=== PATIENT | female | born 2000 | race Caucasian/White ===

== ENCOUNTER → 2019-03-29 18:44 | Outpatient (BNVA) | payer SELFPAY | PROVIDERS: Visit Provider Family Medicine | DX: J10.1 Influenza due to other identified influenza virus with other respiratory manifestations (principal); R50.9 Fever, unspecified | CPT/HCPCS: 87804 ==

== ENCOUNTER 2019-04-15 09:20 | Outpatient (CLI) | payer OTHER, SELFPAY ==
--- NOTE | 2019-04-15 | XR_ITS ---
WS: [id number] LUMBAR SPINE: 3 VIEWS TECHNIQUE: AP, lateral and L5-S1 spot. HISTORY: LOW BACK PAIN COMPARISON: None available. Lumbar vertebra are normally aligned. No loss of disc space or vertebral body height. SI joints are symmetric bilaterally. No soft tissue abnormalities. XR/XR lumbar spine 2-3V* [id number] IMPRESSION: Normal lumbar spine.
== END 2019-04-15 09:21 | disposition home or self-care (01) ==
LOC: RADOUTREAD 11:30
PROVIDERS: Visit Provider Nurse Practitioner
DX: Z76.89 Persons encountering health services in other specified circumstances (principal)

== ENCOUNTER → 2019-08-20 11:29 | Outpatient (BNVA) | payer SELFPAY | PROVIDERS: Visit Provider Nurse Practitioner | DX: S96.911A Strain of unspecified muscle and tendon at ankle and foot level, right foot, initial encounter (principal); X58.XXXA Exposure to other specified factors, initial encounter | CPT/HCPCS: 73630 ==

== ENCOUNTER 2019-09-10 14:10 | Emergency (ER) | payer SELFPAY ==
[2019-09-10 14:17] VITALS: BP 137/81; PULSE 84; RESP 16; TEMP 36.7; O2SAT 97; BMI 38.2
--- NOTE | 2019-09-10 15:46 | ED_ITS ---
HPI - Abdominal Pain General: Chief Complaint: Abdominal Pain Stated Complaint: abd pain Time Seen by Provider: 09/10/19 15:40 Source: patient History of Present Illness: HPI narrative: 19-year-old female complains of lower abdominal pain slightly to the right of midline that started a couple of hours ago. She states that sharp 6 out of 10 and she thinks is related to not having a bowel movement for a week. She states she has been constipated in the past and taken MiraLAX and that has solved the issue she has been taking MiraLAX daily for the last week with no improvement of the constipation. Denies any dysuria. Only abdominal surgery is history of gallbladder approximately a year and a half ago. She denies any changes in her diet or being on any pain medications or new meds that would cause her constipation. Nothing makes the pain better or worse Associated Symptoms: Reports change in bowel habits; Denies chills, fever(s), nausea and vomiting Review of Systems General: Reports: 10 or more systems reviewed and unremarkable except in HPI and below Const: Denies: fever(s) or chills Eyes: Denies: change in vision ENMT: Denies: throat pain Card: Denies: chest pain Resp: Denies: dyspnea GI: Reports: abdominal pain and change in bowel habits; Denies: nausea or vomiting : Denies: difficulty voiding Musc: Denies: muscle weakness Skin/Breast: Denies: rash Neuro: Denies: headache(s) Psych: Denies: hopelessness or suicidal ideation Endo: Denies: polyuria Jamal/Lymph: Denies: easy bruising or easy bleeding All/Imm: Denies: urticaria PFS ED PFSH: Social History Smoking and tobacco status: never smoked Alcohol intake: never Physical Exam Const: COMMON NORMALS: no acute distress, patient oriented x3, alert and well nourished HENMT: COMMON NORMALS: normocephalic and Normal external nose present HEAD & SCALP: normocephalic NOSE: Normal external nose present MOUTH: no trismus Eye: COMMON NORMALS: EOMs intact bilaterally and conjunctivae normal CONJUNCTIVA: Yes conjunctivae normal Neck/C-Spine: COMMON NORMALS: full ROM, no lymphadenopathy and supple CERVICAL SPINE: Yes cervical ROM normal Lymph: LYMPHATIC: no lymphadenopathy noted Resp: COMMON NORMALS: normal respiratory effort, No retractions, No use of accessory muscles and clear to auscultation bilaterally EFFORT & INSPECTION: Yes able to speak in complete sentences AUSCULTATION: clear to auscultation bilaterally Cardio: COMMON NORMALS: regular rate and regular rhythm RATE: regular rate RHYTHM: regular rhythm GI: COMMON NORMALS: Normal to inspection, nondistended, normoactive bowel sounds present, Soft to palpation, non-tender and no masses INSPECTION: Yes normal to inspection AUSCULTATION: Yes normoactive bowel sounds PALPATION: Yes Soft to palpation, No Guarding due to palpation present (GI) and No Rigid due to palpation Back/Pelvis: OTHER: Normal range of motion Extremity: GENERAL: Yes normal exam except as noted Neuro: COMMON NORMALS: patient oriented x3 and CN's II-XII intact bilaterally SENSORIUM/ORIENTATION: Yes alert SPEECH: speech normal Psych: COMMON NORMALS: mental status grossly normal Skin: COMMON NORMALS: no rashes or lesions noted GENERAL SKIN EXAM: no rashes or lesions noted Course Vital Signs: Vital signs: Vital Signs Temperature 98.0 F 09/10/19 14:17 Pulse Rate 89 09/10/19 17:30 Respiratory Rate 16 09/10/19 16:27 Blood Pressure 137/93 09/10/19 17:30 Pulse Oximetry 99 09/10/19 17:30 MDM - Abdominal Pain MDM Narrative: Medical decision making narrative: Labs within normal limits. Normal bowel sounds soft does not have a surgical abdomen. Chief complaint was no bowel movement for a week despite using MiraLAX. Will send home with mag citrate has been is here now explained this to both of them and then after this resolves she needs to increase her water intake as well. I also explained that giving her pain medicine will not help it will actually prolong her course since her pain is coming from retained stool and trapped gas in her bowel. Lab Data: Attestation: I reviewed the patient's lab results. Labs: Lab Results 09/10/19 09/10/19 09/10/19 Range/Units 15:55 15:55 15:55 WBC 10.6 (4.5-13.0) 10^3/ uL RBC 4.92 (4.1-5.3) 10^6/u L Hgb 13.2 (11.5-15.3) g/dL Hct 42.8 (37.0-47.0) % MCV 87.0 (81-99) fL MCH 26.8 L (28.0-34.0) pg MCHC 30.8 (30.0-36.0) g/dL RDW 13.7 (12.1-15.1) % Plt Count 399 (130-400) 10^3/c mm MPV 10.2 (7.4-10.4) fL Neut % (Auto) 67.8 % Lymph % (Auto) 21.9 % [place] % (Auto) 7.0 % Eos % (Auto) 2.3 % Baso % (Auto) 0.8 % Neut # (Auto) 7.22 (1.8-8.0) 10^3/u L Lymph # (Auto) 2.3 (1.5-6.5) 10^3/u L [place] # (Auto) 0.8 (0.2-0.9) 10^3/u L Eos # (Auto) 0.2 (0.0-0.8) 10^3/u L Baso # (Auto) 0.1 (0.0-0.1) 10^3/u L Nucleated RBC % (a uto) 0 % Nucleated RBCs # 0.0 /100WBC Sodium 142 (136-145) mmol/L Potassium 5.2 H (3.5-5.1) mmol/L Chloride 105 (98-107) mmol/L Carbon Dioxide 24 (22-29) mmol/L Anion Gap 18.2 (5-19) BUN 15 (6-20) mg/dL Creatinine 0.7 (0.5-0.9) mg/dL GFR Calculation 106.7 (90-130) mL/min Glucose 99 (65-115) mg/dL Calculated Osmolal ity 290 (285-295) mOsm/k g Calcium 9.8 (8.5-10.5) mg/dL Total Bilirubin 0.2 (0.15-1.2) mg/dL AST 13 (0-32) U/L ALT 11 (0-33) U/L Alkaline Phosphata se 105 (35-105) IU/L Total Protein 8.2 (6.6-8.7) g/dL Albumin 4.7 (3.5-5.2) g/dL Globulin 3.5 (1.3-4.6) g/dL HCG, Qual Negative (Negative) Urine Color (Yellow) Urine Appearance (CLEAR) Urine pH (5-7) Ur Specific Gravit y (1.005-1.030) Urine Protein (Negative) Urine Glucose (UA) (Normal) Urine Ketones (Negative) Urine Blood (Negative) Urine Nitrate (Negative) Urine Bilirubin (NEGATIVE) Urine Urobilinogen (Negative) mg/dL Ur Leukocyte [place] (Negative) 09/10/19 Range/Units 16:09 WBC (4.5-13.0) 10^3/ uL RBC (4.1-5.3) 10^6/u L Hgb (11.5-15.3) g/dL Hct (37.0-47.0) % MCV (81-99) fL MCH (28.0-34.0) pg MCHC (30.0-36.0) g/dL RDW (12.1-15.1) % Plt Count (130-400) 10^3/c mm MPV (7.4-10.4) fL Neut % (Auto) % Lymph % (Auto) % [place] % (Auto) % Eos % (Auto) % Baso % (Auto) % Neut # (Auto) (1.8-8.0) 10^3/u L Lymph # (Auto) (1.5-6.5) 10^3/u L [place] # (Auto) (0.2-0.9) 10^3/u L Eos # (Auto) (0.0-0.8) 10^3/u L Baso # (Auto) (0.0-0.1) 10^3/u L Nucleated RBC % (a uto) % Nucleated RBCs # /100WBC Sodium (136-145) mmol/L Potassium (3.5-5.1) mmol/L Chloride (98-107) mmol/L Carbon Dioxide (22-29) mmol/L Anion Gap (5-19) BUN (6-20) mg/dL Creatinine (0.5-0.9) mg/dL GFR Calculation (90-130) mL/min Glucose (65-115) mg/dL Calculated Osmolal ity (285-295) mOsm/k g Calcium (8.5-10.5) mg/dL Total Bilirubin (0.15-1.2) mg/dL AST (0-32) U/L ALT (0-33) U/L Alkaline Phosphata se (35-105) IU/L Total Protein (6.6-8.7) g/dL Albumin (3.5-5.2) g/dL Globulin (1.3-4.6) g/dL HCG, Qual (Negative) Urine Color Yellow (Yellow) Urine Appearance Clear (CLEAR) Urine pH 6.5 (5-7) Ur Specific Gravit y 1.020 (1.005-1.030) Urine Protein Neg (Negative) Urine Glucose (UA) Norm (Normal) Urine Ketones Negative (Negative) Urine Blood Neg (Negative) Urine Nitrate Negative (Negative) Urine Bilirubin Neg (NEGATIVE) Urine Urobilinogen Neg (Negative) mg/dL Ur Leukocyte [place] Negative (Negative) Imaging Data ^: KUB: My impression: moderate retained stool Radiologist's impression: [address] [place] [address] XRay Report Signed Patient: Lolly Fallon #: [id number] : 2000Acct#:[id number] Age/Sex: M Date: 09/10/19 Loc: ERRoom/Bed: Attending Dr: Ordering Provider/Ordering MD: Bebe Hollingsworth MD Date of Service: 09/10/19 Procedure(s): XR KUB portable [id number] Accession Number(s): [id number] Report Number: [id number] PROCEDURE INFORMATION: Exam: XR Abdomen, 1 View Exam date and time: 09/10/2019 4:00 PM Age: 19 years old Clinical indication: Constipation; Abdominal pain; Generalized; Additional info: Abd pain, constipation TECHNIQUE: Imaging protocol: XR of the abdomen. Views: Frontal supine view of the abdomen. 1 View. COMPARISON: CT abdomen pelvis w con* [id number] 11/24/2018 1:11 PM FINDINGS: Gastrointestinal tract: Normal. No bowel dilation. Bones/joints: Unremarkable. XR/XR KUB portable [id number] IMPRESSION: No acute findings. Dictated By:Devonte Louis Signed By:Louis,NormanSigned Date/Time:09/10/191627 DD/ 26 Discharge Plan Discharge Patient Disposition: Home, Self-Care Clinical Impression: Abdominal pain Qualifiers: Abdominal location: lower abdomen, unspecified Qualified Code(s): R10.30 - Lower abdominal pain, unspecified Constipation Qualifiers: Constipation type: unspecified constipation type Qualified Code(s): K59.00 - Constipation, unspecified Condition: Stable Prescriptions: No Action No Known Home Medications RF: 0 Patient Instructions: Constipation (ED), Abdominal Pain (ED) Activity Restrictions/Additional Instructions: Drink entire bottle of magnesium citrate when you get home. After this episode resolves be sure to increase your water intake as well as your fiber intake and no you are using the MiraLAX but it will be important to eat fiber which you can get from vegetables and or an [id number] powdered product but you must increase the water intake with fiber products as well. Discharge Date/Time: 09/10/19 18:08 Coding Level of Care Code ED Customer Service Coordinator for Zuleyma Fwd Exam Comprehensive
--- NOTE | 2019-09-10 15:59 | XRR_ITS ---
PROCEDURE INFORMATION: Exam: XR Abdomen, 1 View Exam date and time: 09/10/2019 4:00 PM Age: 19 years old Clinical indication: Constipation; Abdominal pain; Generalized; Additional info: Abd pain, constipation TECHNIQUE: Imaging protocol: XR of the abdomen. Views: Frontal supine view of the abdomen. 1 View. COMPARISON: CT abdomen pelvis w con* [id number] 11/24/2018 1:11 PM FINDINGS: Gastrointestinal tract: Normal. No bowel dilation. Bones/joints: Unremarkable. XR/XR KUB portable [id number] IMPRESSION: No acute findings.
[2019-09-10 16:01] LABS: Basophils # 0.1 10^3/uL (0.0-0.1); Basophils % 0.8 %; Eosinophils # 0.2 10^3/uL (0.0-0.8); Eosinophils % 2.3 %; Hematocrit 42.8 % (37.0-47.0); Hemoglobin 13.2 g/dL (11.5-15.3); Lymphocytes # 2.3 10^3/uL (1.5-6.5); Lymphocytes % 21.9 %; Mean Corpuscular HGB Conc 30.8 g/dL (30.0-36.0); Mean Corpuscular Hemoglobin 26.8 pg (28.0-34.0); Mean Platelet Volume 10.2 fL (7.4-10.4); Monocytes # 0.8 10^3/uL (0.2-0.9); Neutrophils # 7.22 10^3/uL (1.8-8.0); Neutrophils % 67.8 %; Nucleated Red Blood Cells % 0 %; Platelet Count 399 10^3/cmm (130-400); Red Blood Count 4.92 10^6/uL (4.1-5.3); Red Cell Distribution Width 13.7 % (12.1-15.1); White Blood Count 10.6 10^3/uL (4.5-13.0)
[2019-09-10 16:16] LABS: Add Urine Microscopic? NO
[2019-09-10 16:18] LABS: Alanine Aminotransferase 11 U/L (0-33); Albumin Level 4.7 g/dL (3.5-5.2); Alkaline Phosphatase 105 IU/L (35-105); Anion Gap 18.2 (5-19); Aspartate Amino Transferase 13 U/L (0-32); Blood Urea Nitrogen 15 mg/dL (6-20); Calcium 9.8 mg/dL (8.5-10.5); Carbon Dioxide 24 mmol/L (22-29); Chloride 105 mmol/L (98-107); Globulin 3.5 g/dL (1.3-4.6); Glomerular Filtration Rate 106.7 mL/min (90-130); Glucose 99 mg/dL (65-115); Osmolality Calculated 290 mOsm/kg (285-295); Potassium 5.2 mmol/L (3.5-5.1); Sodium 142 mmol/L (136-145); Total Bilirubin 0.2 mg/dL (0.15-1.2); Total Protein 8.2 g/dL (6.6-8.7)
[2019-09-10 16:27] VITALS: BP 127/56; PULSE 66; RESP 16; O2SAT 99
[2019-09-10 16:37] LABS: Bilirubin Urine Neg (NEGATIVE); Blood Urine Neg (Negative); Glucose Urine UA Norm (Normal); Ketones Urine Negative (Negative); Leukocyte Esterase Urine Negative (Negative); Nitrate Urine Negative (Negative); Protein Urine Neg (Negative); Urine Appearance Clear (CLEAR); Urine Color Yellow (Yellow); Urobilinogen Urine Neg (Negative); pH Urine 6.5 (5-7)
[2019-09-10 16:42] LABS: HCG, Serum Qual Negative (Negative)
[2019-09-10 16:46] VITALS: BP 144/68; PULSE 81; O2SAT 99
[2019-09-10 17:30] VITALS: BP 137/93; PULSE 89; O2SAT 99
[2019-09-10] MEDS: magnesium citrate Btl 296 mL PO (18:05)
== END 2019-09-10 18:08 | disposition home or self-care (01) ==
PROVIDERS: Physician Assistant; Emergency Provider Emergency Medicine
DX: K59.00 Constipation, unspecified (principal)
CPT/HCPCS: 12345; 36415; 74018; 80053; 81003; 84703; 85025; 99282; 99283

== ENCOUNTER → 2019-09-21 18:28 | Outpatient (BNVA) | payer SELFPAY | PROVIDERS: Visit Provider Nurse Practitioner Family | DX: N39.0 Urinary tract infection, site not specified (principal); R10.31 Right lower quadrant pain; Z71.89 Other specified counseling | CPT/HCPCS: 81000; 81025 ==

== ENCOUNTER 2020-02-19 18:51 | Emergency (ER) | payer MEDICAID, SELFPAY ==
[2020-02-19 19:11] VITALS: BP 127/82; PULSE 88; RESP 18; TEMP 36.5; O2SAT 97; BMI 38.7
--- NOTE | 2020-02-19 20:59 | ED_ITS ---
HPI - Back Pain/Injury General: Chief Complaint: Back Pain/Injury Stated Complaint: 16wks preg. cramping Time Seen by Provider: 02/19/20 19:06 History of Present Illness: HPI Narrative: Patient complains about pain right side back rating down the right hip with movement sitting up. Denies any known injury but has had problems with her back through other pregnancies does have chronic back pain at times. MD elicited complaint: back pain Pertinent past history: prior back pain Onset (ago): hour(s) Timing: constant Severity: mild Similar Symptoms Previously: Yes Quality: aching Location: lumbar spine and right flank Radiation: buttocks and right upper leg Exacerbating factors: movement, sitting upright and walking Relieving factors: supine Associated symptoms: Reports no associated symptoms; Deny abdominal pain, chills, fever(s), nausea or vomiting Review of Systems Narrative: Denies any vaginal discharge cramping bleeding or difficulty with urination. Const: Denies: fever(s), chills or body aches Eyes: Denies: change in vision or blurry vision ENMT: Denies: throat pain or nasal congestion Card: Denies: chest pain or dyspnea on exertion Resp: Denies: dyspnea, productive cough or non-productive cough GI: Denies: abdominal pain, nausea or vomiting Musc: Reports: back pain; Denies: extremity pain Skin/Breast: Denies: rash Neuro: Denies: headache(s) Psych: Denies: anxiety or depression Jamal/Lymph: Denies: easy bruising PFS ED PFSH: Medical History (Updated 09/21/19 @ 18:30 by NESTOR Mueller) Right lower quadrant pain Urinary tract infection Social History Smoking and tobacco status: never smoked Alcohol intake: never Female Reproductive History: Date of last menstrual period: 11/03/19 Physical Exam Const: COMMON NORMALS: no acute distress, average body habitus and patient oriented x3 HENMT: COMMON NORMALS: normocephalic HEAD & SCALP: normal to inspection and normocephalic FACE & SINUS: normal facial exam Eye: COMMON NORMALS: conjunctivae normal GENERAL EYE: appearance normal, both eyes and all related structures CONJUNCTIVA: Yes conjunctivae normal Neck/C-Spine: COMMON NORMALS: no JVD Chest: COMMONS NORMALS: normal inspection of the chest Resp: COMMON NORMALS: normal respiratory effort and clear to auscultation bilaterally AUSCULTATION: clear to auscultation bilaterally Cardio: COMMON NORMALS: no JVD, regular rate and regular rhythm RATE: regular rate RHYTHM: regular rhythm GI: COMMON NORMALS: Normal to inspection, nondistended, normoactive bowel sounds present Back/Pelvis: LUMBAR SPINE/LOWER BACK: Yes straight leg raise positive right and Yes straight leg raise positive left Extremity: COMMON NORMALS: normal to inspection and full ROM Neuro: COMMON NORMALS: patient oriented x3 Course Vital Signs: Vital signs: Vital Signs Temperature 97.7 F 02/19/20 19:11 Pulse Rate 88 02/19/20 19:11 Respiratory Rate 18 02/19/20 19:11 Blood Pressure 127/82 02/19/20 19:11 Pulse Oximetry 97 02/19/20 19:11 MDM - Back Pain/Injury Lab Data: Labs: Lab Results 02/19/20 Range/Units 19:15 Amorphous Sediment Not Reportable Discharge Plan Discharge Prescriptions: No Action sulfamethoxazole-trimethoprim [Bactrim DS] 800-160 mg tablet 1 tab PO BID 5 Days Qty: 10 RF: 0 Coding Level of Care Code ED Tactical [employer] Control Party Manager for 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
[2020-02-19 21:22] LABS: Blood Urine Neg (Negative); Glucose Urine UA Norm (Normal); Ketones Urine 2+ (Negative); Protein Urine Neg (Negative); Specific Gravity, Urine 1.025 (1.005-1.030); Urine Appearance Hazy (CLEAR); Urine Color Yellow (Yellow); pH Urine 5 (5-7)
[2020-02-19 21:23] LABS: Bilirubin Urine Neg (Negative); Leukocyte Esterase Urine 1+ (Negative); Nitrate Urine Positive (Negative); Urobilinogen Urine 1 mg/dL (Negative)
[2020-02-19 21:25] LABS: Add Urine Culture? No; Bacteria Urine 4+ /hpf; RBC Urine 0-4 /hpf (0-2); Squamous Epithelial Cell Urine 40-55 /hpf (0-5); WBC Urine 15-25 /hpf (0-5)
[2020-02-19] MEDS: predniSONE 10 mg Tablet PO (21:37)
[2020-02-19] MEDS: nitrofurantoin SR (BID) 100 mg Capsule PO (21:37)
[2020-02-19 21:43] VITALS: BP 122/77; PULSE 80; RESP 18; O2SAT 100
== END 2020-02-19 21:44 | disposition home or self-care (01) ==
PROVIDERS: Emergency Medicine; Emergency Provider Nurse Practitioner Family
DX: O26.892 Other specified pregnancy related conditions, second trimester (principal); M54.9 Dorsalgia, unspecified; Z3A.16 16 weeks gestation of pregnancy
CPT/HCPCS: 12345; 81001; 99281; 99283; J7512

== ENCOUNTER 2020-03-09 10:55 | Emergency (ER) | payer MEDICAID, SELFPAY ==
[2020-03-09 11:02] VITALS: BP 145/68; PULSE 98; RESP 16; TEMP 36.6; O2SAT 99; BMI 37.2
[2020-03-09 11:06] VITALS: BP 145/68; PULSE 89; RESP 18; O2SAT 95
--- NOTE | 2020-03-09 11:06 | XRR_ITS ---
PROCEDURE INFORMATION: Exam: XR Chest, 1 View Exam date and time: 03/09/2020 11:12 AM Age: 19 years old Clinical indication: Dyspnea and shortness of breath; Patient HX: PT unable to take jewelry out of chest TECHNIQUE: Imaging protocol: XR of the chest Views: 1 view. COMPARISON: CR Chest 1 [place] [id number] 07/16/2018 4:56 AM FINDINGS: Lungs: Unremarkable. No consolidation. Pleural space: Unremarkable. No pleural effusion. No pneumothorax. Heart/Mediastinum: Unremarkable. No cardiomegaly. Bones/joints: Unremarkable. XR/XR chest 1V portable [id number] IMPRESSION: No acute findings.
--- NOTE | 2020-03-09 11:11 | ECG_ITS ---
[facility] Test Date: 2020-03-09 Pat Name: Lolly Fallon Department: Room: Gender: Female Escapement Maker: : 2000 Requested By: Gregor Salomon Order Number: [id number] Garth MD: Iman English M.D. Measurements Intervals [place] Rate: 88 P: 41 IN: 151 QRS: 58 QRSD: 86 T: 20 QT: 346 QTc: 420 Interpretive Statements SINUS RHYTHM WITH SINUS ARRHYTHMIA Compared to ECG 10/03/2017 18:02:36 Sinus tachycardia no longer present T-wave abnormality no longer present Electronically Signed On 03-09-2020 20:05:57 FOREST TECHNICIAN by Iman English M.D. [email or web address]
--- NOTE | 2020-03-09 11:12 | ED_ITS ---
HPI - SOB/Dyspnea General: Chief Complaint: Shortness of Breath/Dyspnea Stated Complaint: , DIZZINESS, SOB Time Seen by Provider: 03/09/20 10:59 History of Present Illness: HPI Narrative: The patient is a 21-year-old G3, P2 at 18 weeks and 2 days who comes to the ER complaining of dizziness and shortness of breath. She says the shortness of breath started this morning but she has been dizzy since the day she found out she was and had a sim ilar dizziness symptoms during her last 2 pregnancies. She says she has not been eating and drinking well during this and has to force herself to eat like she did this morning. She was worried about the shortness of breath so she came to the ER. Her blood pressure is elevated at 145/68 in the ER on arrival and she says she has had elevated pressures with all pregnancies. She has not taken blood pressure medicine in the past and she says her initial OB appointment somewhere in [place] told her to take a baby aspirin daily for her blood pressure. She says that OBs here in [place] will not see her until she is 20 weeks. Denies abdominal pain cramping or vaginal discharge MD elicited complaint: shortness of breath Severity: mild Relieving factors: nothing Associated symptoms: Deny abdominal pain, chest pain, cough, dizziness, ext remity pain, myalgias, nausea, polyuria or vomiting Treatment prior to arrival: none Review of Systems General: Reports: 10 or more systems reviewed and unremarkable except in HPI and below Const: Denies: fatigue Eyes: Denies: change in vision, blurry vision or eye redness ENMT: Denies: throat pain, swelling of lips/tongue, ear or mastoid pain or nasal congestion Card: Denies: chest pain Resp: Reports: dyspnea; Denies: productive cough or non-productive cough GI: Denies: abdominal pain, nausea or vomiting : Denies: flank pain, difficulty voiding, urinary frequency or urinary urgency Musc: Denies: neck pain, back pain, extremity pain, joint pain, joint redness, limited range of motion or muscle weakness Skin/Breast: Denies: rash, pruritus, erythema, skin pain or skin tenderness Neuro: Denies: headache(s), numbness in extremities, weakness in extremities, sensory changes, difficulty walking, dizziness, confusion or Slurred speech present Psych: Denies: anxiety or depression Endo: Denies: polyuria All/Imm: Denies: urticaria, throat swelling or tongue swelling PFSH ED PFSH: Medical History (Updated 03/09/20 @ 13:27 by Gregor Salomon MD) Right lower quadrant pain Urinary tract infection Social History Smoking and tobacco status: never smoked Alcohol intake: never Female Reproductive History: Date of last menstrual period: 11/03/19 Physical Exam 2 Const: COMMON NORMALS: no acute distress, average body habitus, patient oriented x3, no limitations, healthy appearing, alert and well nourished GENERAL APPEARANCE: cooperative, comfortable, well kempt and well developed ORIENTATION/CONSCIOUSNESS: Yes awake, Yes oriented to person, Yes oriented to place and Yes oriented to time HENMT: COMMON NORMALS: normocephalic, external ears normal and Normal external nose present HEAD & SCALP: normal to inspection and normocephalic NOSE: Normal external nose present EXTERNAL EAR: Yes external ears normal MOUTH: Normal oral and palatal mucosa present THROAT: posterior oropharynx normal Eye: COMMON NORMALS: Equal, round and reactive pupils present and EOMs intact bilaterally GENERAL EYE: appearance normal, both eyes and all related structures PUPIL: Yes Equal, round and reactive pupils present Neck/C-Spine: COMMON NORMALS: full ROM, no lymphadenopathy, no meningeal signs and no JVD GENERAL: Yes normal visual inspection Lymph: LYMPHATIC: no lymphadenopathy noted Chest: COMMONS NORMALS: normal inspection of the chest and normal palpation of entire chest wall Resp: COMMON NORMALS: normal respiratory effort, No retractions, No use of accessory muscles, clear to auscultation bilaterally and percussion normal EFFORT & INSPECTION: Yes able to speak in complete sentences AUSCULTATION: clear to auscultation bilaterally PERCUSSION: percussion normal Cardio: COMMON NORMALS: no JVD, regular rate, regular rhythm, S1 normal heart sound present, S2 normal heart sound present and Peripheral pulses 2+ throughout RATE: regular rate RHYTHM: regular rhythm HEART SOUNDS: S1 normal heart sound present and S2 normal heart sound present PERIPHERAL PULSES: Peripheral pulses 2+ throughout GI: COMMON NORMALS: Normal to inspection, nondistended, normoactive bowel sounds present, Soft to palpation, non-tender and no masses INSPECTION: Yes normal to inspection PALPATION: Yes Soft to palpation OTHER: Fundal height is 2 cm below the umbilicus consistent with her gestational age of 18 weeks : COMMON NORMALS: Yes no CVA tenderness BLADDER/KIDNEY EXAM: Yes no CVA tenderness Back/Pelvis: COMMON NORMALS: no CVA tenderness, thoracic and lumbar spine normal to inspection, no thoracic nor lumbar tenderness and thoraco-lumbar ROM normal Extremity: COMMON NORMALS: normal to inspection, full ROM, capillary refill normal, no joint enlargement and no pedal edema GENERAL: Yes normal exam e xcept as noted Neuro: COMMON NORMALS: patient oriented x3, CN's II-XII intact bilaterally, moves all extremities, no focal motor deficits, no sensory deficits noted and gait normal SENSORIUM/ORIENTATION: Yes alert, Yes oriented to person, Yes oriented to place and Yes oriented to time MENINGEAL SIGNS: Yes no meningeal signs Psych: COMMON NORMALS: mental status grossly normal, Normal thought process present, cooperative, normal affect and speech normal APPEARANCE: Yes well kempt ATTITUDE: Yes calm SPEECH: Yes normal speech THOUGHT PROCESS: Normal thought process present Skin: COMMON NORMALS: no rashes or lesions noted GENERAL SKIN EXAM: no rashes or lesions noted Course Vital Signs: Vital signs: Vital Signs Temperature 97.8 F 03/09/20 11:02 Pulse Rate 84 03/09/20 13:00 Respiratory Rate 18 03/09/20 13:00 Blood Pressure 119/80 03/09/20 13:00 Pulse Oximetry 100 03/09/20 13:00 MDM - SOB/Dyspnea MDM Narrative: Medical decision making narrative: The patient came in with dyspnea and dizziness likely related to . I discussed with Dr. Ruelas who will see her tomorrow at 2:30 [address] at [address] The patient is aware and knows to check in at that time. Return to the ER with worsening symptoms otherwise follow-up with OB tomorrow. Lab Data: Labs: Lab Results 03/09/20 03/09/20 03/09/20 Range/Units 11:26 11:26 11:37 WBC 9.2 (4.5-13.0) 10^3/ uL RBC 4.15 (4.1-5.3) 10^6/u L Hgb 11.8 (11.5-15.3) g/dL Hct 35.3 L (37.0-47.0) % MCV 85.1 (81-99) fL MCH 28.4 (28.0-34.0) pg MCHC 33.4 (30.0-36.0) g/dL RDW 14.8 (12.1-15.1) % Plt Count 316 (130-400) 10^3/c mm MPV 10.2 (7.4-10.4) fL Neut % (Auto) 78.3 % Lymph % (Auto) 13.6 % Stearns % (Auto) 5.8 % Eos % (Auto) 1.7 % Baso % (Auto) 0.3 % Neut # (Auto) 7.21 (1.8-8.0) 10^3/u L Lymph # (Auto) 1.3 L (1.5-6.5) 10^3/u L Stearns # (Auto) 0.5 (0.2-0.9) 10^3/u L Eos # (Auto) 0.2 (0.0-0.8) 10^3/u L Baso # (Auto) 0.0 (0.0-0.1) 10^3/u L Nucleated RBC % (a uto) 0 % Nucleated RBCs # 0.0 /100WBC Sodium 135 L (136-145) mmol/L Potassium 3.8 (3.5-5.1) mmol/L Chloride 101 (98-107) mmol/L Carbon Dioxide 23 (22-29) mmol/L Anion Gap 14.8 (5-19) BUN 6 (6-20) mg/dL Creatinine 0.4 L (0.5-0.9) mg/dL GFR Calculation 203.5 H (90-130) mL/min Glucose 92 (65-115) mg/dL Calculated Osmolal ity 277 L (285-295) mOsm/k g Calcium 9.4 (8.5-10.5) mg/dL Total Bilirubin 0.3 (0.15-1.2) mg/dL AST 12 (0-32) U/L ALT 10 (0-33) U/L Alkaline Phosphata se 108 H (35-105) IU/L Total Protein 7.1 (6.6-8.7) g/dL Albumin 3.7 (3.5-5.2) g/dL Globulin 3.4 (1.3-4.6) g/dL Urine Color Yellow (Yellow) Urine Appearance Sl hazy (CLEAR) Urine pH 5 (5-7) Ur Specific Gravit y 1.030 (1.005-1.030) Urine Protein Neg (Negative) Urine Glucose (UA) Norm (Normal) Urine Ketones 1+ H (Negative) Urine Blood Neg (Negative) Urine Nitrate Positive H (Negative) Urine Bilirubin 1+ H (Negative) Urine Urobilinogen 4 H (Negative) mg/dL Ur Leukocyte [place] Trace H (Negative) Urine RBC 0-4 H (0-2) /hpf Urine WBC 10-15 H (0-5) /hpf Ur Squamous Epith Cells 10-15 H (0-5) /hpf Amorphous Sediment Not Reportable Urine Bacteria 4+ H (NONE) /hpf Discharge Plan Discharge Patient Disposition: Home Clinical Impression: Dyspnea, , Urinary tract infection, Elevated blood pressure affecting in first trimester, antepartum Condition: Stable Prescriptions: New Macrobid 100 mg capsule 100 mg PO BID 5 Days Qty: 10 RF: 0 No Action Aspir-81 81 mg Tablet,Delayed Release (Dr/Ec) 81 mg PO DAILY@08 RF: 0 Gummies 400 mcg-35 mg- 25 mg-5 mg Tablet,Chewable 1 tab PO BID RF: 0 Discharge Orders: Discharge ED (Routine); Ordered 03/09/20 Ordered By: Grgeor Salomon Discharge Diet: Advance as tolerated Discharge Activity: Resume usual activity Patient Instructions: Pre-eclampsia and Eclampsia (ED) Activity Restrictions/Additional Instructions: You came in with shortness of breath and dizziness because of which is unclear however likely related to your . The testing we have ran is normal except you do have a urinary tract infection and will be discharged with an antibiotic named Macrobid. I discussed you with Dr. Ruelas and she is available to see you tomorrow at 2:30 PM. [facility]. Address is [address] [place] [address]. she recommend you show up and check in at 2:30 PM tomorrow. You may return to the ER with worsening symptoms if needed at any time otherwise follow-up tomorrow with the OB. Coding Level of Care Code ED Molding Engineer for Chg Fwd Exam Comprehensive
[2020-03-09] MEDS: ondansetron 2 mg/ML SDV 2 mL 4 MG IVP (11:34)
[2020-03-09] MEDS: sodium chloride 0.9% 1,000 ML 999 ML IV (11:34)
[2020-03-09 11:36] VITALS: BP 145/68; PULSE 86; RESP 18; O2SAT 98
[2020-03-09 11:36] LABS: Basophils % 0.3 %; Eosinophils # 0.2 10^3/uL (0.0-0.8); Eosinophils % 1.7 %; Hematocrit 35.3 % (37.0-47.0); Hemoglobin 11.8 g/dL (11.5-15.3); Lymphocytes # 1.3 10^3/uL (1.5-6.5); Lymphocytes % 13.6 %; Mean Corpuscular HGB Conc 33.4 g/dL (30.0-36.0); Mean Corpuscular Hemoglobin 28.4 pg (28.0-34.0); Mean Corpuscular Volume 85.1 fL (81-99); Mean Platelet Volume 10.2 fL (7.4-10.4); Monocytes # 0.5 10^3/uL (0.2-0.9); Monocytes % 5.8 %; Neutrophils # 7.21 10^3/uL (1.8-8.0); Neutrophils % 78.3 %; Nucleated Red Blood Cells % 0 %; Platelet Count 316 10^3/cmm (130-400); Red Blood Count 4.15 10^6/uL (4.1-5.3); Red Cell Distribution Width 14.8 % (12.1-15.1); White Blood Count 9.2 10^3/uL (4.5-13.0)
[2020-03-09 11:52] LABS: Glucose Urine UA Norm (Normal); Protein Urine Neg (Negative); Urine Appearance SL Hazy (CLEAR); Urine Color Yellow (Yellow); pH Urine 5 (5-7)
[2020-03-09 11:53] LABS: Add Urine Culture? No; Add Urine Microscopic? YES; Bacteria Urine 4+ /hpf; Bilirubin Urine 1+ (Negative); Blood Urine Neg (Negative); Ketones Urine 1+ (Negative); Leukocyte Esterase Urine Trace (Negative); Nitrate Urine Positive (Negative); RBC Urine 0-4 /hpf (0-2); Urobilinogen Urine 4 mg/dL (Negative)
[2020-03-09 12:11] LABS: Alanine Aminotransferase 10 U/L (0-33); Albumin Level 3.7 g/dL (3.5-5.2); Alkaline Phosphatase 108 IU/L (35-105); Anion Gap 14.8 (5-19); Aspartate Amino Transferase 12 U/L (0-32); Blood Urea Nitrogen 6 mg/dL (6-20); Calcium 9.4 mg/dL (8.5-10.5); Carbon Dioxide 23 mmol/L (22-29); Chloride 101 mmol/L (98-107); Globulin 3.4 g/dL (1.3-4.6); Glomerular Filtration Rate 203.5 mL/min (90-130); Glucose 92 mg/dL (65-115); Osmolality Calculated 277 mOsm/kg (285-295); Potassium 3.8 mmol/L (3.5-5.1); Sodium 135 mmol/L (136-145); Total Bilirubin 0.3 mg/dL (0.15-1.2); Total Protein 7.1 g/dL (6.6-8.7)
[2020-03-09 12:15] VITALS: BP 128/88; PULSE 87; RESP 18; O2SAT 98
[2020-03-09 13:00] VITALS: BP 119/80; PULSE 84; RESP 18; O2SAT 100
[2020-03-09 14:10] VITALS: BP 129/75; PULSE 84; RESP 18; TEMP 37.1; O2SAT 100
== END 2020-03-09 14:11 | disposition home or self-care (01) ==
PROVIDERS: Emergency Provider Family Medicine
DX: O16.2 Unspecified maternal hypertension, second trimester (principal); O23.42 Unspecified infection of urinary tract in pregnancy, second trimester; O26.892 Other specified pregnancy related conditions, second trimester; R06.00 Dyspnea, unspecified; Z3A.18 18 weeks gestation of pregnancy; Z79.82 Long term (current) use of aspirin
CPT/HCPCS: 12345; 71045; 80053; 81001; 85025; 93005; 96361; 96374; 99283; J2405; J7030

== ENCOUNTER → 2020-03-11 15:29 | Outpatient (BNVA) | payer MEDICAID, SELFPAY | PROVIDERS: Visit Provider Obstetrics & Gynecology | DX: Z34.80 Encounter for supervision of other normal pregnancy, unspecified trimester (principal) | CPT/HCPCS: 80307; 84315; 87077; 87086; 87184 ==

== ENCOUNTER → 2020-03-26 08:45 | Outpatient (BNVA) | payer MEDICAID, SELFPAY | PROVIDERS: Visit Provider Obstetrics & Gynecology | DX: O26.892 Other specified pregnancy related conditions, second trimester (principal); R10.30 Lower abdominal pain, unspecified; Z3A.20 20 weeks gestation of pregnancy; O09.92 Supervision of high risk pregnancy, unspecified, second trimester | CPT/HCPCS: 86592; 86762; 86803; 86850; 86900; 87340; 87806 ==

== ENCOUNTER 2020-04-11 12:30 | Outpatient (CLI) | payer MEDICAID, SELFPAY ==
[2020-04-11] VITALS (9 sets, daily range): BP systolic 106–127; BP diastolic 57–66; PULSE 81–111; BMI 38.2
[2020-04-11] MEDS: ondansetron 2 mg/ML SDV 2 mL 4 MG IVP (13:12)
[2020-04-11] MEDS: dextrose 5%-sod chloride 0.9% 1,000 ML 999 ML IV (13:12)
== END 2020-04-11 14:30 | disposition home or self-care (01) ==
LOC: OPOB 12:32 → OBGYN 14:23
PROVIDERS: Visit Provider Obstetrics & Gynecology
DX: O26.899 Other specified pregnancy related conditions, unspecified trimester (principal); Z3A.00 Weeks of gestation of pregnancy not specified; R42 Dizziness and giddiness; R21 Rash and other nonspecific skin eruption
CPT/HCPCS: 96360; 96361; 96374; 99211; J2405

== ENCOUNTER → 2020-04-21 12:49 | Outpatient (BNVA) | payer MEDICAID, SELFPAY | PROVIDERS: Visit Provider Obstetrics & Gynecology | DX: Z34.90 Encounter for supervision of normal pregnancy, unspecified, unspecified trimester (principal) | CPT/HCPCS: 81000 ==

== ENCOUNTER 2020-04-30 09:33 | Outpatient (CLI) | payer MEDICAID, SELFPAY ==
[2020-04-30 09:44] VITALS: BP 127/67; PULSE 93; TEMP 36.6
[2020-04-30 10:42] VITALS: BMI 39.3
[2020-04-30 10:48] LABS: Bilirubin Urine Neg (Negative); Blood Urine Neg (Negative); Glucose Urine UA Norm (Normal); Ketones Urine Negative (Negative); Nitrate Urine Positive (Negative); Protein Urine Neg (Negative); Urine Appearance Cloudy (CLEAR); Urine Color Yellow (Yellow); Urobilinogen Urine 1 mg/dL (Negative); pH Urine 6.5 (5-7)
[2020-04-30 10:49] LABS: Leukocyte Esterase Urine Trace (Negative)
[2020-04-30 10:54] LABS: Add Urine Culture? No; Bacteria Urine 4+ /hpf; RBC Urine 0-4 /hpf (0-2); Squamous Epithelial Cell Urine 25-40 /hpf (0-5); WBC Urine 25-40 /hpf (0-5)
[2020-04-30] MEDS: cefTRIAXone 2,000 MG in sodium chloride 0.9% (plus) 50 ML 100 MG IV (11:55)
[2020-04-30] MEDS: sodium chloride 0.9% 1,000 ML 999 ML IV (11:55)
--- NOTE | 2020-04-30 13:15 | PC.NURSE ---
Discharge Instructions Unable to print discharge instructions at this time, verbal ones given pt verbalized understanding back.
== END 2020-04-30 13:17 | disposition home or self-care (01) ==
LOC: OPOB 09:35 → OBGYN 09:37
PROVIDERS: Visit Provider Obstetrics & Gynecology
DX: O36.8190 Decreased fetal movements, unspecified trimester, not applicable or unspecified (principal); Z3A.00 Weeks of gestation of pregnancy not specified
CPT/HCPCS: 51702; 81001; 87077; 87086; 87186; 96360; 99211; J0696; J7030

== ENCOUNTER → 2020-05-18 13:50 | Outpatient (BNVA) | payer MEDICAID, SELFPAY | PROVIDERS: Visit Provider Obstetrics & Gynecology | DX: O26.899 Other specified pregnancy related conditions, unspecified trimester (principal); Z67.91 Unspecified blood type, Rh negative; O09.92 Supervision of high risk pregnancy, unspecified, second trimester | CPT/HCPCS: 82950; 84315; 85027; 86850 ==

== ENCOUNTER → 2020-05-21 12:44 | Outpatient (BNVA) | payer MEDICAID, SELFPAY | PROVIDERS: Visit Provider Obstetrics & Gynecology | DX: O09.92 Supervision of high risk pregnancy, unspecified, second trimester (principal) | CPT/HCPCS: 82570; 84156; 87077; 87086; 87184 ==

== ENCOUNTER 2020-06-03 10:15 | Outpatient (CLI) | payer MEDICAID, SELFPAY ==
[2020-06-03 10:15] VITALS: TEMP 36.4
[2020-06-03 10:28] VITALS: BP 138/81; PULSE 113
[2020-06-03 10:58] VITALS: BP 127/76; PULSE 90
[2020-06-03 11:18] VITALS: BMI 39.6
[2020-06-03 11:35] VITALS: BP 127/76; PULSE 90; RESP 18; TEMP 36.2
== END 2020-06-03 11:30 | disposition home or self-care (01) ==
LOC: OPOB 10:17 → OBGYN 10:18
PROVIDERS: Visit Provider Obstetrics & Gynecology
DX: O26.899 Other specified pregnancy related conditions, unspecified trimester (principal); Z3A.00 Weeks of gestation of pregnancy not specified; R10.9 Unspecified abdominal pain; M54.9 Dorsalgia, unspecified
CPT/HCPCS: 99211

== ENCOUNTER 2020-06-17 17:41 | Emergency (ER) | payer MEDICAID, SELFPAY ==
[2020-06-17 18:36] VITALS: BP 125/83; PULSE 103; RESP 18; TEMP 36.8; O2SAT 98; BMI 42.5
--- NOTE | 2020-06-17 21:28 | XRR_ITS ---
PROCEDURE INFORMATION: Exam: XR Right Shoulder Exam date and time: 06/17/2020 9:33 PM Age: 20 years old Clinical indication: Pain; Shoulder; Right; Additional info: RT shoulder pain TECHNIQUE: Imaging protocol: XR Right shoulder. Views: 2 or more views. COMPARISON: No relevant prior studies available. FINDINGS: Bones/joints: Normal. Soft tissues: Normal. XR/XR shoulder RT min 2V* 71598 IMPRESSION: Negative for fracture or dislocation
[2020-06-17] MEDS: HYDROcodone-acetaminophen 5-325 mg Tablet 1 TAB PO (21:39)
--- NOTE | 2020-06-17 22:05 | ED_ITS ---
HPI - Extremity Problem General: Chief complaint: Extremity Problem,Nontraumatic Stated complaint: R SHOULDER PAIN Time Seen by Provider: 06/17/20 21:15 Source: patient Mode of arrival: ambulatory Limitations: no limitations History of Present Illness: HPI Narrative: 20-year-old female patient presents to the emergency department with 3 to 4-day onset of right shoulder/upper back pain. She denies trauma or injury. She reports pain is worse with movement. She reports right arm numbness and tingling that occurs with pain. She states the pain is described as feeling tight. She has tried Tylenol and heating pads without improvement. She is 32 weeks , denies abdominal pain or vaginal bleeding or contraction type discomfort. She reports saw Dr. Ahmadi yesterday but failed to mention right shoulder issue. She denies fever or chills. She reports good movement. She denies nausea vomiting or diarrhea. MD Complaint: extremity pain and joint pain Onset (ago): day(s) (3-4) Pain Consistency: intermittent Location: right and upper extremity Quality: aching and dull Radiation: distal Relieving factors: immobilization and rest Exacerbating factors: range of motion Associated symptoms: Reports no associated symptoms; Deny chest pain, fever(s) or rash Review of Systems General: Reports: 10 or more systems reviewed and unremarkable except in HPI and below Const: Denies: fever(s), chills or diaphoresis Eyes: Denies: blurry vision or eye redness ENMT: Denies: throat pain, dental pain or disequilibrium Card: Denies: chest pain, palpitations or irregular heart rhythm Resp: Denies: dyspnea, productive cough, non-productive cough or wheezing GI: Denies: abdominal pain, nausea or vomiting : Denies: difficulty voiding or dysuria Musc: Denies: back pain Skin/Breast: Denies: rash or pruritus Neuro: Denies: headache(s), weakness in extremities or behavioral changes Psych: Denies: anxiety, depression, sleeping more or change in appetite Jamal/Lymph: Denies: easy bruising PFSH ED PFSH: Medical History No pertinent past medical history Denies diabetes, asthma, hypertension, seizures, DVT/PE PMD: none Surgical History Status post cholecystectomy June 2018--laparoscopic procedure performed at [facility] Family History Sister Diabetes Father Hypertension Mother Hypertension Denies family history of Colon cancer Ovarian cancer Heart disease Hyperlipidemia Breast cancer Uterine cancer Thyroid condition Stroke Social History Smoking and tobacco status: never smoked Alcohol intake: never Female Reproductive History: Date of last menstrual period: 11/03/19 Physical Exam Const: COMMON NORMALS: no acute distress, patient oriented x3, healthy appearing, alert and well nourished GENERAL APPEARANCE: cooperative, comfortable and well hydrated; not anxious, not ill appearing and not frail appearing ORIENTA TION/CONSCIOUSNESS: Yes awake, Yes oriented to person, Yes oriented to place and Yes oriented to time HENMT: COMMON NORMALS: normocephalic, atraumatic, Normal external nose present and moist oral mucous membranes HEAD & SCALP: normal to inspection, normocephalic and atraumatic FACE & SINUS: normal facial exam and face symmetric NOSE: Normal external nose present MOUTH: Normal oral and palatal mucosa present and tongue normal Eye: COMMON NORMALS: Equal, round and reactive pupils present and EOMs intact bilaterally GENERAL EYE: appearance normal, both eyes and all related structures PUPIL: Yes Equal, round and reactive pupils present Neck/C-Spine: COMMON NORMALS: full ROM and no lymphadenopathy GENERAL: Yes normal visual inspection and Yes trachea midline CERVICAL SPINE: Yes cervical ROM normal, No pain with cervical ROM, No Cervical spine tenderness, No Paracervical muscle tenderness, No Paracervical spasm and No Trapezius muscle tenderness Lymph: LYMPHATIC: no lymphadenopathy noted Chest: COMMONS NORMALS: normal inspection of the chest and normal palpation of entire chest wall Resp: COMMON NORMALS: normal respiratory effort, No retractions, No use of accessory muscles and clear to auscultation bilaterally EFFORT & INSPECTION: Yes able to speak in complete sentences AUSCULTATION: clear to auscultation bilaterally Cardio: COMMON NORMALS: regular rate, regular rhythm, S1 normal heart sound present, S2 normal heart sound present and Peripheral pulses 2+ throughout RATE: regular rate RHYTHM: regular rhythm HEART SOUNDS: S1 normal heart sound present and S2 normal heart sound present PERIPHERAL PULSES: Peripheral pulses 2+ throughout GI: COMMON NORMALS: Normal to inspection, nondistended, normoactive bowel sounds present, Soft to palpation and non-tender INSPECTION: Yes normal to inspection, No abdominal wall ecchymosis, No Abdominal wall edema, No abdominal distension and Yes gravid abdomen (FHT 145-151 strong movement present) PALPATION: Yes Soft to palpation : COMMON NORMALS: Yes no CVA tenderness BLADDER/KIDNEY EXAM: Yes no CVA tenderness Back/Pelvis: COMMON NORMALS: no CVA tenderness and thoracic and lumbar spine normal to inspection THORACIC SPINE/UPPER BACK: Yes normal to inspection, No pain with ROM, Yes thoracic spinal tenderness T-spine tenderness location: T2, T3, T4 and T5, Yes paraspinal muscle tenderness Thoracic paraspinal muscle tenderness: right and Yes paraspinal muscle spasm Thoracic paraspinal muscle spasm: right LUMBAR SPINE/LOWER BACK: Yes normal to inspection and No pain with ROM Extremity: COMMON NORMALS: normal to inspection, full ROM, capillary refill normal, no clubbing, cyanosis or edema and no pedal edema GENERAL: Yes normal exam except as noted RIGHT UPPER EXTREMITY: Yes shoulder joint Right shoulder: Yes Right shoulder joint inspection exam (normal) and Yes Right shoulder joint ROM exam (full but with pain REPRODUCED to the rt deltoid/post scapula) OTHER: Negative anterior A/C tenderness. Patient is tender across the superior posterior and lateral deltoid/scapula -able to reproduce tenderness medially to the thoracic spine - point tenderness present Neuro: COMMON NORMALS: patient oriented x3 and no focal motor deficits SENSORIUM/ORIENTATION: Yes alert, Yes oriented to person, Yes oriented to place and Yes oriented to time SPEECH: speech normal and Other neuro speech findings (Strength 5/5 BUE and BLE) GAIT: Yes Normal gait present MOTOR EXAM: 5/5 motor strength present throughout and Other motor observations present (Patient able to differentiate sharp and soft to all 4 extremities) Psych: COMMON NORMALS: mental status grossly normal, Normal thought process present and cooperative ACTIVITY/MOTOR BEHAVIOR: Yes appropriate eye contact THOUGHT PROCESS: Normal thought process present Skin: COMMON NORMALS: no rashes or lesions noted and turgor normal GENERAL SKIN EXAM: no rashes or lesions noted and turgor normal Course Vital Signs: Vital signs: Vital Signs Temperature 98.2 F 06/17/20 18:36 Pulse Rate 103 H 06/17/20 18:36 Respiratory Rate 18 06/17/20 18:36 Blood Pressure 125/83 06/17/20 18:36 Pulse Oximetry 98 06/17/20 18:36 MDM - Extremity (Nontraumatic) Imaging Data^: Xray Ortho: Radiologist's impression: [facility] [address] [place] [address] XRay Report Signed Patient: Lolly Fallon Unit #: [id number] : 2000 Age/Sex: 20 / F ADM Date: 06/17/20 Loc: ER Room/Bed: Attending Dr: Ordering Provider/Ordering MD: Henrietta Skaggs Date of Service: 06/17/20 Procedure(s): XR shoulder RT min 2V* 73510 Accession Number(s): [id number] Report Number: [id number] PROCEDURE INFORMATION: Exam: XR Right Shoulder Exam date and time: 06/17/2020 9:33 PM Age: 20 years old Clinical indication: Pain; Shoulder; Right; Additional info: RT shoulder pain TECHNIQUE: Imaging protocol: XR Right shoulder. Views: 2 or more views. COMPARISON: No relevant prior studies available. FINDINGS: Bones/joints: Normal. Soft tissues: Normal. XR/XR shoulder RT min 2V* 76340 IMPRESSION: Negative for fracture or dislocation Dictated By: Marcos Waters MD Signed By: Marcos Waters MD Signed Date/Time: 06/17/202201 DD/ 00 Discharge Plan Discharge Patient Disposition: Home Clinical Impression: Upper back pain Shoulder pain, right Qualifiers: Chronicity: acute Qualified Code(s): M25.511 - Pain in right shoulder Condition: Stable Prescriptions: New cyclobenzaprine 5 mg tablet 5 mg PO TID PRN (Reason: muscle spasm) Qty: 10 RF: 0 No Action ferrous sulfate 325 mg (65 mg iron) tablet,delayed release (DR/EC) 325 mg PO BID Qty: 60 RF: 0 Prozac 20 mg capsule 20 mg PO QAM RF: 0 aspirin [Aspir-81] 81 mg Tablet,Delayed Release (Dr/Ec) 81 mg PO DAILY@08 RF: 0 Gummies 400 mcg-35 mg- 25 mg-5 mg Tablet,Chewable 2 tab PO QAM RF: 0 Discharge Orders: Discharge ED (Routine); Ordered 06/17/20 Ordered By: Henrietta Skaggs Discharge Diet: Usual diet Discharge Activity: Limit activity as instructed Patient Instructions: Shoulder Sprain (ED), Muscle Spasm (ED), Opioid Safety Activity Restrictions/Additional Instructions: Alternate warm moist heat with cold compresses to help with pain May apply Salonpas roll-on lidocaine gel to the back and shoulder to help with pain Apply a tennis ball to help with pain, massage gently between the wall and your back/shoulder with tennis ball to help with muscle spasm Drink plenty of fluids to remain hydrated Continue Tylenol as needed for pain Follow-up with Dr. Garcia next week if pain is not improved, return the emergency department for for worsening symptoms Coding Level of Care Code ED Honing Machine Operator Semiautomatic for 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 Exam Comprehensive
== END 2020-06-17 22:38 | disposition home or self-care (01) ==
PROVIDERS: Emergency Provider Nurse Practitioner Family
DX: M25.511 Pain in right shoulder (principal); M54.6 Pain in thoracic spine; Z79.82 Long term (current) use of aspirin
CPT/HCPCS: 73030; 99283

== ENCOUNTER 2020-06-24 14:58 | Outpatient (CLI) | payer MEDICAID, SELFPAY ==
[2020-06-24] VITALS (11 sets, daily range): BP systolic 104–168; BP diastolic 56–99; PULSE 75–136; RESP 16; TEMP 36.8; BMI 40.4
[2020-06-24 16:02] LABS: Glucose Urine UA Norm (Normal); Protein Urine 1+ (Negative); Urine Appearance Hazy (CLEAR); Urine Color Yellow (Yellow); pH Urine 5 (5-7)
[2020-06-24 16:03] LABS: Bilirubin Urine Neg (Negative); Blood Urine Neg (Negative); Ketones Urine Negative (Negative); Leukocyte Esterase Urine 2+ (Negative); Nitrate Urine Positive (Negative); Urobilinogen Urine 1 mg/dL (Negative)
[2020-06-24 16:04] LABS: Add Urine Culture? No; Bacteria Urine 4+ /hpf; Squamous Epithelial Cell Urine 40-55 /hpf (0-5); WBC Urine >100 /hpf (0-5)
--- NOTE | 2020-06-24 17:39 | PC.NURSE ---
Keflex 500mg q6h x 7day prescription called in to [facility] per patient's request at this time. Left message.
== END 2020-06-24 17:41 | disposition home or self-care (01) ==
LOC: OPOB 14:58 → OBGYN 15:00
PROVIDERS: Visit Provider Obstetrics & Gynecology
DX: O26.899 Other specified pregnancy related conditions, unspecified trimester (principal); Z3A.00 Weeks of gestation of pregnancy not specified; M54.9 Dorsalgia, unspecified; R10.9 Unspecified abdominal pain
CPT/HCPCS: 59025; 81001; 87077; 87086; 87186; 99211

== ENCOUNTER → 2020-06-29 16:02 | Outpatient (BNVA) | payer MEDICAID, SELFPAY | PROVIDERS: Visit Provider Nurse Practitioner Women's Health | DX: O09.92 Supervision of high risk pregnancy, unspecified, second trimester (principal); Z3A.00 Weeks of gestation of pregnancy not specified | CPT/HCPCS: 81000 ==

== ENCOUNTER 2020-07-02 18:22 | Outpatient (CLI) | payer MEDICAID, SELFPAY ==
[2020-07-02] VITALS (29 sets, daily range): BP systolic 126–141; BP diastolic 60–79; PULSE 88–120; RESP 18; TEMP 36.1–36.5; O2SAT 100; BMI 42.1
[2020-07-02 19:46] LABS: Basophils % 0.4 %; Eosinophils # 0.1 10^3/uL (0.0-0.8); Eosinophils % 1.3 %; Hematocrit 28.5 % (37.0-47.0); Lymphocytes # 1.8 10^3/uL (0.8-4.8); Lymphocytes % 16.6 %; Mean Corpuscular HGB Conc 31.6 g/dL (30.0-36.0); Mean Corpuscular Hemoglobin 25.2 pg (28.0-34.0); Mean Corpuscular Volume 79.8 fL (81-99); Mean Platelet Volume 10.9 fL (7.4-10.4); Monocytes # 0.8 10^3/uL (0.2-0.9); Monocytes % 7.5 %; Neutrophils # 7.94 10^3/uL (1.8-7.7); Neutrophils % 73.8 %; Nucleated Red Blood Cells % 0 %; Platelet Count 279 10^3/cmm (130-400); Red Blood Count 3.57 10^6/uL (4.1-5.3); Red Cell Distribution Width 14.6 % (12.1-15.1); White Blood Count 10.8 10^3/uL (4.0-10.0)
[2020-07-02 19:52] LABS: Add Urine Microscopic? YES; Bilirubin Urine 1+ (Negative); Blood Urine Neg (Negative); Glucose Urine UA Norm (Normal); Ketones Urine 1+ (Negative); Leukocyte Esterase Urine Negative (Negative); Nitrate Urine Positive (Negative); Protein Urine Neg (Negative); Urine Color Yellow (Yellow); Urobilinogen Urine 1 mg/dL (Negative); pH Urine 5 (5-7)
[2020-07-02] MEDS: lactated ringers 1,000 ML 999 ML IV (19:54)
[2020-07-02 20:00] LABS: Add Urine Culture? No; Bacteria Urine 4+ /hpf; RBC Urine 0-4 /hpf (0-2); Squamous Epithelial Cell Urine 15-25 /hpf (0-5)
[2020-07-02 20:09] LABS: Alanine Aminotransferase < 5 U/L (0-33); Albumin Level 3.1 g/dL (3.5-5.2); Alkaline Phosphatase 153 IU/L (35-105); Aspartate Amino Transferase 10 U/L (0-32); Blood Urea Nitrogen 5 mg/dL (6-20); Calcium 8.8 mg/dL (8.5-10.5); Carbon Dioxide 21 mmol/L (22-29); Chloride 101 mmol/L (98-107); Globulin 3.5 g/dL (1.3-4.6); Glomerular Filtration Rate 201.5 mL/min (90-130); Glucose 82 mg/dL (65-115); Osmolality Calculated 272 mOsm/kg (285-295); Sodium 133 mmol/L (136-145); Total Bilirubin 0.3 mg/dL (0.15-1.2); Total Protein 6.6 g/dL (6.6-8.7); Uric Acid 5.3 mg/dL (2.4-5.7)
[2020-07-02 20:10] LABS: UPRO/UCREAT Ratio 0.16 mg/mg CR; Urine Creatinine 200 mg/dL (28-217); Urine Protein Random 31 mg/dL
[2020-07-02] MEDS: terbutaline 1 mg/mL INJ 0.25 MG SUBCUT (20:42)
--- NOTE | 2020-07-02 21:00 | PM.ACPR ---
Procedure/Consent Procedure Narrative: NONSTRESS TEST: Place of test: [facility]L&D Indication: 20-year-old 3 para 0-2-0-2 at 34 weeks and 4 days Date and time of test: 07/02/2020-9 PM Baseline: 135 Variability: Moderate variability Accelerations: Accelerations present Decelerations: [default value] no decelerations Tocometry: Contractions every 4 to 6 minutes contractions INTERPRETATION: NST reactive-given contractions continue monitoring at this time continue kick counts
[2020-07-02] MEDS: lactated ringers 1,000 ML 125 ML IV (21:05)
[2020-07-02] MEDS: NIFEdipine 10 mg Capsule 30 MG PO (21:54)
== END 2020-07-02 22:06 | disposition home or self-care (01) ==
LOC: OPOB 18:28 → OBGYN 18:30
PROVIDERS: Obstetrics & Gynecology; Visit Provider Obstetrics & Gynecology
DX: O16.9 Unspecified maternal hypertension, unspecified trimester (principal); Z3A.00 Weeks of gestation of pregnancy not specified
CPT/HCPCS: 36415; 59025; 80053; 81001; 82570; 84156; 84550; 85025; 96360; 96361; 96372; 99211; J3105

== ENCOUNTER 2020-07-12 11:34 | Outpatient (CLI) | payer MEDICAID, SELFPAY ==
[2020-07-12] VITALS (7 sets, daily range): BP systolic 124–138; BP diastolic 65–74; PULSE 85–96; TEMP 36.6; BMI 42.8
== END 2020-07-12 13:50 | disposition home or self-care (01) ==
LOC: OPOB 11:37 → OBGYN 11:39
PROVIDERS: Visit Provider Obstetrics & Gynecology
DX: O26.899 Other specified pregnancy related conditions, unspecified trimester (principal); Z3A.00 Weeks of gestation of pregnancy not specified
CPT/HCPCS: 59025; 99211

== ENCOUNTER → 2020-07-13 11:38 | Outpatient (BNVA) | payer MEDICAID, SELFPAY | PROVIDERS: Visit Provider Obstetrics & Gynecology | DX: O09.92 Supervision of high risk pregnancy, unspecified, second trimester (principal); Z30.2 Encounter for sterilization; O99.013 Anemia complicating pregnancy, third trimester; O99.340 Other mental disorders complicating pregnancy, unspecified trimester; F32.9 Major depressive disorder, single episode, unspecified; Z28.3 Underimmunization status; Z87.59 Personal history of other complications of pregnancy, childbirth and the puerperium; O23.40 Unspecified infection of urinary tract in pregnancy, unspecified trimester; O99.210 Obesity complicating pregnancy, unspecified trimester; O99.891 Other specified diseases and conditions complicating pregnancy; Z67.91 Unspecified blood type, Rh negative; O26.899 Other specified pregnancy related conditions, unspecified trimester | CPT/HCPCS: 84315; 87081 ==

== ENCOUNTER 2020-07-15 18:05 | Outpatient (CLI) | payer MEDICAID, SELFPAY ==
[2020-07-15] VITALS (8 sets, daily range): BP systolic 113–155; BP diastolic 58–82; PULSE 74–92; RESP 17; TEMP 36.3–36.5; BMI 42.7
== END 2020-07-15 20:01 | disposition home or self-care (01) ==
LOC: OPOB 18:11 → OBGYN 18:12
PROVIDERS: Visit Provider Obstetrics & Gynecology
DX: O26.899 Other specified pregnancy related conditions, unspecified trimester (principal); Z3A.00 Weeks of gestation of pregnancy not specified; R10.9 Unspecified abdominal pain
CPT/HCPCS: 59025; 99211

== ENCOUNTER → 2020-07-16 12:42 | Day surgery (SDC) | payer MEDICAID, SELFPAY ==
[2020-07-16 12:58] VITALS: BP 135/88; PULSE 105; RESP 18; O2SAT 98
[2020-07-16 13:20] VITALS: BMI 231.4
[2020-07-16] MEDS: ferric carboxy (IVPB) 750 MG in sodium chloride 0.9% (100 ml) 100 ML 345 MG IV (13:20)
== END ==
PROVIDERS: Visit Provider Internal Medicine
DX: D50.9 Iron deficiency anemia, unspecified (principal)
CPT/HCPCS: 96365; J1439

== ENCOUNTER 2020-07-20 13:05 | Outpatient (CLI) | payer MEDICAID, SELFPAY ==
--- NOTE | 2020-07-20 13:12 | US_ITS ---
WS: [id number] ULTRASOUND OB LIMITED TECHNIQUE: Limited ultrasound examination of the fetus. CLINICAL INFORMATION: history labor, NST in office COMPARISON: June 16, 2020 FINDINGS: Cervix is closed measuring 5.2 cm Single interuterine gestation. Placental location is anterior. Placenta grade: 2 heart rate 136 BPM. LISBETH 10.2 cm, greater than 5th percentile and less then the median Biophysical profile 8 out of 8. breathin movement: 2 tone: 2 Amniotic fluid: 2 IMPRESSION Normal biophysical profile 8 out of 8
[2020-07-20 13:13] VITALS: RESP 16
[2020-07-20 13:18] VITALS: BP 138/77; PULSE 95; TEMP 36.2
== END 2020-07-20 14:00 | disposition home or self-care (01) ==
LOC: OPOB 13:11 → OBGYN 13:12
PROVIDERS: Visit Provider Obstetrics & Gynecology
DX: O26.899 Other specified pregnancy related conditions, unspecified trimester (principal); Z3A.00 Weeks of gestation of pregnancy not specified; Z87.51 Personal history of pre-term labor
CPT/HCPCS: 76819; 99211

== ENCOUNTER 2020-07-22 10:26 | Outpatient (CLI) | payer MEDICAID, SELFPAY ==
[2020-07-22] VITALS (8 sets, daily range): BP systolic 129–148; BP diastolic 60–86; PULSE 75–84; RESP 17; TEMP 36.6; BMI 43.9
--- NOTE | 2020-07-22 11:23 | US_ITS ---
WS: [id number] ULTRASOUND OB LIMITED TECHNIQUE: Limited ultrasound examination of the fetus. CLINICAL INFORMATION: decreased movement COMPARISON: July 20, 2020 FINDINGS: Single interuterine gestation. presentation is vertex Placental location is anterior. Placenta grade: 2 heart rate 141 BPM. Largest amniotic fluid pocket measures 7.1 x 3.8 cm Amniotic fluid appears low normal. Biophysical profile 8 out of 8. breathin movement: 2 tone: 2 Amniotic fluid: 2 IMPRESSION Normal biophysical profile 8 out of 8
== END 2020-07-22 12:19 | disposition home or self-care (01) ==
LOC: OPOB 10:29 → OBGYN 10:30
PROVIDERS: Visit Provider Obstetrics & Gynecology
DX: O36.8190 Decreased fetal movements, unspecified trimester, not applicable or unspecified (principal); Z3A.00 Weeks of gestation of pregnancy not specified
CPT/HCPCS: 59025; 76819; 99211

== ENCOUNTER 2020-07-27 11:40 | Inpatient (IN) | payer OTHER, SELFPAY ==
[2020-07-27] VITALS (148 sets, daily range): BP systolic 124–179; BP diastolic 56–110; PULSE 70–132; RESP 18; TEMP 36.5–36.6; O2SAT 94–100; BMI 44.9
[2020-07-27 10:38] LABS: Basophils % 0.3 %; Eosinophils # 0.1 10^3/uL (0.0-0.8); Eosinophils % 1.3 %; Hematocrit 31.7 % (37.0-47.0); Hemoglobin 9.6 g/dL (11.5-15.3); Lymphocytes # 1.5 10^3/uL (0.8-4.8); Lymphocytes % 14.6 %; Mean Corpuscular HGB Conc 30.3 g/dL (30.0-36.0); Mean Corpuscular Volume 82.6 fL (81-99); Mean Platelet Volume 11.7 fL (7.4-10.4); Monocytes # 0.5 10^3/uL (0.2-0.9); Monocytes % 5.1 %; Neutrophils # 8.11 10^3/uL (1.8-7.7); Neutrophils % 78.1 %; Nucleated Red Blood Cells % 0.2 %; Platelet Count 178 10^3/cmm (130-400); Red Blood Count 3.84 10^6/uL (4.1-5.3); Red Cell Distribution Width 21.2 % (12.1-15.1); White Blood Count 10.4 10^3/uL (4.0-10.0)
[2020-07-27 11:01] LABS: Alanine Aminotransferase < 5 U/L (0-33); Albumin Level 3.1 g/dL (3.5-5.2); Alkaline Phosphatase 163 IU/L (35-105); Anion Gap 17.2 (5-19); Aspartate Amino Transferase 17 U/L (0-32); Blood Urea Nitrogen 8 mg/dL (6-20); Carbon Dioxide 20 mmol/L (22-29); Chloride 104 mmol/L (98-107); Globulin 2.8 g/dL (1.3-4.6); Glomerular Filtration Rate 201.5 mL/min (90-130); Glucose 76 mg/dL (65-115); Osmolality Calculated 281 mOsm/kg (285-295); Potassium 4.2 mmol/L (3.5-5.1); Sodium 137 mmol/L (136-145); Total Bilirubin 0.3 mg/dL (0.15-1.2); Total Protein 5.9 g/dL (6.6-8.7); Uric Acid 7.3 mg/dL (2.4-5.7)
[2020-07-27 11:14] LABS: Urine Appearance Cloudy (CLEAR); Urine Color Yellow (Yellow); pH Urine 6 (5-7)
[2020-07-27 11:15] LABS: Add Urine Microscopic? YES; Bilirubin Urine 1+ (Negative); Blood Urine 3+ (Negative); Glucose Urine UA Norm (Normal); Ketones Urine Negative (Negative); Leukocyte Esterase Urine 2+ (Negative); Nitrate Urine Negative (Negative); Protein Urine 1+ (Negative); Urobilinogen Urine 1 mg/dL (Negative)
[2020-07-27 11:25] LABS: Urine Creatinine 160 mg/dL (28-217)
[2020-07-27 11:26] LABS: UPRO/UCREAT Ratio 1.03 mg/mg CR; Urine Protein Random 164 mg/dL
[2020-07-27 11:29] LABS: Add Urine Culture? No; Bacteria Urine 3+ /hpf; Squamous Epithelial Cell Urine 15-25 /hpf (0-5); WBC Urine 25-40 /hpf (0-5)
[2020-07-27] MEDS: magnesium sulfate premix 4 GM/100 ML PREMIX IV (12:33)
[2020-07-27] MEDS: dextrose 5%-lactated ringers 1,000 ML 125 ML IV (12:33)
[2020-07-27] MEDS: magnesium sulfate premix 20 GM/500 ML BAG IV ×2 (13:00→22:25)
[2020-07-27] MEDS: miSOPROStol 100 mcg tablet 25 MCG VAGINAL (13:02)
[2020-07-27] MEDS: ondansetron 2 mg/ML SDV 2 mL 4 MG IVP ×2 (15:47→22:44)
[2020-07-27] MEDS: lactated ringers 1,000 ML 999 ML IV (17:12)
[2020-07-27] MEDS: acetaminophen 500 mg Tablet 1000 MG PO (17:13)
--- NOTE | 2020-07-27 17:49 | ANES.PREANE2 ---
Pre-Anesthetic Assessment Pre-Anesthetic Assessment: Height/Weight: Height 1.6 m Weight 115.212 kg Temp Pulse Resp BP Pulse Ox 97.7 F 108 H 18 152/75 99 07/27/20 17:24 07/27/20 17:46 07/27/20 13:51 07/27/20 17:46 07/27/20 17:43 Preop Diagnosis: labor pain Proposed Procedure: labor epidural Was Beta Blu taken within 24 hours: N/A Was Clonidine taken within 24 hours: N/A Social: Social History: No alcohol and No tobacco Exam: Pre-Anes Outpt Exam: alert and oriented x 3 Airway: Submandibular: WNL Cervical ROM: WNL History/ROS: No significant history except as noted Pulmonary: Pulmonary: Asthma CV/HEM: CV/HEM: Anemia and HTN Comments: preeclampsia Anesthetic Plan: ASA status: 2 Anesthesia: Anesthesia Evaluation and Regional (specify below) Risk of > 500 ml blood loss (7ml/kg in children): No Meds/Allergies Current Medications: Current Medications Generic Name Dose Route Start Last Admin Trade Name Freq PRN Reason Stop Dose Admin Dextrose/Lactated Ringer's 1,000 mls @ 125 m ls/hr 07/27/20 12:00 07/27/20 12:33 Dextrose 5%-Lact ated Ringers IV 125 mls/hr .Q8H IZZY Administration Magnesium Sulfate 20 gm in 500 mls @ 50 mls/hr 07/27/20 12:00 07/27/20 13:00 Magnesium Sulfat e Premix IV 50 mls/hr .Q10H IZZY Administration Lactated Ringer's 1,000 mls @ 999 m ls/hr 07/27/20 16:58 07/27/20 17:12 Lactated Ringers IV 999 mls/hr .Q1H1M PRN Administration See label comment s Ondansetron HCl 4 mg 07/27/20 11:46 07/27/20 15:47 Ondansetron 2 Mg /Ml Sdv 2 Ml IVP 4 mg Q4H PRN Administration NAUSEA AND VOMITI NG PFSH Anesthesia PFSH: Medical History No pertinent past medical history Denies diabetes, asthma, hypertension, seizures, DVT/PE PMD: none Surgical History Status post cholecystectomy June 2018--laparoscopic procedure performed at [facility] Family History Sister Diabetes Father Hypertension Mother Hypertension Denies family history of Colon cancer Ovarian cancer Heart disease Hyperlipidemia Breast cancer Uterine cancer Thyroid condition Stroke Social History Smoking and tobacco status: never smoked Alcohol intake: never Female Reproductive History: Date of last menstrual period: 11/03/19 : 3 Data Anesthesia CBC & Chem 7: 07/27/20 10:21 07/27/20 10:21 Other Labs: Laboratory Results - last 48 hr 07/27/20 07/27/20 07/27/20 10:21 10:21 11:00 WBC 10.4 H RBC 3.84 L Hgb 9.6 L Hct 31.7 L MCV 82.6 MCH 25.0 L MCHC 30.3 RDW 21.2 H Plt Count 178 MPV 11.7 H Neut % (Auto) 78.1 Lymph % (Auto) 14.6 [place] % (Auto) 5.1 Eos % (Auto) 1.3 Baso % (Auto) 0.3 Neut # (Auto) 8.11 H Lymph # (Auto) 1.5 [place] # (Auto) 0.5 Eos # (Auto) 0.1 Baso # (Auto) 0.0 Nucleated RBC % (auto) 0.2 Nucleated RBCs # 0.0 Sodium 137 Potassium 4.2 Chloride 104 Carbon Dioxide 20 L Anion Gap 17.2 BUN 8 Creatinine 0.4 L GFR Calculation 201.5 H Glucose 76 Calculated Osmolality 281 L Uric Acid 7.3 H Calcium 8.0 L Total Bilirubin 0.3 AST 17 ALT < 5 Alkaline Phosphatase 163 H Total Protein 5.9 L Albumin 3.1 L Globulin 2.8 Urine Color Urine Appearance Urine pH Ur Specific [place] Urine Protein Urine Glucose (UA) Urine Ketones Urine Blood Urine Nitrate Urine Bilirubin Urine Urobilinogen Ur Leukocyte Esterase Urine RBC Urine WBC Ur Squamous Epith Cells Amorphous Sediment Urine Bacteria U Random Total Protein 164 Urine Creatinine 160 Protein/Creatinin Ratio 1.03 07/27/20 11:00 WBC RBC Hgb Hct MCV MCH MCHC RDW Plt Count MPV Neut % (Auto) Lymph % (Auto) [place] % (Auto) Eos % (Auto) Baso % (Auto) Neut # (Auto) Lymph # (Auto) [place] # (Auto) Eos # (Auto) Baso # (Auto) Nucleated RBC % (auto) Nucleated RBCs # Sodium Potassium Chloride Carbon Dioxide Anion Gap BUN Creatinine GFR Calculation Glucose Calculated Osmolality Uric Acid Calcium Total Bilirubin AST ALT Alkaline Phosphatase Total Protein Albumin Globulin Urine Color Yellow Urine Appearance Cloudy Urine pH 6 Ur Specific [place] 1.020 Urine Protein 1+ H Urine Glucose (UA) Norm Urine Ketones Negative Urine Blood 3+ H Urine Nitrate Negative Urine Bilirubin 1+ H Urine Urobilinogen 1 H Ur Leukocyte Esterase 2+ H Urine RBC 5-10 H Urine WBC 25-40 H Ur Squamous Epith Cells 15-25 H Amorphous Sediment Not Reportable Urine Bacteria 3+ H U Random Total Protein Urine Creatinine Protein/Creatinin Ratio Cardiac Studies: No Data to Display Anesthesia Procedures Date of Procedure: 07/27/20 Procedure Narrative: labor epidural Epidural: Time Out Performed: Yes Consents Signed: Procedure Consent Consent: from patient Lumbar Level: L3-L4 Epidural position: sitting Epidural procedure: sterile prep of area, 1% lidocaine to numb the area, 18 g needle, neg for paresthesia, test dose given (3 ml), 1.5% xylocaine 1:200k epi, 0.2% Ropivacaine bolus ml (5 ml), placed PCEA, no systemic response, sterile dressing applied, L.U.D. no apparent complications and 0.2% Ropiavacaine @ mls/hr (13) Additional Comments: R/B DISCUSSED. PATIENT WISHES TO PROCEED. STERILE PREP AND DRAPE. + ESTEFANIA, CATH PLACED EASILY. SECURED @16. TOLERATED WELL. LOT [id number] EXP 2020-11-18
[2020-07-27] MEDS: oxytocin 30 UNIT/500 ML BAG IV (18:07)
[2020-07-27 19:03] LABS: Magnesium Level (OB Only) 4.6 mg/dL (5.0-7.5)
[2020-07-27] MEDS: acetaminophen 325 mg Tablet 650 MG PO (21:58)
[2020-07-28] VITALS (162 sets, daily range): BP systolic 122–189; BP diastolic 62–100; PULSE 74–137; RESP 16–18; TEMP 36.2–38.4; O2SAT 92–100
--- NOTE | 2020-07-28 01:09 | P.PCNOB_ITS ---
Delivery Note: Date of delivery: July 28, 2020 Pre-delivery diagnoses: iup at 38 2/7 weeks, new onset preeclampsia with history of gestational hypertension in previous pregnancies, anemia, depression (on prozac), history of recurrent uti, rh negative, rubella non-immune, obesity and requests sterilization Post-delivery diagnoses: same-delivered Procedure: Op report anesthesia: Epidural Delivering Physician: farida Estimated blood loss (mL): 150 Findings: term female in cephalic presentation Pre-Delivery Course: The patient was admitted with sustained increased blood pressure and new onset proteinuria with a protein urine/creatinine ratio of 1.03. She was started on Magnesium sulfate. She received cytotec to ripen the cervix and then pitocin was started. She received an epidural for pain management. Delivery: The patient had complete cervical dilation and began to push. The head delivered in the JOYCELYN position over an intact perineum under epidural anesthesia. The nose and mouth were bulb suctioned. The shoulders and body delivered atraumatically. The baby was placed onto the mother's abdomen. The cord was clamped and cut. Cord blood was obtained. The placenta delivered spontaneously. It was inspected and found to be intact. Inspection of the perineum revealed a small second-degree perineal laceration. The patient had uterine atony and with high blood pressure any history of asthma I was limited to 800 of Cytotec orally and transemetic acid. She had several bimanual exams performed to remove the clots and the uterus finally clamped down and the bleeding was scant. Estimated blood loss 150 mL. Apgars on baby were 9 at 1 minute and 9 at 5 minutes. Weight of baby is 7 pounds 10 ounces. Mother and baby were stable post delivery. Coding Level of Care Code Acute Financial Operations Analyst for 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
[2020-07-28] MEDS: hyDROXYzine 25 mg Capsule 50 MG PO (01:36)
[2020-07-28] MEDS: LORazepam 2 mg/mL INJ 1 mL 0.5 MG IVP (02:21)
[2020-07-28] MEDS: labetalol 5 mg/mL SDV 20mL 20 MG IVP ×2 (03:05→21:30)
[2020-07-28] MEDS: dextrose 5%-lactated ringers 1,000 ML 75 ML IV ×2 (04:23→18:00)
[2020-07-28] MEDS: acetaminophen 325 mg Tablet 650 MG PO (04:24)
[2020-07-28 06:41] LABS: Magnesium Level (OB Only) 6.2 mg/dL (5.0-7.5)
[2020-07-28] MEDS: ondansetron 2 mg/ML SDV 2 mL 4 MG IVP (07:19)
[2020-07-28] MEDS: miSOPROStol 200 mcg Tablet 800 MCG PR (07:37)
[2020-07-28] MEDS: magnesium sulfate premix 20 GM/500 ML BAG IV ×2 (08:41→18:01)
[2020-07-28] MEDS: ibuprofen 800 mg tablet PO ×3 (09:51→21:29)
[2020-07-28] MEDS: HYDROcodone-acetaminophen 5-325 mg Tablet PO ×2 (09:51→21:30)
[2020-07-28] MEDS: docusate sodium 100 mg Capsule PO (09:51)
[2020-07-28] MEDS: prenatal vitamin Capsule 1 CAP PO (09:51)
[2020-07-28 10:40] LABS: Basophils # 0.1 10^3/uL (0.0-0.1); Basophils % 0.3 %; Eosinophils % 0.1 %; Hematocrit 31.9 % (37.0-47.0); Hemoglobin 10.2 g/dL (11.5-15.3); Lymphocytes # 1.5 10^3/uL (0.8-4.8); Lymphocytes % 8.4 %; Mean Corpuscular Hemoglobin 25.6 pg (28.0-34.0); Mean Corpuscular Volume 79.9 fL (81-99); Monocytes # 0.9 10^3/uL (0.2-0.9); Monocytes % 5.3 %; Neutrophils # 14.91 10^3/uL (1.8-7.7); Neutrophils % 85.3 %; Nucleated Red Blood Cells % 0.1 %; Platelet Count 212 10^3/cmm (130-400); Red Blood Count 3.99 10^6/uL (4.1-5.3); Red Cell Distribution Width 22.6 % (12.1-15.1); White Blood Count 17.5 10^3/uL (4.0-10.0)
[2020-07-28] MEDS: NIFEdipine ER (24 hr) 30 mg Tablet PO (12:00)
[2020-07-28 13:44] LABS: Magnesium Level (OB Only) 6.4 mg/dL (5.0-7.5)
[2020-07-28 15:16] LABS: Coronavirus Test Green County Not Detected
[2020-07-28 20:19] LABS: Magnesium Level (OB Only) 5.6 mg/dL (5.0-7.5)
[2020-07-29] VITALS (55 sets, daily range): BP systolic 117–168; BP diastolic 56–91; PULSE 78–123; RESP 16; TEMP 36.5–38.7; O2SAT 95–98
[2020-07-29] MEDS: acetaminophen 325 mg Tablet 650 MG PO (01:56)
[2020-07-29] MEDS: benzocaine-menthol 78 gm Canister 1 SPRAY TOPICAL (03:23)
[2020-07-29] MEDS: HYDROcodone-acetaminophen 5-325 mg Tablet PO ×3 (04:03→23:11)
[2020-07-29 08:27] LABS: Basophils # 0.1 10^3/uL (0.0-0.1); Basophils % 0.4 %; Eosinophils % 0.2 %; Hematocrit 34.9 % (37.0-47.0); Hemoglobin 10.9 g/dL (11.5-15.3); Lymphocytes # 0.7 10^3/uL (0.8-4.8); Mean Corpuscular HGB Conc 31.2 g/dL (30.0-36.0); Mean Corpuscular Volume 83.1 fL (81-99); Mean Platelet Volume 11.9 fL (7.4-10.4); Monocytes # 0.4 10^3/uL (0.2-0.9); Monocytes % 3.3 %; Neutrophils # 11.04 10^3/uL (1.8-7.7); Neutrophils % 89.5 %; Nucleated Red Blood Cells % 0 %; Platelet Count 205 10^3/cmm (130-400); Red Cell Distribution Width 23.5 % (12.1-15.1); White Blood Count 12.3 10^3/uL (4.0-10.0)
[2020-07-29 08:52] LABS: Urine Appearance Hazy (CLEAR); Urine Color Straw (Yellow)
[2020-07-29 08:54] LABS: Blood Urine 2+ (Negative); Glucose Urine UA Norm (Normal); Ketones Urine Negative (Negative); Nitrate Urine Positive (Negative); Protein Urine Trace (Negative); Specific Gravity, Urine 1.015 (1.005-1.030); pH Urine 5 (5-7)
[2020-07-29 08:55] LABS: Add Urine Microscopic? YES; Bilirubin Urine Neg (Negative); Leukocyte Esterase Urine 2+ (Negative); Urobilinogen Urine Norm (Negative)
[2020-07-29 09:02] LABS: RBC Urine 0-4 /hpf (0-2); Squamous Epithelial Cell Urine 0-4 /hpf (0-5); WBC Urine 40-55 /hpf (0-5)
[2020-07-29 09:03] LABS: Add Urine Culture? Yes; Bacteria Urine 2+ /hpf; Hyaline Casts Urine RARE /lpf; Transitional Epi Cells Urine 0-4 /hpf
[2020-07-29] MEDS: prenatal vitamin Capsule 1 CAP PO (09:23)
[2020-07-29] MEDS: ibuprofen 800 mg tablet PO ×3 (09:23→21:51)
[2020-07-29] MEDS: NIFEdipine ER (24 hr) 30 mg Tablet PO (09:23)
[2020-07-29] MEDS: docusate sodium 100 mg Capsule PO (09:23)
[2020-07-29] MEDS: cefTRIAXone 2,000 MG in sodium chloride 0.9% (plus) 50 ML 100 MG IV (11:10)
[2020-07-29] MEDS: cephALEXin 500 mg Capsule PO (16:54)
--- NOTE | 2020-07-29 17:25 | PM.PN ---
Subjective Subjective: Interval history: The patient was started on Procardia yesterday for persistent hypertension. She had the magnesium sulfate discontinued. she was diuresing well. Today, she has complaints of right sided pain. she has also been having chills. She had multiple uti during , however there is doubt that they were ever treated. Antibiotics were sent to the pharmacy, but the next appointment, the infection was still present. My concern is that her uti has evolved into a pyelonephritis. She is able to ambulate. She is tolerating a regular diet. Her pain is controlled with [place] Medications: Reviewed: Yes Vitals/I&O/Wt Last Vital Signs Temp 100.2 F H 07/29/20 16:55 Pulse 123 H 07/29/20 16:58 Resp 17 07/28/20 17:14 BP 168/91 07/29/20 16:58 Pulse Ox 98 07/29/20 03:16 07/29/20 07/29/20 07/29/20 06:59 14:59 22:59 Intake Total 1315.833 / 5282.499 Balance 1315.833 / 1782.499 Physical Exam Const: COMMON NORMALS: no acute distress, patient oriented x3, no limitations, alert and well nourished GENERAL APPEARANCE: cooperative, comfortable, well kempt and well developed ORIENTATION/CONSCIOUSNESS: Yes awake, Yes oriented to person, Yes oriented to place and Yes oriented to time GI: COMMON NORMALS: Soft to palpation and non-tender (uterine fundus is tender) PALPATION: Yes Soft to palpation Extremity: COMMON NORMALS: no calf tenderness Neuro: COMMON NORMALS: patient oriented x3 SENSORIUM/ORIENTATION: Yes alert, Yes oriented to person, Yes oriented to place and Yes oriented to time Psych: APPEARANCE: Yes well kempt Urinary Catheter Management^: Edward: Cath Placed During This Visit: yes, but has since been removed by the nurse Reason for Continuing Indwelling Catheter: Not indwelling catheter Urinary Catheter Date of Insertion: 07/28/20 Urinary Catheter Time of Insertion: 05:00 Date Urinary Catheter Removed: 07/29/20 Time Urinary Catheter Discontinued: 03:20 Data : 07/29/20 08:10 07/27/20 10:21 A&P Assessment and plan (1) Right flank pain: with the history of recurrent or persistent uti and dirty urine today, I have to assume that the right flank pain is an evolving pyelonephritis treat with rocephin 2 grams daily borderline fever today with chilling The patient has been taking norco for pain, which may be controlling fever urine has been sent for culture Status: Acute (2) Uterine tenderness: The patient had uterine atony and several bimanual exams after delivery. rocephin and flagyl for presumed endometritis Status: Acute (3) Preeclampsia: blood pressure remains elevated procardia increased to 60 mg daily magnesium sulfate has been discontinued good diuresis Status: Acute Attestations Medical Necessity Statement*: The patient has already been here two midnights Coding Level of Care Code Acute Water Resources Program Director for [facility] Diagnoses Right flank pain R10.9 Uterine tenderness N94.9 Preeclampsia O14.90
--- NOTE | 2020-07-29 17:29 | PC.NURSE ---
THIS PATIENT SAFETY COORDINATOR WAS UNABLE TO GET THE THERMOSTAT TO STOP BLOWING COLD AIR AND PATIENT IS RUNNING A FEVER AND CHILLING SO WE MOVED HER TO OB 7. ROOM MUCH WARMER.
[2020-07-29] MEDS: metroNIDAZOLE IV 500 MG/100 ML PREMIX 100 MG IV (19:22)
[2020-07-30] MEDS: metroNIDAZOLE IV 500 MG/100 ML PREMIX 100 MG IV ×4 (00:54→18:22)
[2020-07-30 02:10] VITALS: TEMP 37.3
[2020-07-30 03:13] VITALS: TEMP 36.9
[2020-07-30 04:04] VITALS: BP 115/77; PULSE 97; TEMP 36.8; O2SAT 95
[2020-07-30] MEDS: HYDROcodone-acetaminophen 5-325 mg Tablet PO ×2 (04:53→21:40)
[2020-07-30] MEDS: fluoxetine 20 mg Capsule PO (05:55)
[2020-07-30] MEDS: prenatal vitamin Capsule 1 CAP PO (10:07)
[2020-07-30] MEDS: ferrous sulfate EC 325 mg Tablet PO ×2 (10:07→18:21)
[2020-07-30] MEDS: ibuprofen 800 mg tablet PO ×3 (10:08→20:47)
[2020-07-30] MEDS: NIFEdipine ER (24 hr) 30 mg Tablet 60 MG PO (10:08)
[2020-07-30] MEDS: docusate sodium 100 mg Capsule PO ×2 (10:08→18:21)
[2020-07-30 10:19] VITALS: BP 147/100; PULSE 105; RESP 16; TEMP 36.7
[2020-07-30] MEDS: cefTRIAXone 2,000 MG in sodium chloride 0.9% (plus) 50 ML 100 MG IV (11:28)
[2020-07-30] MEDS: dextrose 5%-lactated ringers 1,000 ML 125 ML IV (13:36)
[2020-07-30 15:56] VITALS: BP 142/89; PULSE 116; RESP 14; TEMP 37
--- NOTE | 2020-07-30 16:08 | PM.PN ---
Subjective Subjective: Interval history: The patient has been receiving antibiotics for about 24 hours. She reports that her side is hurting a little less. She is able to ambulate with a little pain. Otherwise, she is doing well. Her blood pressure has mostly been 115-120's/70-80 on 60 mg of procardia. She has been afebrile Medications: Reviewed: Yes Vitals/I&O/Wt Last Vital Signs Temp 98.6 F 07/30/20 15:56 Pulse 116 H 07/30/20 15:56 Resp 14 07/30/20 15:56 BP 142/89 07/30/20 15:56 Pulse Ox 95 07/30/20 04:04 07/30/20 07/30/20 07/30/20 06:59 14:59 22:59 Intake Total 100 / 200 100 / 100 1364.583 / 1464.583 Balance 100 / 200 100 / 100 1364.583 / 1464.583 Physical Exam Const: COMMON NORMALS: no acute distress, patient oriented x3, alert and well nourished GENERAL APPEARANCE: cooperative, comfortable, well kempt and well developed ORIENTATION/CONSCIOUSNESS: Yes awake, Yes oriented to person, Yes oriented to place and Yes oriented to time Resp: COMMON NORMALS: normal respiratory effort EFFORT & INSPECTION: Yes able to speak in complete sentences GI: INSPECTION: Yes central obesity PALPATION: Yes Other GI palpation findings present (fundus has mild tenderness) : COMMON NORMALS: No no CVA tenderness (moderate CVA tenderness on the right) BLADDER/KIDNEY EXAM: No no CVA tenderness (moderate CVA tenderness on the right) Back/Pelvis: COMMON NORMALS: negative for no CVA tenderness (moderate CVA tenderness on the right) Extremity: COMMON NORMALS: negative for no pedal edema Neuro: COMMON NORMALS: patient oriented x3 SENSORIUM/ORIENTATION: Yes alert, Yes oriented to person, Yes oriented to place and Yes oriented to time Psych: COMMON NORMALS: mental status grossly normal, Normal thought process present, cooperative, normal affect, speech normal and activity/motor behavior normal APPEARANCE: Yes grossly normal and Yes well kempt ATTITUDE: Yes calm and Yes engaged ACTIVITY/MOTOR BEHAVIOR: Yes appropriate eye contact SPEECH: Yes normal speech THOUGHT PROCESS: Normal thought process present Urinary Catheter Management^: Edward: Cath Placed During This Visit: yes, but has since been removed by the nurse Reason for Continuing Indwelling Catheter: Not indwelling catheter Urinary Catheter Date of Insertion: 07/28/20 Urinary Catheter Time of Insertion: 05:00 Date Urinary Catheter Removed: 07/29/20 Time Urinary Catheter Discontinued: 03:20 Data : 07/29/20 08:10 07/27/20 10:21 Micro: Microbiology 07/29/20 08:05 Urine Culture - Preliminary Urine,Clean Catch Gram Negative Rods A&P Assessment and plan (1) Preeclampsia: blood pressures continue to improve Status: Acute (2) Uterine tenderness: improved on antibiotics Status: Acute (3) Right flank pain: improving on antibiotics Status: Acute Attestations Medical Necessity Statement*: the patient has been here for 3 nights Coding Level of Care Code Acute Sales Program Manager for 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 Diagnoses Preeclampsia O14.90 Uterine tenderness N94.9 Right flank pain R10.9
[2020-07-30] MEDS: ondansetron 2 mg/ML SDV 2 mL 4 MG IVP (21:33)
[2020-07-30 21:51] VITALS: BP 150/89; PULSE 103; RESP 16; TEMP 36.9; O2SAT 97
[2020-07-31] MEDS: metroNIDAZOLE IV 500 MG/100 ML PREMIX 100 MG IV ×3 (00:36→13:32)
[2020-07-31 04:05] VITALS: BP 126/75; PULSE 85; RESP 16; TEMP 36.4; O2SAT 96
[2020-07-31] MEDS: fluoxetine 20 mg Capsule PO (05:37)
[2020-07-31 07:51] VITALS: BP 149/87; PULSE 84; RESP 16; TEMP 36.8
--- NOTE | 2020-07-31 10:07 | CTR_ITS ---
PROCEDURE INFORMATION: Exam: CT Abdomen And Pelvis With Contrast Exam date and time: 07/31/2020 10:07 AM Age: 20 years old Clinical indication: Abdominal pain; Localized; Right lower quadrant (rlq); Patient HX: Had baby on the 9th; Additional info: Right sided pain TECHNIQUE: Imaging protocol: Computed tomography of the abdomen and pelvis with contrast. Radiation optimization: All CT scans at this facility use at least one of these dose optimization techniques: automated exposure control; mA and/or kV adjustment per patient size (includes targeted exams where dose is matched to clinical indication); or iterative reconstruction. Contrast material: OMNI 300; Contrast volume: 95 ml; Contrast route: INTRAVENOUS (IV); COMPARISON: CT abdomen pelvis w con* [id number] 11/24/2018 1:11 PM RADIATION DOSE METRICS: Total DLP (mGy-cm): 1892.9 FINDINGS: Liver: The liver is not enlarged. There is periportal edema. Gallbladder and bile ducts: Prior cholecystectomy. No biliary ductal dilatation allowing for that. Pancreas: No pancreatic mass. No peripancreatic inflammation. No pancreatic ductal dilation. Spleen: The spleen is enlarged but homogeneous. Adrenal glands: No adrenal mass. Kidneys and ureters: There is ill-defined low-attenuation change involving the lateral right kidney with perinephric/paranephric fluid. These findings could be due to pyelonephritis in the appropriate clinical setting. The differential diagnosis would include renal contusion/hematoma if there was trauma. No hydronephrosis. No renal or ureteral calculus. Stomach and bowel: No bowel obstruction, colitis or diverticulitis. Appendix: The visualized portion of the appendix appears normal. Intraperitoneal space: No ascites or pneumoperitoneum. Vasculature: No abdominal aortic aneurysm. The mesenteric arteries are patent. The mesenteric, portal, and hepatic veins are patent. Lymph nodes: No enlarged lymph nodes. Urinary bladder: There is gas in the urinary bladder lumen which could be due to recent catheterization. No bladder wall thickening that might suggest cystitis. Reproductive: The uterus is enlarged compatible with the state. Bones/joints: No acute osseous abnormality. Soft tissues: No acute soft tissue abnormality. CT/CT abdomen pelvis w con* [id number] IMPRESSION: Changes in the right kidney and soraida/pararenal space which could be due to pyelonephritis in the correct clinical setting. If the patient had trauma consider renal contusion/hematoma. Radiation Dose CTDIVOL = (mGy): DLP = 1892.9 (mGy-cm)
[2020-07-31 10:34] LABS: Basophils # 0.1 10^3/uL (0.0-0.1); Basophils % 0.4 %; Eosinophils # 0.2 10^3/uL (0.0-0.8); Eosinophils % 1.6 %; Hematocrit 31.1 % (37.0-47.0); Hemoglobin 9.6 g/dL (11.5-15.3); Lymphocytes # 1.1 10^3/uL (0.8-4.8); Lymphocytes % 8.8 %; Mean Corpuscular HGB Conc 30.9 g/dL (30.0-36.0); Mean Corpuscular Hemoglobin 25.5 pg (28.0-34.0); Mean Corpuscular Volume 82.5 fL (81-99); Monocytes % 7.8 %; Neutrophils % 80.9 %; Nucleated Red Blood Cells % 0 %; Platelet Count 224 10^3/cmm (130-400); Red Blood Count 3.77 10^6/uL (4.1-5.3); Red Cell Distribution Width 22.6 % (12.1-15.1); White Blood Count 12.1 10^3/uL (4.0-10.0)
[2020-07-31] MEDS: cefTRIAXone 2,000 MG in sodium chloride 0.9% (plus) 50 ML 100 MG IV (10:57)
[2020-07-31 10:59] LABS: Alanine Aminotransferase 7 U/L (0-33); Albumin Level 2.6 g/dL (3.5-5.2); Alkaline Phosphatase 248 IU/L (35-105); Anion Gap 17.2 (5-19); Aspartate Amino Transferase 16 U/L (0-32); Blood Urea Nitrogen 8 mg/dL (6-20); Carbon Dioxide 21 mmol/L (22-29); Chloride 100 mmol/L (98-107); Globulin 3.8 g/dL (1.3-4.6); Glomerular Filtration Rate 155.7 mL/min (90-130); Glucose 103 mg/dL (65-115); Osmolality Calculated 277 mOsm/kg (285-295); Potassium 4.2 mmol/L (3.5-5.1); Sodium 134 mmol/L (136-145); Total Bilirubin 0.2 mg/dL (0.15-1.2); Total Protein 6.4 g/dL (6.6-8.7)
[2020-07-31] MEDS: docusate sodium 100 mg Capsule PO (10:59)
[2020-07-31] MEDS: ferrous sulfate EC 325 mg Tablet PO (10:59)
[2020-07-31] MEDS: NIFEdipine ER (24 hr) 30 mg Tablet 60 MG PO (10:59)
[2020-07-31] MEDS: prenatal vitamin Capsule 1 CAP PO (10:59)
[2020-07-31] MEDS: ibuprofen 800 mg tablet PO ×2 (10:59→16:11)
--- NOTE | 2020-07-31 11:18 | PM.PN ---
Vitals/I&O/Wt Last Vital Signs Temp 98.2 F 07/31/20 07:51 Pulse 84 07/31/20 07:51 Resp 16 07/31/20 07:51 BP 149/87 07/31/20 07:51 Pulse Ox 96 07/31/20 04:05 07/30/20 07/31/20 07/31/20 22:59 06:59 14:59 Intake Total 1514.583 / 1614.583 100 / 1714.583 Balance 1514.583 / 1614.583 100 / 1714.583 Physical Exam Urinary Catheter Management^: Edward: Cath Placed During This Visit: yes, but has since been removed by the nurse Reason for Continuing Indwelling Catheter: Not indwelling catheter Urinary Catheter Date of Insertion: 07/28/20 Urinary Catheter Time of Insertion: 05:00 Date Urinary Catheter Removed: 07/29/20 Time Urinary Catheter Discontinued: 03:20 Data : 07/31/20 10:24 07/31/20 10:24 Micro: Microbiology 07/29/20 08:05 Urine Culture - Final Urine,Clean Catch Escherichia coli Coding Level of Care Code Acute Gear Machine Operator General for 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
[2020-07-31 11:21] LABS: Calcium 8.4 mg/dL (8.5-10.5)
[2020-07-31] MEDS: iohexol 300 mg/mL 100 mL Btl IV (12:07)
[2020-07-31] MEDS: iohexol 300 mg/mL 50 mL Btl PO (12:07)
--- NOTE | 2020-07-31 12:12 | PC.NURSE ---
Pt taken to CT via wheelchair
[2020-07-31 14:00] VITALS: BP 148/89; PULSE 102; RESP 18; TEMP 36.9
[2020-07-31 16:19] VITALS: BP 120/74; PULSE 102; RESP 18; TEMP 36.9
[2020-07-31 18:30] VITALS: BP 127/87; PULSE 111; RESP 18; TEMP 36.9
[2020-07-31 19:01] VITALS: BP 127/87; PULSE 111; RESP 18; TEMP 36.9
--- NOTE | 2020-08-01 15:07 | PM.OBGYDC ---
Discharge Providers CONTRACT ADMINISTRATION SPECIALIST Date of Admission: 07/27/20 11:40 Date of Discharge: 08/16/20 Attending Provider at Admission: Jessica Lagunas MD Attending Provider at Discharge: Mayra Amin MD Diagnosis at time of admission: 20-year-old 4 para 1203 at 38 weeks and 1 day Elevated blood pressure-gestational hypertension versus preeclampsia Chronic asymptomatic bacteriuria/UTI Rubella nonimmune Rh- Depression on medication Multiparity desiring sterilization History of gestational hypertension Diagnosis at time of discharge: 20-year-old 4 para 2-2-0-4 status post vaginal delivery on 07/28/2020 Preeclampsia on magnesium sulfate Pyelonephritis on antibiotics Morbid obesity Multiparity with plan for interval sterilization Rubella nonimmune Rh- Depression on medication Predelivery course and delivery notes The patient was admitted with sustained increased blood pressure and new onset proteinuria with a protein urine/creatinine ratio of 1.03. She was started on Magnesium sulfate. She received cytotec to ripen the cervix and then pitocin was started. She received an epidural for pain management. Delivery: The patient had complete cervical dilation and began to push. The head delivered in the JOYCELYN position over an intact perineum under epidural anesthesia. The nose and mouth were bulb suctioned. The shoulders and body delivered atraumatically. The baby was placed onto the mother's abdomen. The cord was clamped and cut. Cord blood was obtained. The placenta delivered spontaneously. It was inspected and found to be intact. Inspection of the perineum revealed a small second-degree perineal laceration. The patient had uterine atony and with high blood pressure any history of asthma I was limited to 800 of Cytotec orally and transemetic acid. She had several bimanual exams performed to remove the clots and the uterus finally clamped down and the bleeding was scant. Estimated blood loss 150 mL. Apgars on baby were 9 at 1 minute and 9 at 5 minutes. Weight of baby is 7 pounds 10 ounces. Mother and baby were stable post delivery. HOSPITAL COURSE: She underwent an uncomplicated vaginal delivery on 07/28/[address] Cid. She was under Dr. Cid's care on day 0,1,2---please see her delivery note and progress note for details. During this time she received magnesium sulfate for seizure prophylaxis. She was noted to have right-sided flank and lower abdominal pain and this was thought to be secondary to endometritis/pyelonephritis given her chronic UTI. She was placed on antibiotics and then remained afebrile. She continued to have back pain especially worse on movement. CT scan of abdomen was performed on 07/31/2020 which was normal except for signs of pyelonephritis.. She did well on day 0 and was ambulating well, tolerating regular diet, voiding freely, passing flatus. She was bottlefeeding without difficulty and bonding well with her daughter. Pain was well-controlled with by mouth pain medication. She denied nausea, vomiting, fever, chills, shortness of breath, leg pain. She had moderate vaginal bleeding. Hemoglobin throughout her stay was stable at 9.6 and white count was minimally elevated at 12 not unusual with state. She was discharged home on day 3 in a stable condition as she was overall doing well other than the pain which was controlled with pills. She was discharged home on antibiotics to be taken for 14 days for pyelonephritis. Warning signs for endometritis, mastitis, DVT/PE were reviewed with her. Post delivery activity restrictions were also reviewed with her at all her questions were answered to her satisfaction. Plans on interval sterilization and will follow up for this procedure between 5 to 6 weeks . She will follow-up for a 1 week blood pressure check. EXAM AT DISCHARGE: Gen.: No acute distress Heart: S1-S2 heard, regular rate and rhythm Lungs: Clear to auscultation bilaterally Abdomen: Soft, fundus firm below umbilicus, Legs: No calf tenderness, +1 bilateral pitting pedal edema. CONDITION AT DISCHARGE: Stable This documentation was created by [employer] cylinder press feeder software (known for inherent cylinder press feeder error). Every effort was made to assure accuracy of cylinder press feeder. Any obvious errors or omissions should be clarified with the author of the document. Diagnoses at Discharge Discharge Diagnosis (1) Preeclampsia: Status: Acute (2) Uterine tenderness: Status: Acute (3) Right flank pain: Status: Acute Reason for Visit Reason for Visit: increased blood pressure Information Peripartum Data: Delivery Method: Vaginal Physical Exam Urinary Catheter Management^: Edward: Cath Placed During This Visit: yes, but has since been removed by the nurse Reason for Continuing Indwelling Catheter: Not indwelling catheter Urinary Catheter Date of Insertion: 06/09/21 Urinary Catheter Time of Insertion: 05:00 Date Urinary Catheter Removed: 07/29/20 Time Urinary Catheter Discontinued: 03:20 Discharge Data Data Completed and Pending: Completed Studies During Hospitalization Category Date Time Status CT abdomen pelvis w con* [id number] Rout ine Cat Scan 07/31/20 10:07 Completed Vitals: Last Vital Signs Temp 98.4 F 07/31/20 19:01 Pulse 111 H 07/31/20 19:01 Resp 18 07/31/20 19:01 BP 127/87 07/31/20 19:01 Pulse Ox 96 07/31/20 04:05 Discharge Plan Discharge Patient Disposition: Home Condition: Stable Prescriptions: Continued Prozac 20 mg capsule 20 mg PO QAM Qty: 30 RF: 3 Discontinued nitrofurantoin monohyd/m-cryst [Macrobid] 100 mg capsule 100 mg PO BID RF: 0 ferrous sulfate 325 mg (65 mg iron) tablet,delayed release (DR/EC) 325 mg PO BID Qty: 60 RF: 0 aspirin [Aspir-81] 81 mg Tablet,Delayed Release (Dr/Ec) 81 mg PO DAILY@08 RF: 0 No Action ibuprofen 800 mg tablet 800 mg PO Q8H PRN (Reason: Pain) RF: 0 Zofran 4 mg tablet 4 mg PO Q6H PRN (Reason: nausea and vomiting) Qty: 14 RF: 0 Cipro 500 mg tablet 500 mg PO Q12H Qty: 14 RF: 0 Discharge Orders: Discharge Order (Routine); Ordered 07/31/20 Ordered By: Mayra Amin Referrals: Mayra Amin MD [Physician] - (CALLED SUNDAY MORNING AND MAKE APPOINTMENT FOR ONE WEEK AND [address] UP WITH DR. CID.) Discharge Diet: Usual diet Patient Instructions: Depression (GEN), Pre-eclampsia and Eclampsia (DC), Bleeding (DC), OB Discharge Report, OB Anesthesia Instructions, OB Food/Drug Interaction Guide, Opioid Safety, OB Home Care, OB Proud Parent Packet, OB Vaginal Deliveries - [facility] Activity Restrictions/Additional Instructions: pelvic rest for 6 weeks and no heavy lifting for 6 weeks Discharge Attestations CONTRACT ADMINISTRATION SPECIALIST Time Spent in Discharge Care*: greater than 30 min Coding Level of Care Code Acute Clinical Research Management Associate for [facility] Diagnoses Preeclampsia O14.90 Uterine tenderness N94.9 Right flank pain R10.9
== END 2020-07-31 18:45 | disposition home or self-care (01) | DRG 806 ==
PROVIDERS: Obstetrics & Gynecology; Admitting Provider Obstetrics & Gynecology; Visit Provider Obstetrics & Gynecology
DX: O14.94 Unspecified pre-eclampsia, complicating childbirth (principal); O36.0930 Maternal care for other rhesus isoimmunization, third trimester, not applicable or unspecified; Z37.0 Single live birth; N39.0 Urinary tract infection, site not specified; N12 Tubulo-interstitial nephritis, not specified as acute or chronic; Z3A.38 38 weeks gestation of pregnancy; O75.3 Other infection during labor; O99.02 Anemia complicating childbirth; D64.9 Anemia, unspecified; O99.344 Other mental disorders complicating childbirth; F32.9 Major depressive disorder, single episode, unspecified; O99.214 Obesity complicating childbirth; E66.01 Morbid (severe) obesity due to excess calories; O70.1 Second degree perineal laceration during delivery
CPT/HCPCS: 36415; 51702; 59025; 59409; 74177; 80053; 81001; 82570; 83735; 84156; 84315; 84550; 85025; 85460; 86850; 86900; 87077; 87086; 87186; 87635; 90384; 99211; J0696; J2060; J2405; J2795; J3475; J3490; Q9967; S0030

== ENCOUNTER 2020-08-04 18:07 | Emergency (ER) | payer OTHER, MEDICAID, SELFPAY ==
[2020-08-04 18:24] VITALS: BP 151/92; PULSE 70; RESP 16; TEMP 36.4; O2SAT 98; BMI 38.2
[2020-08-04 20:30] VITALS: BP 151/97; PULSE 100; RESP 18; TEMP 36.4; O2SAT 98
--- NOTE | 2020-08-04 20:30 | PC.NURSE ---
Pt moved to room 9 from ER waiting room by staff. Ambulated.
--- NOTE | 2020-08-04 20:54 | ED_ITS ---
HPI - Abdominal Pain General: Chief Complaint: Abdominal Pain Stated Complaint: Lower ABD & Back Pain/ Related Time Seen by Provider: 08/04/20 20:39 Source: patient Mode of arrival: ambulatory Limitations: no limitations History of Present Illness: HPI narrative: Patient is a nice 20-year-old female at one week via vaginal delivery here for complaints of right- sided abdominal pain. Patient tells me while she was in the hospital following delivery she began complaining of some right flank and abdominal pain. UA showed infection and her CT scan showing possible pyelonephritis on the right. She was treated with IV antibiotics and discharged home on Keflex. She states prescription was somehow delayed and states she was only able to fill it yesterday so has only had a few doses. Patient tells me today she began having worsening right lower abdominal pains. She is not complaining of urinary symptoms. She is reporting normal bleeding that she states is minimal. No fevers. She does not complain of pelvic pain. No nausea or vomiting. She did have a few episodes of diarrhea yesterday. MD elicited complaint: abdominal pain Pertinent past history: other (recent diagnosis of pyelo; one week post-) Onset (ago): hour(s) Pain Consistency: constant Location: RLQ Severity: moderate Radiation: none Migration to: no migration Exacerbating factors: nothing Relieving factors: nothing Associated Symptoms: Reports diarrhea; Denies chills, GI cramping, dysuria, fever(s), heartburn, hematochezia, hematuria, melena, nausea and vomiting Related Data: Date of Last Menstrual Period: 07/28/20 Patient : No Review of Systems Const: Denies: fever(s), chills, body aches, fatigue or malaise Card: Denies: chest pain Resp: Denies: dyspnea GI: Reports: abdominal pain and diarrhea; Denies: nausea, vomiting, heartburn, GI cramping, hematochezia or melena : Reports: flank pain and vaginal bleeding (normal post- bleeding); Denies: difficulty voiding, dysuria, urinary frequency, urinary urgency, urinary hesitancy, hematuria, genital lesions, genital pruritis, vaginal odor, vaginal discharge or pelvic pain Musc: Denies: neck pain, extremity pain, extremity swelling, joint pain or joint swelling Skin/Breast: Denies: rash Neuro: Denies: headache(s), numbness in extremities, weakness in extremities or sensory changes PFSH ED PFSH: Medical History No pertinent past medical history Denies diabetes, asthma, hypertension, seizures, DVT/PE PMD: none Surgical History Status post cholecystectomy June 2018--laparoscopic procedure performed at [facility] [place] Family History Sister Diabetes Father Hypertension Mother Hypertension Denies family history of Colon cancer Ovarian cancer Heart disease Hyperlipidemia Breast cancer Uterine cancer Thyroid condition Stroke Social History Smoking and tobacco status: never smoked Alcohol intake: never Female Reproductive History: Date of last menstrual period: 07/28/20 : 3 Physical Exam Const: COMMON NORMALS: no acute distress, patient oriented x3, no limitations and alert GENERAL APPEARANCE: cooperative NUTRITIONAL APPEARANCE: overweight ORIENTATION/CONSCIOUSNESS: Yes awake, Yes oriented to person, Yes oriented to place and Yes oriented to time Resp: COMMON NORMALS: normal respiratory effort and clear to auscultation bilaterally AUSCULTATION: clear to auscultation bilaterally Cardio: COMMON NORMALS: regular rate and regular rhythm RATE: regular rate RHYTHM: regular rhythm GI: COMMON NORMALS: Normal to inspection, nondistended, normoactive bowel sounds present, Soft to palpation, No hepatosplenomegaly present and no masses PALPATION: Yes Soft to palpation, Yes Tenderness to palpation present (GI) (R lower), No Guarding due to palpation present (GI), No Rigid due to palpation and Yes No hepatosplenomegaly present : COMMON NORMALS: Yes no CVA tenderness BLADDER/KIDNEY EXAM: Yes no CVA tenderness Back/Pelvis: COMMON NORMALS: no CVA tenderness Extremity: COMMON NORMALS: normal to inspection Neuro: COMMON NORMALS: patient oriented x3 SENSORIUM/ORIENTATION: Yes alert, Yes oriented to person, Yes oriented to place and Yes oriented to time Skin: COMMON NORMALS: no rashes or lesions noted GENERAL SKIN EXAM: no rashes or lesions noted Course Vital Signs: Vital signs: Vital Signs Temperature 97.6 F 08/04/20 20:30 Pulse Rate 100 08/04/20 20:30 Respiratory Rate 18 08/04/20 20:30 Blood Pressure 151/97 08/04/20 20:30 Pulse Oximetry 98 08/04/20 20:30 MDM - Abdominal Pain MDM Narrative: Medical decision making narrative: Patient clinically appears well. Her vital signs are stable. White count is 11.3 which is improved from her hospital stay. UA looks better than it did in the hospital but still has hematuria and 15-25 WBCs (this was cath specimen). CT scan still showing right- sided pyelo. Spoke to Dr. Verduzco who recommends switching her to Cipro and feels she is stable for DC. Patient is not . She has pain meds at home. Will give meds for nausea. Was given 1g Rocephin prior to DC . Will have her follow up with PCP in 3-5 days for re-evaluation. She does have appointment with Dr. Ruelas on Sunday. Lab Data: Labs: Lab Results 08/04/20 08/04/20 08/04/20 Range/Units 21:10 21:10 21:25 WBC 11.3 H (4.0-10.0) 10^3/ uL RBC 4.07 L (4.1-5.3) 10^6/u L Hgb 10.2 L (11.5-15.3) g/dL Hct 33.9 L (37.0-47.0) % MCV 83.3 (81-99) fL MCH 25.1 L (28.0-34.0) pg MCHC 30.1 (30.0-36.0) g/dL RDW 21.9 H (12.1-15.1) % Plt Count 503 H (130-400) 10^3/c mm MPV 9.3 (7.4-10.4) fL Neut % (Auto) 72.7 % Lymph % (Auto) 19.3 % [place] % (Auto) 4.9 % Eos % (Auto) 2.0 % Baso % (Auto) 0.6 % Neut # (Auto) 8.22 H (1.8-7.7) 10^3/u L Lymph # (Auto) 2.2 (0.8-4.8) 10^3/u L [place] # (Auto) 0.6 (0.2-0.9) 10^3/u L Eos # (Auto) 0.2 (0.0-0.8) 10^3/u L Baso # (Auto) 0.1 (0.0-0.1) 10^3/u L Nucleated RBC % (a uto) 0 % Nucleated RBCs # 0.0 /100WBC Sodium 135 L (136-145) mmol/L Potassium 4.1 (3.5-5.1) mmol/L Chloride 102 (98-107) mmol/L Carbon Dioxide 21 L (22-29) mmol/L Anion Gap 16.1 (5-19) BUN 9 (6-20) mg/dL Creatinine 0.5 (0.5-0.9) mg/dL GFR Calculation 155.7 H (90-130) mL/min Glucose 88 (65-115) mg/dL Calculated Osmolal ity 278 L (285-295) mOsm/k g Calcium 8.9 (8.5-10.5) mg/dL Total Bilirubin 0.2 (0.15-1.2) mg/dL AST 13 (0-32) U/L ALT 10 (0-33) U/L Alkaline Phosphata se 206 H (35-105) IU/L Total Protein 7.0 (6.6-8.7) g/dL Albumin 3.5 (3.5-5.2) g/dL Globulin 3.5 (1.3-4.6) g/dL Urine Color Yellow (Yellow) Urine Appearance Clear (CLEAR) Urine pH 5 (5-7) Ur Specific Gravit y 1.020 (1.005-1.030) Urine Protein 3+ H (Negative) Urine Glucose (UA) Norm (Normal) Urine Ketones Negative (Negative) Urine Blood 3+ H (Negative) Urine Nitrate Negative (Negative) Urine Bilirubin Neg (Negative) Urine Urobilinogen Norm (Negative) mg/dL Ur Leukocyte [place] Negative (Negative) Urine RBC 5-10 H (0-2) /hpf Urine WBC 15-25 H (0-5) /hpf Ur Squamous Epith Cells 0-4 H (0-5) /hpf Amorphous Sediment Not Reportable Urine Bacteria Trace (NONE) /hpf Urine Mucus 2+ /hpf Discharge Plan Discharge Patient Disposition: Home Clinical Impression: Pyelonephritis of right kidney Condition: Stable Prescriptions: New Zofran 4 mg tablet 4 mg PO Q6H PRN (Reason: nausea and vomiting) Qty: 14 RF: 0 Cipro 500 mg tablet 500 mg PO Q12H Qty: 14 RF: 0 No Action Prozac 20 mg capsule 20 mg PO QAM Qty: 30 RF: 3 hydrocodone-acetaminophen 5-325 mg tablet 1 tab PO Q6H Qty: 11 RF: 0 docusate sodium 100 mg Capsule 100 mg PO BID PRN (Reason: constipation) Qty: 30 RF: 0 ibuprofen 800 mg tablet 800 mg PO Q8H PRN (Reason: Pain) RF: 0 Discharge Orders: Discharge ED (Routine); Ordered 08/04/20 Ordered By: Tracie Woods Patient Instructions: Urinary Tract Infection in Women (ED), Acute Pyelonephritis (ED) Activity Restrictions/Additional Instructions: You need to fill antibiotics tomorrow and start them immediately. You need to return to the emergency department for worsening flank pain or abdominal pain, repetitive episodes of vomiting, inability to hold down your antibiotics, fevers greater than 100.4, or any other concerns you may have. Please follow up with primary care in 3-5 days for re-evaluation. Coding Level of Care Code ED Systems Test Technician for Zuleyma Fwd Exam Detailed
[2020-08-04 21:00] VITALS: BP 150/94; PULSE 96; RESP 20; O2SAT 98
[2020-08-04 21:16] LABS: Basophils # 0.1 10^3/uL (0.0-0.1); Basophils % 0.6 %; Eosinophils # 0.2 10^3/uL (0.0-0.8); Hematocrit 33.9 % (37.0-47.0); Hemoglobin 10.2 g/dL (11.5-15.3); Lymphocytes # 2.2 10^3/uL (0.8-4.8); Lymphocytes % 19.3 %; Mean Corpuscular HGB Conc 30.1 g/dL (30.0-36.0); Mean Corpuscular Hemoglobin 25.1 pg (28.0-34.0); Mean Corpuscular Volume 83.3 fL (81-99); Mean Platelet Volume 9.3 fL (7.4-10.4); Monocytes # 0.6 10^3/uL (0.2-0.9); Monocytes % 4.9 %; Neutrophils # 8.22 10^3/uL (1.8-7.7); Neutrophils % 72.7 %; Nucleated Red Blood Cells % 0 %; Platelet Count 503 10^3/cmm (130-400); Red Blood Count 4.07 10^6/uL (4.1-5.3); Red Cell Distribution Width 21.9 % (12.1-15.1); White Blood Count 11.3 10^3/uL (4.0-10.0)
[2020-08-04 21:36] LABS: Add Urine Culture? Yes; Add Urine Microscopic? YES; Bacteria Urine TRACE /hpf; Bilirubin Urine Neg (Negative); Blood Urine 3+ (Negative); Glucose Urine UA Norm (Normal); Ketones Urine Negative (Negative); Leukocyte Esterase Urine Negative (Negative); Mucus Urine 2+ /hpf; Nitrate Urine Negative (Negative); Protein Urine 3+ (Negative); Squamous Epithelial Cell Urine 0-4 /hpf (0-5); Urine Appearance Clear (CLEAR); Urine Color Yellow (Yellow); Urobilinogen Urine Norm (Negative); WBC Urine 15-25 /hpf (0-5); pH Urine 5 (5-7)
[2020-08-04 21:37] LABS: Alanine Aminotransferase 10 U/L (0-33); Albumin Level 3.5 g/dL (3.5-5.2); Alkaline Phosphatase 206 IU/L (35-105); Anion Gap 16.1 (5-19); Aspartate Amino Transferase 13 U/L (0-32); Blood Urea Nitrogen 9 mg/dL (6-20); Calcium 8.9 mg/dL (8.5-10.5); Carbon Dioxide 21 mmol/L (22-29); Chloride 102 mmol/L (98-107); Globulin 3.5 g/dL (1.3-4.6); Glomerular Filtration Rate 155.7 mL/min (90-130); Glucose 88 mg/dL (65-115); Osmolality Calculated 278 mOsm/kg (285-295); Potassium 4.1 mmol/L (3.5-5.1); Sodium 135 mmol/L (136-145); Total Bilirubin 0.2 mg/dL (0.15-1.2)
--- NOTE | 2020-08-04 21:50 | CTR_ITS ---
PROCEDURE INFORMATION: Exam: CT Abdomen And Pelvis With Contrast Exam date and time: 08/04/2020 9:50 PM Age: 20 years old Clinical indication: Abdominal pain; Localized; Right lower quadrant (rlq); Prior surgery; Surgery type: Gb; Patient HX: Rlq pain. One week post . ; Additional info: R sided abdominal pain TECHNIQUE: Imaging protocol: Computed tomography of the abdomen and pelvis with contrast. Radiation optimization: All CT scans at this facility use at least one of these dose optimization techniques: automated exposure control; mA and/or kV adjustment per patient size (includes targeted exams where dose is matched to clinical indication); or iterative reconstruction. Contrast material: OMNI 300; Contrast volume: 95 ml; Contrast route: INTRAVENOUS (IV); COMPARISON: CT abdomen pelvis w con* [id number] 07/31/2020 12:04 PM RADIATION DOSE METRICS: Total DLP (mGy-cm): 1787.46 FINDINGS: Liver: Normal. No mass. Gallbladder and bile ducts: Cholecystectomy. Nondilated biliary system. Pancreas: Normal. No ductal dilation. Spleen: Normal. No splenomegaly. Adrenal glands: Normal. No mass. Kidneys and ureters: Partially resolved inflammatory changes of the right kidney. There is still some decreased attenuation noted laterally in the parenchyma. There is less perirenal fat stranding than prior. There is still mildly increased enhancement the right-sided urothelium. No renal stones. Small volume fluid and fat stranding around the right ureter. Stomach and bowel: Unremarkable. No obstruction. No mucosal thickening. Appendix: No evidence of appendicitis. Intraperitoneal space: No free air. Vasculature: Unremarkable. No abdominal aortic aneurysm. Lymph nodes: Unremarkable. No enlarged lymph nodes. Urinary bladder: No bladder wall thickening. Reproductive: Decreased volume of uterus. Bones/joints: Unremarkable. No acute fracture. Soft tissues: Unremarkable. Other findings: No abdominal fluid collection. CT/CT abdomen pelvis w con* [id number] IMPRESSION: Residual right kidney and collecting system inflammatory changes suspicious for pyelonephritis. Mild improvement from comparison. Radiation Dose CTDIVOL = (mGy): DLP = 1787.46 (mGy-cm)
[2020-08-04] MEDS: iohexol 300 mg/mL 100 mL Btl IV (22:07)
[2020-08-05] MEDS: cefTRIAXone 1,000 MG in lidocaine 1% 2.1 ML 2.1 MG IM (00:05)
[2020-08-05 00:41] VITALS: BP 142/90; PULSE 92; RESP 18; O2SAT 98
== END 2020-08-05 00:15 | disposition home or self-care (01) ==
PROVIDERS: Emergency Provider Physician Assistant
DX: N12 Tubulo-interstitial nephritis, not specified as acute or chronic (principal)
CPT/HCPCS: 74177; 80053; 81001; 85025; 87086; 96372; 99283; J0696; Q9967

== ENCOUNTER → 2020-08-30 00:01 | Outpatient (BNVA) | payer MEDICAID, SELFPAY | PROVIDERS: Visit Provider Obstetrics & Gynecology | DX: N76.0 Acute vaginitis (principal); B96.89 Other specified bacterial agents as the cause of diseases classified elsewhere; F32.9 Major depressive disorder, single episode, unspecified | CPT/HCPCS: 87491; 87591; 87661 ==

== ENCOUNTER → 2020-08-31 08:33 | Outpatient (BNVA) | payer MEDICAID, SELFPAY | PROVIDERS: Visit Provider Obstetrics & Gynecology | DX: N85.4 Malposition of uterus (principal); N85.2 Hypertrophy of uterus | CPT/HCPCS: 76830 ==

== ENCOUNTER → 2020-09-03 13:19 | Outpatient (BNVA) | payer MEDICAID, SELFPAY | PROVIDERS: Visit Provider Obstetrics & Gynecology | DX: N89.8 Other specified noninflammatory disorders of vagina (principal); Z11.52 Encounter for screening for COVID-19 | CPT/HCPCS: 85025; 87635 ==

== ENCOUNTER 2020-09-09 08:01 | Day surgery (SDC) | payer OTHER, MEDICAID, SELFPAY ==
[2020-08-31 09:40] VITALS: BMI 36.3
--- NOTE | 2020-08-31 10:08 | ANES.PREANE2 ---
Pre-Anesthetic Assessment Pre-Anesthetic Assessment: Height/Weight: Height 1.6 m Weight 92.986 kg Preop Diagnosis: labor pain Proposed Procedure: Operation Date: 09/09/20 07:00 Proposed Procedures p Laparoscopic Salpingectomy 16217 Z30.2(Not Applicable) - Mayra Amin MD Was Beta Blu taken within 24 hours: N/A Was Clonidine taken within 24 hours: N/A Social: Social History: Tobacco and No alcohol Exam: Pre-Anes Outpt Exam: alert, oriented x 3, clear to auscultation bilaterally and regular rate & rhythm Airway: Submandibular: WNL Cervical ROM: WNL MP: 2 Dentition: Full CV/HEM: CV/HEM: Anemia Metabolic: Metabolic: Morbid obesity Neuropsych: Neuropsych: Depression Anesthetic Plan: ASA status: 2 Anesthesia: General Risk of > 500 ml blood loss (7ml/kg in children): No PFSH Anesthesia PFSH: Medical History No pertinent past medical history Denies diabetes, asthma, hypertension, seizures, DVT/PE PMD: none Surgical History Status post cholecystectomy June 2018--laparoscopic procedure performed at [facility] [place] Family History Sister Diabetes Father Hypertension Mother Hypertension Denies family history of Colon cancer Ovarian cancer Heart disease Hyperlipidemia Breast cancer Uterine cancer Thyroid condition Stroke Social History Smoking and tobacco status: never smoked Alcohol intake: never Female Reproductive History: Date of last menstrual period: 07/28/20 Data Anesthesia Cardiac Studies: No Data to Display
[2020-09-09] VITALS (11 sets, daily range): BP systolic 124–141; BP diastolic 70–84; PULSE 72–120; RESP 15–24; TEMP 36.1–36.9; O2SAT 94–99
--- NOTE | 2020-09-09 08:21 | P.ANESUD_ITS ---
Pre-Anesthetic Update Pre-Anesthetic Assessment: Date of Surgery/Procedure: 09/09/20 Preop Sharri gnosis: Desires sterilization Proposed Procedure: Operation Date: 09/09/20 09:25 Proposed Procedures p Laparoscopic Salpingectomy 30312 Z30.2(Bilateral) - Mayra Amin MD Any changes to Pre-Anesthetic Assessment?: No Vitals: Temperature 98.2 F 09/09/20 08:18 Temperature Source Temporal Artery S can 09/09/20 08:18 Pulse Rate 72 09/09/20 08:18 Respiratory Rate 18 09/09/20 08:18 Blood Pressure 140/84 09/09/20 08:18 Blood Pressure Natalee n 102 09/09/20 08:18 Pulse Oximetry 98 09/09/20 08:18 Oxygen Delivery Me thod 09/09/20 08:18 Exam: Pre-Anes Outpt Exam: alert, oriented x 3, clear to auscultation bilaterally and regular rate & rhythm Cardiac Studies: No Data to Display
[2020-09-09] MEDS: sodium chloride 0.9% 1,000 ML 30 ML IV (08:27)
[2020-09-09 08:40] LABS: OR HCG Qualitative Urine Negative (Negative)
[2020-09-09 08:53] LABS: Basophils # 0.1 10^3/uL (0.0-0.1); Basophils % 0.8 %; Eosinophils # 0.8 10^3/uL (0.0-0.8); Eosinophils % 9.1 %; Hematocrit 38.8 % (37.0-47.0); Hemoglobin 12.2 g/dL (11.5-15.3); Lymphocytes # 1.8 10^3/uL (0.8-4.8); Lymphocytes % 19.3 %; Mean Corpuscular HGB Conc 31.4 g/dL (30.0-36.0); Mean Corpuscular Hemoglobin 26.2 pg (28.0-34.0); Mean Corpuscular Volume 83.3 fL (81-99); Monocytes # 0.6 10^3/uL (0.2-0.9); Monocytes % 6.6 %; Neutrophils # 5.86 10^3/uL (1.8-7.7); Neutrophils % 64.1 %; Nucleated Red Blood Cells % 0 %; Platelet Count 345 10^3/cmm (130-400); Red Blood Count 4.66 10^6/uL (4.1-5.3); Red Cell Distribution Width 20.3 % (12.1-15.1); White Blood Count 9.1 10^3/uL (4.0-10.0)
[2020-09-09 09:17] LABS: Alanine Aminotransferase 18 U/L (0-33); Albumin Level 4.3 g/dL (3.5-5.2); Alkaline Phosphatase 115 IU/L (35-105); Aspartate Amino Transferase 22 U/L (0-32); Chloride 100 mmol/L (98-107); Glucose 93 mg/dL (65-115); Potassium 4.1 mmol/L (3.5-5.1); Sodium 138 mmol/L (136-145)
[2020-09-09 09:40] LABS: Anion Gap 17.1 (5-19); Blood Urea Nitrogen 9 mg/dL (6-20); Calcium 9.5 mg/dL (8.5-10.5); Carbon Dioxide 25 mmol/L (22-29); Globulin 3.3 g/dL (1.3-4.6); Glomerular Filtration Rate 126.2 mL/min (90-130); Osmolality Calculated 284 mOsm/kg (285-295); Total Bilirubin 0.3 mg/dL (0.15-1.2); Total Protein 7.6 g/dL (6.6-8.7)
--- NOTE | 2020-09-09 10:06 | W.PM.OPSUD ---
Surgery/Procedure H&P Update DATE OF PROCEDURE: September 09, 2020 DATE H&P PERFORMED: 08/30/20 H&P UPDATE INFORMATION: I have reviewed H&P completed within last 30 days, I have examined patient prior to procedure, No changes to prior documentation and H&P is in [facility] EMR on date indicated PREOP DIAGNOSIS: Desires sterilization PLANNED PROCEDURE: Operation Date: 09/09/20 09:25 Proposed Procedures p Laparoscopic Salpingectomy 03525 Z30.2(Bilateral) - Mayra Amin MD
[2020-09-09] MEDS: silver nitrate applicator 3 EACH TOPICAL (11:43)
--- NOTE | 2020-09-09 11:47 | P.OP_ITS ---
Operative Report Date of procedure: September 09, 2020 OPERATIVE REPORT Date of surgery: 09/09/2020 Date of dictation: 09/09/2020 Preoperative diagnosis: Multiparity desiring permanent sterilization, obesity with a BMI of 36 Postoperative diagnosis/findings: Same, 8 weeks size anteverted uterus, no adnexal masses, normal tubes bilaterally, no intra-abdominal adhesions, grade 1 uterine prolapse, grade 1 cystocele, grade 1 rectocele Procedure done: Laparoscopic bilateral total salpingectomy for sterilization Specimens removed/disposition of specimens: Right and left fallopian tubes entirely sent to pathology Surgeon: Dr. Mayra Ruelas obstetric assistant: Ezequiel Dee Anesthesia: General endotracheal tube anesthesia Estimated blood loss: 25 ml Intravenous fluids: 600 mL of LR Urine output: 400 mL Medications: As per anesthesia records Complications: None, patient was extubated and taken to the recovery room in a stable condition. PROCEDURE: After consents were signed patient was taken to the operating room where she was placed under general anesthesia without any difficulty. She was placed supine on the table in the lithotomy position. Exam under anesthesia revealed findings noted above. She was then prepped and draped in usual sterile fashion. Weighted speculum and anterior wall retractors were placed in the vagina, cervix visualized and grasped with a tenaculum. ZUMI uterine manipulator was placed into the uterus without any difficulty. Catheter was placed, instruments were removed from the vagina and the legs were lowered. Attention was turned towards the abdomen where local anesthetic was injected in to her umbilicus. A 10 mm skin incision was made and a 10 mm port was placed through the umbilicus using an open technique--- fascia was identified and tented up with Augustine clamps and directly incised using curved Mayos. Peritoneum was then bluntly entered digitally and palpation revealed no adhesions around site of entry. Reyes trocar was then attached to the fascia and inflated. Once intra-abdominal entry was confirmed gas was turned on and intra-abdominal opening pressure was 2. The abdomen is insufflated to the pressure was 14. Survey of the abdomen revealed findings noted above. Two 5 mm trocar was placed into the left and right lower quadrant under direct visualization after injecting local anesthetic. The Voyant device was used to clamp, cauterize and then cut the mesosalpinx under the fallopian tube starting at the fimbriated end and moving towards the uterus. This was done in a sequential fashion in such a way that the entire fallopian tube was from the sidewall and the uterus. The small cornual stump was cauterized as well. This was done first on the right side and then the left side without any difficulty. The right and left fallopian tubes were taken out of the umbilical port without any difficulty. No bleeding was noted at sites of surgery. Trochars were removed under direct visualization. All instruments removed from the abdomen and the abdomen was desufflated. The fascia on the umbilical port was closed with 0 Vicryl in a continuous fashion and good reapproximation was obtained-care was taken to tent up the fascia throughout the closure. The skin incisions was closed with 4-0 Monocryl in a subcuticular fashion good reapproximation and hemostasis was noted. The incisions were dressed with Steri- Strips Telfa and Tegaderm. The ZUMI and Edward catheter were removed and good hemostasis was achieved with silver nitrate . The patient was extubated without any difficulty and taken to the recovery room in a stable condition. FOLLOW UP: Follow-up in 2 weeks and 6 weeks with surgeon MEDICATION ON DISCHARGE: Colace 100 mg by mouth every 12 hours when necessary constipation, 30 tablets, no refills Ibuprofen 800 mg by mouth every 8 hours when necessary pain, 60 tablets, no refills. Aurora 5/325 mg 1 tablet by mouth every 6 hours when necessary pain,25 tablets, no refills Continue other home medication DISPOSITION: Home in a stable condition This documentation was created by [employer] environment friendly landscape designer software (known for inherent environment friendly landscape designer error). Every effort was made to assure accuracy of environment friendly landscape designer. Any obvious errors or omissions should be clarified with the author of the document. Pre-op Diagnosis: Desires sterilization [facility] Medical History (Updated 09/03/20 @ 12:41 by Mayra Amin MD) No pertinent past medical history Denies diabetes, asthma, hypertension, seizures, DVT/PE PMD: none Surgical History (Updated 09/10/20 @ 07:36 by Mayra Amin MD) Status post cholecystectomy June 2018--laparoscopic procedure performed at [facility] [place] Status post tubal ligation 09/09/2020---laparoscopic bilateral total salpingectomy for sterilization by Dr. Ruelas at [facility] [place]. 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 [employer] Appointment: 08/30/20(pp) Other Female Reproductive History Menstrual History Comment: Menarche at age 12 with regular 30-day cycles lasting for 5 days with moderate flow Sexual History Sexual History Comment: [place] at age 13 with less than 5 lifetime partners, does not have a current partner and is no longer with the father of the baby STD History Comment: Denies history of sexually transmitted diseases in the past Contraception Contraception History Comment: Has used Depo-Provera in the past for contraception but did not like it secondary to weight gain. -----> underwent laparoscopic total salpingectomy for sterilization on 09/09/2020.
[2020-09-09] MEDS: ondansetron 2 mg/ML SDV 2 mL 4 MG IVP (11:58)
[2020-09-09] MEDS: fentaNYL 50 mcg/mL INJ 2mL IVP ×2 (12:05→12:10)
[2020-09-09] MEDS: metoclopramide 5 mg/mL SDV 2 mL 10 MG IVP (12:05)
[2020-09-09] MEDS: HYDROcodone-acetaminophen 5-325 mg Tablet 1 TAB PO (12:48)
--- NOTE | 2020-09-09 16:52 | ANE.PACU2 ---
Inpatient post-anesthesia follow up: Airway intact: Yes Vital signs: Temperature 98.4 F Pulse Rate 87 Respiratory Rate 18 Blood Pressure 130/82 Pulse Oximetry 96 Oxygen Delivery Me thod Room Air Oxygen Flow Rate Fraction of Inspir ed Oxygen Hydration adequate: Yes Nausea and vomiting: No Pain level: 2 Mental status: Baseline
== END 2020-09-09 13:51 | disposition home or self-care (01) ==
PROVIDERS: PCP Physician Assistant; Visit Provider Obstetrics & Gynecology
PROC: (CPT 58661; principal; 2020-09-09 09:25)
DX: Z30.2 Encounter for sterilization (principal); E66.01 Morbid (severe) obesity due to excess calories; Z68.36 Body mass index [BMI] 36.0-36.9, adult; Z82.49 Family history of ischemic heart disease and other diseases of the circulatory system; Z83.3 Family history of diabetes mellitus
CPT/HCPCS: 58661; 36415; 80053; 80500; 81025; 84703; 85025; 86850; 86870; 86900; 88302; J1100; J2405; J2704; J2765; J3010; J3490; J7030

== ENCOUNTER 2020-09-11 08:38 | Emergency (ER) | payer MEDICAID, SELFPAY ==
[2020-09-11 08:50] VITALS: BP 130/78; PULSE 75; RESP 18; TEMP 36.4; O2SAT 100; BMI 30.9
--- NOTE | 2020-09-11 09:00 | ECG_ITS ---
[facility] Test Date: 2020-09-11 Pat Name: Lolly Fallon Department: Room: Gender: Female Bacteriologist Pharmaceutical: : 2000 Requested By: Dwayne Rico Order Number: [id number] Garth MD: Iman English M.D. Measurements Intervals [place] Rate: 67 P: 38 NV: 162 QRS: 63 QRSD: 95 T: 37 QT: 400 QTc: 423 Interpretive Statements SINUS RHYTHM WITH SINUS ARRHYTHMIA WARNING: DATA QUALITY MAY AFFECT INTERPRETATION Compared to ECG 03/09/2020 11:25:43 No significant changes Electronically Signed On 09-12-2020 18:25:54 CDT by Iman English M.D. [id number] f
--- NOTE | 2020-09-11 09:01 | XRR_ITS ---
PROCEDURE INFORMATION: Exam: XR Chest Exam date and time: 09/11/2020 9:01 AM Age: 20 years old Clinical indication: Pain; Chest pressure TECHNIQUE: Imaging protocol: XR of the chest. Views: 1 view. COMPARISON: CR XR chest 1V portable [id number] 03/09/2020 11:09 AM FINDINGS: Lungs: Unremarkable. No consolidation. Pleural spaces: Unremarkable. No pleural effusion. No pneumothorax. Heart/Mediastinum: Unremarkable. No cardiomegaly. Bones/joints: No acute abnormality. XR/XR chest 1V portable [id number] IMPRESSION: No acute findings.
--- NOTE | 2020-09-11 09:02 | ED_ITS ---
HPI - Chest Pain General: Chief Complaint: Chest Pain Stated Complaint: CP Time Seen by Provider: 09/11/20 08:50 History of Present Illness: HPI narrative: Patient presents with chest heaviness and have a hard time getting her breath. Patient had tubes tied on September 09. Had a baby a month and half ago. Patient also under a lot stress and anxiety. Patient denies chest pain. Does have some tingling going down both arms. Says it is hard to get her breath. Patient states she has no one at home to help her take care of her baby. And she would need to come in last night due to that but did find some me this morning to watch her . complaint: chest heaviness Onset (ago): hour(s) Timing of current episode: constant Prior episodes: No Onset: during rest Severity: mild Quality: heaviness Relieving factors: nothing Exacerbating factors: stress Context: recent surgery Associated symptoms: Reports no associated symptoms and dyspnea; Deny abdominal pain, fever(s), nausea or vomiting Treatment prior to arrival: none Review of Systems Const: Denies: fever(s), chills or body aches Eyes: Denies: change in vision or blurry vision ENMT: Denies: throat pain or nasal congestion Card: Reports: other (Chest pressure and tingling in her arms); Denies: chest pain or dyspnea on exertion Resp: Reports: dyspnea; Denies: productive cough or non-productive cough GI: Denies: abdominal pain, nausea or vomiting Musc: Denies: extremity pain Skin/Breast: Denies: rash Neuro: Denies: headache(s) Psych: Reports: anxiety, panic attacks and sleeping less; Denies: depression Jamal/Lymph: Denies: easy bruising PFSH ED PFSH: Medical History (Updated 09/11/20 @ 10:48 by NESTOR Adam) No pertinent past medical history Denies diabetes, asthma, hypertension, seizures, DVT/PE PMD: none Surgical History (Updated 09/10/20 @ 07:36 by Mayra Amin MD) Status post cholecystectomy June 2018--laparoscopic procedure performed at [facility] [place] Status post tubal ligation 09/09/2020---laparoscopic bilateral total salpingectomy for sterilization by Dr. Ruelas at [facility] [place]. ----> Pathology pending Family History Sister Diabetes Father Hypertension Mother Hypertension Denies family history of Colon cancer Ovarian cancer Heart disease Hyperlipidemia Breast cancer Uterine cancer Thyroid condition Stroke Social History Smoking and tobacco status: never smoked Alcohol intake: never Female Reproductive History: Date of last menstrual period: 07/28/20 Physical Exam Const: COMMON NORMALS: no acute distress, average body habitus and patient oriented x3 HENMT: COMMON NORMALS: normocephalic HEAD & SCALP: normal to inspection and normocephalic FACE & SINUS: normal facial exam Eye: COMMON NORMALS: conjunctivae normal GENERAL EYE: appearance normal, both eyes and all related structures CONJUNCTIVA: Yes conjunctivae normal Neck/C-Spine: COMMON NORMALS: no JVD Chest: COMMONS NORMALS: normal inspection of the chest Resp: COMMON NORMALS: normal respiratory effort and clear to auscultation bilaterally AUSCULTATION: clear to auscultation bilaterally Cardio: COMMON NORMALS: no JVD, regular rate and regular rhythm RATE: regular rate RHYTHM: regular rhythm GI: COMMON NORMALS: Normal to inspection, nondistended, normoactive bowel sounds present Extremity: COMMON NORMALS: normal to inspection and full ROM Neuro: COMMON NORMALS: patient oriented x3 Course Vital Signs: Vital signs: Vital Signs Temperature 97.6 F 09/11/20 08:50 Pulse Rate 68 09/11/20 10:59 Respiratory Rate 18 09/11/20 10:59 Blood Pressure 129/73 09/11/20 10:59 Pulse Oximetry 99 09/11/20 10:59 MDM - Chest Pain MDM Narrative: Medical decision making narrative: Patient presented with atypical chest heaviness. Patient has history of anxiety. Work-up cardiac and routine was negative for any concerning problems. Patient diagnosed atypical chest pain related to anxiety. Patient is followed primary care provider discuss symptoms with them. Lab Data: Labs: Lab Results 09/11/20 09/11/20 09/11/20 Range/Units 09:19 09:19 09:19 WBC 9.1 (4.0-10.0) 10^3/ uL RBC 4.29 (4.1-5.3) 10^6/u L Hgb 11.6 (11.5-15.3) g/dL Hct 35.3 L (37.0-47.0) % MCV 82.3 (81-99) fL MCH 27.0 L (28.0-34.0) pg MCHC 32.9 (30.0-36.0) g/dL RDW 20.4 H (12.1-15.1) % Plt Count 366 (130-400) 10^3/c mm MPV 10.1 (7.4-10.4) fL Neut % (Auto) 61.4 % Lymph % (Auto) 23.1 % [place] % (Auto) 6.1 % Eos % (Auto) 8.3 % Baso % (Auto) 0.8 % Neut # (Auto) 5.59 (1.8-7.7) 10^3/u L Lymph # (Auto) 2.1 (0.8-4.8) 10^3/u L [place] # (Auto) 0.6 (0.2-0.9) 10^3/u L Eos # (Auto) 0.8 (0.0-0.8) 10^3/u L Baso # (Auto) 0.1 (0.0-0.1) 10^3/u L Nucleated RBC % (a uto) 0 % Nucleated RBCs # 0.0 /100WBC D-Dimer 1.27 H (0-0.59) ug/mIFE U Sodium 139 (136-145) mmol/L Potassium 3.9 (3.5-5.1) mmol/L Chloride 103 (98-107) mmol/L Carbon Dioxide 25 (22-29) mmol/L Anion Gap 14.9 (5-19) BUN 10 (6-20) mg/dL Creatinine 0.6 (0.5-0.9) mg/dL GFR Calculation 126.2 (90-130) mL/min Glucose 84 (65-115) mg/dL Calculated Osmolal ity 286 (285-295) mOsm/k g Calcium 8.9 (8.5-10.5) mg/dL Total Bilirubin 0.2 (0.15-1.2) mg/dL AST 15 (0-32) U/L ALT 18 (0-33) U/L Alkaline Phosphata se 97 (35-105) IU/L Troponin T Gen 5 n g/L (0-10) ng/L Total Protein 6.5 L (6.6-8.7) g/dL Albumin 4.0 (3.5-5.2) g/dL Globulin 2.5 (1.3-4.6) g/dL Lipase 22 (13-60) U/L // Range/Units 09:19 WBC (4.0-10.0) 10^3/ uL RBC (4.1-5.3) 10^6/u L Hgb (11.5-15.3) g/dL Hct (37.0-47.0) % MCV (81-99) fL MCH (28.0-34.0) pg MCHC (30.0-36.0) g/dL RDW (12.1-15.1) % Plt Count (130-400) 10^3/c mm MPV (7.4-10.4) fL Neut % (Auto) % Lymph % (Auto) % [place] % (Auto) % Eos % (Auto) % Baso % (Auto) % Neut # (Auto) (1.8-7.7) 10^3/u L Lymph # (Auto) (0.8-4.8) 10^3/u L [place] # (Auto) (0.2-0.9) 10^3/u L Eos # (Auto) (0.0-0.8) 10^3/u L Baso # (Auto) (0.0-0.1) 10^3/u L Nucleated RBC % (a uto) % Nucleated RBCs # /100WBC D-Dimer (0-0.59) ug/mIFE U Sodium (136-145) mmol/L Potassium (3.5-5.1) mmol/L Chloride (98-107) mmol/L Carbon Dioxide (22-29) mmol/L Anion Gap (5-19) BUN (6-20) mg/dL Creatinine (0.5-0.9) mg/dL GFR Calculation (90-130) mL/min Glucose (65-115) mg/dL Calculated Osmolal ity (285-295) mOsm/k g Calcium (8.5-10.5) mg/dL Total Bilirubin (0.15-1.2) mg/dL AST (0-32) U/L ALT (0-33) U/L Alkaline Phosphata se (35-105) IU/L Troponin T Gen 5 n g/L 6 (0-10) ng/L Total Protein (6.6-8.7) g/dL Albumin (3.5-5.2) g/dL Globulin (1.3-4.6) g/dL Lipase (13-60) U/L EKG Data^: EKG 1: EKG interpretation date: 09/11/20 EKG interpretation time: 09:12 Computer generated interpretation: Sinus rhythm with sinus arrhythmia, ventricular rate 67 bpm [place] interval 162 ms QRS duration 95 ms QT is 400 ms Discharge Plan Discharge Patient Disposition: Home Clinical Impression: Anxiety attack Condition: Stable Prescriptions: No Action metronidazole [Flagyl] 500 mg tablet 500 mg PO BID 14 Days Qty: 28 RF: 0 sertraline [Zoloft] 50 mg tablet 50 mg PO DAILY Qty: 30 RF: 0 celecoxib 200 mg capsule 200 mg PO DAILY RF: 0 Prozac 20 mg capsule 20 mg PO DAILY RF: 0 docusate sodium 100 mg Capsule 100 mg PO BID PRN (Reason: constipation) Qty: 30 RF: 0 ibuprofen 800 mg tablet 800 mg PO Q8H Qty: 30 RF: 0 hydrocodone-acetaminophen 5-325 mg tablet 1 tab PO Q6H Qty: 25 RF: 0 Discharge Orders: Discharge ED (Routine); Ordered 09/11/20 Ordered By: Dwayne Rico Referrals: Shilpa Ballesteros PA [Primary Care Provider] - Discharge Diet: Usual diet Discharge Activity: Resume usual activity Patient Instructions: Anxiety (ED) Activity Restrictions/Additional Instructions: Follow-up your primary care provider Sunday or Sunday and go over your signs and symptoms that she had this weekend. Go over medications and discussed with him. Can return here if worsening symptoms. Coding Level of Care Code ED Sport Shoe Spike Assembler for Zuleyma Fwd Exam Comprehensive
[2020-09-11 09:12] VITALS: BP 133/65; PULSE 83; RESP 18; O2SAT 100
--- NOTE | 2020-09-11 09:16 | PC.NURSE ---
Patient reports central chest pain starting last night. Reports SOB is present. Recent surgery on . Reports pain as a 7 and describes as aching.
[2020-09-11 09:37] LABS: Basophils # 0.1 10^3/uL (0.0-0.1); Basophils % 0.8 %; Eosinophils # 0.8 10^3/uL (0.0-0.8); Eosinophils % 8.3 %; Hematocrit 35.3 % (37.0-47.0); Hemoglobin 11.6 g/dL (11.5-15.3); Lymphocytes # 2.1 10^3/uL (0.8-4.8); Lymphocytes % 23.1 %; Mean Corpuscular HGB Conc 32.9 g/dL (30.0-36.0); Mean Corpuscular Volume 82.3 fL (81-99); Mean Platelet Volume 10.1 fL (7.4-10.4); Monocytes # 0.6 10^3/uL (0.2-0.9); Monocytes % 6.1 %; Neutrophils # 5.59 10^3/uL (1.8-7.7); Neutrophils % 61.4 %; Nucleated Red Blood Cells % 0 %; Platelet Count 366 10^3/cmm (130-400); Red Blood Count 4.29 10^6/uL (4.1-5.3); Red Cell Distribution Width 20.4 % (12.1-15.1); White Blood Count 9.1 10^3/uL (4.0-10.0)
[2020-09-11 09:44] VITALS: BP 124/67; PULSE 74; RESP 18; O2SAT 98
[2020-09-11 09:49] LABS: D Dimer 1.27 ug/mIFEU (0-0.59)
--- NOTE | 2020-09-11 09:53 | CTR_ITS ---
PROCEDURE INFORMATION: Exam: CTA Chest With Contrast Exam date and time: 09/11/2020 9:53 AM Age: 20 years old Clinical indication: Pain; On breathing; Additional info: Dyspnea, high d-dimer, recent surgery TECHNIQUE: Imaging protocol: Computed tomographic angiography of the chest with contrast. 3D rendering (Not supervised by radiologist): MIP and/or 3D reconstructed images were created by the technologist. Radiation optimization: All CT scans at this facility use at least one of these dose optimization techniques: automated exposure control; mA and/or kV adjustment per patient size (includes targeted exams where dose is matched to clinical indication); or iterative reconstruction. Contrast material: OMNIPAQUE 350; Contrast volume: 78 ml; Contrast route: INTRAVENOUS (IV); COMPARISON: CR (CHEST, ) 09/11/2020 9:03 AM RADIATION DOSE METRICS: Total DLP (mGy-cm): 547.99 FINDINGS: Pulmonary arteries: There is no pulmonary embolus. Aorta: Unremarkable. No aortic aneurysm. No aortic dissection. Lungs: There is a 5 mm subpleural ground-glass nodule left lung base. There is a cluster of calcified granulomas in the right middle lobe and apical segment of the right lower lobe compatible with old granulomatous disease. No airspace consolidation. Pleural spaces: Unremarkable. No pneumothorax. No pleural effusion. Heart: Unremarkable. No cardiomegaly. No pericardial effusion. Mediastinal space: A small hiatal hernia is present. Lymph nodes: Unremarkable. No enlarged lymph nodes. Gallbladder and bile ducts: There has been a cholecystectomy. Intraperitoneal space: There is free intraperitoneal air compatible with the history of recent surgery. Bones/joints: Unremarkable. No acute fracture. Soft tissues: Unremarkable. CT/CT angio chest PE protcl [id number] IMPRESSION: 1. There is no pulmonary embolus. 2. There is a 5 mm subpleural ground-glass nodule left lung base. No routine follow-up is indicated. (Reference: Mynor) 3. No active pulmonary disease. 4. There is free intraperitoneal air compatible with the history of recent surgery. REFERENCES: Mynor Wolf et al. Guidelines for Management of Incidental Pulmonary Nodules Detected on CT Images: From the Fleischner Society 2017. Radiology. 2017;284(1):228-243. Radiation Dose CTDIVOL = (mGy): DLP = 547.99 (mGy-cm)
[2020-09-11 10:00] VITALS: BP 136/81; PULSE 71; RESP 18; O2SAT 99
[2020-09-11 10:01] LABS: Alanine Aminotransferase 18 U/L (0-33); Alkaline Phosphatase 97 IU/L (35-105); Anion Gap 14.9 (5-19); Aspartate Amino Transferase 15 U/L (0-32); Blood Urea Nitrogen 10 mg/dL (6-20); Calcium 8.9 mg/dL (8.5-10.5); Carbon Dioxide 25 mmol/L (22-29); Chloride 103 mmol/L (98-107); Globulin 2.5 g/dL (1.3-4.6); Glomerular Filtration Rate 126.2 mL/min (90-130); Glucose 84 mg/dL (65-115); Lipase 22 U/L (13-60); Osmolality Calculated 286 mOsm/kg (285-295); Potassium 3.9 mmol/L (3.5-5.1); Sodium 139 mmol/L (136-145); Total Bilirubin 0.2 mg/dL (0.15-1.2); Total Protein 6.5 g/dL (6.6-8.7)
[2020-09-11 10:02] LABS: Troponin T (5th) Once 6 ng/L (0-10)
[2020-09-11] MEDS: iohexol 350 mg/mL 100 mL Btl IV (10:23)
[2020-09-11 10:59] VITALS: BP 129/73; PULSE 68; RESP 18; O2SAT 99
== END 2020-09-11 10:59 | disposition home or self-care (01) ==
PROVIDERS: Emergency Provider Nurse Practitioner Family; PCP Physician Assistant
DX: F41.9 Anxiety disorder, unspecified (principal)
CPT/HCPCS: 71045; 71275; 80053; 83690; 84484; 85025; 85378; 93005; 99283; Q9967

== ENCOUNTER → 2020-12-05 16:06 | Outpatient (BNVA) | payer MEDICAID, SELFPAY | PROVIDERS: PCP Physician Assistant; Visit Provider Registered Nurse Neonatal Intensive Care | DX: M79.641 Pain in right hand (principal) | CPT/HCPCS: 73130 ==

== ENCOUNTER 2021-02-22 21:05 | Emergency (ER) | payer MEDICAID, SELFPAY ==
[2021-02-22 21:15] VITALS: BP 149/85; PULSE 88; RESP 16; TEMP 36.7; O2SAT 99
== END 2021-02-22 23:19 | disposition left against medical advice (07) ==
LOC: ER 21:16
PROVIDERS: Emergency Provider Family Medicine; PCP Physician Assistant
DX: Z53.21 Procedure and treatment not carried out due to patient leaving prior to being seen by health care provider (principal)
CPT/HCPCS: 99281

== ENCOUNTER 2021-05-13 08:46 | Emergency (ER) | payer MEDICAID, SELFPAY ==
[2021-05-13 09:08] VITALS: BP 140/85; PULSE 75; RESP 18; TEMP 36.7; O2SAT 96; BMI 34.2
--- NOTE | 2021-05-13 09:16 | XR_ITS ---
WS: [id number] Chest with right rib detail, 3 views, 05/13/2021 Clinical Data: fall, injury Comparison: Portable chest, 09/11/2020. Findings: The lungs show no nodules, masses, or effusions. The heart is normal. No pneumonia or pneumothorax is seen. Decorative items are overlying the patient's breasts. The ribs are intact. No rib fractures seen. No subcutaneous emphysema is present. XR/XR ribs RT mn 3V w CXR1V [id number] Impression: Negative chest with right rib detail.
--- NOTE | 2021-05-13 09:21 | ED_ITS ---
HPI - General Adult General: Chief complaint: General Medical Stated complaint: RT side pain Time Seen by Provider: 05/13/21 08:53 History of Present Illness: Patient complains about right-sided rib pain after slip on the stairs last night. Patient said she did not strike the stairs but just kind of slid down them couple hours later started hurting on her right side is not improved. Denies any other injury. Denies any shortness of breath. Associated symptoms: Deny chest pain, dyspnea, headache(s), nausea, rash or vomiting Review of Systems Const: Denies: fever(s), chills or body aches Eyes: Denies: eye discomfort ENMT: Denies: throat pain Card: Denies: chest pain Resp: Denies: dyspnea GI: Denies: abdominal pain, nausea or vomiting Musc: Reports: other (Rib pain right side) Skin/Breast: Denies: rash Neuro: Denies: headache(s) Psych: Denies: depression or suicidal ideation PFS ED PFSH: Medical History No pertinent past medical history Denies diabetes, asthma, hypertension, seizures, DVT/PE PMD: none Surgical History Status post cholecystectomy June 2018--laparoscopic procedure performed at [facility] [place] Status post tubal ligation 09/09/2020---laparoscopic bilateral total salpingectomy for sterilization by Dr. Ruelas at [facility] [place]. --Normal intra-abdominal pathology-no endometriosis ----> Pathology showed benign tubes. Family History Sister Diabetes Father Hypertension Mother Hypertension Denies family history of Colon cancer Ovarian cancer Heart disease Hyperlipidemia Breast cancer Uterine cancer Thyroid condition Stroke Social History Smoking and tobacco status: never smoked Alcohol intake: never Female Reproductive History: Date of last menstrual period: 07/28/20 Physical Exam Const: COMMON NORMALS: no acute distress, patient oriented x3 and alert HENMT: COMMON NORMALS: normocephalic and external ears normal HEAD & SCALP: normocephalic EXTERNAL EAR: Yes external ears normal Eye: COMMON NORMALS: EOMs intact bilaterally Neck/C-Spine: COMMON NORMALS: no JVD Chest: OTHER: Tenderness right posterior ribs near 4 inches below the axilla. No swelling or bruising noted. Respirations are normal. Denies any back pain with palpation. Resp: COMMON NORMALS: normal respiratory effort and No use of accessory muscles Cardio: COMMON NORMALS: no JVD GI: INSPECTION: Yes normal to inspection Extremity: COMMON NORMALS: normal to inspection and full ROM Neuro: COMMON NORMALS: patient oriented x3 SENSORIUM/ORIENTATION: Yes alert Psych: COMMON NORMALS: mental status grossly normal Skin: COMMON NORMALS: no rashes or lesions noted GENERAL SKIN EXAM: no rashes or lesions noted Course Vital Signs: Vital signs: Vital Signs Temperature 98.1 F 05/13/21 09:08 Pulse Rate 75 05/13/21 09:08 Respiratory Rate 18 05/13/21 09:08 Blood Pressure 140/85 05/13/21 09:08 Pulse Oximetry 96 05/13/21 09:08 [facility] - General Adult Medical Decision Making Patient presents with rib tenderness after a fall yesterday. At radiology studies were negative. Most likely rib sprain. Lab Data Radiology Impressions Ribs X-Ray 05/13/21 09:16 Impression: Negative chest with right rib detail. Discharge Plan Discharge Patient Disposition: Home Clinical Impression: Sprain of ribs Condition: Stable Prescriptions: New Celebrex 100 mg capsule 100 mg PO BID Qty: 20 0RF No Action venlafaxine 75 mg capsule,extended release 24hr 150 mg PO DAILY 0RF sumatriptan succinate 25 mg tablet See Rx Instructions PO .COMPLEX 0RF Rx Instructions: take 1 tab at onset of headache; if no relief may repeat 1 tab after at least 2 hrs; max = 4 tabs/24 hr PO Discharge Orders: Discharge ED (Routine); Ordered 05/13/21 Ordered By: Dwayne Rico Referrals: Shilpa Ballesteros PA [Primary Care Provider] - Discharge Diet: Usual diet Discharge Activity: Increase activity as tolerated Patient Instructions: Sprain (ED) Activity Restrictions/Additional Instructions: Follow-up with medical provider as directed. Take medications as prescribed. Return to the ER or your medical provider if condition worsens. Please read and understand discharge instructions. If any questions ask please. Coding Level of Care Code ED Veterinary Attendant for Chg Fwd Exam Comprehensive
[2021-05-13] MEDS: ketorolac 60 mg/2 mL INJ IM (09:37)
[2021-05-13 09:43] VITALS: BP 133/62; PULSE 74; RESP 15; O2SAT 96
== END 2021-05-13 09:44 | disposition home or self-care (01) ==
PROVIDERS: Emergency Provider Nurse Practitioner Family; PCP Physician Assistant
DX: S23.41XA Sprain of ribs, initial encounter (principal); W10.8XXA Fall (on) (from) other stairs and steps, initial encounter
CPT/HCPCS: 71101; 96372; 99283; J1885

== ENCOUNTER 2021-05-27 15:35 | Emergency (ER) | payer MEDICAID, SELFPAY ==
[2021-05-27 15:41] VITALS: BP 133/82; PULSE 81; RESP 16; TEMP 36.6; O2SAT 98; BMI 35.4
--- NOTE | 2021-05-27 16:11 | CTR_ITS ---
PROCEDURE INFORMATION: Exam: CT Abdomen And Pelvis With Contrast Exam date and time: 05/27/2021 5:03 PM Age: 20 years old Clinical indication: Abdominal pain; Localized; Prior surgery; Surgery date: 6+ months; Surgery type: Gb, tubal; Patient HX: C/O lower abd pain / cramping w nausea; Additional info: Rlq pain TECHNIQUE: Imaging protocol: Computed tomography of the abdomen and pelvis with contrast. Radiation optimization: All CT scans at this facility use at least one of these dose optimization techniques: automated exposure control; mA and/or kV adjustment per patient size (includes targeted exams where dose is matched to clinical indication); or iterative reconstruction. Contrast material: OMNI 300; Contrast volume: 95 ml; Contrast route: INTRAVENOUS (IV); COMPARISON: CT abdomen pelvis w con* [id number] 08/04/2020 10:04 PM RADIATION DOSE METRICS: Total DLP (mGy-cm): 1785.65 FINDINGS: Liver: Normal. No mass. Gallbladder and bile ducts: Cholecystectomy. No ductal dilation. Pancreas: Normal. No ductal dilation. Spleen: Normal. No splenomegaly. Adrenal glands: Normal. No mass. Kidneys and ureters: Normal. No hydronephrosis. Stomach and bowel: Unremarkable. No obstruction. No mucosal thickening. Appendix: No evidence of appendicitis. Intraperitoneal space: Unremarkable. No free air. No significant fluid collection. Vasculature: Unremarkable. No abdominal aortic aneurysm. Lymph nodes: Unremarkable. No enlarged lymph nodes. Urinary bladder: Unremarkable as visualized. Reproductive: Unremarkable as visualized. Bones/joints: No acute fracture. Soft tissues: Unremarkable. CT/CT abdomen pelvis w con* [id number] IMPRESSION: No acute findings.
--- NOTE | 2021-05-27 16:12 | ED_ITS ---
Documented by User: Radha Velez PA-C 05/27/21 16:43 HPI - Abdominal Pain General: Chief Complaint: Abdominal Pain Stated Complaint: abd pain Time Seen by Provider: 05/27/21 16:07 Source: patient Mode of arrival: ambulatory Limitations: no limitations History of Present Illness: 20-year-old female presents to the ER today for right lower quadrant pain x12 hours. Patient reports this morning she noticed some cramping around her umbilicus. Patient reports she laid down for nap and when she woke up the pain had moved from the umbilicus to the right lower quadrant. Patient reports this pain is a stabbing pain that goes from the right lower quadrant into her back. Patient reports she has nausea associated. She has not vomited at this time. Denies any fever or chills. Patient reports history of kidney stones however it has been a long time and she does not giovana mber what they were like. She denies any pain with urination or blood in her urine. Patient reports her last menstrual cycle was about 19 days ago. She has a history of a tubal. Patient denies any recent illnesses. Patient reports she does not have regular bowel movements. She reports sometimes she goes once a week other times she will go more than a week without a bowel movement. Patient reports she thinks it has been more than a week since her last bowel movement. However she does report again this is regular for her. Associated Symptoms: Reports constipation, GI cramping and nausea; Denies vomiting Related Data: Date of Last Menstrual Period: 07/28/20 Review of Systems General: Reports: 10 or more systems reviewed and unremarkable except in HPI and below GI: Reports: abdominal pain, nausea, constipation and GI cramping; Denies: vomiting PFSH ED PFSH: Medical History No pertinent past medical history Denies diabetes, asthma, hypertension, seizures, DVT/PE PMD: none Surgical History Status post cholecystectomy June 2018--laparoscopic procedure performed at [facility] [place] Status post tubal ligation 09/09/2020---laparoscopic bilateral total salpingectomy for sterilization by Dr. Ruelas at [facility] [place]. --Normal intra-abdominal pathology-no endometriosis ----> Pathology showed benign tubes. Family History Sister Diabetes Father Hypertension Mother Hypertension Denies family history of Colon cancer Ovarian cancer Heart disease Hyperlipidemia Breast cancer Uterine cancer Thyroid condition Stroke Social History Smoking and tobacco status: never smoked Alcohol intake: never Female Reproductive History: Date of last menstrual period: 07/28/20 Physical Exam Const: COMMON NORMALS: average body habitus, patient oriented x3, no limit ations, healthy appearing, alert and well nourished Eye: COMMON NORMALS: conjunctivae normal CONJUNCTIVA: Yes conjunctivae normal Neck/C-Spine: COMMON NORMALS: full ROM Resp: COMMON NORMALS: normal respiratory effort and clear to auscultation bilaterally AUSCULTATION: clear to auscultation bilaterally Cardio: COMMON NORMALS: regular rate and regular rhythm RATE: regular rate RHYTHM: regular rhythm GI: COMMON NORMALS: Soft to palpation and No hepatosplenomegaly present PALPATION: Yes Soft to palpation, Yes Tenderness to palpation present (GI) (RLQ), No Guarding due to palpation present (GI), Yes No hepatosplenomegaly present and Yes Other GI palpation findings present (+ psoas sign, neg obturator and rebound tenderness) : COMMON NORMALS: Yes no CVA tenderness BLADDER/KIDNEY EXAM: Yes no CVA tenderness Back/Pelvis: COMMON NORMALS: no CVA tenderness and no thoracic nor lumbar tenderness Extremity: COMMON NORMALS: normal to inspection and full ROM Neuro: COMMON NORMALS: patient oriented x3 SENSORIUM/ORIENTATION: Yes alert Psych: COMMON NORMALS: mental status grossly normal, Normal thought process present, cooperative and normal affect THOUGHT PROCESS: Normal thought process present Skin: COMMON NORMALS: no rashes or lesions noted GENERAL SKIN EXAM: no rashes or lesions noted Course ED course: 28-year-old female presents to the ER today for right lower quadra nt pain that began this morning. She reports nausea associated. Pain began around the umbilicus and has moved to the right lower quadrant. Pain is a sharp stabbing pain that radiates into her right flank. Patient denies urinary symptoms at this time. She does admit to history of constipation. We will get a CT to rule out appendicitis. Other differentials to include ovarian cyst versus constipation. We will also get lab work at this time. Reevaluation(s): Reevaluation #1: Waiting on labs and CT results. Pt handed over to NESTOR Calderon at shift change. Time: 16:43 Vital Signs: Vital signs: Vital Signs Temperature 97.8 F 05/27/21 15:41 Pulse Rate 81 05/27/21 15:41 Respiratory Rate 16 05/27/21 15:41 Blood Pressure 133/82 05/27/21 15:41 Pulse Oximetry 98 05/27/21 15:41 MDM - Abdominal Pain Lab Data : 05/27/21 16:25 05/27/21 16:25 Labs/Radiology: Radiology Impressions Abdomen/Pelvis CT 05/27/21 16:11 IMPRESSION: No acute findings. Laboratory Results WBC 9.0 10^3/uL (4.0-10.0) 05/27/21 16:25 RBC 4.68 10^6/uL (4.1-5.3) 05/27/21 16:25 Hgb 13.1 g/dL (11.5-15.3) 05/27/21 16:25 Hct 39.9 % (37.0-47.0) 05/27/21 16:25 MCV 85.3 fl (81-99) 05/27/21 16:25 MCH 28.0 pg (28.0-34.0) 05/27/21 16:25 MCHC 32.8 g/dL (30.0-36.0) 05/27/21 16:25 RDW 14.3 % (12.1-15.1) 05/27/21 16:25 Plt Count 361 10^3/cmm (130-400) 05/27/21 16:25 MPV 10.2 fL (7.4-10.4) 05/27/21 16:25 Neut % (Auto) 57.3 % 05/27/21 16:25 Lymph % (Auto) 29.3 % 05/27/21 16:25 [place] % (Auto) 8.1 % 05/27/21 16:25 Eos % (Auto) 4.8 % 05/27/21 16:25 Baso % (Auto) 0.4 % 05/27/21 16:25 Neut # (Auto) 5.13 10^3/uL (1.8-7.7) 05/27/21 16:25 Lymph # (Auto) 2.6 10^3/uL (0.8-4.8) 05/27/21 16:25 [place] # (Auto) 0.7 10^3/uL (0.2-0.9) 05/27/21 16:25 Eos # (Auto) 0.4 10^3/uL (0.0-0.8) 05/27/21 16:25 Baso # (Auto) 0.0 10^3/uL (0.0-0.1) 05/27/21 16:25 Nucleated RBC % (auto) 0 % 05/27/21 16: Nucleated RBCs # 0.0 /100WBC 05/27/21 16:25 Sodium 137 mmol/L (136-145) 05/27/21 16:25 Potassium 4.0 mmol/L (3.5-5.1) 05/27/21 16:25 Chloride 105 mmol/L (98-107) 05/27/21 16:25 Glucose 93 mg/dL (65-115) 05/27/21 16:25 AST 22 U/L (0-32) 05/27/21 16:25 ALT 17 U/L (0-33) 05/27/21 16:25 Alkaline Phosphatase 96 IU/L (35-105) 05/27/21 16:25 Total Protein 7.8 g/dL (6.6-8.7) 05/27/21 16:25 Albumin 4.2 g/dL (3.5-5.2) 05/27/21 16:25 Globulin 3.6 g/dL (1.3-4.6) 05/27/21 16:25 Urine Color Yellow (Yellow) 05/27/21 16:55 Urine Appearance Cloudy (CLEAR) 05/27/21 16:55 Urine pH 6 (5-7) 05/27/21 16:55 Ur Specific [place] 1.020 (1.005-1.030) 05/27/21 16:55 Urine Protein Neg (Negative) 05/27/21 16:55 Urine Glucose (UA) Norm (Normal) 05/27/21 16:55 Urine Ketones 1+ (Negative) H 05/27/21 16:55 Urine Blood Neg (Negative) 05/27/21 16:55 Urine Nitrate Negative (Negative) 05/27/21 16:55 Urine Bilirubin Neg (Negative) 05/27/21 16:55 Urine Urobilinogen Norm mg/dL (Negative) 05/27/21 16:55 Ur Leukocyte Esterase 2+ (Negative) H 05/27/21 16:55 Urine RBC 0-4 /hpf (0-2) H 05/27/21 16:55 Urine WBC 0-4 /hpf (0-5) H 05/27/21 16:55 Ur Squamous Epith Cells 25-40 /hpf (0-5) H 05/27/21 16:55 Amorphous Sediment Not Reportable 05/27/21 16:55 Urine Bacteria 1+ /hpf (NONE) H 05/27/21 16:55 Discharge Plan Discharge Patient Disposition: Home Clinical Impression: Nausea Abdominal pain Qualifiers: Abdominal location: right lower quadrant Qualified Code(s): R10.31 - Right lower quadrant pain Condition: Stable Prescriptions: New ondansetron 4 mg tablet,disintegrating 4 mg PO Q8H PRN (Reason: nausea and vomiting) Qty: 7 0RF No Action venlafaxine 75 mg capsule,extended release 24hr 150 mg PO DAILY 0RF sumatriptan succinate 25 mg tablet See Rx Instructions PO .COMPLEX 0RF Rx Instructions: take 1 tab at onset of headache; if no relief may repeat 1 tab after at least 2 hrs; max = 4 tabs/24 hr PO Celebrex 100 mg capsule 100 mg PO BID Qty: 20 0RF Discharge Orders: Discharge ED (Routine); Ordered 05/27/21 Ordered By: Vasyl Gregg Referrals: Shilpa Ballesteros PA [Primary Care Provider] - Discharge Diet: Advance as tolerated Discharge Activity: Increase activity as tolerated Patient Instructions: Abdominal Pain (ED) Activity Restrictions/Additional Instructions: Home and rest. Drink plenty of fluids. Activity as tolerated. Healthy diet. Follow-up with primary care as needed. Return to the ER for high fever greater than 100.4, blood in vomit or stool, or inability to hold fluids down. Sign Out Sign Out Data: Patient Sign Out occurred on 05/27/21 at 17:02. Patient's care was discussed, and care was transferred from to Vasyl Gregg. Coding Level of Care Code ED Stewardess Supervisor for Chg Fwd Exam Comprehensive Documented by User: NESTOR Winkler 05/27/21 17:29 HPI - Abdominal Pain General: Chief Complaint: Abdominal Pain Stated Complaint: abd pain Time Seen by Provider: 05/27/21 16:07 PFSH ED PFSH: Medical History No pertinent past medical history Denies diabetes, asthma, hypertension, seizures, DVT/PE PMD: none Surgical History Status post cholecystectomy June 2018--laparoscopic procedure performed at [facility] [place] Status post tubal ligation 09/09/2020---laparoscopic bilateral total salpingectomy for sterilization by Dr. Ruelas at [facility] [place]. --Normal intra-abdominal pathology-no endometriosis ----> Pathology showed benign tubes. Family History Sister Diabetes Father Hypertension Mother Hypertension Denies family history of Colon cancer Ovarian cancer Heart disease Hyperlipidemia Breast cancer Uterine cancer Thyroid condition Stroke Social History Smoking and tobacco status: never smoked Alcohol intake: never Course Vital Signs: Vital signs: Vital Signs Temperature 97.8 F 05/27/21 15:41 Pulse Rate 81 05/27/21 15:41 Respiratory Rate 16 05/27/21 15:41 Blood Pressure 133/82 05/27/21 15:41 Pulse Oximetry 98 05/27/21 15:41 MDM - Abdominal Pain Medical Decision Making 20-year-old female comes in today with complaints of periumbilical pain radiating to the right lower quadrant. Patient reports some nausea but no vomiting. Patient reports no fever. On exam patient has abdominal tenderness in right lower quadrant. Vital signs are normal. Patient does have a history of cholecystectomy. Differential diagnosis includes not limited to appendicitis, ovarian cyst, constipation. CBC was unremarkable. CMP showed normal liver enzymes and normal sodium potassium. Urinalysis was contaminated with large amount of skin cells and was otherwise unremarkable. CT of the abdomen and pelvis was nonacute. No signs of surgical abdomen was noted. Reviewed recommendations for treatment and follow-up. Patient reported understanding agreed to plan. Lab Data : 05/27/21 16:25 05/27/21 16:25 Labs/Radiology: Radiology Impressions Abdomen/Pelvis CT 05/27/21 16:11 IMPRESSION: No acute findings. Laboratory Results WBC 9.0 10^3/uL (4.0-10.0) 05/27/21 16:25 RBC 4.68 10^6/uL (4.1-5.3) 05/27/21 16:25 Hgb 13.1 g/dL (11.5-15.3) 05/27/21 16:25 Hct 39.9 % (37.0-47.0) 05/27/21 16:25 MCV 85.3 fl (81-99) 05/27/21 16:25 MCH 28.0 pg (28.0-34.0) 05/27/21 16:25 MCHC 32.8 g/dL (30.0-36.0) 05/27/21 16:25 RDW 14.3 % (12.1-15.1) 05/27/21 16:25 Plt Count 361 10^3/cmm (130-400) 05/27/21 16:25 MPV 10.2 fL (7.4-10.4) 05/27/21 16:25 Neut % (Auto) 57.3 % 05/27/21 16:25 Lymph % (Auto) 29.3 % 05/27/21 16:25 [place] % (Auto) 8.1 % 05/27/21 16:25 Eos % (Auto) 4.8 % 05/27/21 16:25 Baso % (Auto) 0.4 % 05/27/21 16:25 Neut # (Auto) 5.13 10^3/uL (1.8-7.7) 05/27/21 16:25 Lymph # (Auto) 2.6 10^3/uL (0.8-4.8) 05/27/21 16:25 [place] # (Auto) 0.7 10^3/uL (0.2-0.9) 05/27/21 16:25 Eos # (Auto) 0.4 10^3/uL (0.0-0.8) 05/27/21 16:25 Baso # (Auto) 0.0 10^3/uL (0.0-0.1) 05/27/21 16:25 Nucleated RBC % (auto) 0 % 05/27/21 16:25 Nucleated RBCs # 0.0 /100WBC 05/27/21 16:25 Sodium 137 mmol/L (136-145) 05/27/21 16:25 Potassium 4.0 mmol/L (3.5-5.1) 05/27/21 16:25 Chloride 105 mmol/L (98-107) 05/27/21 16:25 Glucose 93 mg/dL (65-115) 05/27/21 16:25 AST 22 U/L (0-32) 05/27/21 16:25 ALT 17 U/L (0-33) 05/27/21 16:25 Alkaline Phosphatase 96 IU/L (35-105) 05/27/21 16:25 Total Protein 7.8 g/dL (6.6-8.7) 05/27/21 16:25 Albumin 4.2 g/dL (3.5-5.2) 05/27/21 16:25 Globulin 3.6 g/dL (1.3-4.6) 05/27/21 16:25 Urine Color Yellow (Yellow) 05/27/21 16:55 Urine Appearance Cloudy (CLEAR) 05/27/21 16:55 Urine pH 6 (5-7) 05/27/21 16:55 Ur Specific [place] 1.020 (1.005-1.030) 05/27/21 16:55 Urine Protein Neg (Negative) 05/27/21 16:55 Urine Glucose (UA) Norm (Normal) 05/27/21 16:55 Urine Ketones 1+ (Negative) H 05/27/21 16:55 Urine Blood Neg (Negative) 05/27/21 16:55 Urine Nitrate Negative (Negative) 05/27/21 16:55 Urine Bilirubin Neg (Negative) 05/27/21 16:55 Urine Urobilinogen Norm mg/dL (Negative) 05/27/21 16:55 Ur Leukocyte Esterase 2+ (Negative) H 05/27/21 16:55 Urine RBC 0-4 /hpf (0-2) H 05/27/21 16:55 Urine WBC 0-4 /hpf (0-5) H 05/27/21 16:55 Ur Squamous Epith Cells 25-40 /hpf (0-5) H 05/27/21 16:55 Amorphous Sediment Not Reportable 05/27/21 16:55 Urine Bacteria 1+ /hpf (NONE) H 05/27/21 16:55 Discharge Plan Discharge Patient Disposition: Home Clinical Impression: Nausea Abdominal pain Qualifiers: Abdominal location: right lower quadrant Qualified Code(s): R10.31 - Right lower quadrant pain Condition: Stable Prescriptions: New ondansetron 4 mg tablet,disintegrating 4 mg PO Q8H PRN (Reason: nausea and vomiting) Qty: 7 0RF No Action venlafaxine 75 mg capsule,extended release 24hr 150 mg PO DAILY 0RF sumatriptan succinate 25 mg tablet See Rx Instructions PO .COMPLEX 0RF Rx Instructions: take 1 tab at onset of headache; if no relief may repeat 1 tab after at least 2 hrs; max = 4 tabs/24 hr PO Celebrex 100 mg capsule 100 mg PO BID Qty: 20 0RF Discharge Orders: Discharge ED (Routine); Ordered 05/27/21 Ordered By: Vasyl Gregg Referrals: Shilpa Ballesteros PA [Primary Care Provider] - Discharge Diet: Advance as tolerated Discharge Activity: Increase activity as tolerated Patient Instructions: Abdominal Pain (ED) Activity Restrictions/Additional Instructions: Home and rest. Drink plenty of fluids. Activity as tolerated. Healthy diet. Follow-up with primary care as needed. Return to the ER for high fever greater than 100.4, blood in vomit or stool, or inability to hold fluids down. Sign Out Sign Out Data: Patient Sign Out occurred on 05/27/21 at 17:02. Patient's care was discussed, and care was transferred from to Vasyl Gregg. Coding Level of Care Code ED Stewardess Supervisor for 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 Exam Comprehensive
[2021-05-27 16:33] LABS: Basophils % 0.4 %; Eosinophils # 0.4 10^3/uL (0.0-0.8); Eosinophils % 4.8 %; Hematocrit 39.9 % (37.0-47.0); Hemoglobin 13.1 g/dL (11.5-15.3); Lymphocytes # 2.6 10^3/uL (0.8-4.8); Lymphocytes % 29.3 %; Mean Corpuscular HGB Conc 32.8 g/dL (30.0-36.0); Mean Corpuscular Volume 85.3 fl (81-99); Mean Platelet Volume 10.2 fL (7.4-10.4); Monocytes # 0.7 10^3/uL (0.2-0.9); Monocytes % 8.1 %; Neutrophils # 5.13 10^3/uL (1.8-7.7); Neutrophils % 57.3 %; Nucleated Red Blood Cells % 0 %; Platelet Count 361 10^3/cmm (130-400); Red Blood Count 4.68 10^6/uL (4.1-5.3); Red Cell Distribution Width 14.3 % (12.1-15.1)
[2021-05-27 16:58] LABS: Alanine Aminotransferase 17 U/L (0-33); Albumin Level 4.2 g/dL (3.5-5.2); Alkaline Phosphatase 96 IU/L (35-105); Aspartate Amino Transferase 22 U/L (0-32); Chloride 105 mmol/L (98-107); Globulin 3.6 g/dL (1.3-4.6); Glucose 93 mg/dL (65-115); Sodium 137 mmol/L (136-145); Total Protein 7.8 g/dL (6.6-8.7)
[2021-05-27] MEDS: iohexol 300 mg/mL 100 mL Btl IV (17:02)
[2021-05-27 17:10] LABS: Add Urine Microscopic? YES; Bacteria Urine 1+ /hpf; Bilirubin Urine Neg (Negative); Blood Urine Neg (Negative); Glucose Urine UA Norm (Normal); Ketones Urine 1+ (Negative); Leukocyte Esterase Urine 2+ (Negative); Nitrate Urine Negative (Negative); Protein Urine Neg (Negative); RBC Urine 0-4 /hpf (0-2); Squamous Epithelial Cell Urine 25-40 /hpf (0-5); Urine Appearance Cloudy (CLEAR); Urine Color Yellow (Yellow); Urobilinogen Urine Norm (Negative); WBC Urine 0-4 /hpf (0-5); pH Urine 6 (5-7)
[2021-05-27 17:36] LABS: Blood Urea Nitrogen 11 mg/dL (6-20); Calcium 9.4 mg/dL (8.5-10.5); Carbon Dioxide 23 mmol/L (22-29); Glomerular Filtration Rate 126.2 mL/min (90-130); Lipase 32 U/L (13-60); Osmolality Calculated 283 mOsm/kg (285-295); Total Bilirubin 0.2 mg/dL (0.15-1.2)
[2021-05-27 18:08] VITALS: BP 124/79; PULSE 81; RESP 13; TEMP 36.6; O2SAT 100
[2021-05-27 18:10] VITALS: BP 124/79; PULSE 81; RESP 13; TEMP 36.6; O2SAT 100
== END 2021-05-27 18:00 | disposition home or self-care (01) ==
PROVIDERS: Physician Assistant; Emergency Provider Nurse Practitioner Family; PCP Physician Assistant
DX: R10.31 Right lower quadrant pain (principal); R11.0 Nausea
CPT/HCPCS: 74177; 80053; 81001; 83690; 85025; 99283; Q9967

== ENCOUNTER 2021-06-06 09:57 | Emergency (ER) | payer MEDICAID, SELFPAY ==
[2021-06-06 10:06] VITALS: BP 141/78; PULSE 86; RESP 18; TEMP 36.1; O2SAT 98; BMI 39.6
--- NOTE | 2021-06-06 10:12 | XR_ITS ---
WS: [id number] Exam: XR lumbar spine 2-3V* [id number] Date/Time of Exam: 06/06/2021 10:13 AM Reason For Exam: fall, pain Comparison 04/15/2019. Findings: In the AP projection, the lumbar spine is straight. The sacroiliac joints are open. The facet struc tures are bilaterally symmetrical. In the lateral projection, the lumbar curve is well maintained. The intervertebral disc spaces are intact. No fractures or anomalies of the lumbar spine are noted. XR/XR lumbar spine 2-3V* [id number] IMPRESSION: Negative lumbar spine.
--- NOTE | 2021-06-06 11:15 | ED_ITS ---
HPI - Back Pain/Injury General: Chief Complaint: Back Pain/Injury Stated Complaint: Fell, low back pain Time Seen by Provider: 06/06/21 10:11 History of Present Illness: Patient states that she fell down stairs yesterday and sustained pain in her low back. Said she had difficulty sleeping last night. Says it hurts in the lower back and she not sure if she hit anything or not. Denies any other injuries. Associated symptoms: Deny abdominal pain, chills, fever(s), nausea or vomiting Review of Systems Const: Denies: fever(s), chills or body aches Eyes: Denies: eye discomfort ENMT: Denies: throat pain Card: Denies: chest pain Resp: Denies: dyspnea GI: Denies: abdominal pain, nausea or vomiting Musc: Reports: back pain (After fall yesterday.) Skin/Breast: Denies: rash Neuro: Denies: headache(s) Psych: Denies: depression or suicidal ideation PFS ED PFSH: Medical History No pertinent past medical history Denies diabetes, asthma, hypertension, seizures, DVT/PE PMD: none Surgical History Status post cholecystectomy June 2018--laparoscopic procedure performed [place] [facility] [place] Status post tubal ligation 09/09/2020---laparoscopic bilateral total salpingectomy for sterilization by Dr. Ruelas at [facility] [place]. --Normal intra-abdominal pathology-no endometriosis ----> Pathology showed benign tubes. Family History Sister Diabetes Father Hypertension Mother Hypertension Denies family history of Colon cancer Ovarian cancer Heart disease Hyperlipidemia Breast cancer Uterine cancer Thyroid condition Stroke Social History Smoking and tobacco status: never smoked Alcohol intake: never Female Reproductive History: Date of last menstrual period: 06/03/21 Physical Exam Const: COMMON NORMALS: no acute distress, patient oriented x3 and alert HENMT: COMMON NORMALS: normocephalic and external ears normal HEAD & SCALP: normocephalic EXTERNAL EAR: Yes external ears normal Eye: COMMON NORMALS: EOMs intact bilaterally Neck/C-Spine: COMMON NORMALS: no JVD Resp: COMMON NORMALS: normal respiratory effort and No use of accessory muscles Cardio: COMMON NORMALS: no JVD GI: INSPECTION: Yes normal to inspection Back/Pelvis: LUMBAR SPINE/LOWER BACK: Yes normal to inspection, No pain with ROM and Yes lumbar spinal tenderness (No bruising or swelling noted.) Extremity: COMMON NORMALS: normal to inspection and full ROM Neuro: COMMON NORMALS: patient oriented x3 SENSORIUM/ORIENTATION: Yes alert Psych: COMMON NORMALS: mental status grossly normal Skin: COMMON NORMALS: no rashes or lesions noted GENERAL SKIN EXAM: no rashes or lesions noted Course Vital Signs: Vital signs: Vital Signs Temperature 97.0 F L 06/06/21 10:06 Pulse Rate 86 06/06/21 10:06 Respiratory Rate 18 06/06/21 10:06 Blood Pressure 141/78 06/06/21 10:06 Pulse Oximetry 98 06/06/21 10:06 MDM - Back Pain/Injury Medical Decision Making Low back contusion was sustained from a fall yesterday. Theology study negative. Labs Radiology Impressions Lumbar Spine X-Ray 06/06/21 10:12 IMPRESSION: Negative lumbar spine. Discharge Plan Discharge Patient Disposition: Home Clinical Impression: Contusion Qualifiers: Encounter type: initial encounter Contusion area: lower back Qualified Code(s): S30.0XXA - Contusion of lower back and pelvis, initial encounter Condition: Stable Prescriptions: New Celebrex 100 mg capsule 100 mg PO BID Qty: 20 0RF No Action venlafaxine 75 mg capsule,extended release 24hr 150 mg PO DAILY 0RF sumatriptan succinate 25 mg tablet See Rx Instructions PO .COMPLEX 0RF Rx Instructions: take 1 tab at onset of headache; if no relief may repeat 1 tab after at least 2 hrs; max = 4 tabs/24 hr PO Celebrex 100 mg capsule 100 mg PO BID Qty: 20 0RF ondansetron 4 mg tablet,disintegrating 4 mg PO Q8H PRN (Reason: nausea and vomiting) Qty: 7 0RF Discharge Orders: Discharge ED (Routine); Ordered 06/06/21 Ordered By: Dwayne Rico Referrals: Shilpa Ballesteros PA [Primary Care Provider] - Discharge Diet: Usual diet Discharge Activity: Increase activity as tolerated Activity Restrictions/Additional Instructions: Follow-up with medical provider as directed. Take medications as prescribed. Return to the ER or your medical provider if condition worsens. Please read and understand discharge instructions. If any questions ask please. Apply ice to low back as needed. Coding Level of Care Code ED Teachers' Assistant for 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
[2021-06-06 11:29] VITALS: BP 114/71; PULSE 72; RESP 16; O2SAT 99
== END 2021-06-06 11:30 | disposition home or self-care (01) ==
PROVIDERS: Emergency Provider Nurse Practitioner Family; PCP Physician Assistant
DX: S30.0XXA Contusion of lower back and pelvis, initial encounter (principal); W10.9XXA Fall (on) (from) unspecified stairs and steps, initial encounter
CPT/HCPCS: 72100; 99282

== ENCOUNTER 2021-07-25 10:20 | Emergency (ER) | payer MEDICAID, SELFPAY ==
[2021-07-25 10:30] VITALS: BP 134/83; PULSE 88; RESP 18; TEMP 36.4; O2SAT 98; BMI 37.7
--- NOTE | 2021-07-25 12:03 | CT_ITS ---
WS: [id number] CT ABDOMEN PELVIS TECHNIQUE: Noncontrast CT of the abdomen and pelvis with coronal and sagittal reformatted images. CLINICAL INFORMATION: RLQ pain, N/V COMPARISON: CT May 27, 2021 DLP: 1769.[address] scans at [facility] use at least one of these dose optimization techniques: automated e xposure control; mA and/or kV adjustment per patient size (includes targeted exams where dose is matc hed to clinical indication); or iterative reconstruction. FINDINGS: Mild hepatomegaly. Noncontrast liver is otherwise normal. Cholecystectomy. Mild splenomegaly. Lung ba ses are well aerated. Adrenal glands are normal. Noncontrast pancreas is normal. Normal caliber abdom inal aorta. Normal sigmoid colon. Appendix is not well-visualized but no evidence of acute appendicit is. Suggestion of a tiny normal appendix at the tip of the cecum. No hydronephrosis in either kidney. No obstructing renal or ureteral calculi. A few prominent lymph nodes in the RIGHT lower quadrant ca n be seen with mesenteric adenitis. No free fluid in the pelvis. Tiny fat-containing abdominal hernia. Normal lumbar spine. No abdominal or pelvic lymphadenopathy. CT/CT abdomen pelvis wo con [id number] IMPRESSION: 1. Appendix is not well-visualized but no evidence of acute appendicitis. 2. A few prominent lymph nodes in the RIGHT lower quadrant can be seen with me senteric adenitis. 3. No obstructing renal or ureteral calculi. No hydronephrosis. 4. Mild hepatomegaly and splenomegaly. 5. Prior cholecystectomy. 6. No other acute findings. Notified VICTORIA Asif at 07/25/2021 12:49 PM.
--- NOTE | 2021-07-25 12:04 | W.ED.ABDPA2 ---
HPI - Abdominal Pain General: Chief Complaint: Abdominal Pain Stated Complaint: abd pain Time Seen by Provider: 07/25/21 11:59 History of Present Illness: Patient is a 21-year-old female comes to the ED with abdominal pain. Symptoms started earlier this morning. Patient says she started developing some nausea and had an episode of emesis. Her abdominal pain is in the right lower quadrant she rates it currently an 8 out of 10. She describes it as a cramping and aching pain. She has had a history of a cholecystectomy and tubal ligation. Endorses chills. Denies any fevers, vaginal bleeding, bladder or bowel symptoms. Associated Symptoms: Reports nausea and vomiting; Denies chills, constipation, diarrhea, dysuria, fever(s), hematochezia and hematuria Related Data: Date of Last Menstrual Period: 06/03/21 Review of Systems Const: Denies: fever(s), chills or fatigue Eyes: Denies: change in vision or eye discomfort ENMT: Denies: throat pain, odynophagia, nasal discharge or nasal congestion Card: Denies: chest pain, palpitations, edema, swelling of feet/ankles, dyspnea on exertion or orthopnea Resp: Denies: dyspnea, productive cough or non-productive cough GI: Reports: abdominal pain, nausea and vomiting; Denies: diarrhea, constipation or hematochezia : Denies: flank pain, dysuria or hematuria Musc: Denies: neck pain, back pain or extremity swelling Skin/Breast: Denies: rash or new lesions Neuro: Denies: headache(s), numbness in extremities or weakness in extremities PFSH ED PFSH: Medical History No pertinent past medical history Denies diabetes, asthma, hypertension, seizures, DVT/PE PMD: none Surgical History Status post cholecystectomy June 2018--laparoscopic procedure performed at [facility] [place] Status post tubal ligation 09/09/2020---laparoscopic bilateral total salpingectomy for sterilization by Dr. Ruelas at [facility] [place]. --Normal intra-abdominal pathology-no endometriosis ----> Pathology showed benign tubes. Family History Sister Diabetes Father Hypertension Mother Hypertension Denies family history of Colon cancer Ovarian cancer Heart disease Hyperlipidemia Breast cancer Uterine cancer Thyroid condition Stroke Social History Smoking and tobacco status: never smoked Alcohol intake: never Female Reproductive History: Date of last menstrual period: 06/03/21 Physical Exam Const: COMMON NORMALS: no acute distress, patient oriented x3 and alert GENERAL APPEARANCE: cooperative and comfortable HENMT: COMMON NORMALS: normocephalic HEAD & SCALP: normocephalic MOUTH: Normal oral and palatal mucosa present THROAT: posterior oropharynx normal and uvula midline Eye: COMMON NORMALS: Equal, round and reactive pupils present PUPIL: Yes Equal, round and reactive pupils present Neck/C-Spine: COMMON NORMALS: supple GENERAL: Yes normal visual inspection Resp: COMMON NORMALS: normal respiratory effort, No retractions, No use of accessory muscles and clear to auscultation bilaterally AUSCULTATION: clear to auscultation bilaterally Cardio: COMMON NORMALS: regular rate, regular rhythm, S1 normal heart sound present, S2 normal heart sound present, No gallops present (Cardio), No clicks present (Cardio), No murmurs present (Cardio) and Peripheral pulses 2+ throughout RATE: regular rate RHYTHM: regular rhythm HEART SOUNDS: S1 normal heart sound present and S2 normal heart sound present PERIPHERAL PULSES: Peripheral pulses 2+ throughout GI: COMMON NORMALS: Normal to inspection, nondistended, normoactive bowel sounds present, Soft to palpation and no masses PALPATION: Yes Soft to palpation and Yes Tenderness to palpation present (GI) Details: RLQ : COMMON NORMALS: Yes no CVA tenderness BLADDER/KIDNEY EXAM: Yes no CVA tenderness Back/Pelvis: COMMON NORMALS: no CVA tenderness Extremity: COMMON NORMALS: normal to inspection Neuro: COMMON NORMALS: patient oriented x3 SENSORIUM/ORIENTATION: Yes alert GAIT: Yes Normal gait present Skin: GENERAL SKIN EXAM: dry skin Course Vital Signs: Vital signs: Vital Signs Temperature 97.6 F 07/25/21 10:30 Pulse Rate 88 07/25/21 10:30 Respiratory Rate 18 07/25/21 12:30 Blood Pressure 134/83 07/25/21 10:30 Pulse Oximetry 96 07/25/21 12:30 MDM - Abdominal Pain Medical Decision Making Patient is a 21-year-old female comes to the ED with nausea vomiting and abdominal pain. Symptoms started earlier today. Vitals are stable. Patient appears nontoxic and in no acute distress. She has some mild right lower quadrant abdominal tenderness rest of exam is benign. Labs were unremarkable. CT the abdomen pelvis showed some right lower quadrant mesenteric adenitis but no signs of acute appendicitis. No other acute findings noted. Patient was given a liter of IV fluids, morphine and Zofran here in the ED and symptoms improved. Patient diagnosed with viral syndrome and mesenteric adenitis and was discharged home with a prescription for Zofran. Patient was told to follow-up with PCP in the next week for reevaluation. Return to ED precautions given. Patient understood and agreed with plan. Lab Data I reviewed the patient's lab results. : 07/25/21 12:34 07/25/21 12:34 Labs/Radiology: Radiology Impressions Abdomen/Pelvis CT 07/25/21 12:03 IMPRESSION: 1. Appendix is not well-visualized but no evidence of acute appendicitis. 2. A few prominent lymph nodes in the RIGHT lower quadrant can be seen with mesenteric adenitis. 3. No obstructing renal or ureteral calculi. No hydronephrosis. 4. Mild hepatomegaly and splenomegaly. 5. Prior cholecystectomy. 6. No other acute findings. Notified VICTORIA Asif at 07/25/2021 12:49 PM. Laboratory Results WBC 8.6 10^3/uL (4.0-10.0) 07/25/21 12:34 RBC 4.76 10^6/uL (4.1-5.3) 07/25/21 12:34 Hgb 13.1 g/dL (11.5-15.3) 07/25/21 12:34 Hct 40.0 % (37.0-47.0) 07/25/21 12:34 MCV 84.0 fl (81-99) 07/25/21 12:34 MCH 27.5 pg (28.0-34.0) L 07/25/21 12:34 MCHC 32.8 g/dL (30.0-36.0) 07/25/21 12:34 RDW 13.9 % (12.1-15.1) 07/25/21 12:34 Plt Count 336 10^3/cmm (130-400) 07/25/21 12:34 MPV 10.3 fL (7.4-10.4) 07/25/21 12:34 Neut % (Auto) 68.7 % 07/25/21 12:34 Lymph % (Auto) 20.2 % 07/25/21 12:34 [place] % (Auto) 7.4 % 07/25/21 12:34 Eos % (Auto) 3.0 % 07/25/21 12:34 Baso % (Auto) 0.5 % 07/25/21 12:34 Neut # (Auto) 5.92 10^3/uL (1.8-7.7) 07/25/21 12:34 Lymph # (Auto) 1.7 10^3/uL (0.8-4.8) 07/25/21 12:34 [place] # (Auto) 0.6 10^3/uL (0.2-0.9) 07/25/21 12:34 Eos # (Auto) 0.3 10^3/uL (0.0-0.8) 07/25/21 12:34 Baso # (Auto) 0.0 10^3/uL (0.0-0.1) 07/25/21 12:34 Nucleated RBC % (auto) 0 % 07/25/21 12:34 Nucleated RBCs # 0.0 /100WBC 07/25/21 12:34 Sodium 136 mmol/L (136-145) 07/25/21 12:34 Potassium 3.9 mmol/L (3.5-5.1) 07/25/21 12:34 Chloride 102 mmol/L (98-107) 07/25/21 12:34 Carbon Dioxide 25 mmol/L (22-29) 07/25/21 12:34 Anion Gap 12.9 (5-19) 07/25/21 12:34 BUN 12 mg/dL (6-20) 07/25/21 12:34 Creatinine 0.6 mg/dL (0.5-0.9) 07/25/21 12:34 GFR Calculation 125.0 mL/min (90-130) 07/25/21 12:34 Glucose 97 mg/dL (65-115) 07/25/21 12:34 Calculated Osmolality 282 mOsm/kg (285-295) L 07/25/21 12:34 Calcium 9.5 mg/dL (8.5-10.5) 07/25/21 12:34 Total Bilirubin 0.3 mg/dL (0.15-1.2) 07/25/21 12:34 AST 14 U/L (0-32) 07/25/21 12:34 ALT 11 U/L (0-33) 07/25/21 12:34 Alkaline Phosphatase 91 IU/L (35-105) 07/25/21 12:34 Total Protein 8.3 g/dL (6.6-8.7) 07/25/21 12:34 Albumin 4.5 g/dL (3.5-5.2) 07/25/21 12:34 Globulin 3.8 g/dL (1.3-4.6) 07/25/21 12:34 Lipase 23 U/L (13-60) 07/25/21 12:34 HCG, Qual Negative (Negative) 07/25/21 13:20 Discharge Plan Discharge Patient Disposition: Home Clinical Impression: Viral syndrome, Mesenteric adenitis Condition: Stable Prescriptions: New ondansetron 4 mg tablet,disintegrating 4 mg PO Q8H PRN (Reason: nausea and vomiting) Qty: 15 0RF No Action sumatriptan succinate 25 mg tablet See Rx Instructions PO .COMPLEX 0RF Rx Instructions: take 1 tab at onset of headache; if no relief may repeat 1 tab after at least 2 hrs; max = 4 tabs/24 hr PO divalproex 500 mg Tablet,Delayed Release (Dr/Ec) 500 mg PO BID 0RF Discharge Orders: Discharge ED (Routine); Ordered 07/25/21 Ordered By: Nilson Morocho Referrals: Shilpa Ballesteros PA [Primary Care Provider] - Discharge Diet: Regular Discharge Activity: Increase activity as tolerated Patient Instructions: Mesenteric Adenitis (ED), Viral Syndrome - Adult Activity Restrictions/Additional Instructions: Follow-up with medical provider as directed in the next 5 to 7 days for reevaluation. Take medications as prescribed. Return to the ER or your medical provider if condition worsens. Please read and understand discharge instructions. Thank you for choosing [facility] for your healthcare needs today. Please realize this is an emergency room and that we are providing you with a medical screening exam and this may not be complete and all inclusive of all the testing and or work up that you may need to determine your ailment or severity of your illness. It is very important that you follow up as instructed or that you return to the Emergency Department should you have concerns or if your condition changes or worsens in any way. Stand Alone Forms: Work/School Release Coding Level of Care Code ED Weaving Professor for Zuleyma Fwronny Exam Comprehensive
[2021-07-25 12:30] VITALS: RESP 18; O2SAT 96
[2021-07-25] MEDS: morphine 4 mg/mL SDV 1 mL IVP (12:30)
[2021-07-25] MEDS: sodium chloride 0.9% 1,000 ML 999 ML IV (12:31)
[2021-07-25] MEDS: ondansetron 2 mg/ML SDV 2 mL 4 MG IVP (12:31)
[2021-07-25 12:56] LABS: Basophils % 0.5 %; Eosinophils # 0.3 10^3/uL (0.0-0.8); Hemoglobin 13.1 g/dL (11.5-15.3); Lymphocytes # 1.7 10^3/uL (0.8-4.8); Lymphocytes % 20.2 %; Mean Corpuscular HGB Conc 32.8 g/dL (30.0-36.0); Mean Corpuscular Hemoglobin 27.5 pg (28.0-34.0); Mean Platelet Volume 10.3 fL (7.4-10.4); Monocytes # 0.6 10^3/uL (0.2-0.9); Monocytes % 7.4 %; Neutrophils # 5.92 10^3/uL (1.8-7.7); Neutrophils % 68.7 %; Nucleated Red Blood Cells % 0 %; Platelet Count 336 10^3/cmm (130-400); Red Blood Count 4.76 10^6/uL (4.1-5.3); Red Cell Distribution Width 13.9 % (12.1-15.1); White Blood Count 8.6 10^3/uL (4.0-10.0)
[2021-07-25 13:13] LABS: Alanine Aminotransferase 11 U/L (0-33); Albumin Level 4.5 g/dL (3.5-5.2); Alkaline Phosphatase 91 IU/L (35-105); Anion Gap 12.9 (5-19); Aspartate Amino Transferase 14 U/L (0-32); Blood Urea Nitrogen 12 mg/dL (6-20); Calcium 9.5 mg/dL (8.5-10.5); Carbon Dioxide 25 mmol/L (22-29); Chloride 102 mmol/L (98-107); Globulin 3.8 g/dL (1.3-4.6); Glucose 97 mg/dL (65-115); Lipase 23 U/L (13-60); Osmolality Calculated 282 mOsm/kg (285-295); Potassium 3.9 mmol/L (3.5-5.1); Sodium 136 mmol/L (136-145); Total Bilirubin 0.3 mg/dL (0.15-1.2); Total Protein 8.3 g/dL (6.6-8.7)
[2021-07-25 14:02] LABS: HCG, Serum Qual Negative (Negative)
== END 2021-07-25 13:54 | disposition home or self-care (01) ==
PROVIDERS: Emergency Provider Physician Assistant; PCP Physician Assistant
DX: B34.9 Viral infection, unspecified (principal); I88.0 Nonspecific mesenteric lymphadenitis
CPT/HCPCS: 74176; 80053; 83690; 84703; 85025; 96361; 96374; 96375; 99284; J2270; J2405; J7030

== ENCOUNTER 2021-08-04 08:02 | Emergency (ER) | payer MEDICAID, SELFPAY ==
[2021-08-04 08:12] VITALS: BP 156/85; PULSE 66; RESP 16; O2SAT 100; BMI 35.4
--- NOTE | 2021-08-04 08:37 | W.ED.EXTPRO ---
HPI - Extremity Problem General: Chief complaint: Extremity Problem,Nontraumatic Stated complaint: severe right shoulder, neck & arm pain Time Seen by Provider: 08/04/21 08:11 History of Present Illness: Patient is a 21-year-old female comes to the ED with right shoulder muscle pain. Symptoms started a week ago. She denies any injury, fall or trauma to cause symptoms. Pain is in the right shoulder and right side of neck. She rates the pain currently an 8 out of 10. Pain started during the day a week ago and has continued to progress. any movement with her head or right arm causes pain. She has been taking Tylenol and ibuprofen to help with pain. She saw urgent care 3 days ago and they diagnosed her with muscular right shoulder pain and she has been applying cold pack, heat on shoulder to help with symptoms. Associated symptoms: Deny chest pain, fever(s) or rash Review of Systems Const: Denies: fever(s), chills or fatigue Eyes: Denies: change in vision or eye discomfort ENMT: Denies: throat pain, odynophagia, nasal discharge or nasal congestion Card: Denies: chest pain, palpitations, edema, swelling of feet/ankles, dyspnea on exertion or orthopnea Resp: Denies: dyspnea, productive cough or non-productive cough GI: Denies: abdominal pain, nausea, vomiting, diarrhea, constipation or hematochezia : Denies: flank pain, dysuria or hematuria Musc: Reports: neck pain (right side of neck) and extremity pain (right shoulder); Denies: back pain or extremity swelling Skin/Breast: Denies: rash or new lesions Neuro: Denies: headache(s), numbness in extremities or weakness in extremities PFS ED PFSH: Medical History No pertinent past medical history Denies diabetes, asthma, hypertension, seizures, DVT/PE PMD: none Surgical History Status post cholecystectomy June 2018--laparoscopic procedure performed at [facility] [place] Status post tubal ligation 09/09/2020---laparoscopic bilateral total salpingectomy for sterilization by Dr. Ruelas at [facility] [place]. --Normal intra-abdominal pathology-no endometriosis ----> Pathology showed benign tubes. Family History Sister Diabetes Father Hypertension Mother Hypertension Denies family history of Colon cancer Ovarian cancer Heart disease Hyperlipidemia Breast cancer Uterine cancer Thyroid condition Stroke Social History Smoking and tobacco status: never smoked Alcohol intake: never Female Reproductive History: Date of last menstrual period: 08/04/21 Physical Exam Const: COMMON NORMALS: no acute distress, patient oriented x3 and alert GENERAL APPEARANCE: cooperative and comfortable HENMT: COMMON NORMALS: normocephalic HEAD & SCALP: normocephalic MOUTH: Normal oral and palatal mucosa present THROAT: posterior oropharynx normal and uvula midline Neck/C-Spine: COMMON NORMALS: supple GENERAL: Yes normal visual inspection CERVICAL SPINE: Yes pain with cervical ROM with lateral flexion to the left and with rotation to the left, No Cervical spine tenderness, Yes Paracervical muscle tenderness right and Yes Trapezius muscle tenderness right Resp: COMMON NORMALS: normal respiratory effort, No retractions, No use of accessory muscles and clear to auscultation bilaterally AUSCULTATION: clear to auscultation bilaterally Cardio: COMMON NORMALS: regular rate, regular rhythm, S1 normal heart sound present, S2 normal heart sound present, No gallops present (Cardio), No clicks present (Cardio), No murmurs present (Cardio) and Peripheral pulses 2+ throughout RATE: regular rate RHYTHM: regular rhythm HEART SOUNDS: S1 normal heart sound present and S2 normal heart sound present PERIPHERAL PULSES: Peripheral pulses 2+ throughout GI: COMMON NORMALS: Normal to inspection, nondistended, normoactive bowel sounds present, Soft to palpation, non-tender and no masses PALPATION: Yes Soft to palpation : COMMON NORMALS: Yes no CVA tenderness BLADDER/KIDNEY EXAM: Yes no CVA tenderness Back/Pelvis: COMMON NORMALS: no CVA tenderness Extremity: COMMON NORMALS: normal to inspection NARRATIVE EXTREMITY EXAM: Patient has soft tissue muscle tenderness over the right scapular region. Right arm neurovascular intact distally. Neuro: COMMON NORMALS: patient oriented x3 and moves all extremities SENSORIUM/ORIENTATION: Yes alert Skin: GENERAL SKIN EXAM: dry skin Course Vital Signs: Vital signs: Vital Signs Pulse Rate 66 08/04/21 08:12 Respiratory Rate 16 08/04/21 08:12 Blood Pressure 156/85 08/04/21 08:12 Pulse Oximetry 100 08/04/21 08:12 MDM - Extremity (Nontraumatic) Medical Decision Making Patient is a 21-year-old female comes to the ED with right shoulder right neck pain. Its been going on for approximately 1 week and she denies any trauma or injury to cause pain. Vitals are stable. Patient appears comfortable and in no acute distress. Exam shows soft tissue muscle tenderness over the right scapular region. She also has right trapezius muscle tenderness as well. Rest of exam is benign. Patient diagnosed with neck muscle strain and muscle strain of right shoulder region. She was given a dose of Toradol and Norflex here in the ED. She was discharged home with a prescription for Celebrex and a muscle relaxer. Follow-up with PCP in the next week for reevaluation. Return to ED precautions given. Patient understood and agreed with plan. Discharge Plan Discharge Patient Disposition: Home Clinical Impression: Muscle strain of right shoulder region Qualifiers: Encounter type: initial encounter Qualified Code(s): S46.911A - Strain of unspecified muscle, fascia and tendon at shoulder and upper arm level, right arm, initial encounter Neck muscle strain Qualifiers: Encounter type: initial encounter Qualified Code(s): S16.1XXA - Strain of muscle, fascia and tendon at neck level, initial encounter Condition: Stable Prescriptions: New Celebrex 100 mg capsule 100 mg PO BID PRN (Reason: pain) Qty: 30 0RF cyclobenzaprine 7.5 mg tablet 7.5 mg PO BID PRN (Reason: muscle spasm) Qty: 20 0RF No Action sumatriptan succinate 25 mg tablet See Rx Instructions PO .COMPLEX 0RF Rx Instructions: take 1 tab at onset of headache; if no relief may repeat 1 tab after at least 2 hrs; max = 4 tabs/24 hr PO divalproex 500 mg Tablet,Delayed Release (Dr/Ec) 500 mg PO BID 0RF ondansetron 4 mg tablet,disintegrating 4 mg PO Q8H PRN (Reason: nausea and vomiting) Qty: 15 0RF Discharge Orders: Discharge ED (Routine); Ordered 08/04/21 Ordered By: Nilson Morocho Referrals: Shilpa Ballesteros PA [Primary Care Provider] - Discharge Diet: Regular Discharge Activity: Increase activity as tolerated Patient Instructions: Muscle Strain (ED), Neck Pain (ED) Activity Restrictions/Additional Instructions: Follow-up with medical provider as directed in the next 5 to 7 days for reevaluation. Take medications as prescribed. Cyclobenzaprine is a muscle relaxer and can cause some drowsiness so take at night before going to bed or use with caution during the day. Continue doing neck and shoulder stretches daily and massage sore muscles daily as well. Apply cold pack or heat on sore muscles to help with symptoms as well. Return to the ER or your medical provider if condition worsens. Please read and understand discharge instructions. Thank you for choosing [facility] [place] for your healthcare needs today. Please realize this is an emergency room and that we are providing you with a medical screening exam and this may not be complete and all inclusive of all the testing and or work up that you may need to determine your ailment or severity of your illness. It is very important that you follow up as instructed or that you return to the Emergency Department should you have concerns or if your condition changes or worsens in any way. Coding Level of Care Code ED Ct Technician for 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 Exam Comprehensive
[2021-08-04] MEDS: ketorolac 60 mg/2 mL INJ IM (09:06)
[2021-08-04] MEDS: orphenadrine 30 mg/mL Inj 2 mL 60 MG IM (09:09)
[2021-08-04 09:15] VITALS: BP 125/76; PULSE 73; RESP 14; O2SAT 100
== END 2021-08-04 09:15 | disposition home or self-care (01) ==
PROVIDERS: Emergency Provider Physician Assistant; PCP Physician Assistant
DX: S46.911A Strain of unspecified muscle, fascia and tendon at shoulder and upper arm level, right arm, initial encounter (principal); S16.1XXA Strain of muscle, fascia and tendon at neck level, initial encounter; X58.XXXA Exposure to other specified factors, initial encounter
CPT/HCPCS: 96372; 99283; J1885; J2360

== ENCOUNTER 2021-08-22 16:34 | Emergency (ER) | payer SELFPAY ==
[2021-08-22 16:55] VITALS: BP 133/87; PULSE 85; RESP 16; TEMP 36.3; O2SAT 99; BMI 37.2
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
[2021-08-22 17:25] LABS: Basophils % 0.5 %; Eosinophils # 0.6 10^3/uL (0.0-0.8); Eosinophils % 7.4 %; Hematocrit 38.3 % (37.0-47.0); Hemoglobin 13.1 g/dL (11.5-15.3); Lymphocytes # 2.1 10^3/uL (0.8-4.8); Lymphocytes % 26.4 %; Mean Corpuscular HGB Conc 34.2 g/dL (30.0-36.0); Mean Corpuscular Hemoglobin 28.4 pg (28.0-34.0); Mean Corpuscular Volume 82.9 fl (81-99); Monocytes # 0.7 10^3/uL (0.2-0.9); Monocytes % 8.2 %; Neutrophils # 4.55 10^3/uL (1.8-7.7); Neutrophils % 57.2 %; Nucleated Red Blood Cells % 0 %; Platelet Count 299 10^3/cmm (130-400); Red Blood Count 4.62 10^6/uL (4.1-5.3); Red Cell Distribution Width 13.7 % (12.1-15.1)
[2021-08-22 17:37] LABS: Add Urine Microscopic? YES; Bilirubin Urine Neg (Negative); Blood Urine Neg (Negative); Glucose Urine UA Norm (Normal); Ketones Urine Negative (Negative); Leukocyte Esterase Urine 2+ (Negative); Nitrate Urine Negative (Negative); Protein Urine Neg (Negative); Urine Appearance Hazy (CLEAR); Urine Color Yellow (Yellow); Urobilinogen Urine Norm (Negative); pH Urine 5 (5-7)
[2021-08-22 17:40] LABS: Anion Gap 15.9 (5-19); Blood Urea Nitrogen 12 mg/dL (6-20); Calcium 9.5 mg/dL (8.5-10.5); Carbon Dioxide 24 mmol/L (22-29); Chloride 100 mmol/L (98-107); Glucose 99 mg/dL (65-115); Osmolality Calculated 282 mOsm/kg (285-295); Potassium 3.9 mmol/L (3.5-5.1); Sodium 136 mmol/L (136-145)
[2021-08-22 17:43] LABS: Add Urine Culture? No; Bacteria Urine 2+ /hpf; Squamous Epithelial Cell Urine 25-40 /hpf (0-5); WBC Urine 15-25 /hpf (0-5)
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
[2021-08-22 19:25] VITALS: BP 137/88; PULSE 79; RESP 16; TEMP 36.6; O2SAT 99
== END 2021-08-22 19:28 | disposition home or self-care (01) ==
PROVIDERS: Family Medicine; Emergency Provider Emergency Medicine; PCP Physician Assistant
DX: S13.4XXA Sprain of ligaments of cervical spine, initial encounter (principal); V89.2XXA Person injured in unspecified motor-vehicle accident, traffic, initial encounter
CPT/HCPCS: 72040; 72125; 80048; 81001; 85025; 99283

== ENCOUNTER 2021-11-19 17:13 | Emergency (ER) | payer MEDICAID, SELFPAY ==
[2021-11-19 17:24] VITALS: BMI 37.2
[2021-11-19 17:27] VITALS: BP 146/91; PULSE 97; RESP 18; TEMP 36.7; O2SAT 100
--- NOTE | 2021-11-19 17:31 | ED_ITS ---
Documented by User: Aba Zamudio DO 11/21/21 08:12 HPI - Headache General: Chief Complaint: Headache Stated Complaint: migraine and right hand is in pain Time Seen by Provider: 11/19/21 17:31 History of Present Illness: 21-year-old female presents emergency room with complaint of migraine that lasted all day. She took a sumatriptan earlier this morning but it seemed to be getting better she took 25 mg. She got sleepy and slept for an extended period of time never took a second dose. She really getting better she thought and then shortly after she woke up her headache returned. She has had photophobia and autophobia. She had previously been on dye valproic acid to help with headache prophylaxis had stopped that because of side effects.. MD elicited complaint: headache Onset (ago): hour(s) Onset description: gradually Location: frontal Severity: severe Quality & Timing: throbbing Exacerbating factors: light and noise Relieving factors: rest Associated symptoms: Reports nausea and vomiting; Deny chest pain, confusion, cough, diaphoresis, eye pain, eye redness, fever(s), lightheadedness, loss of vision, malaise, neck stiffness, numbness, paresthesias, photophobia, pre-syncope, rash, seizures, short of breath, sound sensitivity, syncope or weakness Treatments prior to arrival: prescription analgesic (Sumatriptan) Review of Systems Const: Denies: fever(s), chills, fatigue, malaise or diaphoresis ENMT: Denies: throat pain, ear or mastoid pain, nasal discharge or nasal congestion Card: Denies: chest pain, palpitations, irregular heart rhythm, lightheadedness, syncope or pre-syncope Resp: Denies: dyspnea, productive cough or non-productive cough GI: Reports: nausea and vomiting; Denies: abdominal pain : Denies: flank pain, difficulty voiding, dysuria, urinary frequency or urinary urgency Skin/Breast: Denies: rash or pruritus Neuro: Denies: confusion PFSH ED PFSH: Medical History No pertinent past medical history Denies diabetes, asthma, hypertension, seizures, DVT/PE PMD: none Sinus drainage Viral syndrome Surgical History Status post cholecystectomy June 2018--laparoscopic procedure performed at [facility] [place] Status post tubal ligation 09/09/2020---laparoscopic bilateral total salpingectomy for sterilization by Dr. Ruelas at [facility] [place]. --Normal intra-abdominal pathology-no endometriosis ----> Pathology showed benign tubes. Family History Sister Diabetes Father Hypertension Mother Hypertension Denies family history of Colon cancer Ovarian cancer Heart disease Hyperlipidemia Breast cancer Uterine cancer Thyroid condition Stroke Social History Smoking and tobacco status: never smoked Alcohol intake: never Female Reproductive History: Date of last menstrual period: 10/23/21 Physical Exam Const: COMMON NORMALS: no acute distress GENERAL APPEARANCE: cooperative and comfortable ORIENTATION/CONSCIOUSNESS: Yes awake, Yes oriented to person, Yes oriented to place and Yes oriented to time HENMT: COMMON NORMALS: normocephalic, atraumatic and hearing grossly normal bilaterally HEAD & SCALP: normocephalic and atraumatic Eye: DIRECT OPHTHALMOSCOPY: No photophobia Resp: COMMON NORMALS: normal respiratory effort, No retractions, No use of accessory muscles and clear to auscultation bilaterally AUSCULTATION: clear to auscultation bilaterally Cardio: COMMON NORMALS: regular rate, regular rhythm and No murmurs present (Cardio) RATE: regular rate RHYTHM: regular rhythm GI: COMMON NORMALS: Soft to palpation and No hepatosplenomegaly present AUSCULTATION: Yes normoactive bowel sounds PALPATION: Yes Soft to palpation, No Tenderness to palpation present (GI), No Guarding due to palpation present (GI) and Yes No hepatosplenomegaly present Extremity: COMMON NORMALS: normal to inspection, capillary refill normal, no clubbing, cyanosis or edema, no calf tenderness and no pedal edema Neuro: SENSORIUM/ORIENTATION: Yes oriented to person, Yes oriented to place and Yes oriented to time Skin: COMMON NORMALS: no rashes or lesions noted GENERAL SKIN EXAM: no rashes or lesions noted Course Vital Signs: Vital signs: Vital Signs Temperature 98.0 F 11/19/21 17:27 Pulse Rate 97 11/19/21 17:27 Respiratory Rate 18 11/19/21 17:27 Blood Pressure 146/91 11/19/21 17:27 Pulse Oximetry 100 11/19/21 17:27 Oxygen Delivery Me thod 11/19/21 17:27 MDM - Headache Medical Decision Making Care signed out to Dr. Khan at change of shift. See final notes for diagnosis and disposition. 21-year-old female checked out to me at shift change by the previous physician. She received a migraine cocktail. Her headache is much improved, essentially at 2 at this point. She feels much better. Her hand pain is significant. X-rays negative for fracture. She was counseled that crush injuries are quite tender. She will ice, take [id number] medication. Outpatient follow-up Lab Data Radiology Impressions Hand X-Ray 11/19/21 17:31 IMPRESSION: No acute findings. Discharge Plan Discharge Patient Disposition: Home Clinical Impression: Headache, Crushing injury of hand, right Condition: Stable Prescriptions: No Action sumatriptan succinate 25 mg tablet See Rx Instructions PO .COMPLEX Rx Instructions: take 1 tab at onset of headache; if no relief may repeat 1 tab after at least 2 hrs; max = 4 tabs/24 hr PO fluticasone propionate 50 mcg/actuation spray,suspension 2 spray intranasal BID Qty: 16 0RF Rx Instructions: administer into each nostril amoxicillin-pot clavulanate 875-125 mg tablet 1 tab PO BID 7 Days Qty: 14 0RF celecoxib [Celebrex] 100 mg capsule 100 mg PO BID PRN (Reason: pain) Qty: 30 0RF cyclobenzaprine 7.5 mg tablet 7.5 mg PO BID PRN (Reason: muscle spasm) Qty: 20 0RF methocarbamol 750 mg tablet 750 mg PO Q6H PRN (Reason: spasms) Qty: 20 0RF Naprosyn 500 mg tablet 500 mg PO BID PRN (Reason: pain) Qty: 20 0RF divalproex 500 mg Tablet,Delayed Release (Dr/Ec) 500 mg PO BID Discharge Orders: Discharge ED (Routine); Ordered 11/19/21 Ordered By: Porter Khan Referrals: Shilpa Ballesteros PA [Primary Care Provider] - 4-7 days Patient Instructions: General Headache (ED), Crush Injury (ED), Opioid Safety, Pain Management Activity Restrictions/Additional Instructions: Return for worsening headache, mental status changes, vomiting liquids, weakness, mental status changes, other concerning symptoms. Ice your hand frequently for the next couple of days. Take [id number] pain medication as needed. Follow-up with your doctor next week. Repeat x-rays may be needed if not improving. Coding Level of Care Code ED Associate Manager for Chg Fwd Documented by User: Porter Khan DO 11/19/21 19:39 HPI - Headache General: Chief Complaint: Headache Stated Complaint: migraine and right hand is in pain Time Seen by Provider: 11/19/21 17:31 PFSH ED PFSH: Medical History No pertinent past medical history Denies diabetes, asthma, hypertension, seizures, DVT/PE PMD: none Sinus drainage Viral syndrome Surgical History Status post cholecystectomy June 2018--laparoscopic procedure performed at [facility] [place] Status post tubal ligation 09/09/2020---laparoscopic bilateral total salpingectomy for sterilization by Dr. Ruelas at [facility] [place]. --Normal intra-abdominal pathology-no endometriosis ----> Pathology showed benign tubes. Family History Sister Diabetes Father Hypertension Mother Hypertension Denies family history of Colon cancer Ovarian cancer Heart disease Hyperlipidemia Breast cancer Uterine cancer Thyroid condition Stroke Social History Smoking and tobacco status: never smoked Alcohol intake: never Course Vital Signs: Vital signs: Vital Signs Temperature 98.0 F 11/19/21 17:27 Pulse Rate 97 11/19/21 17:27 Respiratory Rate 18 11/19/21 17:27 Blood Pressure 146/91 11/19/21 17:27 Pulse Oximetry 100 11/19/21 17:27 Oxygen Delivery Me thod 11/19/21 17:27 MDM - Headache Medical Decision Making 21-year-old female checked out to me at shift change by the previous physician. She received a migraine cocktail. Her headache is much improved, essentially at 2 at this point. She feels much better. Her hand pain is significant. X-rays negative for fracture. She was counseled that crush injuries are quite tender. She will ice, take [id number]-epaglap medication. Outpatient follow-up Lab Data Radiology Impressions Hand X-Ray 11/19/21 17:31 IMPRESSION: No acute findings. Discharge Plan Discharge Patient Disposition: Home Clinical Impression: Headache, Crushing injury of hand, right Condition: Stable Prescriptions: No Action sumatriptan succinate 25 mg tablet See Rx Instructions PO .COMPLEX Rx Instructions: take 1 tab at onset of headache; if no relief may repeat 1 tab after at least 2 hrs; max = 4 tabs/24 hr PO fluticasone propionate 50 mcg/actuation spray,suspension 2 spray intranasal BID Qty: 16 0RF Rx Instructions: administer into each nostril amoxicillin-pot clavulanate 875-125 mg tablet 1 tab PO BID 7 Days Qty: 14 0RF celecoxib [Celebrex] 100 mg capsule 100 mg PO BID PRN (Reason: pain) Qty: 30 0RF cyclobenzaprine 7.5 mg tablet 7.5 mg PO BID PRN (Reason: muscle spasm) Qty: 20 0RF methocarbamol 750 mg tablet 750 mg PO Q6H PRN (Reason: spasms) Qty: 20 0RF Naprosyn 500 mg tablet 500 mg PO BID PRN (Reason: pain) Qty: 20 0RF divalproex 500 mg Tablet,Delayed Release (Dr/Ec) 500 mg PO BID Discharge Orders: Discharge ED (Routine); Ordered 11/19/21 Ordered By: Porter Khan Referrals: Shilpa Ballesterso PA [Primary Care Provider] - 4-7 days Patient Instructions: General Headache (ED), Crush Injury (ED), Opioid Safety, Pain Management Activity Restrictions/Additional Instructions: Return for worsening headache, mental status changes, vomiting liquids, weakness, mental status changes, other concerning symptoms. Ice your hand frequently for the next couple of days. Take cppf-fwx-niyxybt pain medication as needed. Follow-up with your doctor next week. Repeat x-rays may be needed if not improving. Coding Level of Care Code ED Associate Manager for 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
--- NOTE | 2021-11-19 17:31 | XRR_ITS ---
PROCEDURE INFORMATION: Exam: XR Right Hand Exam date and time: 11/19/2021 5:42 PM Age: 21 years old Clinical indication: Injury or trauma; Other: Hit in car door; Blunt trauma (contusions or hematomas); Hand; Right; Additional info: Pain/trauma TECHNIQUE: Imaging protocol: Radiologic exam of the Right hand. Views: 3 or more views. COMPARISON: No relevant prior studies available. FINDINGS: Bones/joints: Normal. Soft tissues: Normal. XR/XR hand RT min 3V* [id number] IMPRESSION: No acute findings.
[2021-11-19] MEDS: ketorolac 30 mg/mL INJ IVP (17:52)
[2021-11-19] MEDS: diphenhydrAMINE 50 mg/mL SDV 1mL IVP (17:52)
[2021-11-19] MEDS: sodium chloride 0.9% 1,000 ML 999 ML IV (17:52)
[2021-11-19] MEDS: promethazine 25 mg/mL SDV 1 mL IM (17:52)
[2021-11-19] MEDS: oxyCODONE-APAP 5-325 mg Tablet 2 TAB PO (19:50)
== END 2021-11-19 20:05 | disposition home or self-care (01) ==
PROVIDERS: Emergency Provider Emergency Medicine; PCP Physician Assistant
DX: S67.21XA Crushing injury of right hand, initial encounter (principal); X58.XXXA Exposure to other specified factors, initial encounter
CPT/HCPCS: 73130; 96361; 96372; 96374; 96375; 99284; J1200; J1885; J2550; J7030

== ENCOUNTER 2021-12-26 16:53 | Emergency (ER) | payer MEDICAID, SELFPAY ==
[2021-12-26 17:28] VITALS: BP 143/96; PULSE 80; RESP 16; TEMP 36.6; O2SAT 100
--- NOTE | 2021-12-26 17:32 | W.ED.FALL ---
HPI - Fall General: Chief Complaint: Fall Stated Complaint: fall, shoulder and neck pain Time Seen by Provider: 12/26/21 17:31 History of Present Illness: 21-year-old female comes in today for complaints of injury sustained after stepping wrong on the stairs and falling down them. Patient reports falling down 16 steps. Patient complains of right shoulder pain, neck pain, and headache. Patient appears nontoxic. Patient appears in mild to moderate pain. No obvious deformity is noted. Patient has a history of mental health problems, and migraine headaches. Patient takes clonazepam and sumatriptan. Associated symptoms-after fall: Reports neck pain; Denies chest pain Review of Systems Const: Denies: fever(s) Card: Denies: chest pain Resp: Denies: dyspnea Musc: Reports: neck pain, joint pain (Right shoulder) and other (Right scalp) PFSH ED PFSH: Medical History No pertinent past medical history Denies diabetes, asthma, hypertension, seizures, DVT/PE PMD: none Psychiatric care Sinus drainage Viral syndrome Surgical History Status post cholecystectomy June 2018--laparoscopic procedure performed at [facility] [place] Status post tubal ligation 09/09/2020---laparoscopic bilateral total salpingectomy for sterilization by Dr. Ruelas at [facility] [place]. --Normal intra-abdominal pathology-no endometriosis ----> Pathology showed benign tubes. Family History Sister Diabetes Father Hypertension Mother Hypertension Denies family history of Colon cancer Ovarian cancer Heart disease Hyperlipidemia Breast cancer Uterine cancer Thyroid condition Stroke Social History Smoking and tobacco status: never smoked Alcohol intake: never Female Reproductive History: Date of last menstrual period: 10/23/21 Physical Exam Const: COMMON NORMALS: alert HENMT: COMMON NORMALS: normocephalic HEAD & SCALP: normocephalic Eye: GENERAL EYE: appearance normal, both eyes and all related structures Neck/C-Spine: CERVICAL SPINE: Yes cervical ROM normal, Yes Cervical spine tenderness and Yes Paracervical muscle tenderness Chest: CHEST: No tenderness Resp: COMMON NORMALS: normal respiratory effort and clear to auscultation bilaterally AUSCULTATION: clear to auscultation bilaterally Cardio: COMMON NORMALS: regular rate RATE: regular rate GI: COMMON NORMALS: non-tender Back/Pelvis: THORACIC SPINE/UPPER BACK: No thoracic spinal tenderness LUMBAR SPINE/LOWER BACK: No lumbar spinal tenderness Extremity: RIGHT UPPER EXTREMITY: Yes shoulder joint (Anterior tenderness, normal distal neurovascular) Right shoulder: Yes Right shoulder joint inspection exam, Yes palpation and Yes Right shoulder joint ROM exam Neuro: SENSORIUM/ORIENTATION: Yes alert Skin: COMMON NORMALS: no rashes or lesions noted and turgor normal GENERAL SKIN EXAM: no rashes or lesions noted and turgor normal Course Vital Signs: Vital signs: Vital Signs Temperature 97.9 F 12/26/21 17:28 Pulse Rate 80 12/26/21 17:28 Respiratory Rate 16 12/26/21 17:28 Blood Pressure 143/96 12/26/21 17:28 Pulse Oximetry 100 12/26/21 17:28 MDM - Fall Medical Decision Making Patient comes in for evaluation of injury sustained during a fall down several steps. On exam no obvious deformity is noted, patient has tenderness in the cervical spine, patient has some tenderness along the right scalp, patient has anterior shoulder tenderness without any palpable deformity. Differential diagnosis includes fracture, dislocation, intracranial bleeding, contusions. CT of the head and cervical spine noted no fractures or intracranial bleeding. X-ray of the right shoulder noted no fractures or dislocation. Reviewed exam with patient with recommendations for follow-up with primary care for further evaluation and treatment. Patient reported understanding and agreed to plan. Lab Data Radiology Impressions Cervical Spine CT 12/26/21 17:33 IMPRESSION: No acute findings. Head CT 12/26/21 17:33 IMPRESSION: No acute intracranial abnormality. Discharge Plan Discharge Patient Disposition: Home Clinical Impression: Fall down stairs Qualifiers: Encounter type: initial encounter Qualified Code(s): W10.8XXA - Fall (on) (from) other stairs and steps, initial encounter Injury of shoulder, right Qualifiers: Encounter type: initial encounter Qualified Code(s): S49.91XA - Unspecified injury of right shoulder and upper arm, initial encounter Cervical strain Qualifiers: Encounter type: initial encounter Qualified Code(s): S16.1XXA - Strain of muscle, fascia and tendon at neck level, initial encounter Contusion of head Qualifiers: Encounter type: initial encounter Contusion of head detail: scalp Qualified Code(s): S00.03XA - Contusion of scalp, initial encounter Condition: Stable Prescriptions: New ibuprofen 800 mg tablet 800 mg PO Q8H PRN (Reason: pain) Qty: 30 0RF No Action sumatriptan succinate 25 mg tablet See Rx Instructions PO .COMPLEX Rx Instructions: take 1 tab at onset of headache; if no relief may repeat 1 tab after at least 2 hrs; max = 4 tabs/24 hr PO clonazepam 1 mg tablet 1 mg PO Q8H PRN (Reason: anxiety) Qty: 60 0RF Discharge Orders: Discharge ED (Routine); Ordered 12/26/21 Ordered By: Vasyl Gregg Referrals: Shilpa Ballesteros PA [Primary Care Provider] - Discharge Diet: Usual diet Discharge Activity: Increase activity as tolerated Patient Instructions: Musculoskeletal Pain (ED) Activity Restrictions/Additional Instructions: Activity as tolerated. Gentle stretching and range of motion exercises. Drink plenty of water with medication. Use acetaminophen and ibuprofen for pain. Use ice and heat for further pain relief. Follow-up with primary care in 3 to 5 days for recheck. Return to ED for new concerns. Coding Level of Care Code ED Strip Tank Tender for [facility] Fwd Exam Comprehensive
--- NOTE | 2021-12-26 17:33 | CTR_ITS ---
PROCEDURE INFORMATION: Exam: CT Head Without Contrast Exam date and time: 12/26/2021 5:52 PM Age: 21 years old Clinical indication: Injury or trauma; Blunt trauma (contusions or hematomas); Patient HX: Fall down a flight of stairs. C/O head and neck pain. No loc. ; Additional info: Fall injury TECHNIQUE: Imaging protocol: Computed tomography of the head without contrast. Radiation optimization: All CT scans at this facility use at least one of these dose optimization techniques: automated exposure control; mA and/or kV adjustment per patient size (includes targeted exams where dose is matched to clinical indication); or iterative reconstruction. COMPARISON: CT cervical spin wo con* [id number] 08/22/2021 6:46 PM RADIATION DOSE METRICS: Total DLP (mGy-cm): 1042.01 FINDINGS: Brain: Normal. No hemorrhage. Unremarkable white matter. No mass effect. Cerebral ventricles: No ventriculomegaly. Paranasal sinuses: Visualized sinuses are unremarkable. No fluid levels. Mastoid air cells: Visualized mastoid air cells are well aerated. Bones/joints: Unremarkable. No acute fracture. Soft tissues: Unremarkable. CT/CT head wo con* [id number] IMPRESSION: No acute intracranial abnormality.
--- NOTE | 2021-12-26 17:33 | XRR_ITS ---
PROCEDURE INFORMATION: Exam: XR Right Shoulder Exam date and time: 12/26/2021 6:38 PM Age: 21 years old Clinical indication: Pain; Shoulder; Right; Additional info: Fall injury TECHNIQUE: Imaging protocol: Radiologic exam of the Right shoulder. Views: 2 or more views. COMPARISON: CR XR shoulder RT min 2V* [id number] 06/17/2020 9:30 PM FINDINGS: Bones/joints: Osseous structures are intact. Negative for fracture. Joint spaces are preserved. Soft tissues: Normal. XR/XR shoulder RT min 2V* [id number] IMPRESSION: No acute findings.
--- NOTE | 2021-12-26 17:33 | CTR_ITS ---
PROCEDURE INFORMATION: Exam: CT Cervical Spine Without Contrast Exam date and time: 12/26/2021 5:52 PM Age: 21 years old Clinical indication: Injury or trauma; Blunt trauma; Patient HX: Fall down a flight of stairs. C/O head and neck pain. No loc. ; Additional info: Fall injury TECHNIQUE: Imaging protocol: Computed tomography of the cervical spine without contrast. Radiation optimization: All CT scans at this facility use at least one of these dose optimization techniques: automated exposure control; mA and/or kV adjustment per patient size (includes targeted exams where dose is matched to clinical indication); or iterative reconstruction. COMPARISON: CT cervical spin wo con* [id number] 08/22/2021 6:46 PM RADIATION DOSE METRICS: Total DLP (mGy-cm): 253.8 FINDINGS: Bones/joints: No acute fracture. Normal alignment. No significant disc protrusion. No severe spinal canal stenosis. Lungs: Lung apices are normal. Soft tissues: Unremarkable. CT/CT cervical spin wo con* [id number] IMPRESSION: No acute findings.
== END 2021-12-26 18:37 | disposition home or self-care (01) ==
PROVIDERS: Emergency Provider Nurse Practitioner Family; PCP Physician Assistant
DX: S16.1XXA Strain of muscle, fascia and tendon at neck level, initial encounter (principal); S00.03XA Contusion of scalp, initial encounter; S49.91XA Unspecified injury of right shoulder and upper arm, initial encounter; W10.8XXA Fall (on) (from) other stairs and steps, initial encounter
CPT/HCPCS: 70450; 72125; 73030; 99284

== ENCOUNTER 2021-12-31 17:33 | Emergency (ER) | payer MEDICAID, SELFPAY ==
[2021-12-31 17:43] VITALS: BP 135/89; PULSE 99; RESP 16; TEMP 36.7; O2SAT 97; BMI 31.8
--- NOTE | 2021-12-31 17:55 | ED_ITS ---
HPI - Anxiety General: Chief Complaint: Anxiety Stated Complaint: anxiety, headache Time Seen by Provider: 12/31/21 17:37 History of Present Illness: 21-year-old female comes in today for complaints of migraine headache and anxiety. Patient reports that she has had increased stress due to her son having to go to a hospital in [place]. Today she has had increased anxiety but has been without her medication since yesterday. Review of the record noted that patient was prescribed 60 tablets of clonazepam on [address] Mccarthy. Patient is scheduled to follow-up with [facility] [place] in 2 weeks. Patient also reports migraine headache today too. Patient appears nontoxic. Patient in the past has used promethazine with dexamethasone for of the headache. Associated symptoms: Reports headache(s); Deny fever(s) Review of Systems Const: Denies: fever(s) Neuro: Reports: headache(s) Psych: Reports: anxiety (Tearful) PFSH ED PFSH: Medical History No pertinent past medical history Denies diabetes, asthma, hypertension, seizures, DVT/PE PMD: none Psychiatric care Sinus drainage Viral syndrome Surgical History Status post cholecystectomy June 2018--laparoscopic procedure performed at [facility] [place] Status post tubal ligation 09/09/2020---laparoscopic bilateral total salpingectomy for sterilization by Dr. Ruelas at [facility] [place]. --Normal intra-abdominal pathology-no endometriosis ----> Pathology showed benign tubes. Family History Sister Diabetes Father Hypertension Mother Hypertension Denies family history of Colon cancer Ovarian cancer Heart disease Hyperlipidemia Breast cancer Uterine cancer Thyroid condition Stroke Social History Smoking and tobacco status: never smoked Alcohol intake: never Female Reproductive History: Date of last menstrual period: 10/23/21 Physical Exam Const: COMMON NORMALS: alert GENERAL APPEARANCE: well kempt HENMT: COMMON NORMALS: normocephalic HEAD & SCALP: normocephalic Neck/C-Spine: COMMON NORMALS: full ROM Chest: COMMONS NORMALS: normal inspection of the chest Resp: COMMON NORMALS: normal respiratory effort Cardio: COMMON NORMALS: regular rate RATE: regular rate GI: COMMON NORMALS: non-tender Extremity: COMMON NORMALS: full ROM Neuro: SENSORIUM/ORIENTATION: Yes alert Psych: COMMON NORMALS: speech normal APPEARANCE: Yes well kempt ACTIVITY/MOTOR BEHAVIOR: Yes fidgeting SPEECH: Yes normal speech MOOD & AFFECT: Yes tearful THOUGHT PROCESS: Circumstantial thought process present THOUGHT CONTENT: No Suicidality present and No Homicidality present Course Vital Signs: Vital signs: Vital Signs Temperature 98.1 F 12/31/21 17:43 Pulse Rate 99 12/31/21 17:43 Respiratory Rate 16 12/31/21 17:43 Blood Pressure 135/89 12/31/21 17:43 Pulse Oximetry 97 12/31/21 17:43 Oxygen Delivery Me thod 12/31/21 17:43 MDM - Anxiety Medical Decision Making 22-year-old female comes in today with complaints of migraine headache and anxiety. Patient had gone to urgent care but could not get a refill for her clonazepam. Patient came to the ER for refill on her clonazepam and for migraine headache. Patient is tearful. Patient denies any homicidal suicidal thoughts. Differential diagnosis includes but not limited to anxiety, depression, adjustment disorder, migraine headache. Patient was treated for a migraine headache with promethazine and dexamethasone. Patient was written a prescription for 14 tablets of clonazepam 1 mg with instruction to follow-up with primary care for further refills. Patient reported understanding agreed to plan. Discharge Plan Discharge Patient Disposition: Home Clinical Impression: Acute anxiety Migraine Qualifiers: Migraine type: unspecified Status migrainosus presence: without status migrainosus Intractability: not intractable Qualified Code(s): G43.909 - Migraine, unspecified, not intractable, without status migrainosus Condition: Stable Prescriptions: Changed clonazepam 1 mg tablet 1 mg PO BID PRN (Reason: anxiety) Qty: 14 0RF No Action sumatriptan succinate 25 mg tablet See Rx Instructions PO .COMPLEX Rx Instructions: take 1 tab at onset of headache; if no relief may repeat 1 tab after at least 2 hrs; max = 4 tabs/24 hr PO ibuprofen 800 mg tablet 800 mg PO Q8H PRN (Reason: pain) Qty: 30 0RF Discharge Orders: Discharge ED (Routine); Ordered 12/31/21 Ordered By: Vasyl Gregg Referrals: Shilpa Ballesteros PA [Primary Care Provider] - Patient Instructions: Opioid Safety, Pain Management Activity Restrictions/Additional Instructions: Home and rest. Drink plenty of fluids. Fill prescription of clonazepam and follow-up with primary care for refills. Keep appointment with [facility] [place] as scheduled. Return to emergency room for new concerns or worsening symptoms. Coding Level of Care Code ED Tree Scout for 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
[2021-12-31] MEDS: promethazine 25 mg/mL SDV 1 mL IM (18:07)
[2021-12-31] MEDS: dexamethasone 10 mg/mL INJ IM (18:07)
== END 2021-12-31 18:32 | disposition home or self-care (01) ==
PROVIDERS: Emergency Provider Nurse Practitioner Family; PCP Physician Assistant
DX: G43.909 Migraine, unspecified, not intractable, without status migrainosus (principal)
CPT/HCPCS: 96372; 99284; J1100; J2550

== ENCOUNTER 2022-01-12 19:54 | Emergency (ER) | payer MEDICAID, SELFPAY ==
[2022-01-12 20:10] VITALS: BP 144/91; PULSE 88; RESP 16; TEMP 36.7; O2SAT 99
[2022-01-12 20:54] LABS: HCG Qualitative Urine. Negative (Negative)
--- NOTE | 2022-01-12 20:56 | XRR_ITS ---
PROCEDURE INFORMATION: Exam: XR Chest Exam date and time: 01/12/2022 10:13 PM Age: 21 years old Clinical indication: Cough and fever; Additional info: Cough fever TECHNIQUE: Imaging protocol: Radiologic exam of the chest. Views: 1 view. COMPARISON: CR XR ribs RT mn 3V w [id number] [id number] 05/13/2021 9:22 AM FINDINGS: Lungs: Calcified granuloma in the right lung. The lungs are otherwise clear. Pleural spaces: Unremarkable. No pleural effusion. No pneumothorax. Heart/Mediastinum: Unremarkable. No cardiomegaly. Bones/joints: Unremarkable. Soft tissues: Nipple piercings. XR/XR chest 1V portable [id number] IMPRESSION: No acute findings.
[2022-01-12 20:59] LABS: Bilirubin Urine Neg (Negative); Blood Urine Neg (Negative); Glucose Urine UA Norm (Normal); Ketones Urine Negative (Negative); Leukocyte Esterase Urine 2+ (Negative); Nitrate Urine Negative (Negative); Protein Urine Neg (Negative); Specific Gravity, Urine 1.015 (1.005-1.030); Urine Appearance SL Hazy (CLEAR); Urine Color Yellow (Yellow); Urobilinogen Urine Norm (Negative); pH Urine 7 (5-7)
[2022-01-12 21:00] LABS: Add Urine Culture? No; Add Urine Microscopic? YES; Bacteria Urine TRACE /hpf; RBC Urine 0-4 /hpf (0-2); WBC Urine 0-4 /hpf (0-5)
[2022-01-12 21:28] LABS: Rapid Strep A Test Negative (Negative)
[2022-01-12 21:38] LABS: Influenza A by IFA negative (Negative); Influenza B by IFA negative (Negative)
[2022-01-12 21:39] LABS: SARS Covid-2 Antigen negative (Negative)
--- NOTE | 2022-01-12 22:16 | W.ED.HA ---
HPI - Headache General: Chief Complaint: Headache Stated Complaint: Migrane\Chest Pains Time Seen by Provider: 01/12/22 20:17 History of Present Illness: 21 yo female patient presents to ER with cough and congestion and headache. Pt stats she thinks her headache is because she hasnt had her Clonazepem for 2 days. Pt states she is out and wont see her PCP until jan 19. pt vick any chest pain or SOB. Pt denies any fever. Associated symptoms: Deny chest pain, confusion, diaphoresis, fever(s), lightheadedness, malaise, nausea, pre-syncope, rash, syncope or vomiting Review of Systems Const: Denies: fever(s), chills, body aches, change in appetite, change in weight, fatigue, malaise or diaphoresis Eyes: Denies: change in vision, blurry vision, blind spots, photophobia, eye discomfort, eye discharge, eye redness, floaters or seeing flashes ENMT: Denies: throat pain, uvular edema, enlarged tonsils, odynophagia, hoarseness, mouth pain, swelling of lips/tongue, oral sores, bleeding gums, dental pain, dry mouth, ear or mastoid pain, ear discharge, change in hearing, tinnitus, disequilibrium, nasal discharge, nasal congestion, post nasal drip or sinus pain Card: Denies: chest pain, palpitations, irregular heart rhythm, edema, swelling of feet/ankles, lightheadedness, syncope, pre-syncope, dyspnea on exertion, orthopnea, leg pain with exertion or acrocyanosis Resp: Reports: non-productive cough; Denies: dyspnea, productive cough, wheezing, stridor, pain on inspiration, change in phlegm color, hemoptysis or chest congestion GI: Denies: abdominal pain, nausea, vomiting, hematemesis, dysphagia, diarrhea, constipation, GI cramping, change in bowel habits or rectal pain : Denies: flank pain, difficulty voiding, dysuria, urinary frequency, urinary urgency, urinary hesitancy or hematuria Musc: Denies: neck pain, back pain, extremity pain, extremity swelling, joint pain, joint swelling, joint redness, joint warmth or deformity Skin/Breast: Denies: rash, pruritus, erythema, sores, new lesions, changes in skin color or dry skin Neuro: Reports: headache(s); Denies: numbness in extremities, weakness in extremities, sensory changes, lack of coordination, difficulty walking, frequent falls, dizziness, vertigo, confusion, behavioral changes, Slurred speech present, difficulty communicating thoughts or seizure-like activity Psych: Denies: anxiety, depression, suicidal ideation or homicidal ideation Endo: Denies: polyuria, polydipsia, tired all the time, cold intolerance, excessive sweating, flushing, hot flashes or heat intolerance Jamal/Lymph: Denies: easy bruising, easy bleeding, petechiae, purpura, enlarged lymph nodes or tender lymph nodes All/Imm: Denies: urticaria, throat swelling, tongue swelling, facial swelling, acute wheezing or itchy eyes PFSH ED PFSH: Medical History No pertinent past medical history Denies diabetes, asthma, hypertension, seizures, DVT/PE PMD: none Psychiatric care Sinus drainage Viral syndrome Surgical History Status post cholecystectomy June 2018--laparoscopic procedure performed at [facility] [place] Status post tubal ligation 09/09/2020---laparoscopic bilateral total salpingectomy for sterilization by Dr. Ruelas at [facility] [place]. --Normal intra-abdominal pathology-no endometriosis ----> Pathology showed benign tubes. Family History Sister Diabetes Father Hypertension Mother Hypertension Denies family history of Colon cancer Ovarian cancer Heart disease Hyperlipidemia Breast cancer Uterine cancer Thyroid condition Stroke Social History Smoking and tobacco status: never smoked Alcohol intake: never Female Reproductive History: Date of last menstrual period: 10/23/21 Physical Exam Const: COMMON NORMALS: no acute distress, patient oriented x3, healthy appearing, alert and well nourished GENERAL APPEARANCE: cooperative, comfortable, well kempt and well developed; not ill appearing ORIENTATION/CONSCIOUSNESS: Yes awake, Yes oriented to person, Yes oriented to place and Yes oriented to time HENMT: COMMON NORMALS: normocephalic, atraumatic, hearing grossly normal bilaterally, external ears normal, EAC's normal, TM's normal bilaterally, Normal external nose present, Normal nasal mucous membranes and turbinates present and moist oral mucous membranes HEAD & SCALP: normal to inspection, normocephalic and atraumatic FACE & SINUS: normal facial exam, sinuses nontender and face symmetric NOSE: Normal external nose present, Normal nares present, Normal nasal mucous membranes and turbinates present, No nasal discharge present and Abnormal external nose present EXTERNAL EAR: Yes external ears normal and Yes mastoids normal EXTERNAL AUDITORY CANAL: EAC's normal TYMPANIC MEMBRANE: TM's normal bilaterally MOUTH: Normal oral and palatal mucosa present, lip normal, tongue normal and Normal salivary glands and ducts present THROAT: no uvular edema Eye: COMMON NORMALS: Equal, round and reactive pupils present, EOMs intact bilaterally, conjunctivae normal, no scleral icterus and no papilledema GENERAL EYE: appearance normal, both eyes and all related structures EYELID: eyelids normal CONJUNCTIVA: Yes conjunctivae normal SCLERA: sclerae normal CORNEA: Yes corneas normal PUPIL: Yes Equal, round and reactive pupils present DIRECT OPHTHALMOSCOPY: Yes no papilledema Neck/C-Spine: COMMON NORMALS: full ROM, no lymphadenopathy, supple, no meningeal signs, no JVD and Thyroid normal GENERAL: Yes normal visual inspection and Yes trachea midline THYROID: Thyroid normal CERVICAL SPINE: Yes cervical ROM normal Lymph: LYMPHATIC: no lymphadenopathy noted and no lymphedema noted Chest: COMMONS NORMALS: normal inspection of the chest and normal palpation of entire chest wall Resp: COMMON NORMALS: normal respiratory effort, No retractions, No use of accessory muscles and clear to auscultation bilaterally EFFORT & INSPECTION: Yes able to speak in complete sentences and Yes symmetric chest movement AUSCULTATION: clear to auscultation bilaterally Cardio: COMMON NORMALS: no JVD, regular rate and regular rhythm RATE: regular rate RHYTHM: regular rhythm GI: COMMON NORMALS: Normal to inspection, nondistended, normoactive bowel sounds present, Soft to palpation, non-tender, No hepatosplenomegaly present, no masses and no bruits INSPECTION: Yes normal to inspection AUSCULTATION: Yes normoactive bowel sounds PALPATION: Yes Soft to palpation and Yes No hepatosplenomegaly present PERCUSSION: normal to percussion RECTAL EXAM: deferred : COMMON NORMALS: Yes no CVA tenderness, Yes normal external appearance, Yes normal appearance of the vagina, Yes normal appearance of the cervix, Yes normal bimanual exam, Yes No adnexal tenderness and Yes no masses BLADDER/KIDNEY EXAM: Yes no CVA tenderness BIMANUAL EXAM - VAGINA & UTERUS: Yes normal bimanual exam Back/Pelvis: COMMON NORMALS: no CVA tenderness, thoracic and lumbar spine normal to inspection, no thoracic nor lumbar tenderness, thoraco-lumbar ROM normal and straight leg raise negative bilaterally THORACIC SPINE/UPPER BACK: Yes normal to inspection LUMBAR SPINE/LOWER BACK: Yes normal to inspection Extremity: COMMON NORMALS: normal to inspection, full ROM and capillary refill normal GENERAL: Yes normal exam except as noted Neuro: COMMON NORMALS: patient oriented x3, CN's II-XII intact bilaterally, moves all extremities, no focal motor deficits, no sensory deficits noted, deep tendon reflexes 2+ bilaterally and gait normal SENSORIUM/ORIENTATION: Yes alert, Yes oriented to person, Yes oriented to place and Yes oriented to time MENINGEAL SIGNS: Yes no meningeal signs CRANIAL NERVES: Yes CN normal except as noted SPEECH: speech normal GAIT: Yes Normal gait present SENSORY EXAM: Yes extremities MOTOR EXAM: 5/5 motor strength present throughout Psych: COMMON NORMALS: mental status grossly normal, Normal thought process present, cooperative, normal affect, speech normal, activity/motor behavior normal, denies hallucinations, denies homicidal ideation and denies suicidal ideation APPEARANCE: Yes grossly normal and Yes well kempt ATTITUDE: Yes calm ACTIVITY/MOTOR BEHAVIOR: Yes appropriate eye contact SPEECH: Yes normal speech THOUGHT PROCESS: Normal thought process present THOUGHT CONTENT: Yes Normal thought content present ATTENTION/CONCENTRATION: Yes attention grossly intact MEMORY/COGNITION: Yes memory grossly intact INSIGHT: Good insight present (Psych) JUDGEMENT: Good judgement present (Psych) Skin: COMMON NORMALS: no rashes or lesions noted, no wounds, turgor normal, no jaundice, no petechiae and no mottling GENERAL SKIN EXAM: no rashes or lesions noted and turgor normal Course Vital Signs: Vital signs: Vital Signs Temperature 98.0 F 01/12/22 20:10 Pulse Rate 88 01/12/22 20:10 Respiratory Rate 16 01/12/22 20:10 Blood Pressure 144/91 01/12/22 20:10 Pulse Oximetry 99 01/12/22 20:10 Oxygen Delivery Me thod 01/12/22 20:10 MDM - Headache Medical Decision Making Patient is well appearin non toxic and in no acute distress. Pt does have 2+ leukocytes in her urine but denies any UTI symptoms. Will send for culture. I will send patient home with enough Clonazepam until jan 19 when she can get refilled. Pt has no evidence of hypoxemia or meningeal irriration lungs are CTA and VSS Lab Data Radiology Impressions Chest X-Ray 01/12/22 20:56 IMPRESSION: No acute findings. Laboratory Results HCG, Qual Negative (Negative) 01/12/22 20:45 Urine Color Yellow (Yellow) 01/12/22 20:45 Urine Appearance Sl hazy (CLEAR) A 01/12/22 20:45 Urine pH 7 (5-7) 01/12/22 20:45 Ur Specific [place] 1.015 (1.005-1.030) 01/12/22 20:45 Urine Protein Neg (Negative) 01/12/22 20:45 Urine Glucose (UA) Norm (Normal) 01/12/22 20:45 Urine Ketones Negative (Negative) 01/12/22 20:45 Urine Blood Neg (Negative) 01/12/22 20:45 Urine Nitrate Negative (Negative) 01/12/22 20:45 Urine Bilirubin Neg (Negative) 01/12/22 20:45 Urine Urobilinogen Norm mg/dL (Negative) 01/12/22 20:45 Ur Leukocyte Esterase 2+ (Negative) H 01/12/22 20:45 Urine RBC 0-4 /hpf (0-2) H 01/12/22 20:45 Urine WBC 0-4 /hpf (0-5) H 01/12/22 20:45 Ur Squamous Epith Cells 5-10 /hpf (0-5) H 01/12/22 20:45 Amorphous Sediment Not Reportable 01/12/22 20:45 Urine Bacteria Trace /hpf (NONE) 01/12/22 20:45 Influenza Type A Ag negative (Negative) 01/12/22 21:11 Influenza Type B Ag negative (Negative) 01/12/22 21:11 SARS-CoV-2 Ag (Rapid) negative (Negative) 01/12/22 21:11 Group A Strep Rapid Negative (Negative) 01/12/22 21:11 Discharge Plan Discharge Condition: Stable Prescriptions: No Action sumatriptan succinate 25 mg tablet See Rx Instructions PO .COMPLEX Rx Instructions: take 1 tab at onset of headache; if no relief may repeat 1 tab after at least 2 hrs; max = 4 tabs/24 hr PO ibuprofen 800 mg tablet 800 mg PO Q8H PRN (Reason: pain) Qty: 30 0RF clonazepam 1 mg tablet 1 mg PO BID PRN (Reason: anxiety) Qty: 14 0RF Referrals: Shilpa Ballesteros PA [Primary Care Provider] - Coding Level of Care Code ED Concrete Pile Driver Operator for 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
[2022-01-12] MEDS: CLONazepam 1 mg Tablet PO (22:39)
[2022-01-12 22:41] VITALS: PULSE 83; RESP 18; O2SAT 99
== END 2022-01-12 22:40 | disposition home or self-care (01) ==
PROVIDERS: Emergency Provider Registered Nurse; PCP Physician Assistant
DX: R51.9 Headache, unspecified (principal); R05.9 Cough, unspecified; Z20.822 Contact with and (suspected) exposure to COVID-19
CPT/HCPCS: 71045; 81001; 81025; 87081; 87426; 87804; 87880; 99284

== ENCOUNTER → 2022-03-07 19:11 | Outpatient (BNVA) | payer MEDICAID, SELFPAY | PROVIDERS: PCP Physician Assistant; Visit Provider Nurse Practitioner Family | DX: M79.641 Pain in right hand (principal) | CPT/HCPCS: 73130 ==

== ENCOUNTER 2022-04-24 17:59 | Emergency (ER) | payer MEDICAID, SELFPAY ==
[2022-04-24 18:03] VITALS: BP 138/86; PULSE 87; RESP 15; TEMP 36.4; O2SAT 98; BMI 31.8
--- NOTE | 2022-04-24 18:33 | ED_ITS ---
HPI - Headache General: Chief Complaint: Headache Stated Complaint: migraine Time Seen by Provider: 04/24/22 18:06 History of Present Illness: Patient is a 21-year-old female comes to the ED with migraine headache. Patient has a history of migraines and says that this headache is like her past migraines. Migraine started approximately 48 hours ago. She took a dose of sumatriptan and it did not help. She rates her migraine currently an 8 out of 10. She endorses nausea and has had an episode of emesis today. She has sensitivity to lights and noises. Migraine is located in the back of her head bilaterally. Denies any other symptoms such as vision changes, numbness tingling or weakness to 1 side of her body or face. Associated symptoms: Reports nausea and vomiting; Deny chest pain, fever(s) or rash Review of Systems Const: Denies: fever(s), chills or fatigue Eyes: Reports: photophobia; Denies: change in vision or eye discomfort ENMT: Denies: throat pain, odynophagia, nasal discharge or nasal congestion Card: Denies: chest pain, palpitations, edema, swelling of feet/ankles, dyspnea on exertion or orthopnea Resp: Denies: dyspnea, productive cough or non-productive cough GI: Reports: nausea and vomiting; Denies: abdominal pain, diarrhea, constipation or hematochezia : Denies: flank pain, dysuria or hematuria Musc: Denies: neck pain, back pain or extremity swelling Skin/Breast: Denies: rash or new lesions Neuro: Reports: headache(s); Denies: numbness in extremities or weakness in extremities PFSH ED PFSH: Medical History Depression No pertinent past medical history Denies diabetes, asthma, hypertension, seizures, DVT/PE PMD: none Other reactions to severe stress Psychiatric care Sinus drainage Viral syndrome Surgical History Status post cholecystectomy June 2018--laparoscopic procedure performed at [facility] [place] Status post tubal ligation 09/09/2020---laparoscopic bilateral total salpingectomy for sterilization by Dr. Ruelas at [facility] [place]. --Normal intra-abdominal pathology-no endometriosis ----> Pathology showed benign tubes. Family History Sister Diabetes Father Hypertension Mother Hypertension Denies family history of Colon cancer Ovarian cancer Heart disease Hyperlipidemia Breast cancer Uterine cancer Thyroid condition Stroke Social History Smoking and tobacco status: never smoked Alcohol intake: never Physical Exam Const: COMMON NORMALS: patient oriented x3 HENMT: COMMON NORMALS: normocephalic HEAD & SCALP: normocephalic MOUTH: Normal oral and palatal mucosa present THROAT: posterior oropharynx normal and uvula midline Neck/C-Spine: COMMON NORMALS: supple GENERAL: Yes normal visual inspection Resp: COMMON NORMALS: normal respiratory effort, No retractions, No use of accessory muscles and clear to auscultation bilaterally AUSCULTATION: clear to auscultation bilaterally Cardio: COMMON NORMALS: regular rate, regular rhythm, S1 normal heart sound present, S2 normal heart sound present, No gallops present (Cardio), No clicks present (Cardio), No murmurs present (Cardio) and Peripheral pulses 2+ throughout RATE: regular rate RHYTHM: regular rhythm HEART SOUNDS: S1 normal heart sound present and S2 normal heart sound present PERIPHERAL PULSES: Peripheral pulses 2+ throughout GI: COMMON NORMALS: Normal to inspection, nondistended, normoactive bowel alma delia nds present, Soft to palpation, non-tender and no masses PALPATION: Yes Soft to palpation : COMMON NORMALS: Yes no CVA tenderness BLADDER/KIDNEY EXAM: Yes no CVA tenderness Back/Pelvis: COMMON NORMALS: no CVA tenderness Extremity: COMMON NORMALS: normal to inspection Neuro: COMMON NORMALS: patient oriented x3, CN's II-XII intact bilaterally, moves all extremities, no focal motor deficits and no sensory deficits noted COORDINATION/BALANCE: [id number] test normal SPEECH: speech normal GAIT: Yes Normal gait present COORDINATION: [id number] test normal Skin: GENERAL SKIN EXAM: dry skin Course Vital Signs: Vital signs: Vital Signs Temperature 97.5 F L 04/24/22 18:03 Pulse Rate 87 04/24/22 18:03 Respiratory Rate 15 04/24/22 18:03 Blood Pressure 138/86 04/24/22 18:03 Pulse Oximetry 98 04/24/22 18:03 Oxygen Delivery Me thod 04/24/22 18:03 MDM - Headache Medical Decision Making Has beenPatient is a 21-year-old female comes to the ED with migraine headache. Patient has a history of migraines and says that this headache is like her past migraines. Migraine started approximately 48 hours ago. She took a dose of sumatriptan and it did not help. She rates her migraine currently an 8 out of 10. She endorses nausea and has had an episode of emesis today. She has sensitivity to lights and noises. Migraine is located in the back of her head bilaterally. Denies any other symptoms such as vision changes, numbness tingling or weakness to 1 side of her body or face. Vitals are stable. Neuro exam shows no deficits. Rest of exam is benign. Patient was given IV fluids, Toradol, Reglan, Decadron and Benadryl. Her symptoms improved greatly. She rates her headache now a 2 out of 10. She was stable for discharge home and diagnosed with a migraine headache. Told to follow-up with her PCP in the next week for reevaluation. Return to ED precautions given. Patient understood agree with plan. Discharge Plan Discharge Patient Disposition: Home Clinical Impression: Migraine Qualifiers: Migraine type: unspecified Status migrainosus presence: without status migrainosus Intractability: not intractable Qualified Code(s): G43.909 - Migraine, unspecified, not intractable, without status migrainosus Condition: Stable Prescriptions: No Action sumatriptan succinate 25 mg tablet See Rx Instructions PO .COMPLEX Rx Instructions: take 1 tab at onset of headache; if no relief may repeat 1 tab after at least 2 hrs; max = 4 tabs/24 hr PO propranolol 20 mg tablet 10 mg PO BID ibuprofen 800 mg tablet 800 mg PO Q8H PRN (Reason: pain) Qty: 30 0RF clonazepam 1 mg tablet 1 mg PO BID PRN (Reason: anxiety) Qty: 14 0RF Wellbutrin XL 150 mg Tablet Extended Release 24 Hr 150 mg PO QAM Discharge Orders: Discharge ED (Routine); Ordered 04/24/22 Ordered By: Nilson Morocho Referrals: Shilpa Ballesteros PA [Primary Care Provider] - Discharge Diet: Regular Discharge Activity: Resume usual activity Patient Instructions: Headache - Migraine (Adult) Activity Restrictions/Additional Instructions: Follow-up with medical provider as directed in the next 5 to 7 days for reevaluation. Continue taking all home medications as previously prescribed. Return to the ER or your medical provider if condition worsens. Please read and understand discharge instructions. Thank you for choosing [facility] for your healthcare needs today. Please realize this is an emergency room and that we are providing you with a medical screening exam and this may not be complete and all inclusive of all the testing and or work up that you may need to determine your ailment or severity of your illness. It is very important that you follow up as instructed or that you return to the Emergency Department should you have concerns or if your condition changes or worsens in any way. Coding Level of Care Code ED Metal Can Inspector for 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
[2022-04-24] MEDS: sodium chloride 0.9% 500 ML 999 ML IV (18:47)
[2022-04-24] MEDS: dexamethasone 10 mg/mL INJ IVP (18:50)
[2022-04-24] MEDS: diphenhydrAMINE 50 mg/mL SDV 1mL 25 MG IVP (18:51)
[2022-04-24] MEDS: ketorolac 30 mg/mL INJ IVP (18:52)
[2022-04-24] MEDS: metoclopramide 5 mg/mL SDV 2 mL 10 MG IVP (18:53)
== END 2022-04-24 19:49 | disposition home or self-care (01) ==
PROVIDERS: Emergency Provider Physician Assistant; PCP Physician Assistant
DX: G43.909 Migraine, unspecified, not intractable, without status migrainosus (principal)
CPT/HCPCS: 96361; 96374; 96375; 99284; J1100; J1200; J1885; J2765; J7040

== ENCOUNTER 2022-06-16 18:29 | Emergency (ER) | payer MEDICAID, SELFPAY ==
[2022-06-16 18:42] VITALS: BP 133/83; PULSE 82; RESP 14; TEMP 36.8; O2SAT 100; BMI 40.4
[2022-06-16 19:30] VITALS: BP 138/73; RESP 14; O2SAT 99
--- NOTE | 2022-06-16 19:55 | W.ED.HA ---
HPI - Headache General: Chief Complaint: Headache Stated Complaint: migraine Time Seen by Provider: 06/16/22 19:06 History of Present Illness: 22-year-old female presents emergency department chief complaint of acute migraine headache patient reports she is gets a migraine every week. The patient reports that she has had some nausea vomiting and diarrhea symptoms leading up to her current headache she reports that she took her sumatriptan at 10:00 and 2:00 to no improvement she reports a frontal headache looking the right side of her head he does not recall any recent trauma or injury or prior history of any concussions. Associated symptoms: Reports nausea; Deny chest pain, fever(s), malaise or rash Review of Systems General: Reports: 10 or more systems reviewed and unremarkable except in HPI and below Const: Denies: fever(s), chills, fatigue or malaise Eyes: Denies: change in vision or blurry vision Card: Denies: chest pain or palpitations Resp: Denies: dyspnea or productive cough GI: Reports: abdominal pain, nausea and diarrhea : Denies: flank pain Musc: Denies: extremity pain or extremity swelling Skin/Breast: Denies: rash or pruritus Neuro: Reports: headache(s) Psych: Denies: anxiety or depression Jamal/Lymph: Denies: easy bleeding All/Imm: Denies: urticaria, throat swelling or facial swelling PFSH ED PFSH: Medical History Depression No pertinent past medical history Denies diabetes, asthma, hypertension, seizures, DVT/PE PMD: none Other reactions to severe stress Psychiatric care PTSD (post-traumatic stress disorder) Sinus drainage Viral syndrome Surgical History Status post cholecystectomy June 2018--laparoscopic procedure performed at [facility] [place] Status post tubal ligation 09/09/2020---laparoscopic bilateral total salpingectomy for sterilization by Dr. Ruelas at [facility] [place]. --Normal intra-abdominal pathology-no endometriosis ----> Pathology showed benign tubes. Family History Sister Diabetes Father Hypertension Mother Hypertension Denies family history of Colon cancer Ovarian cancer Heart disease Hyperlipidemia Breast cancer Uterine cancer Thyroid condition Stroke Social History Smoking and tobacco status: never smoked Alcohol intake: never Substance/Drug Use: never Physical Exam Const: COMMON NORMALS: no acute distress (Patient appears to be in mild pain does not is in a dark room or appears to), patient oriented x3 and healthy appearing HENMT: COMMON NORMALS: normocephalic and atraumatic HEAD & SCALP: normocephalic and atraumatic Eye: COMMON NORMALS: Equal, round and reactive pupils present and EOMs intact bilaterally PUPIL: Yes Equal, round and reactive pupils present Neck/C-Spine: COMMON NORMALS: full ROM, supple and no JVD Lymph: LYMPHATIC: no lymphadenopathy noted Chest: COMMONS NORMALS: normal inspection of the chest and normal palpation of entire chest wall Resp: COMMON NORMALS: normal respiratory effort, No retractions and clear to auscultation bilaterally EFFORT & INSPECTION: Yes able to speak in complete sentences and Yes symmetric chest movement AUSCULTATION: clear to auscultation bilaterally Cardio: COMMON NORMALS: no JVD, regular rate and regular rhythm RATE: regular rate RHYTHM: regular rhythm GI: COMMON NORMALS: Normal to inspection, nondistended, normoactive bowel sounds present and Soft to palpation; negative for non-tender (Generalized abdominal pain noted nonspecific in nature slightly hyperactive) INSPECTION: Yes normal to inspection PALPATION: Yes Soft to palpation : COMMON NORMALS: Yes no CVA tenderness BLADDER/KIDNEY EXAM: Yes no CVA tenderness Back/Pelvis: COMMON NORMALS: no CVA tenderness Extremity: COMMON NORMALS: normal to inspection and full ROM Neuro: COMMON NORMALS: patient oriented x3, CN's II-XII intact bilaterally, moves all extremities and no focal motor deficits Psych: COMMON NORMALS: mental status grossly normal, Normal thought process present, cooperative and normal affect THOUGHT PROCESS: Normal thought process present Skin: COMMON NORMALS: no rashes or lesions noted GENERAL SKIN EXAM: no rashes or lesions noted Course Vital Signs: Vital signs: Vital Signs Temperature 98.3 F 06/16/22 18:42 Pulse Rate 82 06/16/22 18:42 Respiratory Rate 14 06/16/22 19:30 Blood Pressure 138/73 06/16/22 19:30 Pulse Oximetry 99 06/16/22 19:30 Oxygen Delivery Me thod Room Air 06/16/22 19:30 MDM - Headache Medical Decision Making Due to the patient sitting condition I believe is to have IV fluids provided for hydration medication were provided for the patient's migraine and nausea medication provided we will continue to follow underlying concerns dehydration contribute the patient is migraine is prominent we will continue to follow Patient's lab work came back reassuring no significant lab abnormalities electrolyte problems or white count patient's migraine cocktail resolve the patient's headache patient be subcu discharged home with some medications advised further follow-up with primary care and 3 to 5 days which patient was advised return the interim if your symptoms persist or worse. Patient did have a contaminated urine specimen and is not having any obvious UTI symptoms at this time we will advised her to further follow-up with primary care for further investigation if she does develop symptoms suggestive of UTI.. Lab Data 06/16/22 20:03 06/16/22 20:03 Laboratory Results WBC 10.0 10^3/uL (4.0-10.0) 06/16/22 20:03 RBC 4.75 10^6/uL (4.1-5.3) 06/16/22 20:03 Hgb 13.3 g/dL (11.5-15.3) 06/16/22 20:03 Hct 40.9 % (37.0-47.0) 06/16/22 20: MCV 86.1 fl (81-99) 06/16/22 20:03 MCH 28.0 pg (28.0-34.0) 06/16/22 20:03 MCHC 32.5 g/dL (30.0-36.0) 06/16/22 20:03 RDW 13.8 % (12.1-15.1) 06/16/22 20:03 Plt Count 373 10^3/cmm (130-400) 06/16/22 20:03 MPV 9.6 fL (7.4-10.4) 06/16/22 20:03 Neut % (Auto) 62.0 % 06/16/22 20: Lymph % (Auto) 25.9 % 06/16/22 20:03 [place] % (Auto) 7.8 % 06/16/22 20:03 Eos % (Auto) 3.2 % 06/16/22 20:03 Baso % (Auto) 0.8 % 06/16/22 20:03 Neut # (Auto) 6.21 10^3/uL (1.8-7.7) 06/16/22 20:03 Lymph # (Auto) 2.6 10^3/uL (0.8-4.8) 06/16/22 20:03 [place] # (Auto) 0.8 10^3/uL (0.2-0.9) 06/16/22 20:03 Eos # (Auto) 0.3 10^3/uL (0.0-0.8) 06/16/22 20:03 Baso # (Auto) 0.1 10^3/uL (0.0-0.1) 06/16/22 20:03 Nucleated RBC % (auto) 0 % 06/16/22 20:03 Nucleated RBCs # 0.0 /100WBC 06/16/22 20:03 Sodium 144 mmol/L (136-145) 06/16/22 20:03 Potassium 3.8 mmol/L (3.5-5.1) 06/16/22 20:03 Chloride 106 mmol/L (98-107) 06/16/22 20:03 Carbon Dioxide 27 mmol/L (22-29) 06/16/22 20:03 Anion Gap 14.8 (5-19) 06/16/22 20:03 BUN 10 mg/dL (6-20) 06/16/22 20:03 Creatinine 0.7 mg/dL (0.5-0.9) 06/16/22 20:03 GFR Calculation 103.7 mL/min (90-130) 06/16/22 20:03 Glucose 101 mg/dL (65-115) 06/16/22 20:03 Calculated Osmolality 297 mOsm/kg (285-295) H 06/16/22 20:03 Calcium 9.1 mg/dL (8.5-10.5) 06/16/22 20:03 Total Bilirubin 0.2 mg/dL (0.15-1.2) 06/16/22 20:03 AST 16 U/L (0-32) 06/16/22 20:03 ALT 18 U/L (0-33) 06/16/22 20:03 Alkaline Phosphatase 95 U/L (35-105) 06/16/22 20:03 Total Protein 8.2 g/dL (6.6-8.7) 06/16/22 20:03 Albumin 4.4 g/dL (3.5-5.2) 06/16/22 20:03 Globulin 3.8 g/dL (1.3-4.6) 06/16/22 20:03 Lipase 26 U/L (13-60) 06/16/22 20:03 Urine Color Dark yellow (Yellow) 06/16/22 19:59 Urine Appearance Cloudy (CLEAR) A 06/16/22 19:59 Urine pH 5 (5-7) 06/16/22 19:59 Ur Specific [place] 1.025 (1.005-1.030) 06/16/22 19:59 Urine Protein Trace (Negative) 06/16/22 19:59 Urine Glucose (UA) Norm (Normal) 06/16/22 19:59 Urine Ketones 1+ (Negative) H 06/16/22 19:59 Urine Blood 3+ (Negative) H 06/16/22 19:59 Urine Nitrate Negative (Negative) 06/16/22 19:59 Urine Bilirubin Neg (Negative) 06/16/22 19:59 Urine Urobilinogen 1 mg/dL (Negative) H 06/16/22 19:59 Ur Leukocyte Esterase Trace (Negative) H 06/16/22 19:59 Urine RBC 15-25 /hpf (0-2) H 06/16/22 19:59 Urine WBC 10-15 /hpf (0-5) H 06/16/22 19:59 Ur Squamous Epith Cells 10-15 /hpf (0-5) H 06/16/22 19:59 Amorphous Sediment Not Reportable 06/16/22 19:59 Urine Bacteria Trace /hpf (NONE) 06/16/22 19:59 Urine Mucus 4+ /hpf 06/16/22 19:59 Urine Opiates Screen Negative ng/mL (Negative) 06/16/22 19:59 Ur Barbiturates Screen Negative ng/mL (Negative) 06/16/22 19:59 Ur Phencyclidine Scrn Negative ng/mL (Negative) 06/16/22 19:59 Ur Amphetamines Screen Negative ng/mL (Negative) 06/16/22 19:59 U Benzodiazepines Scrn Negative ng/mL (Negative) 06/16/22 19:59 Urine Cocaine Screen Negative ng/mL (Negative) 06/16/22 19:59 U Marijuana (THC) Screen Positive ng/mL (Negative) H 06/16/22 19:59 Discharge Plan Discharge Patient Disposition: Home Clinical Impression: Migraine, Nausea & vomiting Condition: Stable Prescriptions: New ondansetron 4 mg tablet,disintegrating 4 mg PO Q8H PRN (Reason: nausea and vomiting) Qty: 20 0RF ketorolac 10 mg tablet 10 mg PO TID PRN (Reason: pain) Qty: 14 0RF No Action sumatriptan succinate 25 mg tablet See Rx Instructions PO .COMPLEX Rx Instructions: take 1 tab at onset of headache; if no relief may repeat 1 tab after at least 2 hrs; max = 4 tabs/24 hr PO trazodone 50 mg tablet 50 mg PO .HS Qty: 30 1RF hydroxyzine HCl 25 mg tablet 25 mg PO BID PRN (Reason: anxiety) Qty: 60 1RF propranolol 20 mg tablet 10 mg PO BID duloxetine [Cymbalta] 60 mg capsule,delayed release(DR/EC) 60 mg PO DAILY Qty: 30 1RF ibuprofen 800 mg tablet 800 mg PO Q8H PRN (Reason: pain) Qty: 30 0RF Discharge Orders: Discharge ED (Routine); Ordered 06/16/22 Ordered By: Joaquin Parra Referrals: Shilpa Ballesteros PA [Primary Care Provider] - 4-7 days Discharge Diet: Advance as tolerated Discharge Activity: Increase activity as tolerated Patient Instructions: Headache - Migraine (Adult), Acute Headache (DC), Acute Nausea and Vomiting (ED) Stand Alone Forms: Work/School Release Coding Level of Care Code ED Human Resources Designate for 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
[2022-06-16] MEDS: sodium chloride 0.9% 1,000 ML 999 ML IV (20:03)
[2022-06-16] MEDS: ketorolac 30 mg/mL INJ IVP (20:05)
[2022-06-16] MEDS: diphenhydrAMINE 50 mg/mL SDV 1mL 25 MG IVP (20:05)
[2022-06-16] MEDS: dexamethasone 10 mg/mL INJ IVP (20:05)
[2022-06-16 20:09] LABS: Basophils # 0.1 10^3/uL (0.0-0.1); Basophils % 0.8 %; Eosinophils # 0.3 10^3/uL (0.0-0.8); Eosinophils % 3.2 %; Hematocrit 40.9 % (37.0-47.0); Hemoglobin 13.3 g/dL (11.5-15.3); Lymphocytes # 2.6 10^3/uL (0.8-4.8); Lymphocytes % 25.9 %; Mean Corpuscular HGB Conc 32.5 g/dL (30.0-36.0); Mean Corpuscular Volume 86.1 fl (81-99); Mean Platelet Volume 9.6 fL (7.4-10.4); Monocytes # 0.8 10^3/uL (0.2-0.9); Monocytes % 7.8 %; Neutrophils # 6.21 10^3/uL (1.8-7.7); Nucleated Red Blood Cells % 0 %; Platelet Count 373 10^3/cmm (130-400); Red Blood Count 4.75 10^6/uL (4.1-5.3); Red Cell Distribution Width 13.8 % (12.1-15.1)
[2022-06-16 20:26] LABS: Alanine Aminotransferase 18 U/L (0-33); Albumin Level 4.4 g/dL (3.5-5.2); Alkaline Phosphatase 95 U/L (35-105); Anion Gap 14.8 (5-19); Aspartate Amino Transferase 16 U/L (0-32); Blood Urea Nitrogen 10 mg/dL (6-20); Calcium 9.1 mg/dL (8.5-10.5); Carbon Dioxide 27 mmol/L (22-29); Chloride 106 mmol/L (98-107); Globulin 3.8 g/dL (1.3-4.6); Glomerular Filtration Rate 103.7 mL/min (90-130); Glucose 101 mg/dL (65-115); Lipase 26 U/L (13-60); Osmolality Calculated 297 mOsm/kg (285-295); Potassium 3.8 mmol/L (3.5-5.1); Sodium 144 mmol/L (136-145); Total Bilirubin 0.2 mg/dL (0.15-1.2); Total Protein 8.2 g/dL (6.6-8.7)
[2022-06-16 21:17] LABS: Amphetamines Screen Urine Negative (Negative); Barbiturates Screen Urine Negative (Negative); Benzodiazepines Screen Urine Negative (Negative); Cocaine Screen Urine Negative (Negative); Opiate Screen Urine Negative (Negative); PCP Screen Urine Negative (Negative); THC Screen Urine Positive (Negative)
[2022-06-16 21:46] LABS: Glucose Urine UA Norm (Normal); Protein Urine Trace (Negative); Specific Gravity, Urine 1.025 (1.005-1.030); Urine Appearance Cloudy (CLEAR); Urine Color Dark yellow (Yellow); pH Urine 5 (5-7)
[2022-06-16 21:47] LABS: Add Urine Microscopic? YES; Bilirubin Urine Neg (Negative); Blood Urine 3+ (Negative); Ketones Urine 1+ (Negative); Leukocyte Esterase Urine Trace (Negative); Nitrate Urine Negative (Negative); Urobilinogen Urine 1 mg/dL (Negative)
[2022-06-16 21:48] LABS: Add Urine Culture? No; Bacteria Urine TRACE /hpf; Mucus Urine 4+ /hpf; RBC Urine 15-25 /hpf (0-2)
[2022-06-16 23:03] VITALS: BP 149/82; PULSE 71; RESP 14; O2SAT 100
== END 2022-06-16 22:57 | disposition home or self-care (01) ==
PROVIDERS: Emergency Provider Emergency Medicine; PCP Physician Assistant
DX: G43.909 Migraine, unspecified, not intractable, without status migrainosus (principal); R11.2 Nausea with vomiting, unspecified
CPT/HCPCS: 80053; 80306; 81001; 83690; 85025; 96361; 96374; 96375; 99284; J1100; J1200; J1885; J7030

== ENCOUNTER 2022-07-21 00:05 | Emergency (ER) | payer MEDICAID, SELFPAY ==
--- NOTE | 2022-07-21 00:08 | W.ED.HA ---
HPI - Headache General: Chief Complaint: Headache Stated Complaint: Head Ache\Migrane Time Seen by Provider: 07/21/22 00:08 Source: patient Mode of arrival: ambulatory Limitations: no limitations History of Present Illness: Patient is a 22-year-old female presents to ED today for treatment of a migraine headache. Patient states headache came on earlier today. She states she was outside at a ball game when she not feeling well . She states by the time she got home she had a headache, nausea, vomiting, and some dizziness. She states nausea and vomiting is common with her migraines. She states her headache currently feels identical to previous migraines. She reports usually not having the dizziness. She is not having any neck pain or neck stiffness. No fevers. No visual changes. She has no neurologic complaints at this time. MD elicited complaint: headache and migraine Pertinent past history: migraines Onset (ago): hour(s) Onset description: gradually Severity: severe Pain scale (0-10): 8 Exacerbating factors: light Relieving factors: rest and dark room Associated symptoms: Reports nausea and vomiting; Deny chest pain, confusion, fever(s), malaise or rash Treatments prior to arrival: prescription analgesic Review of Systems Const: Denies: fever(s), chills, body aches, fatigue or malaise Eyes: Denies: change in vision, blurry vision, photophobia, floaters or seeing flashes Card: Denies: chest pain Resp: Denies: dyspnea GI: Reports: nausea and vomiting; Denies: abdominal pain, diarrhea or change in bowel habits : Denies: flank pain or dysuria Musc: Denies: neck pain, back pain, extremity pain or joint pain Skin/Breast: Denies: rash Neuro: Reports: headache(s) and dizziness (subsided now); Denies: numbness in extremities, weakness in extremities, sensory changes, lack of coordination, difficulty walking, frequent falls, vertigo, confusion, behavioral changes, Slurred speech present, difficulty communicating thoughts or seizure-like activity [facility] ED PFSH: Medical History Depression No pertinent past medical history Denies diabetes, asthma, hypertension, seizures, DVT/PE PMD: none Other reactions to severe stress Psychiatric care PTSD (post-traumatic stress disorder) Sinus drainage Viral syndrome Surgical History Status post cholecystectomy June 2018--laparoscopic procedure performed at [facility] [place] Status post tubal ligation 09/09/2020---laparoscopic bilateral total salpingectomy for sterilization by Dr. Ruelas at [facility] [place]. --Normal intra-abdominal pathology-no endometriosis ----> Pathology showed benign tubes. Family History Sister Diabetes Father Hypertension Mother Hypertension Denies family history of Colon cancer Ovarian cancer Heart disease Hyperlipidemia Breast cancer Uterine cancer Thyroid condition Stroke Social History Smoking and tobacco status: never smoked Alcohol intake: never Substance/Drug Use: never Physical Exam Const: COMMON NORMALS: no acute distress, average body habitus, patient oriented x3, no limitations, alert and well nourished GENERAL APPEARANCE: cooperative ORIENTATION/CONSCIOUSNESS: Yes awake, Yes oriented to person, Yes oriented to place and Yes oriented to time HENMT: COMMON NORMALS: normocephalic and atraumatic HEAD & SCALP: normal to inspection, normocephalic and atraumatic Neck/C-Spine: COMMON NORMALS: full ROM and no meningeal signs Resp: COMMON NORMALS: normal respiratory effort and clear to auscultation bilaterally AUSCULTATION: clear to auscultation bilaterally Cardio: COMMON NORMALS: regular rate and regular rhythm RATE: regular rate RHYTHM: regular rhythm Extremity: COMMON NORMALS: normal to inspection GENERAL: Yes normal exam except as noted Neuro: QUINN COMA SCALE: document GCS findings Quinn coma scale eye opening: Spontaneous [place] coma scale verbal response: Orientated [place] coma scale motor response: Obey commands Quinn coma scale total score: 15 COMMON NORMALS: patient oriented x3, CN's II-XII intact bilaterally, moves all extremities, no focal motor deficits, no sensory deficits noted and gait normal SENSORIUM/ORIENTATION: Yes alert, Yes oriented to person, Yes oriented to place and Yes oriented to time MENINGEAL SIGNS: Yes no meningeal signs Skin: COMMON NORMALS: no rashes or lesions noted GENERAL SKIN EXAM: no rashes or lesions noted Course Vital Signs: Vital signs: Vital Signs Temperature 97.5 F L 07/21/22 00:11 Pulse Rate 71 07/21/22 01:39 Respiratory Rate 16 07/21/22 01:39 Blood Pressure 135/91 07/21/22 01:39 Pulse Oximetry 98 07/21/22 01:39 MDM - Headache Medical Decision Making Patient's headache is much improved here. She was rating it at an 8/10 upon arrival and she is now at a 3/10 and would like to go home. Return to ED precautions given. Lab Data 07/21/22 00:34 07/21/22 00:34 Laboratory Results WBC 11.8 10^3/uL (4.0-10.0) H 07/21/22 00:34 RBC 5.02 10^6/uL (4.1-5.3) 07/21/22 00:34 Hgb 13.9 g/dL (11.5-15.3) 07/21/22 00:34 Hct 43.2 % (37.0-47.0) 07/21/22 00:34 MCV 86.1 fl (81-99) 07/21/22 00:34 MCH 27.7 pg (28.0-34.0) L 07/21/22 00:34 MCHC 32.2 g/dL (30.0-36.0) 07/21/22 00:34 RDW 13.7 % (12.1-15.1) 07/21/22 00:34 Plt Count 413 10^3/cmm (130-400) H 07/21/22 00:34 MPV 9.9 fL (7.4-10.4) 07/21/22 00:34 Neut % (Auto) 68.4 % 07/21/22 00:34 Lymph % (Auto) 23.1 % 07/21/22 00:34 [place] % (Auto) 5.4 % 07/21/22 00:34 Eos % (Auto) 2.2 % 07/21/22 00:34 Baso % (Auto) 0.6 % 07/21/22 00:34 Neut # (Auto) 8.05 10^3/uL (1.8-7.7) H 07/21/22 00:34 Lymph # (Auto) 2.7 10^3/uL (0.8-4.8) 07/21/22 00:34 [place] # (Auto) 0.6 10^3/uL (0.2-0.9) 07/21/22 00:34 Eos # (Auto) 0.3 10^3/uL (0.0-0.8) 07/21/22 00:34 Baso # (Auto) 0.1 10^3/uL (0.0-0.1) 07/21/22 00:34 Nucleated RBC % (auto) 0 % 07/21/22 00:34 Nucleated RBCs # 0.0 /100WBC 07/21/22 00:34 Sodium 139 mmol/L (136-145) 07/21/22 00:34 Potassium 4.0 mmol/L (3.5-5.1) 07/21/22 00:34 Chloride 102 mmol/L (98-107) 07/21/22 00:34 Carbon Dioxide 25 mmol/L (22-29) 07/21/22 00:34 Anion Gap 16.0 (5-19) 07/21/22 00:34 BUN 10 mg/dL (6-20) 07/21/22 00:34 Creatinine 0.6 mg/dL (0.5-0.9) 07/21/22 00:34 GFR Calculation 123.9 mL/min (90-130) 07/21/22 00:34 Glucose 109 mg/dL (65-115) 07/21/22 00:34 Calculated Osmolality 288 mOsm/kg (285-295) 07/21/22 00:34 Calcium 9.6 mg/dL (8.5-10.5) 07/21/22 00:34 Total Bilirubin 0.2 mg/dL (0.15-1.2) 07/21/22 00:34 AST 14 U/L (0-32) 07/21/22 00:34 ALT 12 U/L (0-33) 07/21/22 00:34 Alkaline Phosphatase 101 U/L (35-105) 07/21/22 00:34 Total Protein 8.1 g/dL (6.6-8.7) 07/21/22 00:34 Albumin 4.6 g/dL (3.5-5.2) 07/21/22 00:34 Globulin 3.5 g/dL (1.3-4.6) 07/21/22 00:34 HCG, Qual Negative (Negative) 07/21/22 00:34 Discharge Plan Discharge Patient Disposition: Home Clinical Impression: Migraine Qualifiers: Migraine type: without aura Status migrainosus presence: without status migrainosus Intractability: not intractable Qualified Code(s): G43.009 - Migraine without aura, not intractable, without status migrainosus Condition: Stable Prescriptions: No Action sumatriptan succinate 25 mg tablet See Rx Instructions PO .COMPLEX Rx Instructions: take 1 tab at onset of headache; if no relief may repeat 1 tab after at least 2 hrs; max = 4 tabs/24 hr PO trazodone 50 mg tablet 50 mg PO .HS Qty: 30 1RF hydroxyzine HCl 25 mg tablet 25 mg PO BID PRN (Reason: anxiety) Qty: 60 1RF propranolol 20 mg tablet 10 mg PO BID duloxetine [Cymbalta] 60 mg capsule,delayed release(DR/EC) 60 mg PO DAILY Qty: 30 1RF ondansetron 4 mg tablet,disintegrating 4 mg PO Q8H PRN (Reason: nausea and vomiting) Qty: 20 0RF ketorolac 10 mg tablet 10 mg PO TID PRN (Reason: pain) Qty: 14 0RF ibuprofen 800 mg tablet 800 mg PO Q8H PRN (Reason: pain) Qty: 30 0RF Discharge Orders: Discharge ED (Routine); Ordered 07/21/22 Ordered By: Tracei Woods Referrals: Shilpa Ballesteros PA [Primary Care Provider] - Patient Instructions: Headache - Migraine (Adult) Coding Level of Care Code ED Nursing [facility] for 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
[2022-07-21 00:11] VITALS: BP 148/85; PULSE 89; RESP 15; TEMP 36.4; O2SAT 99
[2022-07-21 00:41] LABS: Basophils # 0.1 10^3/uL (0.0-0.1); Basophils % 0.6 %; Eosinophils # 0.3 10^3/uL (0.0-0.8); Eosinophils % 2.2 %; Hematocrit 43.2 % (37.0-47.0); Hemoglobin 13.9 g/dL (11.5-15.3); Lymphocytes # 2.7 10^3/uL (0.8-4.8); Lymphocytes % 23.1 %; Mean Corpuscular HGB Conc 32.2 g/dL (30.0-36.0); Mean Corpuscular Hemoglobin 27.7 pg (28.0-34.0); Mean Corpuscular Volume 86.1 fl (81-99); Mean Platelet Volume 9.9 fL (7.4-10.4); Monocytes # 0.6 10^3/uL (0.2-0.9); Monocytes % 5.4 %; Neutrophils # 8.05 10^3/uL (1.8-7.7); Neutrophils % 68.4 %; Nucleated Red Blood Cells % 0 %; Platelet Count 413 10^3/cmm (130-400); Red Blood Count 5.02 10^6/uL (4.1-5.3); Red Cell Distribution Width 13.7 % (12.1-15.1); White Blood Count 11.8 10^3/uL (4.0-10.0)
[2022-07-21 00:50] LABS: HCG, Serum Qual Negative (Negative)
[2022-07-21 00:55] LABS: Alanine Aminotransferase 12 U/L (0-33); Albumin Level 4.6 g/dL (3.5-5.2); Alkaline Phosphatase 101 U/L (35-105); Aspartate Amino Transferase 14 U/L (0-32); Blood Urea Nitrogen 10 mg/dL (6-20); Calcium 9.6 mg/dL (8.5-10.5); Carbon Dioxide 25 mmol/L (22-29); Chloride 102 mmol/L (98-107); Globulin 3.5 g/dL (1.3-4.6); Glomerular Filtration Rate 123.9 mL/min (90-130); Glucose 109 mg/dL (65-115); Osmolality Calculated 288 mOsm/kg (285-295); Sodium 139 mmol/L (136-145); Total Bilirubin 0.2 mg/dL (0.15-1.2); Total Protein 8.1 g/dL (6.6-8.7)
[2022-07-21] MEDS: sodium chloride 0.9% 1,000 ML 999 ML IV (00:56)
[2022-07-21] MEDS: ketorolac 60 mg/2 mL INJ 30 MG IVP (00:56)
[2022-07-21] MEDS: ondansetron 2 mg/ML SDV 2 mL 4 MG IVP (00:58)
[2022-07-21] MEDS: diphenhydrAMINE 50 mg/mL SDV 1mL IVP (01:00)
[2022-07-21] MEDS: dexamethasone 10 mg/mL INJ 8 MG IV (01:02)
[2022-07-21] MEDS: propranolol 20 mg Tablet 10 MG PO (01:06)
[2022-07-21 01:08] VITALS: BP 135/91; PULSE 67; RESP 16; O2SAT 98
[2022-07-21 01:39] VITALS: BP 135/91; PULSE 71; RESP 16; O2SAT 98
[2022-07-21 01:57] VITALS: BP 135/91; PULSE 71; RESP 16; TEMP 36.4; O2SAT 98
== END 2022-07-21 01:58 | disposition home or self-care (01) ==
PROVIDERS: Emergency Provider Physician Assistant; PCP Physician Assistant
DX: G43.009 Migraine without aura, not intractable, without status migrainosus (principal)
CPT/HCPCS: 80053; 84703; 85025; 96361; 96374; 96375; 99284; J1100; J1200; J1885; J2405; J7030

== ENCOUNTER 2022-07-29 00:35 | Emergency (ER) | payer MEDICAID, SELFPAY ==
[2022-07-29 00:43] VITALS: BP 143/97; PULSE 107; RESP 18; TEMP 36.7; O2SAT 99
--- NOTE | 2022-07-29 00:49 | W.ED.ABDPA2 ---
HPI - Abdominal Pain General: Chief Complaint: Abdominal Pain Stated Complaint: nausea, lower rt side stomach pain Time Seen by Provider: 07/29/22 00:39 Source: patient Mode of arrival: ambulatory Limitations: no limitations History of Present Illness: 22-year-old female states she been having some lower abdominal pain since this morning states it is cramping at first and is gotten to be sharp this evening states pain is in her right lower quadrant rates it a 7 out of 10 she has had nausea and vomiting this evening as well denies any fever denies any dysuria denies any vaginal bleeding. Associated Symptoms: Reports nausea and vomiting; Denies chills, diarrhea, dysuria and fever(s) Review of Systems Const: Denies: fever(s), chills, body aches or change in appetite ENMT: Denies: throat pain or dental pain Card: Denies: chest pain Resp: Denies: dyspnea GI: Reports: abdominal pain, nausea and vomiting; Denies: diarrhea : Denies: dysuria Musc: Denies: neck pain or back pain Skin/Breast: Denies: rash Neuro: Denies: headache(s) PFSH ED PFSH: Medical History Depression No pertinent past medical history Denies diabetes, asthma, hypertension, seizures, DVT/PE PMD: none Other reactions to severe stress Psychiatric care PTSD (post-traumatic stress disorder) Sinus drainage Viral syndrome Surgical History Status post cholecystectomy June 2018--laparoscopic procedure performed at [facility] [place] Status post tubal ligation 09/09/2020---laparoscopic bilateral total salpingectomy for sterilization by Dr. Ruelas at [facility] [place]. --Normal intra-abdominal pathology-no endometriosis ----> Pathology showed benign tubes. Family History Sister Diabetes Father Hypertension Mother Hypertension Denies family history of Colon cancer Ovarian cancer Heart disease Hyperlipidemia Breast cancer Uterine cancer Thyroid condition Stroke Social History Smoking and tobacco status: never smoked Alcohol intake: never Substance/Drug Use: never Physical Exam Const: COMMON NORMALS: no acute distress, patient oriented x3 and healthy appearing HENMT: COMMON NORMALS: normocephalic and atraumatic HEAD & SCALP: normocephalic and atraumatic Neck/C-Spine: COMMON NORMALS: full ROM and supple Chest: COMMONS NORMALS: normal inspection of the chest and normal palpation of entire chest wall Resp: COMMON NORMALS: normal respiratory effort, No retractions, No use of accessory muscles and clear to auscultation bilaterally AUSCULTATION: clear to auscultation bilaterally Cardio: COMMON NORMALS: regular rate, regular rhythm and No murmurs present (Cardio) RATE: regular rate RHYTHM: regular rhythm GI: COMMON NORMALS: Normal to inspection, nondistended, normoactive bowel sounds present, Soft to palpation and no masses PALPATION: Yes Soft to palpation and Yes Tenderness to palpation present (GI) Details: RLQ Extremity: COMMON NORMALS: normal to inspection and full ROM Neuro: COMMON NORMALS: patient oriented x3, moves all extremities and no focal motor deficits Psych: COMMON NORMALS: mental status grossly normal, Normal thought process present and cooperative THOUGHT PROCESS: Normal thought process present Skin: COMMON NORMALS: no rashes or lesions noted and no wounds GENERAL SKIN EXAM: no rashes or lesions noted Course Vital Signs: Vital signs: Vital Signs Temperature 98.0 F 07/29/22 00:43 Pulse Rate 86 07/29/22 02:52 Respiratory Rate 16 07/29/22 02:52 Blood Pressure 128/74 07/29/22 02:52 Pulse Oximetry 100 07/29/22 02:52 Oxygen Delivery Me thod Room Air 07/29/22 00:43 MDM - Abdominal Pain Medical Decision Making Patient presents here with abdominal pain CT scan and blood work here is all normal her exam at discharge is benign no signs of acute surgical abdomen she is stable for discharge she is to follow-up with PCP and return if worsening. Lab Data 07/29/22 00:47 07/29/22 00:47 Labs/Radiology: Radiology Impressions Abdomen/Pelvis CT 07/29/22 01:15 IMPRESSION: Negative for acute abdominopelvic pathology. Laboratory Results WBC 11.3 10^3/uL (4.0-10.0) H 07/29/22 00:47 RBC 4.70 10^6/uL (4.1-5.3) 07/29/22 00:47 Hgb 13.1 g/dL (11.5-15.3) 07/29/22 00:47 Hct 40.8 % (37.0-47.0) 07/29/22 00:47 MCV 86.8 fl (81-99) 07/29/22 00:47 MCH 27.9 pg (28.0-34.0) L 07/29/22 00:47 MCHC 32.1 g/dL (30.0-36.0) 07/29/22 00:47 RDW 13.8 % (12.1-15.1) 07/29/22 00:47 Plt Count 350 10^3/cmm (130-400) 07/29/22 00:47 MPV 10.1 fL (7.4-10.4) 07/29/22 00:47 Neut % (Auto) 69.7 % 07/29/22 00:47 Lymph % (Auto) 19.1 % 07/29/22 00:47 [place] % (Auto) 6.8 % 07/29/22 00:47 Eos % (Auto) 3.6 % 07/29/22 00:47 Baso % (Auto) 0.5 % 07/29/22 00:47 Neut # (Auto) 7.89 10^3/uL (1.8-7.7) H 07/29/22 00:47 Lymph # (Auto) 2.2 10^3/uL (0.8-4.8) 07/29/22 00:47 [place] # (Auto) 0.8 10^3/uL (0.2-0.9) 07/29/22 00:47 Eos # (Auto) 0.4 10^3/uL (0.0-0.8) 07/29/22 00:47 Baso # (Auto) 0.1 10^3/uL (0.0-0.1) 07/29/22 00:47 Nucleated RBC % (auto) 0 % 07/29/22 00:47 Nucleated RBCs # 0.0 /100WBC 07/29/22 00:47 Sodium 135 mmol/L (136-145) L 07/29/22 00:47 Potassium 4.0 mmol/L (3.5-5.1) 07/29/22 00:47 Chloride 100 mmol/L (98-107) 07/29/22 00:47 Carbon Dioxide 25 mmol/L (22-29) 07/29/22 00:47 Anion Gap 14.0 (5-19) 07/29/22 00:47 BUN 13 mg/dL (6-20) 07/29/22 00:47 Creatinine 0.6 mg/dL (0.5-0.9) 07/29/22 00:47 GFR Calculation 123.9 mL/min (90-130) 07/29/22 00:47 Glucose 110 mg/dL (65-115) 07/29/22 00:47 Calculated Osmolality 281 mOsm/kg (285-295) L 07/29/22 00:47 Calcium 9.5 mg/dL (8.5-10.5) 07/29/22 00:47 Total Bilirubin 0.2 mg/dL (0.15-1.2) 07/29/22 00:47 AST 17 U/L (0-32) 07/29/22 00:47 ALT 37 U/L (0-33) H 07/29/22 00:47 Alkaline Phosphatase 93 U/L (35-105) 07/29/22 00:47 Total Protein 7.6 g/dL (6.6-8.7) 07/29/22 00:47 Albumin 4.3 g/dL (3.5-5.2) 07/29/22 00:47 Globulin 3.3 g/dL (1.3-4.6) 07/29/22 00:47 Lipase 31 U/L (13-60) 07/29/22 00:47 HCG, Qual Negative (Negative) 07/29/22 00:47 Urine Color Yellow (Yellow) 07/29/22 01:00 Urine Appearance Hazy (CLEAR) A 07/29/22 01:00 Urine pH 5 (5-7) 07/29/22 01:00 Ur Specific [place] 1.025 (1.005-1.030) 07/29/22 01:00 Urine Protein Neg (Negative) 07/29/22 01:00 Urine Glucose (UA) Norm (Normal) 07/29/22 01:00 Urine Ketones 1+ (Negative) H 07/29/22 01:00 Urine Blood Neg (Negative) 07/29/22 01:00 Urine Nitrate Negative (Negative) 07/29/22 01:00 Urine Bilirubin Neg (Negative) 07/29/22 01:00 Urine Urobilinogen Norm mg/dL (Negative) 07/29/22 01:00 Ur Leukocyte Esterase Trace (Negative) H 07/29/22 01:00 Urine RBC 0-4 /hpf (0-2) H 07/29/22 01:00 Urine WBC 5-10 /hpf (0-5) H 07/29/22 01:00 Ur Squamous Epith Cells 25-40 /hpf (0-5) H 07/29/22 01:00 Amorphous Sediment Not Reportable 07/29/22 01:00 Urine Bacteria 2+ /hpf (NONE) H 07/29/22 01:00 Discharge Plan Discharge Patient Disposition: Home Clinical Impression: Abdominal pain Condition: Stable Prescriptions: New hydrocodone-acetaminophen 5-325 mg tablet 1 tab PO Q6H PRN (Reason: pain) Qty: 14 0RF ondansetron 4 mg tablet,disintegrating 4 mg PO Q6H PRN (Reason: nausea and vomiting) Qty: 14 0RF No Action sumatriptan succinate 25 mg tablet See Rx Instructions PO .COMPLEX Rx Instructions: take 1 tab at onset of headache; if no relief may repeat 1 tab after at least 2 hrs; max = 4 tabs/24 hr PO trazodone 50 mg tablet 50 mg PO .HS Qty: 30 1RF hydroxyzine HCl 25 mg tablet 25 mg PO BID PRN (Reason: anxiety) Qty: 60 1RF propranolol 20 mg tablet 10 mg PO BID duloxetine [Cymbalta] 60 mg capsule,delayed release(DR/EC) 60 mg PO DAILY Qty: 30 1RF ondansetron 4 mg tablet,disintegrating 4 mg PO Q8H PRN (Reason: nausea and vomiting) Qty: 20 0RF ketorolac 10 mg tablet 10 mg PO TID PRN (Reason: pain) Qty: 14 0RF ibuprofen 800 mg tablet 800 mg PO Q8H PRN (Reason: pain) Qty: 30 0RF Discharge Orders: Discharge ED (Routine); Ordered 07/29/22 Ordered By: Mariya Verduzco Referrals: Shilpa Ballesteros PA [Primary Care Provider] - 1-3 days Discharge Diet: Advance as tolerated Discharge Activity: Resume usual activity Patient Instructions: Abdominal Pain (ED), Opioid Safety Coding Level of Care Code ED Wallpaper Inspector for 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
[2022-07-29 00:52] LABS: Basophils # 0.1 10^3/uL (0.0-0.1); Basophils % 0.5 %; Eosinophils # 0.4 10^3/uL (0.0-0.8); Eosinophils % 3.6 %; Hematocrit 40.8 % (37.0-47.0); Hemoglobin 13.1 g/dL (11.5-15.3); Lymphocytes # 2.2 10^3/uL (0.8-4.8); Lymphocytes % 19.1 %; Mean Corpuscular HGB Conc 32.1 g/dL (30.0-36.0); Mean Corpuscular Hemoglobin 27.9 pg (28.0-34.0); Mean Corpuscular Volume 86.8 fl (81-99); Mean Platelet Volume 10.1 fL (7.4-10.4); Monocytes # 0.8 10^3/uL (0.2-0.9); Monocytes % 6.8 %; Neutrophils # 7.89 10^3/uL (1.8-7.7); Neutrophils % 69.7 %; Nucleated Red Blood Cells % 0 %; Platelet Count 350 10^3/cmm (130-400); Red Cell Distribution Width 13.8 % (12.1-15.1); White Blood Count 11.3 10^3/uL (4.0-10.0)
[2022-07-29 01:03] LABS: Alanine Aminotransferase 37 U/L (0-33); Albumin Level 4.3 g/dL (3.5-5.2); Alkaline Phosphatase 93 U/L (35-105); Aspartate Amino Transferase 17 U/L (0-32); Blood Urea Nitrogen 13 mg/dL (6-20); Calcium 9.5 mg/dL (8.5-10.5); Carbon Dioxide 25 mmol/L (22-29); Chloride 100 mmol/L (98-107); Globulin 3.3 g/dL (1.3-4.6); Glomerular Filtration Rate 123.9 mL/min (90-130); Glucose 110 mg/dL (65-115); Lipase 31 U/L (13-60); Osmolality Calculated 281 mOsm/kg (285-295); Sodium 135 mmol/L (136-145); Total Bilirubin 0.2 mg/dL (0.15-1.2); Total Protein 7.6 g/dL (6.6-8.7)
[2022-07-29 01:04] LABS: HCG, Serum Qual Negative (Negative)
[2022-07-29 01:14] VITALS: BP 122/71; O2SAT 99
--- NOTE | 2022-07-29 01:15 | CTR_ITS ---
PROCEDURE INFORMATION: Exam: CT Abdomen And Pelvis With Contrast Exam date and time: 07/29/2022 1:24 AM Age: 22 years old Clinical indication: Nausea and vomiting and other: Diarrhea; Abdominal pain; Localized; Right lower quadrant (rlq); Prior surgery; Surgery date: 6+ months; Surgery type: Tubal, cholecystectomy; Patient HX: Rlq pain, n/v/d TECHNIQUE: Imaging protocol: Computed tomography of the abdomen and pelvis with contrast. Radiation optimization: All CT scans at this facility use at least one of these dose optimization techniques: automated exposure control; mA and/or kV adjustment per patient size (includes targeted exams where dose is matched to clinical indication); or iterative reconstruction. Contrast material: OMNI 350; Contrast volume: 100 ml; Contrast route: INTRAVENOUS (IV); REPORTING DATA: Count of CT and Cardiac NM exams in prior 12 months: This patient has received 3 known CTs and 0 known cardiac nuclear medicine studies in the 12 months prior to the current study. COMPARISON: CT abdomen pelvis wo con [id number] 07/25/2021 12:16 PM RADIATION DOSE METRICS: Total DLP (mGy-cm): 976.24 FINDINGS: Lungs: Calcified right lower lobe granuloma. Liver: Normal. No mass. Gallbladder and bile ducts: Cholecystectomy. Nondilated biliary system. Pancreas: Normal. No ductal dilation. Spleen: Normal. No splenomegaly. Adrenal glands: Normal. No mass. Kidneys and ureters: Normal. No hydronephrosis. Stomach and bowel: Unremarkable. No obstruction. No mucosal thickening. Appendix: No evidence of appendicitis. Intraperitoneal space: Trace pelvic free fluid without loculation. Negative for pneumoperitoneum. Vasculature: Unremarkable. No abdominal aortic aneurysm. Lymph nodes: Unremarkable. No enlarged lymph nodes. Urinary bladder: Unremarkable as visualized. Reproductive: Unremarkable as visualized. Bones/joints: Unremarkable. No acute fracture. Soft tissues: Unremarkable. CT/CT abdomen pelvis w con* [id number] IMPRESSION: Negative for acute abdominopelvic pathology.
[2022-07-29] MEDS: ondansetron 2 mg/ML SDV 2 mL 4 MG IVP (01:19)
[2022-07-29 01:21] VITALS: RESP 16
[2022-07-29] MEDS: morphine 4 mg/mL SDV 1 mL IVP ×2 (01:21→02:49)
[2022-07-29] MEDS: iohexol 350 mg/mL 500 mL Btl (per mL) IV (01:28)
[2022-07-29 01:31] LABS: Add Urine Microscopic? YES; Bilirubin Urine Neg (Negative); Blood Urine Neg (Negative); Glucose Urine UA Norm (Normal); Ketones Urine 1+ (Negative); Leukocyte Esterase Urine Trace (Negative); Nitrate Urine Negative (Negative); Protein Urine Neg (Negative); Specific Gravity, Urine 1.025 (1.005-1.030); Urine Appearance Hazy (CLEAR); Urine Color Yellow (Yellow); Urobilinogen Urine Norm (Negative); pH Urine 5 (5-7)
[2022-07-29 01:32] LABS: Bacteria Urine 2+ /hpf; RBC Urine 0-4 /hpf (0-2); Squamous Epithelial Cell Urine 25-40 /hpf (0-5)
[2022-07-29 02:49] VITALS: RESP 16
[2022-07-29 02:52] VITALS: BP 128/74; PULSE 86; RESP 16; O2SAT 100
[2022-07-29 03:10] VITALS: BP 118/74; PULSE 84; RESP 16; O2SAT 99
== END 2022-07-29 03:11 | disposition home or self-care (01) ==
PROVIDERS: Emergency Provider Emergency Medicine; PCP Physician Assistant
DX: R10.30 Lower abdominal pain, unspecified (principal)
CPT/HCPCS: 74177; 80053; 81001; 83690; 84703; 85025; 96374; 96375; 96376; 99285; J2270; J2405; Q9967

== ENCOUNTER 2022-08-21 13:50 | Emergency (ER) | payer MEDICAID, SELFPAY ==
[2022-08-21 14:08] VITALS: BP 146/79; PULSE 80; RESP 16; TEMP 36.7; O2SAT 96; BMI 31.8
--- NOTE | 2022-08-21 14:34 | ED_ITS ---
HPI - Anxiety General: Chief Complaint: Anxiety Stated Complaint: Panic attack, Weakness, N/V, Head pain Time Seen by Provider: 08/21/22 13:58 Source: patient Mode of arrival: ambulatory Limitations: no limitations History of Present Illness: Patient is a 22-year-old female who presents to ED today after experiencing multiple panic attacks today. She states she missed work because of these and her employer told her she needed a work note. Patient states she has a history of panic attacks and feels like her symptoms earlier today were similar. She felt anxious with chest pain and afterwards feels weak and worn down. Patient currently is also complaining of a headache. She states she has a longstanding history of migraine headaches that she normally treats with sumatriptan. She states her headache today feels identical to previous migraines. MD complaint: anxiety Onset (ago): hour(s) Symptoms: chest pain Severity: moderate Quality: improving Place: home History of similar episodes: Yes Relieving factors: nothing Exacerbating factors: nothing Associated symptoms: Reports chest pain (resolved now) and headache(s); Deny chills, confusion, fever(s), malaise, nausea, palpitations, syncope or vomiting Review of Systems Const: Reports: other (states she feels wiped out/tired); Denies: fever(s), chills, body aches, fatigue or malaise Eyes: Denies: change in vision or blurry vision Card: Reports: chest pain (resolved now); Denies: palpitations, irregular heart rhythm, edema, swelling of feet/ankles, lightheadedness, syncope, pre-syncope, dyspnea on exertion, orthopnea, leg pain with exertion or acrocyanosis Resp: Denies: dyspnea, productive cough or pain on inspiration GI: Denies: abdominal pain, nausea, vomiting, heartburn or diarrhea : Denies: dysuria Musc: Denies: neck pain, back pain, extremity pain, extremity swelling or joint pain Skin/Breast: Denies: rash Neuro: Reports: headache(s); Denies: numbness in extremities, weakness in extremities, sensory changes, difficulty walking, dizziness, confusion, Slurred speech present or seizure-like activity [facility] ED PFSH: Medical History Depression No pertinent past medical history Denies diabetes, asthma, hypertension, seizures, DVT/PE PMD: none Other reactions to severe stress Psychiatric care PTSD (post-traumatic stress disorder) Sinus drainage Viral syndrome Surgical History Status post cholecystectomy June 2018[place] [facility] [place] post tubal ligation 09/09/2020---laparoscopic bilateral total salping[place] for [place] Dr. Ruelas [place] [facility] [place] --Normal intra-abdominal pathology-no endometriosis ----> Pathology showed benign tubes. Family History Sister Diabetes Father Hypertension Mother Hypertension Denies family history of Colon cancer Ovarian cancer Heart disease Hyperlipidemia Breast cancer Uterine cancer Thyroid condition Stroke Social History Smoking and tobacco status: never smoked Alcohol intake: never Substance/Drug Use: never Physical Exam Const: COMMON NORMALS: no acute distress, patient oriented x3, no limitations, alert and well nourished GENERAL APPEARANCE: cooperative ORIENTATION /CONSCIOUSNESS: Yes awake, Yes oriented to person, Yes oriented to place and Yes oriented to time HENMT: COMMON NORMALS: normocephalic and atraumatic HEAD & SCALP: normal to inspection, normocephalic and atraumatic Eye: COMMON NORMALS: Equal, round and reactive pupils present and EOMs intact bilaterally GENERAL EYE: appearance normal, both eyes and all related structures and normal light reflex PUPIL: Yes Equal, round and reactive pupils present DIRECT OPHTHALMOSCOPY: Yes normal light reflex Neck/C-Spine: COMMON NORMALS: full ROM, no lymphadenopathy, supple and no meningeal signs Chest: COMMONS NORMALS: normal inspection of the chest and normal palpation of entire chest wall Resp: COMMON NORMALS: normal respiratory effort and clear to auscultation bilaterally AUSCULTATION: clear to auscultation bilaterally Cardio: COMMON NORMALS: regular rate and regular rhythm RATE: regular rate RHYTHM: regular rhythm GI: COMMON NORMALS: Normal to inspection, nondistended, normoactive bowel sounds present, Soft to palpation, non-tender, No hepatosplenomegaly present and no masses PALPATION: Yes Soft to palpation and Yes No hepatosplenomegaly present : COMMON NORMALS: Yes no CVA tenderness BLADDER/KIDNEY EXAM: Yes no CVA tenderness Back/Pelvis: COMMON NORMALS: no CVA tenderness and thoracic and lumbar spine normal to inspection Extremity: COMMON NORMALS: normal to inspection GENERAL: Yes normal exam except as noted Neuro: QUINN COMA SCALE: document GCS findings Quinn coma scale eye opening: Spontaneous Gustine coma scale verbal response: Orientated Quinn coma scale motor response: Obey commands Quinn coma scale total score: 15 COMMON NORMALS: patient oriented x3, CN's II-XII intact bilaterally, moves all extremities, no focal motor deficits, no sensory deficits noted and gait normal SENSORIUM/ORIENTATION: Yes alert, Yes oriented to person, Yes oriented to place and Yes oriented to time MENINGEAL SIGNS: Yes no meningeal signs Skin: COMMON NORMALS: no rashes or lesions noted GENERAL SKIN EXAM: no rashes or lesions noted Course Vital Signs: Vital signs: Vital Signs Temperature 98.0 F 08/21/22 14:08 Pulse Rate 63 08/21/22 15:22 Respiratory Rate 24 H 08/21/22 15:22 Blood Pressure 145/85 08/21/22 15:22 Pulse Oximetry 94 08/21/22 15:22 Oxygen Delivery Me thod Room Air 08/21/22 14:08 MDM - Anxiety Medical Decision Making Patient appears in no acute distress. Her vital signs are normal. Blood work is nonactionable. UA is contaminated. Patient feels better after IV medications. She will be allowed discharge. Lab Data 08/21/22 15:03 08/21/22 15:03 Laboratory Results WBC 9.5 10^3/uL (4.0-10.0) 08/21/22 15:03 RBC 4.69 10^6/uL (4.1-5.3) 08/21/22 15:03 Hgb 13.1 g/dL (11.5-15.3) 08/21/22 15:03 Hct 40.1 % (37.0-47.0) 08/21/22 15:03 MCV 85.5 fl (81-99) 08/21/22 15:03 MCH 27.9 pg (28.0-34.0) L 08/21/22 15:03 MCHC 32.7 g/dL (30.0-36.0) 08/21/22 15:03 RDW 13.9 % (12.1-15.1) 08/21/22 15:03 Plt Count 379 10^3/cmm (130-400) 08/21/22 15:03 MPV 9.7 fL (7.4-10.4) 08/21/22 15:03 Neut % (Auto) 77.0 % 08/21/22 15:03 Lymph % (Auto) 14.9 % 08/21/22 15:03 [place] % (Auto) 5.6 % 08/21/22 15:03 Eos % (Auto) 1.7 % 08/21/22 15:03 Baso % (Auto) 0.5 % 08/21/22 15:03 Neut # (Auto) 7.28 10^3/uL (1.8-7.7) 08/21/22 15:03 Lymph # (Auto) 1.4 10^3/uL (0.8-4.8) 08/21/22 15:03 [place] # (Auto) 0.5 10^3/uL (0.2-0.9) 08/21/22 15:03 Eos # (Auto) 0.2 10^3/uL (0.0-0.8) 08/21/22 15:03 Baso # (Auto) 0.1 10^3/uL (0.0-0.1) 08/21/22 15:03 Nucleated RBC % (auto) 0 % 08/21/22 15:03 Nucleated RBCs # 0.0 /100WBC 08/21/22 15:03 Sodium 138 mmol/L (136-145) 08/21/22 15:03 Potassium 4.1 mmol/L (3.5-5.1) 08/21/22 15:03 Chloride 103 mmol/L (98-107) 08/21/22 15:03 Carbon Dioxide 26 mmol/L (22-29) 08/21/22 15:03 Anion Gap 13.1 (5-19) 08/21/22 15:03 BUN 9 mg/dL (6-20) 08/21/22 15:03 Creatinine 0.7 mg/dL (0.5-0.9) 08/21/22 15:03 GFR Calculation 103.7 mL/min (90-130) 08/21/22 15:03 Glucose 100 mg/dL (65-115) 08/21/22 15:03 Calculated Osmolality 285 mOsm/kg (285-295) 08/21/22 15:03 Calcium 9.7 mg/dL (8.5-10.5) 08/21/22 15:03 Total Bilirubin 0.3 mg/dL (0.15-1.2) 08/21/22 15:03 AST 12 U/L (0-32) 08/21/22 15:03 ALT 10 U/L (0-33) 08/21/22 15:03 Alkaline Phosphatase 101 U/L (35-105) 08/21/22 15:03 Total Protein 7.9 g/dL (6.6-8.7) 08/21/22 15:03 Albumin 4.5 g/dL (3.5-5.2) 08/21/22 15:03 Globulin 3.4 g/dL (1.3-4.6) 08/21/22 15:03 Urine Color Yellow (Yellow) 08/21/22 14:39 Urine Appearance Sl cloudy (CLEAR) A 08/21/22 14:39 Urine pH 5 (5-7) 08/21/22 14:39 Ur Specific [place] 1.025 (1.005-1.030) 08/21/22 14:39 Urine Protein Trace (Negative) 08/21/22 14:39 Urine Glucose (UA) Norm (Normal) 08/21/22 14:39 Urine Ketones 1+ (Negative) H 08/21/22 14:39 Urine Blood Neg (Negative) 08/21/22 14:39 Urine Nitrate Negative (Negative) 08/21/22 14:39 Urine Bilirubin 1+ (Negative) H 08/21/22 14:39 Urine Urobilinogen Norm mg/dL (Negative) 08/21/22 14:39 Ur Leukocyte Esterase 2+ (Negative) H 08/21/22 14:39 Urine RBC None /hpf (0-2) 08/21/22 14:39 Urine WBC 10-15 /hpf (0-5) H 08/21/22 14:39 Ur Squamous Epith Cells 15-25 /hpf (0-5) H 08/21/22 14:39 Amorphous Sediment 1+ /hpf 08/21/22 14:39 Urine Bacteria Trace /hpf (NONE) 08/21/22 14:39 Discharge Plan Discharge Patient Disposition: Home Clinical Impression: Anxiety Headache Qualifiers: Headache type: unspecified Headache chronicity pattern: acute headache Intractability: not intractable Qualified Code(s): R51.9 - Headache, unspecified Condition: Stable Prescriptions: No Action sumatriptan succinate 25 mg tablet See Rx Instructions PO .COMPLEX Rx Instructions: take 1 tab at onset of headache; if no relief may repeat 1 tab after at least 2 hrs; max = 4 tabs/24 hr PO hydroxyzine HCl 25 mg tablet 25 mg PO BID PRN (Reason: anxiety) Qty: 60 1RF duloxetine [Cymbalta] 60 mg capsule,delayed release(DR/EC) 120 mg PO DAILY Qty: 60 1RF buspirone 10 mg tablet 10 mg PO DAILY PRN (Reason: anxiety) Qty: 30 0RF propranolol 20 mg tablet 10 mg PO BID ondansetron 4 mg tablet,disintegrating 4 mg PO Q8H PRN (Reason: nausea and vomiting) Qty: 20 0RF ketorolac 10 mg tablet 10 mg PO TID PRN (Reason: pain) Qty: 14 0RF ibuprofen 800 mg tablet 800 mg PO Q8H PRN (Reason: pain) Qty: 30 0RF hydrocodone-acetaminophen 5-325 mg tablet 1 tab PO Q6H PRN (Reason: pain) Qty: 14 0RF ondansetron 4 mg tablet,disintegrating 4 mg PO Q6H PRN (Reason: nausea and vomiting) Qty: 14 0RF Discharge Orders: Discharge ED (Routine); Ordered 08/21/22 Ordered By: Tracie Woods Referrals: Shilpa Ballesteros PA [Primary Care Provider] - Stand Alone Forms: Work/School Release Coding Level of Care Code ED Life Cycle Assessment Analyst for 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
[2022-08-21 14:54] VITALS: BP 137/90; PULSE 72; RESP 24; O2SAT 95
[2022-08-21 15:08] LABS: Bilirubin Urine 1+ (Negative); Blood Urine Neg (Negative); Glucose Urine UA Norm (Normal); Ketones Urine 1+ (Negative); Nitrate Urine Negative (Negative); Protein Urine Trace (Negative); Specific Gravity, Urine 1.025 (1.005-1.030); Urine Color Yellow (Yellow); pH Urine 5 (5-7)
[2022-08-21 15:09] LABS: Add Urine Microscopic? YES; Bacteria Urine TRACE /hpf; Leukocyte Esterase Urine 2+ (Negative); Urobilinogen Urine Norm (Negative)
[2022-08-21 15:09] LABS: Basophils # 0.1 10^3/uL (0.0-0.1); Basophils % 0.5 %; Eosinophils # 0.2 10^3/uL (0.0-0.8); Eosinophils % 1.7 %; Hematocrit 40.1 % (37.0-47.0); Hemoglobin 13.1 g/dL (11.5-15.3); Lymphocytes # 1.4 10^3/uL (0.8-4.8); Lymphocytes % 14.9 %; Mean Corpuscular HGB Conc 32.7 g/dL (30.0-36.0); Mean Corpuscular Hemoglobin 27.9 pg (28.0-34.0); Mean Corpuscular Volume 85.5 fl (81-99); Mean Platelet Volume 9.7 fL (7.4-10.4); Monocytes # 0.5 10^3/uL (0.2-0.9); Monocytes % 5.6 %; Neutrophils # 7.28 10^3/uL (1.8-7.7); Nucleated Red Blood Cells % 0 %; Platelet Count 379 10^3/cmm (130-400); Red Blood Count 4.69 10^6/uL (4.1-5.3); Red Cell Distribution Width 13.9 % (12.1-15.1); White Blood Count 9.5 10^3/uL (4.0-10.0)
[2022-08-21 15:12] LABS: Amorphous Sediment Urine 1+ /hpf; Squamous Epithelial Cell Urine 15-25 /hpf (0-5)
[2022-08-21 15:13] LABS: Add Urine Culture? No
[2022-08-21] MEDS: dexamethasone 10 mg/mL INJ 6 MG IM (15:15)
[2022-08-21] MEDS: sodium chloride 0.9% 1,000 ML 999 ML IV (15:16)
[2022-08-21] MEDS: ketorolac 60 mg/2 mL INJ 30 MG IVP (15:16)
[2022-08-21] MEDS: ondansetron 2 mg/ML SDV 2 mL 4 MG IVP (15:16)
[2022-08-21 15:22] VITALS: BP 145/85; PULSE 63; RESP 24; O2SAT 94
[2022-08-21 15:28] LABS: Alanine Aminotransferase 10 U/L (0-33); Albumin Level 4.5 g/dL (3.5-5.2); Alkaline Phosphatase 101 U/L (35-105); Anion Gap 13.1 (5-19); Aspartate Amino Transferase 12 U/L (0-32); Blood Urea Nitrogen 9 mg/dL (6-20); Calcium 9.7 mg/dL (8.5-10.5); Carbon Dioxide 26 mmol/L (22-29); Chloride 103 mmol/L (98-107); Globulin 3.4 g/dL (1.3-4.6); Glomerular Filtration Rate 103.7 mL/min (90-130); Glucose 100 mg/dL (65-115); Osmolality Calculated 285 mOsm/kg (285-295); Potassium 4.1 mmol/L (3.5-5.1); Sodium 138 mmol/L (136-145); Total Bilirubin 0.3 mg/dL (0.15-1.2); Total Protein 7.9 g/dL (6.6-8.7)
[2022-08-21 16:05] VITALS: BP 135/86; PULSE 72; RESP 14; O2SAT 94
== END 2022-08-21 16:06 | disposition home or self-care (01) ==
PROVIDERS: Emergency Provider Physician Assistant; PCP Physician Assistant
DX: F41.9 Anxiety disorder, unspecified (principal); R51.9 Headache, unspecified
CPT/HCPCS: 80053; 81001; 85025; 96372; 96374; 96375; 99284; J1100; J1885; J2405; J7030

== ENCOUNTER 2022-09-24 00:22 | Emergency (ER) | payer MEDICAID, SELFPAY ==
[2022-09-24 00:33] VITALS: BP 139/86; PULSE 78; RESP 18; TEMP 36.6; O2SAT 98; BMI 31.8
--- NOTE | 2022-09-24 01:06 | ED_ITS ---
HPI - Headache General: Chief Complaint: Headache Stated Complaint: headache Time Seen by Provider: 09/24/22 00:25 Source: patient Mode of arrival: ambulatory Limitations: no limitations History of Present Illness: 22-year-old female states she has a history of migraines states she had a headache it started yesterday morning and is worsened today. States this feels like her previous migraines she tried taking her sumatriptan hand but vomited it due to the migraine. States headaches currently 9 out of 10 she has photophobia phonophobia she denies any fever or neck pain. Associated symptoms: Reports nausea and vomiting; Deny chest pain or fever(s) Review of Systems Const: Denies: fever(s), chills, body aches or change in appetite Eyes: Denies: blurry vision or eye discomfort ENMT: Denies: throat pain or dental pain Card: Denies: chest pain Resp: Denies: dyspnea GI: Reports: nausea and vomiting; Denies: abdominal pain Musc: Denies: neck pain or back pain Neuro: Reports: headache(s) PFSH ED PFSH: Medical History Depression No pertinent past medical history Denies diabetes, asthma, hypertension, seizures, DVT/PE PMD: none Other reactions to severe stress Psychiatric care PTSD (post-traumatic stress disorder) Sinus drainage Viral syndrome Surgical History Status post cholecystectomy June 2018--[place] [facility] [place] post tubal ligation 09/09/2020---laparoscopic bilateral total salpingectomy for sterilization by Dr. Ruelas at [facility] [place]. --Normal intra-abdominal pathology-no endometriosis ----> Pathology showed benign tubes. Family History Sister Diabetes Father Hypertension Mother Hypertension Denies family history of Colon cancer Ovarian cancer Heart disease Hyperlipidemia Breast cancer Uterine cancer Thyroid condition Stroke Social History Smoking and tobacco status: never smoked Alcohol intake: never Substance/Drug Use: never Physical Exam Const: COMMON NORMALS: no acute distress, patient oriented x3 and healthy appearing HENMT: COMMON NORMALS: normocephalic and atraumatic HEAD & SCALP: normocephalic and atraumatic Eye: COMMON NORMALS: conjunctivae normal CONJUNCTIVA: Yes conjunctivae normal Neck/C-Spine: COMMON NORMALS: full ROM and supple Chest: COMMONS NORMALS: normal inspection of the chest Resp: COMMON NORMALS: normal respiratory effort Cardio: COMMON NORMALS: regular rate, regular rhythm and No murmurs present (Cardio) RATE: regular rate RHYTHM: regular rhythm GI: INSPECTION: Yes normal to inspection Extremity: COMMON NORMALS: normal to inspection and full ROM Neuro: COMMON NORMALS: patient oriented x3, moves all extremities and no focal motor deficits Psych: COMMON NORMALS: mental status grossly normal, Normal thought process p resent and cooperative THOUGHT PROCESS: Normal thought process present Skin: COMMON NORMALS: no rashes or lesions noted and no wounds GENERAL SKIN EXAM: no rashes or lesions noted Course Vital Signs: Vital signs: Vital Signs Temperature 97.8 F 09/24/22 00:33 Pulse Rate 78 09/24/22 00:33 Respiratory Rate 18 09/24/22 00:33 Blood Pressure 139/86 09/24/22 00:33 Pulse Oximetry 98 09/24/22 00:33 MDM - Headache Medical Decision Making Patient presents here with a headache likely migraine headache patient's headache is since resolved she is stable for discharge she is to follow-up with PCP and return if worsening she understands agrees to plan. Medical Records I reviewed the patient's medical records. Lab Data I reviewed the patient's lab results. Discharge Plan Discharge Patient Disposition: Home Clinical Impression: Headache Condition: Stable Prescriptions: No Action sumatriptan succinate 25 mg tablet See Rx Instructions PO .COMPLEX Rx Instructions: take 1 tab at onset of headache; if no relief may repeat 1 tab after at least 2 hrs; max = 4 tabs/24 hr PO hydroxyzine HCl 25 mg tablet 25 mg PO BID PRN (Reason: anxiety) Qty: 60 1RF duloxetine [Cymbalta] 60 mg capsule,delayed release(DR/EC) 120 mg PO DAILY Qty: 60 1RF buspirone 10 mg tablet 10 mg PO DAILY PRN (Reason: anxiety) Qty: 30 0RF propranolol 20 mg tablet 10 mg PO BID ondansetron 4 mg tablet,disintegrating 4 mg PO Q8H PRN (Reason: nausea and vomiting) Qty: 20 0RF ketorolac 10 mg tablet 10 mg PO TID PRN (Reason: pain) Qty: 14 0RF ibuprofen 800 mg tablet 800 mg PO Q8H PRN (Reason: pain) Qty: 30 0RF hydrocodone-acetaminophen 5-325 mg tablet 1 tab PO Q6H PRN (Reason: pain) Qty: 14 0RF ondansetron 4 mg tablet,disintegrating 4 mg PO Q6H PRN (Reason: nausea and vomiting) Qty: 14 0RF Discharge Orders: Discharge ED (Routine); Ordered 09/24/22 Ordered By: Mariya Verduzco Referrals: Shilpa Ballesteros PA [Primary Care Provider] - 1-3 days Discharge Diet: Advance as tolerated Discharge Activity: Resume usual activity Patient Instructions: General Headache (ED) Coding Level of Care Code 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
[2022-09-24] MEDS: ketorolac 30 mg/mL INJ 15 MG IVP (01:28)
[2022-09-24] MEDS: metoclopramide 5 mg/mL SDV 2 mL 10 MG IVP (01:29)
[2022-09-24] MEDS: diphenhydrAMINE 50 mg/mL SDV 1mL IVP (01:29)
[2022-09-24 02:11] VITALS: BP 109/63; PULSE 70; RESP 18; O2SAT 97
== END 2022-09-24 02:16 | disposition home or self-care (01) ==
PROVIDERS: Emergency Provider Emergency Medicine; PCP Physician Assistant
DX: R51.9 Headache, unspecified (principal)
CPT/HCPCS: 96374; 96375; 99284; J1200; J1885; J2765

== ENCOUNTER 2022-10-21 20:09 | Emergency (ER) | payer MEDICAID, SELFPAY ==
[2022-10-21 20:14] VITALS: BP 116/80; PULSE 85; RESP 16; TEMP 36.5; O2SAT 98; BMI 31.8
[2022-10-21] MEDS: ketorolac 30 mg/mL INJ IVP (21:16)
[2022-10-21] MEDS: orphenadrine 30 mg/mL Inj 2 mL 60 MG IVP (21:19)
[2022-10-21] MEDS: dexamethasone 10 mg/mL INJ IVP (21:23)
--- NOTE | 2022-10-21 21:39 | ED_ITS ---
HPI - Headache General: Chief Complaint: Headache Stated Complaint: migraine Time Seen by Provider: 10/21/22 20:44 History of Present Illness: Patient is a 22-year-old female that presents to the emergency. Patient states long history of migraines that are poorly controlled. She is currently being managed by her primary care provider with sumatriptan and patient states she has been on this since February with very poor control patient does have a number of visits here in the emergency department for uncontrolled migraine. Patient has sensitivity to light and nausea and vomiting symptoms began yesterday at 1400. Associated symptoms: Reports nausea and vomiting; Deny chest pain, confusion, fever(s), malaise or rash Review of Systems General: Reports: 10 or more systems reviewed and unremarkable except in HPI and below Const: Denies: fever(s), chills, change in appetite, change in weight, fatigue or malaise Eyes: Denies: change in vision, eye discomfort, eye discharge or eye redness ENMT: Denies: throat pain, enlarged tonsils, odynophagia, hoarseness, ear or mastoid pain, ear discharge, change in hearing, tinnitus, nasal discharge, nasal congestion, post nasal drip or sinus pain Card: Denies: chest pain, palpitations, irregular heart rhythm, edema, dyspnea on exertion, orthopnea or leg pain with exertion Resp: Denies: dyspnea, productive cough, non-productive cough, wheezing, stridor or chest congestion GI: Reports: nausea and vomiting; Denies: abdominal pain, dysphagia, diarrhea, constipation, bloating, GI cramping or hematochezia : Denies: flank pain, difficulty voiding, dysuria, urinary frequency, urinary urgency, urinary hesitancy, oliguria or hematuria Musc: Denies: neck pain, back pain, extremity pain, joint pain, joint swelling, joint redness, joint warmth or muscle weakness Skin/Breast: Denies: rash, pruritus, erythema, photosensitivity or new lesions Neuro: Reports: headache(s); Denies: numbness in extremities, weakness in extremities, sensory changes, lack of coordination, difficulty walking, frequent falls, dizziness, confusion, Slurred speech present, difficulty communicating thoughts, seizure-like activity or involuntary movements Endo: Denies: polyuria, polydipsia or tired all the time Jamal/Lymph: Denies: easy bruising or easy bleeding PFSH ED PFSH: Medical History Depression No pertinent past medical history Denies diabetes, asthma, hypertension, seizures, DVT/PE PMD: none Other reactions to severe stress Psychiatric care PTSD (post-traumatic stress disorder) Sinus drainage Viral syndrome Surgical History Status post cholecystectomy June 2018--[place] [facility] [place] Status post tubal ligation 09/09/2020---laparoscopic bilateral total salpingectomy for sterilization by Dr. Ruelas at [facility] [place]. --Normal intra-abdominal pathology-no endometriosis ----> Pathology showed benign tubes. Family History Sister Diabetes Father Hypertension Mother Hypertension Denies family history of Colon cancer Ovarian cancer Heart disease Hyperlipidemia Breast cancer Uterine cancer Thyroid condition Stroke Social History Smoking and tobacco status: never smoked Alcohol intake: never Substance/Drug Use: never Physical Exam Const: COMMON NORMALS: no acute distress, patient oriented x3 and alert GENERAL APPEARANCE: cooperative ORIENTATION/CONSCIOUSNESS: Yes awake, Yes oriented to person, Yes oriented to place and Yes oriented to time HENMT: COMMON NORMALS: normocephalic and atraumatic HEAD & SCALP: normocephalic and atraumatic FACE & SINUS: normal facial exam MOUTH: Normal oral and palatal mucosa present THROAT: posterior oropharynx normal Eye: COMMON NORMALS: Equal, round and reactive pupils present, EOMs intact bilaterally, conjunctivae normal and no scleral icterus GENERAL EYE: appearance normal, both eyes and all related structures ALIGNMENT: Yes alignment normal PERIORBITAL: periorbital findings normal CONJUNCTIVA: Yes conjunctivae normal PUPIL: Yes Equal, round and reactive pupils present Neck/C-Spine: COMMON NORMALS: full ROM GENERAL: Yes normal visual inspection Lymph: LYMPHATIC: no lymphadenopathy noted Chest: COMMONS NORMALS: normal inspection of the chest Breast/axilla inspection: Yes no chest deformity, asymmetry, normal contours, no nodules, masses, tenderness Resp: COMMON NORMALS: normal respiratory effort, No retractions, No use of accessory muscles and clear to auscultation bilaterally EFFORT & INSPECTION: Yes able to speak in complete sentences and Yes symmetric chest movement AUSCULTATION: clear to auscultation bilaterally Cardio: COMMON NORMALS: regular rate, regular rhythm and Peripheral pulses 2+ throughout RATE: regular rate RHYTHM: regular rhythm PERIPHERAL PULSES: Peripheral pulses 2+ throughout GI: COMMON NORMALS: Normal to inspection, nondistended, normoactive bowel sounds present, Soft to palpation, non-tender and No hepatosplenomegaly present INSPECTION: Yes normal to inspection AUSCULTATION: Yes normoactive bowel sounds PALPATION: Yes Soft to palpation and Yes No hepatosplenomegaly present RECTAL EXAM: deferred Extremity: COMMON NORMALS: normal to inspection GENERAL: Yes normal exam except as noted Neuro: COMMON NORMALS: patient oriented x3 SENSORIUM/ORIENTATION: Yes alert, Yes oriented to person, Yes oriented to place and Yes oriented to time CRANIAL NERVES: Yes CN normal except as noted Psych: COMMON NORMALS: mental status grossly normal, Normal thought process present, cooperative, activity/motor behavior normal, denies homicidal ideation and denies suicidal ideation THOUGHT PROCESS: Normal thought process present Skin: COMMON NORMALS: no rashes or lesions noted, no wounds and turgor normal GENERAL SKIN EXAM: no rashes or lesions noted and turgor normal Course Vital Signs: Vital signs: Vital Signs Temperature 97.7 F 10/21/22 20:14 Pulse Rate 85 10/21/22 20:14 Respiratory Rate 16 10/21/22 20:14 Blood Pressure 116/80 10/21/22 20:14 Pulse Oximetry 98 10/21/22 20:14 Oxygen Delivery Me thod Room Air 10/21/22 20:14 MDM - Headache Medical Decision Making Patient was evaluated in the emergency department today for ongoing migraine since 1399 yesterday. She is taken her sumatriptan and her epanolol without relief. Patient states she has been working with her primary care provider since February on migraine management but has had poor control. She has asked her PCP to refer her over to migraine clinic at Dr. Bonilla but this has yet to happen. Patient was treated here in the emergency department with Norflex, Toradol, Decadron and had significantly improved symptoms. I have placed a consult for migraine management through case management will be discharging her home on tizanidine and Toradol. Patient should return to the emergency department for new concerning or worsening symptoms Discharge Plan Discharge Patient Disposition: Home Clinical Impression: Migraine, Tension headache Condition: Stable Prescriptions: New ketorolac 10 mg tablet 10 mg PO Q8H PRN (Reason: pain) 5 Days Qty: 14 0RF ondansetron 4 mg tablet,disintegrating 4 mg PO Q8H 5 Days Qty: 15 0RF tizanidine 4 mg capsule 4 mg PO Q8H Qty: 20 0RF No Action sumatriptan succinate 25 mg tablet See Rx Instructions PO .COMPLEX Rx Instructions: take 1 tab at onset of headache; if no relief may repeat 1 tab after at least 2 hrs; max = 4 tabs/24 hr PO hydroxyzine HCl 25 mg tablet 25 mg PO BID PRN (Reason: anxiety) Qty: 60 1RF duloxetine [Cymbalta] 60 mg capsule,delayed release(DR/EC) 120 mg PO DAILY Qty: 60 1RF buspirone 10 mg tablet 10 mg PO DAILY PRN (Reason: anxiety) Qty: 30 0RF propranolol 20 mg tablet 10 mg PO BID ondansetron 4 mg tablet,disintegrating 4 mg PO Q8H PRN (Reason: nausea and vomiting) Qty: 20 0RF ketorolac 10 mg tablet 10 mg PO TID PRN (Reason: pain) Qty: 14 0RF ibuprofen 800 mg tablet 800 mg PO Q8H PRN (Reason: pain) Qty: 30 0RF hydrocodone-acetaminophen 5-325 mg tablet 1 tab PO Q6H PRN (Reason: pain) Qty: 14 0RF ondansetron 4 mg tablet,disintegrating 4 mg PO Q6H PRN (Reason: nausea and vomiting) Qty: 14 0RF Discharge Orders: Discharge ED (Routine); Ordered 10/21/22 Ordered By: Eliza Clemente [facility] Referrals: Shilpa Ballesteros PA [Primary Care Provider] - Discharge Diet: Advance as tolerated Discharge Activity: Resume usual activity Patient Instructions: Headache - Migraine (Adult), Pain Management Activity Restrictions/Additional Instructions: Case management will be working on a neurology/migraine clinic referral. Do not be taking additional ibuprofen naproxen Aleve while taking ketorolac. Do not take additional muscle relaxers while taking tizanidine. 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
--- NOTE | 2022-10-23 07:32 | DCPLANNER ---
Addendum entered by Zaida Clifford 11/02/22 15:07: Patient has a follow up appointment scheduled for 12.25.22 at 9:30 at neurology Original Note: assistant general manager had message to schedule a follow up appointment for patient with neurology. assistant general manager sent patients information to the front office staff at neurology. Patients information will be printed and reviewed. Clinic will call patient with appointment information.
== END 2022-10-21 22:06 | disposition home or self-care (01) ==
PROVIDERS: Emergency Provider Nurse Practitioner; PCP Physician Assistant
DX: G43.909 Migraine, unspecified, not intractable, without status migrainosus (principal); G44.209 Tension-type headache, unspecified, not intractable
CPT/HCPCS: 96374; 96375; 99284; J1100; J1885; J2360

== ENCOUNTER 2022-11-13 21:14 | Emergency (ER) | payer MEDICAID, SELFPAY ==
[2022-11-13 21:21] VITALS: BP 138/79; PULSE 73; RESP 18; TEMP 36.7; O2SAT 98; BMI 31.8
[2022-11-13] MEDS: LORazepam 2 mg Tablet PO (21:53)
[2022-11-13] MEDS: ondansetron 4 MG Tablet 8 MG PO (21:53)
--- NOTE | 2022-11-13 22:09 | ED_ITS ---
HPI - General Adult General: Chief complaint: General Medical Stated complaint: panic attack Time Seen by Provider: 11/13/22 21:22 Source: patient History of Present Illness: 22-year-old female with a history of anxiety and panic disorder. She presents with a panic attack. She notes that she got a call from an aunt, letting her know that her other aunt had . She believes this is what set off a panic attack. She took one of her BuSpar, but did not seem to help significantly. She is now calm. She is not suicidal or homicidal. No other recent illnesses. She does have a history of migraine and hypertension Associated symptoms: Reports chest pain (tightness, resolved now), headache(s) and nausea; Deny confusion, dyspnea, rash, palpitations or vomiting Review of Systems Const: Denies: fever(s), chills or body aches Eyes: Denies: change in vision Card: Reports: chest pain (tightness, resolved now); Denies: palpitations Resp: Denies: dyspnea, productive cough, non-productive cough or wheezing GI: Reports: nausea; Denies: abdominal pain, vomiting, diarrhea or hematochezia : Denies: difficulty voiding Skin/Breast: Denies: rash Neuro: Reports: headache(s); Denies: weakness in extremities, dizziness or confusion PFSH ED PFSH: Medical History Depression No pertinent past medical history Denies diabetes, asthma, hypertension, seizures, DVT/PE PMD: none Other reactions to severe stress Psychiatric care PTSD (post-traumatic stress disorder) Sinus drainage Viral syndrome Surgical History Status post cholecystectomy June 2018[place] [facility] [place] post tubal ligation 09/09/2020---[place] Dr[place] [facility] [place] --Normal intra-abdominal pathology-no endometriosis ----> Pathology showed benign tubes. Family History Sister Diabetes Father Hypertension Mother Hypertension Denies family history of Colon cancer Ovarian cancer Heart disease Hyperlipidemia Breast cancer Uterine cancer Thyroid condition Stroke Social History Smoking and tobacco status: never smoked Alcohol intake: never Substance/Drug Use: never Female Reproductive History: Date of last menstrual period: 11/13/22 Physical Exam Const: COMMON NORMALS: no acute distress GENERAL APPEARANCE: cooperative; not ill appearing and not frail appearing HENMT: COMMON NORMALS: normocephalic, atraumatic and Normal external nose present HEAD & SCALP: normocephalic and atraumatic FACE & SINUS: normal facial exam and face symmetric NOSE: Normal external nose present Eye: COMMON NORMALS: Equal, round and reactive pupils present and EOMs intact bilaterally PUPIL: Yes Equal, round and reactive pupils present Neck/C-Spine: GENERAL: Yes trachea midline Chest: CHEST: Yes Symmetrical chest wall rise Resp: COMMON NORMALS: normal respiratory effort, No retractions, No use of accessory muscles and clear to auscultation bilaterally AUSCULTATION: clear to auscultation bilaterally Cardio: COMMON NORMALS: regular rate and regular rhythm RATE: regular rate RHYTHM: regular rhythm GI: COMMON NORMALS: Normal to inspection, nondistended, normoactive bowel sounds present Extremity: COMMON NORMALS: no pedal edema Neuro: QUINN COMA SCALE: document GCS findings Quinn coma scale eye opening: Spontaneous [place] coma scale verbal response: Orientated Quinn coma scale motor response: Obey commands Quinn coma scale total score: 15 SENSORY EXAM: Yes extremities (intact) Psych: COMMON NORMALS: speech normal SPEECH: Yes normal speech Skin: COMMON NORMALS: no rashes or lesions noted GENERAL SKIN EXAM: no rashes or lesions noted Course Vital Signs: Vital signs: Vital Signs Temperature 98.0 F 11/13/22 22:32 Pulse Rate 73 11/13/22 22:32 Respiratory Rate 18 11/13/22 22:32 Blood Pressure 138/79 11/13/22 22:32 Pulse Oximetry 98 11/13/22 22:32 Oxygen Delivery Me thod Room Air 11/13/22 21:21 [facility] - General Adult Medical Decision Making Patient has improved significantly on her own. She will be treated with lorazepam, and Zofran, and allowed home to rest. She is not homicidal or suicidal. She will follow-up as an outpatient. No radiology studies performed this visit Discharge Plan Discharge Patient Disposition: Home Clinical Impression: Panic disorder Condition: Stable Prescriptions: No Action sumatriptan succinate 25 mg tablet See Rx Instructions PO .COMPLEX Rx Instructions: take 1 tab at onset of headache; if no relief may repeat 1 tab after at least 2 hrs; max = 4 tabs/24 hr PO hydroxyzine HCl 25 mg tablet 25 mg PO BID PRN (Reason: anxiety) Qty: 60 1RF duloxetine [Cymbalta] 60 mg capsule,delayed release(DR/EC) 120 mg PO DAILY Qty: 60 1RF buspirone 10 mg tablet 10 mg PO DAILY PRN (Reason: anxiety) Qty: 30 0RF propranolol 20 mg tablet 10 mg PO BID prednisone 20 mg tablet 60 mg PO DAILY 5 Days Qty: 15 0RF methocarbamol 750 mg tablet 750 mg PO Q8H Qty: 30 0RF ibuprofen 600 mg tablet 600 mg PO Q8H PRN (Reason: pain) Qty: 60 0RF ondansetron 4 mg tablet,disintegrating 4 mg PO Q8H PRN (Reason: nausea and vomiting) Qty: 20 0RF ibuprofen 800 mg tablet 800 mg PO Q8H PRN (Reason: pain) Qty: 30 0RF ondansetron 4 mg tablet,disintegrating 4 mg PO Q6H PRN (Reason: nausea and vomiting) Qty: 14 0RF Discharge Orders: Discharge ED (Routine); Ordered 11/13/22 Ordered By: Porter Khan Referrals: Shilpa Ballesteros PA [Primary Care Provider] - 1-3 days Patient Instructions: Panic Disorder (ED) Activity Restrictions/Additional Instructions: Return for any problems. See your doctor in follow-up. 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
[2022-11-13 22:32] VITALS: BP 138/79; PULSE 73; RESP 18; TEMP 36.7; O2SAT 98
== END 2022-11-13 22:35 | disposition home or self-care (01) ==
PROVIDERS: Emergency Provider Emergency Medicine; PCP Physician Assistant
DX: F41.0 Panic disorder [episodic paroxysmal anxiety] (principal)
CPT/HCPCS: 99283; Q0162

== ENCOUNTER 2022-11-30 16:02 | Emergency (ER) | payer MEDICAID, SELFPAY ==
[2022-11-30 16:18] VITALS: BP 151/86; PULSE 95; RESP 16; TEMP 36.8; O2SAT 99; BMI 31.8
[2022-11-30 17:28] LABS: Basophils # 0.1 10^3/uL (0.0-0.1); Basophils % 0.7 %; Eosinophils # 0.3 10^3/uL (0.0-0.8); Eosinophils % 2.6 %; Hematocrit 36.8 % (36-47); Lymphocytes # 2.2 10^3/uL (0.8-4.8); Lymphocytes % 20.8 %; Mean Corpuscular HGB Conc 32.3 g/dL (30-55); Mean Corpuscular Hemoglobin 28.1 pg (27-33); Mean Platelet Volume 9.7 fL (7.4-10.4); Monocytes # 0.8 10^3/uL (0.2-0.9); Monocytes % 7.5 %; Neutrophils % 68.2 %; Nucleated Red Blood Cells % 0 %; Platelet Count 375 10^3/cmm (157-399); Red Blood Count 4.23 10^6/uL (3.85-5.65); Red Cell Distribution Width 13.6 % (12.1-15.1); White Blood Count 10.69 10^3/uL (3.29-11.43)
[2022-11-30 17:49] LABS: Alanine Aminotransferase 11 U/L (0-33); Albumin Level 4.3 g/dL (3.5-5.2); Alkaline Phosphatase 79 U/L (35-105); Anion Gap 14.1 (5-19); Aspartate Amino Transferase 11 U/L (0-32); Blood Urea Nitrogen 11 mg/dL (6-20); Calcium 9.2 mg/dL (8.5-10.5); Carbon Dioxide 27 mmol/L (22-29); Chloride 104 mmol/L (98-107); Globulin 3.1 g/dL (1.3-4.6); Glomerular Filtration Rate 123.9 mL/min (90-130); Glucose 84 mg/dL (65-115); Lipase 29 U/L (13-60); Osmolality Calculated 291 mOsm/kg (285-295); Potassium 4.1 mmol/L (3.5-5.1); Sodium 141 mmol/L (136-145); Total Bilirubin 0.2 mg/dL (0.15-1.2); Total Protein 7.4 g/dL (6.6-8.7)
[2022-11-30 17:55] LABS: HCG, Serum Qual Negative (Negative)
== END 2022-11-30 19:41 | disposition left against medical advice (07) ==
LOC: ER 16:06
PROVIDERS: Nurse Practitioner Family; Emergency Provider Family Medicine; PCP Physician Assistant
DX: Z53.21 Procedure and treatment not carried out due to patient leaving prior to being seen by health care provider (principal)
CPT/HCPCS: 36415; 80053; 83690; 84703; 85025; 99283

== ENCOUNTER 2022-12-02 08:49 | Emergency (ER) | payer MEDICAID, SELFPAY ==
[2022-12-02] VITALS (7 sets, daily range): BP systolic 118–152; BP diastolic 59–106; PULSE 68–85; RESP 16–18; TEMP 36.8; O2SAT 91–99
--- NOTE | 2022-12-02 08:50 | W.ED.ABDPA2 ---
HPI - Abdominal Pain General: Chief Complaint: Abdominal Pain Stated Complaint: severe abdominal pain Time Seen by Provider: 12/02/22 08:50 Source: patient Mode of arrival: ambulatory History of Present Illness: 22-year-old female presents emerged including severe right lower quadrant abdominal pain is been going on for about 2 to 3 days. No dysuria urgency or frequency no vomiting or diarrhea has not noticed any medication on him times [place] was no hematuria. She was here in the emergency room a couple days ago but left because she did not want to wait at that time her white count was normal. She had labs drawn but was never seen. Her CMP was also normal. She has previously had a cholecystectomy and a tubal ligation. MD elicited complaint: abdominal pain Onset (ago): day(s) (3) Pain Consistency: constant Location: RLQ Severity: moderate Quality: cramping Radiation: none Exacerbating factors: nothing Associated Symptoms: Reports bloating, GI cramping and poor appetite; Denies chills, dyspepsia, dysuria, fever(s), heartburn, hematuria, hematemesis, loose stools, melena, nausea and vomiting Review of Systems Const: Denies: fever(s) or chills Card: Denies: chest pain Resp: Denies: dyspnea GI: Reports: bloating and GI cramping; Denies: abdominal pain, nausea, vomiting, hematemesis, heartburn or melena : Denies: dysuria, urinary frequency, urinary urgency or hematuria Musc: Denies: neck pain or back pain Skin/Breast: Denies: rash PFSH ED PFSH: Medical History Depression No pertinent past medical history Denies diabetes, asthma, hypertension, seizures, DVT/PE PMD: none Other reactions to severe stress Psychiatric care PTSD (post-traumatic stress disorder) Sinus drainage Viral syndrome Surgical History Status post cholecystectomy June 2018--laparoscopic procedure performed at [facility] [place] Status post tubal ligation 09/09/2020---laparoscopic bilateral total salpingectomy for sterilization by Dr. Ruelas at [facility] [place]. --Normal intra-abdominal pathology-no endometriosis ----> Pathology showed benign tubes. Family History Sister Diabetes Father Hypertension Mother Hypertension Denies family history of Colon cancer Ovarian cancer Heart disease Hyperlipidemia Breast cancer Uterine cancer Thyroid disease Stroke Social History Smoking and tobacco/nicotine status: never used tobacco/nicotine Alcohol intake: never Substance/Drug Use: never Physical Exam Const: GENERAL APPEARANCE: cooperative and comfortable ORIENTATION/CONSCIOUSNESS: Yes awake, Yes oriented to person, Yes oriented to place and Yes oriented to time HENMT: COMMON NORMALS: normocephalic, atraumatic and hearing grossly normal bilaterally HEAD & SCALP: normocephalic and atraumatic Resp: COMMON NORMALS: normal respiratory effort, No retractions, No use of accessory muscles and clear to auscultation bilaterally AUSCULTATION: clear to auscultation bilaterally Cardio: COMMON NORMALS: regular rate, regular rhythm and No murmurs present (Cardio) RATE: regular rate RHYTHM: regular rhythm GI: COMMON NORMALS: No hepatosplenomegaly present AUSCULTATION: Yes normoactive bowel sounds PALPATION: Yes Tenderness to palpation present (GI) (Mild tenderness no Signs peritonitis on exam) Details: RLQ, No Guarding due to palpation present (GI) and Yes No hepatosplenomegaly present Extremity: COMMON NORMALS: normal to inspection, capillary refill normal, no clubbing, cyanosis or edema, no calf tenderness and no pedal edema Neuro: SENSORIUM/ORIENTATION: Yes oriented to person, Yes oriented to place and Yes oriented to time Skin: COMMON NORMALS: no rashes or lesions noted GENERAL SKIN EXAM: no rashes or lesions noted Course Vital Signs: Vital signs: Vital Signs Temperature 98.3 F 12/02/22 08:58 Pulse Rate 85 12/02/22 08:58 Respiratory Rate 16 12/02/22 08:58 Blood Pressure 128/80 12/02/22 08:58 Pulse Oximetry 99 12/02/22 08:58 Oxygen Delivery Me thod Room Air 12/02/22 08:58 MDM - Abdominal Pain Medical Decision Making Mild cystitis no leukocytosis. Start oral antibiotics given a gram of Rocephin here. Discharged home she is feeling somewhat better. increase fluids Tylenol or Profen as needed. Lab Data 12/02/22 09:10 12/02/22 09:10 Labs/Radiology: Laboratory Results WBC 8.83 10^3/uL (3.29-11.43) 12/02/22 09:10 RBC 4.34 10^6/uL (3.85-5.65) 12/02/22 09:10 Hgb 12.40 g/dL (11.27-16.99) 12/02/22 09:10 Hct 37.9 % (36-47) 12/02/22 09:10 MCV 87.3 fl (85-98) 12/02/22 09:10 MCH 28.6 pg (27-33) 12/02/22 09:10 MCHC 32.7 g/dL (30-55) 12/02/22 09:10 RDW 13.5 % (12.1-15.1) 12/02/22 09:10 Plt Count 372 10^3/cmm (157-399) 12/02/22 09:10 MPV 9.9 fL (7.4-10.4) 12/02/22 09:10 Neut % (Auto) 69.3 % 12/02/22 09:10 Lymph % (Auto) 18.8 % 12/02/22 09:10 [place] % (Auto) 7.1 % 12/02/22 09:10 Eos % (Auto) 3.9 % 12/02/22 09:10 Baso % (Auto) 0.6 % 12/02/22 09:10 Neut # (Auto) 6.12 10^3/uL (1.8-7.7) 12/02/22 09:10 Lymph # (Auto) 1.7 10^3/uL (0.8-4.8) 12/02/22 09:10 [place] # (Auto) 0.6 10^3/uL (0.2-0.9) 12/02/22 09:10 Eos # (Auto) 0.3 10^3/uL (0.0-0.8) 12/02/22 09:10 Baso # (Auto) 0.1 10^3/uL (0.0-0.1) 12/02/22 09:10 Nucleated RBC % (auto) 0 % 12/02/22 09:10 Nucleated RBCs # 0.0 /100WBC 12/02/22 09:10 Sodium 136 mmol/L (136-145) 12/02/22 09:10 Potassium 4.1 mmol/L (3.5-5.1) 12/02/22 09:10 Chloride 101 mmol/L (98-107) 12/02/22 09:10 Carbon Dioxide 25 mmol/L (22-29) 12/02/22 09:10 Anion Gap 14.1 (5-19) 12/02/22 09:10 BUN 10 mg/dL (6-20) 12/02/22 09:10 Creatinine 0.6 mg/dL (0.5-0.9) 12/02/22 09:10 GFR Calculation 123.9 mL/min (90-130) 12/02/22 09:10 Glucose 100 mg/dL (65-115) 12/02/22 09:10 Calculated Osmolality 281 mOsm/kg (285-295) L 12/02/22 09:10 Calcium 9.4 mg/dL (8.5-10.5) 12/02/22 09:10 Total Bilirubin 0.3 mg/dL (0.15-1.2) 12/02/22 09:10 AST 16 U/L (0-32) 12/02/22 09:10 ALT 12 U/L (0-33) 12/02/22 09:10 Alkaline Phosphatase 83 U/L (35-105) 12/02/22 09:10 Total Protein 8.0 g/dL (6.6-8.7) 12/02/22 09:10 Albumin 4.5 g/dL (3.5-5.2) 12/02/22 09:10 Globulin 3.5 g/dL (1.3-4.6) 12/02/22 09:10 Lipase 21 U/L (13-60) 12/02/22 09:10 HCG, Qual Negative (Negative) 12/02/22 09:10 Urine Color Straw (Yellow) 12/02/22 09:00 Urine Appearance Cloudy (CLEAR) A 12/02/22 09:00 Urine pH 5 (5-7) 12/02/22 09:00 Ur Specific [place] 1.030 (1.005-1.030) 12/02/22 09:00 Urine Protein Trace (Negative) 12/02/22 09:00 Urine Glucose (UA) Norm (Normal) 12/02/22 09:00 Urine Ketones Negative (Negative) 12/02/22 09:00 Urine Blood Trace (Negative) H 12/02/22 09:00 Urine Nitrate Negative (Negative) 12/02/22 09:00 Urine Bilirubin Neg (Negative) 12/02/22 09:00 Urine Urobilinogen Norm mg/dL (Negative) 12/02/22 09:00 Ur Leukocyte Esterase 2+ (Negative) H 12/02/22 09:00 Urine RBC Rare /hpf (0-2) 12/02/22 09:00 Urine WBC >100 /hpf (0-5) H 12/02/22 09:00 Ur Squamous Epith Cells 25-40 /hpf (0-5) H 12/02/22 09:00 Amorphous Sediment Not Reportable 12/02/22 09:00 Urine Bacteria 2+ /hpf (NONE) H 12/02/22 09:00 No radiology studies performed this visit Discharge Plan Discharge Patient Disposition: Home Clinical Impression: Cystitis Condition: Stable Prescriptions: New Cipro 500 mg tablet 500 mg PO BID Qty: 14 0RF No Action sumatriptan succinate 25 mg tablet See Rx Instructions PO .COMPLEX Rx Instructions: take 1 tab at onset of headache; if no relief may repeat 1 tab after at least 2 hrs; max = 4 tabs/24 hr PO hydroxyzine HCl 25 mg tablet 25 mg PO BID PRN (Reason: anxiety) Qty: 60 1RF duloxetine [Cymbalta] 60 mg capsule,delayed release(DR/EC) 120 mg PO DAILY Qty: 60 1RF buspirone 10 mg tablet 10 mg PO DAILY PRN (Reason: anxiety) Qty: 30 0RF propranolol 20 mg tablet 10 mg PO BID prednisone 20 mg tablet 60 mg PO DAILY 5 Days Qty: 15 0RF methocarbamol 750 mg tablet 750 mg PO Q8H Qty: 30 0RF ibuprofen 600 mg tablet 600 mg PO Q8H PRN (Reason: pain) Qty: 60 0RF ondansetron 4 mg tablet,disintegrating 4 mg PO Q8H PRN (Reason: nausea and vomiting) Qty: 20 0RF ibuprofen 800 mg tablet 800 mg PO Q8H PRN (Reason: pain) Qty: 30 0RF ondansetron 4 mg tablet,disintegrating 4 mg PO Q6H PRN (Reason: nausea and vomiting) Qty: 14 0RF Discharge Orders: Discharge ED (Routine); Ordered 12/02/22 Ordered By: Aba Zamudio Referrals: Shilpa Ballesteros PA [Primary Care Provider] - Discharge Diet: Usual diet Discharge Activity: Increase activity as tolerated Patient Instructions: Urinary Tract Infection in Women (ED), Opioid Safety, Pain Management Coding Level of Care Code ED [employer] Car 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
[2022-12-02] MEDS: sodium chloride 0.9% 1,000 ML 999 ML IV (09:25)
[2022-12-02 09:29] LABS: Basophils # 0.1 10^3/uL (0.0-0.1); Basophils % 0.6 %; Eosinophils # 0.3 10^3/uL (0.0-0.8); Eosinophils % 3.9 %; Hematocrit 37.9 % (36-47); Lymphocytes # 1.7 10^3/uL (0.8-4.8); Lymphocytes % 18.8 %; Mean Corpuscular HGB Conc 32.7 g/dL (30-55); Mean Corpuscular Hemoglobin 28.6 pg (27-33); Mean Corpuscular Volume 87.3 fl (85-98); Mean Platelet Volume 9.9 fL (7.4-10.4); Monocytes # 0.6 10^3/uL (0.2-0.9); Monocytes % 7.1 %; Neutrophils # 6.12 10^3/uL (1.8-7.7); Neutrophils % 69.3 %; Nucleated Red Blood Cells % 0 %; Platelet Count 372 10^3/cmm (157-399); Red Blood Count 4.34 10^6/uL (3.85-5.65); Red Cell Distribution Width 13.5 % (12.1-15.1); White Blood Count 8.83 10^3/uL (3.29-11.43)
[2022-12-02 09:59] LABS: HCG, Serum Qual Negative (Negative)
[2022-12-02 10:07] LABS: Alanine Aminotransferase 12 U/L (0-33); Albumin Level 4.5 g/dL (3.5-5.2); Alkaline Phosphatase 83 U/L (35-105); Blood Urea Nitrogen 10 mg/dL (6-20); Calcium 9.4 mg/dL (8.5-10.5); Carbon Dioxide 25 mmol/L (22-29); Chloride 101 mmol/L (98-107); Globulin 3.5 g/dL (1.3-4.6); Glomerular Filtration Rate 123.9 mL/min (90-130); Glucose 100 mg/dL (65-115); Lipase 21 U/L (13-60); Osmolality Calculated 281 mOsm/kg (285-295); Sodium 136 mmol/L (136-145); Total Bilirubin 0.3 mg/dL (0.15-1.2)
[2022-12-02 10:10] LABS: Anion Gap 14.1 (5-19); Aspartate Amino Transferase 16 U/L (0-32); Potassium 4.1 mmol/L (3.5-5.1)
[2022-12-02 10:17] LABS: Glucose Urine UA Norm (Normal); Ketones Urine Negative (Negative); Protein Urine Trace (Negative); Urine Appearance Cloudy (CLEAR); Urine Color Straw (Yellow); pH Urine 5 (5-7)
[2022-12-02 10:18] LABS: Add Urine Culture? No; Add Urine Microscopic? YES; Bacteria Urine 2+ /hpf; Bilirubin Urine Neg (Negative); Blood Urine Trace (Negative); Leukocyte Esterase Urine 2+ (Negative); Nitrate Urine Negative (Negative); RBC Urine RARE /hpf (0-2); Squamous Epithelial Cell Urine 25-40 /hpf (0-5); Urobilinogen Urine Norm (Negative); WBC Urine >100 /hpf (0-5)
[2022-12-02] MEDS: morphine 4 mg/mL SDV 1 mL IVP (11:37)
[2022-12-02] MEDS: cefTRIAXone 1,000 MG in sodium chloride 0.9% (plus) 50 ML 100 MG IV (11:38)
== END 2022-12-02 12:34 | disposition home or self-care (01) ==
PROVIDERS: Emergency Provider Family Medicine; PCP Physician Assistant
DX: N30.90 Cystitis, unspecified without hematuria (principal)
CPT/HCPCS: 80053; 81001; 83690; 84703; 85025; 96365; 96375; 99284; J0696; J2270; J7030

== ENCOUNTER 2022-12-11 08:21 | Emergency (ER) | payer MEDICAID, SELFPAY ==
[2022-12-11 08:59] LABS: Basophils # 0.1 10^3/uL (0.0-0.1); Basophils % 0.8 %; Eosinophils # 0.3 10^3/uL (0.0-0.8); Eosinophils % 4.4 %; Hematocrit 36.5 % (36-47); Lymphocytes # 1.5 10^3/uL (0.8-4.8); Lymphocytes % 21.1 %; Mean Corpuscular HGB Conc 32.1 g/dL (30-55); Mean Corpuscular Hemoglobin 28.3 pg (27-33); Mean Corpuscular Volume 88.4 fl (85-98); Mean Platelet Volume 9.5 fL (7.4-10.4); Monocytes # 0.6 10^3/uL (0.2-0.9); Monocytes % 7.9 %; Neutrophils # 4.67 10^3/uL (1.8-7.7); Neutrophils % 65.5 %; Nucleated Red Blood Cells % 0 %; Platelet Count 334 10^3/cmm (157-399); Red Blood Count 4.13 10^6/uL (3.85-5.65); Red Cell Distribution Width 13.5 % (12.1-15.1); White Blood Count 7.12 10^3/uL (3.29-11.43)
[2022-12-11 09:01] VITALS: BMI 31.8
[2022-12-11 09:03] VITALS: BP 118/79; PULSE 73; RESP 16; TEMP 37.1; O2SAT 99
[2022-12-11 09:23] LABS: Alanine Aminotransferase 8 U/L (0-33); Albumin Level 4.3 g/dL (3.5-5.2); Alkaline Phosphatase 84 U/L (35-105); Anion Gap 13.1 (5-19); Aspartate Amino Transferase 11 U/L (0-32); Blood Urea Nitrogen 10 mg/dL (6-20); Calcium 9.2 mg/dL (8.5-10.5); Carbon Dioxide 24 mmol/L (22-29); Chloride 107 mmol/L (98-107); Globulin 2.9 g/dL (1.3-4.6); Glomerular Filtration Rate 152.9 mL/min (90-130); Glucose 96 mg/dL (65-115); Lipase 25 U/L (13-60); Osmolality Calculated 289 mOsm/kg (285-295); Potassium 4.1 mmol/L (3.5-5.1); Sodium 140 mmol/L (136-145); Total Bilirubin 0.2 mg/dL (0.15-1.2); Total Protein 7.2 g/dL (6.6-8.7)
--- NOTE | 2022-12-11 10:03 | ED_ITS ---
HPI - Abdominal Pain General: Chief Complaint: Abdominal Pain Stated Complaint: Rt side abd pain Time Seen by Provider: 12/11/22 08:59 Source: patient Mode of arrival: ambulatory History of Present Illness: 22-year-old female presents emergency room with right-sided abdominal pain. Pain woke her up from sleep this morning around 6 AM. Nausea and vomiting x2. Reports exquisite right lower quadrant abdominal pain. In the last week had a cystitis for which she was treated with antibiotics although symptoms have resolved she has not had any recurrent symptoms denies any hematochezia or hematemesis coffee-ground emesis denies any hematuria. No fever. Does have significant fever. MD elicited complaint: abdominal pain Pertinent past history: none Onset (ago): hour(s) Pain Consistency: constant Quality: sharp Radiation: RLQ Exacerbating factors: nothing Relieving factors: nothing Associated Symptoms: Reports GI cramping, nausea, poor appetite and vomiting; Denies anorexia, belching, bloating, change in bowel habits, change in stool character, chills, coffee ground emesis, constipation, diarrhea, dyspepsia, dysuria, excessive flatus, fever(s), heartburn, hematochezia, hematuria, hematemesis, fecal incontinence, loose stools, melena and syncope Related Data: Date of Last Menstrual Period: 12/08/22 Review of Systems Const: Denies: fever(s) or chills Card: Denies: syncope Resp: Denies: dyspnea GI: Reports: abdominal pain, nausea, vomiting and GI cramping; Denies: hematemesis, coffee ground emesis, heartburn, diarrhea, constipation, bloating, belching, excessive flatus, fecal incontinence, change in bowel habits, change in stool character, hematochezia or melena : Denies: dysuria, urinary frequency, urinary urgency or hematuria Musc: Denies: neck pain or back pain Skin/Breast: Denies: rash PFSH ED PFSH: Medical History Depression No pertinent past medical history Denies diabetes, asthma, hypertension, seizures, DVT/PE PMD: none Other reactions to severe stress Psychiatric care PTSD (post-traumatic stress disorder) Sinus drainage Viral syndrome Surgical History Status post cholecystectomy June 2018--laparoscopic procedure performed at [facility] [place] Status post tubal ligation 09/09/2020---laparoscopic bilateral total salpingectomy for sterilization by Dr. Ruelas at [facility] [place]. --Normal intra-abdominal pathology-no endometriosis ----> Pathology showed benign tubes. Family History Sister Diabetes Father Hypertension Mother Hypertension Denies family history of Colon cancer Ovarian cancer Heart disease Hyperlipidemia Breast cancer Uterine cancer Thyroid disease Stroke Social History Smoking and tobacco/nicotine status: never used tobacco/nicotine Alcohol intake: never Substance/Drug Use: never Female Reproductive History: Date of last menstrual period: 12/08/22 Physical Exam Const: GENERAL APPEARANCE: cooperative and comfortable ORIENTATION/CONSCIOUSNESS: Yes awake, Yes oriented to person, Yes oriented to place and Yes oriented to time HENMT: COMMON NORMALS: normocephalic, atraumatic and hearing grossly normal bilaterally HEAD & SCALP: normocephalic and atraumatic Resp: COMMON NORMALS: normal respiratory effort, No retractions, No use of accessory muscles and clear to auscultation bilaterally AUSCULTATION: clear to auscultation bilaterally Cardio: COMMON NORMALS: regular rate, regular rhythm and No murmurs present (Cardio) RATE: regular rate RHYTHM: regular rhythm GI: COMMON NORMALS: No hepatosplenomegaly present AUSCULTATION: Yes normoactive bowel sounds PALPATION: Yes Tenderness to palpation present (GI) Details: RLQ, Yes Guarding due to palpation present (GI) in the RLQ and Yes No hepatosplenomegaly present Extremity: COMMON NORMALS: normal to inspection, capillary refill normal, no clubbing, cyanosis or edema, no calf tenderness and no pedal edema Neuro: SENSORIUM/ORIENTATION: Yes oriented to person, Yes oriented to place and Yes oriented to time Skin: COMMON NORMALS: no rashes or lesions noted GENERAL SKIN EXAM: no rashes or lesions noted Course Vital Signs: Vital signs: Vital Signs Temperature 98.8 F 12/11/22 09:03 Pulse Rate 73 12/11/22 09:03 Respiratory Rate 16 12/11/22 09:03 Blood Pressure 118/79 12/11/22 09:03 Pulse Oximetry 99 12/11/22 09:03 Oxygen Delivery Me thod Room Air 12/11/22 09:03 MDM - Abdominal Pain Medical Decision Making Labs and imaging reviewed no significant finding on the CTs patient's symptoms have improved some. UA initially was done showed large amount of blood but there is a clean-catch a repeat UA by cath was negative. Suspect a lot of her symptoms are due to cramping and discomfort from her. She is given anti- inflammatories with a time lab work-up and imaging were completed she was feeling better however follow-up as needed, Return if worsens. Medical Records I reviewed the patient's medical records. Lab Data I reviewed the patient's lab results. 12/11/22 08:54 12/11/22 08:54 Labs/Radiology: Laboratory Results WBC 7.12 10^3/uL (3.29-11.43) 12/11/22 08:54 RBC 4.13 10^6/uL (3.85-5.65) 12/11/22 08:54 Hgb 11.70 g/dL (11.27-16.99) 12/11/22 08:54 Hct 36.5 % (36-47) 12/11/22 08:54 MCV 88.4 fl (85-98) 12/11/22 08:54 MCH 28.3 pg (27-33) 12/11/22 08:54 MCHC 32.1 g/dL (30-55) 12/11/22 08:54 RDW 13.5 % (12.1-15.1) 12/11/22 08:54 Plt Count 334 10^3/cmm (157-399) 12/11/22 08:54 MPV 9.5 fL (7.4-10.4) 12/11/22 08:54 Neut % (Auto) 65.5 % 12/11/22 08:54 Lymph % (Auto) 21.1 % 12/11/22 08:54 [place] % (Auto) 7.9 % 12/11/22 08:54 Eos % (Auto) 4.4 % 12/11/22 08:54 Baso % (Auto) 0.8 % 12/11/22 08:54 Neut # (Auto) 4.67 10^3/uL (1.8-7.7) 12/11/22 08:54 Lymph # (Auto) 1.5 10^3/uL (0.8-4.8) 12/11/22 08:54 [place] # (Auto) 0.6 10^3/uL (0.2-0.9) 12/11/22 08:54 Eos # (Auto) 0.3 10^3/uL (0.0-0.8) 12/11/22 08:54 Baso # (Auto) 0.1 10^3/uL (0.0-0.1) 12/11/22 08:54 Nucleated RBC % (auto) 0 % 12/11/22 08:54 Nucleated RBCs # 0.0 /100WBC 12/11/22 08:54 Sodium 140 mmol/L (136-145) 12/11/22 08:54 Potassium 4.1 mmol/L (3.5-5.1) 12/11/22 08:54 Chloride 107 mmol/L (98-107) 12/11/22 08:54 Carbon Dioxide 24 mmol/L (22-29) 12/11/22 08:54 Anion Gap 13.1 (5-19) 12/11/22 08:54 BUN 10 mg/dL (6-20) 12/11/22 08:54 Creatinine 0.5 mg/dL (0.5-0.9) 12/11/22 08:54 GFR Calculation 152.9 mL/min (90-130) H 12/11/22 08:54 Glucose 96 mg/dL (65-115) 12/11/22 08:54 Calculated Osmolality 289 mOsm/kg (285-295) 12/11/22 08:54 Calcium 9.2 mg/dL (8.5-10.5) 12/11/22 08:54 Total Bilirubin 0.2 mg/dL (0.15-1.2) 12/11/22 08:54 AST 11 U/L (0-32) 12/11/22 08:54 ALT 8 U/L (0-33) 12/11/22 08:54 Alkaline Phosphatase 84 U/L (35-105) 12/11/22 08:54 Total Protein 7.2 g/dL (6.6-8.7) 12/11/22 08:54 Albumin 4.3 g/dL (3.5-5.2) 12/11/22 08:54 Globulin 2.9 g/dL (1.3-4.6) 12/11/22 08:54 Lipase 25 U/L (13-60) 12/11/22 08:54 HCG, Qual Negative (Negative) 12/11/22 08:54 Urine Color Yellow (Yellow) 12/11/22 12:49 Urine Appearance Clear (CLEAR) 12/11/22 12:49 Urine pH 5 (5-7) 12/11/22 12:49 Ur Specific [place] 1.015 (1.005-1.030) 12/11/22 12:49 Urine Protein Neg (Negative) 12/11/22 12:49 Urine Glucose (UA) Norm (Normal) 12/11/22 12:49 Urine Ketones 1+ (Negative) H 12/11/22 12:49 Urine Blood Neg (Negative) 12/11/22 12:49 Urine Nitrate Negative (Negative) 12/11/22 12:49 Urine Bilirubin Neg (Negative) 12/11/22 12:49 Urine Urobilinogen Norm mg/dL (Negative) 12/11/22 12:49 Ur Leukocyte Esterase Negative (Negative) 12/11/22 12:49 Urine RBC Too numerous to cnt /hpf (0-2) H 12/11/22 11:48 Urine WBC 5-10 /hpf (0-5) H 12/11/22 11:48 Ur Squamous Epith Cells 5-10 /hpf (0-5) H 12/11/22 11:48 Amorphous Sediment Not Reportable 12/11/22 11:48 Urine Bacteria Trace /hpf (NONE) 12/11/22 11:48 Urine Mucus Trace /hpf 12/11/22 11:48 All radiology interpretation(s) finalized by discharge Discharge Plan Discharge Patient Disposition: Home Clinical Impression: Abdominal pain Condition: Stable Prescriptions: New ondansetron HCl 4 mg tablet 4 mg PO Q6H PRN (Reason: nausea and vomiting) Qty: 20 0RF diclofenac sodium 75 mg tablet,delayed release (DR/EC) 75 mg PO Q12H PRN (Reason: pain) Qty: 20 0RF No Action sumatriptan succinate 25 mg tablet See Rx Instructions PO .COMPLEX Rx Instructions: take 1 tab at onset of headache; if no relief may repeat 1 tab after at least 2 hrs; max = 4 tabs/24 hr PO hydroxyzine HCl 25 mg tablet 25 mg PO BID PRN (Reason: anxiety) Qty: 60 1RF duloxetine [Cymbalta] 60 mg capsule,delayed release(DR/EC) 120 mg PO DAILY Qty: 60 1RF buspirone 10 mg tablet 10 mg PO DAILY PRN (Reason: anxiety) Qty: 30 0RF propranolol 20 mg tablet 10 mg PO BID ondansetron 4 mg tablet,disintegrating 4 mg PO Q8H PRN (Reason: nausea and vomiting) Qty: 20 0RF Discharge Orders: Discharge ED (Routine); Ordered 12/11/22 Ordered By: Aba Zamudio Referrals: Shilpa Ballesteros PA [Primary Care Provider] - Discharge Diet: Usual diet Discharge Activity: Increase activity as tolerated Patient Instructions: Abdominal Pain (ED), Opioid Safety, Pain Management Activity Restrictions/Additional Instructions: You were seen today for complaints of right lower quadrant abdominal pain CT and laboratory studies were unremarkable. Suspect this may be related to your ongoing menses. Use diclofenac as needed ondansetron if your symptoms worsen or change return to the emergency room. 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
--- NOTE | 2022-12-11 10:13 | CT_ITS ---
WS: [id number] CT ABDOMEN AND PELVIS NONCONTRAST HISTORY: Abdominal pain TECHNIQUE: Imaging performed through the abdomen and pelvis. Coronal and sagittal reformats are submi tted. All CT scans at [facility] use at least one of these dose optimization techniques: auto mated exposure control; mA and/or kV adjustment per patient size (includes targeted exams where dose is matched to clinical indication); or iterative reconstruction. DLP: 1142.66 mGy.cm COMPARISON: 07/29/2022 Lower thorax: Lung bases are clear. Visualized heart is normal. No hiatal hernia. Liver: Normal size liver. No mass or bile duct dilatation. Gallbladder: Prior cholecystectomy. Pancreas: Normal size and attenuation. Normal pancreatic duct. No pancreatitis or mass. Spleen: Normal. Adrenal glands: Normal. No mass. Right kidney: Mild anterior rotation of the renal pelvis. No obstruction or calcification. Left kidney: Normal size kidney with no mass or hydronephrosis. Aorta: Normal abdominal aorta, no aneurysm or atherosclerosis. No free fluid, intraperitoneal air or significant lymphadenopathy. GI tract: No obstruction. No evidence for colitis. The appendix is only partially visualized. No evid ence for appendicitis. No diverticulitis. Abdominal wall: Small umbilical hernia contains fat only. Pelvis: No free fluid or adenopathy. Uterus is midline. No adnexal masses. Osseous structures: Unremarkable. IMPRESSION: 1. No evidence for appendicitis. 2. No free fluid or adenopathy. 3. No renal obstruction. 4. Prior cholecystectomy.
[2022-12-11] MEDS: sodium chloride 0.9% 1,000 ML 999 ML IV (10:15)
[2022-12-11] MEDS: ondansetron 2 mg/ML SDV 2 mL 4 MG IVP (10:17)
[2022-12-11 10:19] LABS: HCG, Serum Qual Negative (Negative)
[2022-12-11 12:09] LABS: Glucose Urine UA Norm (Normal); Ketones Urine 1+ (Negative); Protein Urine 2+ (Negative); Urine Appearance Cloudy (CLEAR); Urine Color Red (Yellow); pH Urine 5 (5-7)
[2022-12-11 12:10] LABS: Add Urine Microscopic? YES; Bilirubin Urine 1+ (Negative); Blood Urine 3+ (Negative); Leukocyte Esterase Urine Trace (Negative); Nitrate Urine Negative (Negative); Urobilinogen Urine 1 mg/dL (Negative)
[2022-12-11 12:14] LABS: Bacteria Urine TRACE /hpf; Mucus Urine TRACE /hpf; RBC Urine TOO NUMEROUS TO CNT /hpf (0-2)
[2022-12-11 12:15] LABS: Add Urine Culture? Yes
[2022-12-11 13:08] LABS: Add Urine Microscopic? NO; Charge for UA Resulting for Rev
[2022-12-11 13:11] LABS: Glucose Urine UA Norm (Normal); Protein Urine Neg (Negative); Specific Gravity, Urine 1.015 (1.005-1.030); Urine Appearance Clear (CLEAR); Urine Color Yellow (Yellow); pH Urine 5 (5-7)
[2022-12-11 13:12] LABS: Bilirubin Urine Neg (Negative); Blood Urine Neg (Negative); Ketones Urine 1+ (Negative); Leukocyte Esterase Urine Negative (Negative); Nitrate Urine Negative (Negative); Urobilinogen Urine Norm (Negative)
== END 2022-12-11 13:23 | disposition home or self-care (01) ==
PROVIDERS: Emergency Provider Family Medicine; PCP Physician Assistant
DX: R10.31 Right lower quadrant pain (principal)
CPT/HCPCS: 36415; 74176; 80053; 81001; 81003; 83690; 84703; 85025; 87086; 96361; 96374; 99285; J2405; J7030

== ENCOUNTER 2022-12-25 13:41 | Emergency (ER) | payer MEDICAID, SELFPAY ==
[2022-12-25 13:48] VITALS: BP 148/87; PULSE 70; RESP 18; TEMP 36.6; O2SAT 96; BMI 31.8
--- NOTE | 2022-12-25 15:24 | ED_ITS ---
HPI - Headache General: Chief Complaint: Headache Stated Complaint: headache Time Seen by Provider: 12/25/22 15:24 Source: patient Mode of arrival: ambulatory Limitations: no limitations History of Present Illness: Patient is a 22-year-old female with a longstanding history of migraine headaches here for complaints of a migraine that started this morning. Patient states she has abortive medications for her migraines but they do not seem to be working. She states she met with neurologist Dr. Moran this morning who is going to order outpatient MRI as well as some labs. They are trying to work with her insurance company to see what medications her insurance will cover. Patient tells me her headache today feels identical to previous migraines. She is currently rating it a 10/10. She states when she has had to come to the ER before for migraines-the typical migraine cocktail usually works well. MD elicited complaint: headache and migraine Pertinent past history: migraines Onset (ago): hour(s) Severity: severe Pain scale (0-10): 10 Exacerbating factors: light and noise Relieving factors: nothing Associated symptoms: Reports nausea; Deny confusion, fever(s), lightheadedness, malaise or vomiting Treatments prior to arrival: none Review of Systems Const: Denies: fever(s), chills, body aches, fatigue or malaise Eyes: Reports: photophobia; Denies: change in vision, blurry vision, eye discharge, floaters or seeing flashes Card: Denies: lightheadedness GI: Reports: nausea; Denies: vomiting Musc: Denies: neck pain Neuro: Reports: headache(s); Denies: numbness in extremities, weakness in extremities, sensory changes, lack of coordination, difficulty walking, frequent falls, dizziness, vertigo, con fusion, behavioral changes, Slurred speech present, difficulty communicating thoughts, seizure-like activity or involuntary movements PFSH ED PFSH: Medical History Depression No pertinent past medical history Denies diabetes, asthma, hypertension, seizures, DVT/PE PMD: none Other reactions to severe stress Psychiatric care PTSD (post-traumatic stress disorder) Sinus drainage Viral syndrome Surgical History Status post cholecystectomy June 2018--laparoscopic procedure performed at [facility] Status post tubal ligation 09/09/2020---laparoscopic bilateral total salpingectomy for sterilization by Dr. Ruelas at [facility]. --Normal intra-abdominal pathology-no endometriosis ----> Pathology showed benign tubes. Family History Sister Diabetes Father Hypertension Mother Hypertension Denies family history of Colon cancer Ovarian cancer Heart disease Hyperlipidemia Breast cancer Uterine cancer Thyroid disease Stroke Social History Smoking and tobacco/nicotine status: never used tobacco/nicotine Alcohol intake: never Substance/Drug Use: never Physical Exam Const: COMMON NORMALS: no acute distress, average body habitus, patient oriented x3, no limitations, healthy appearing, alert and well nourished HENMT: COMMON NORMALS: normocephalic and atraumatic HEAD & SCALP: normal to inspection, normocephalic and atraumatic FACE & SINUS: normal facial exam Eye: COMMON NORMALS: Equal, round and reactive pupils present and EOMs intact bilaterally GENERAL EYE: appearance normal, both eyes and all related structures and normal light reflex PUPIL: Yes Equal, round and reactive pupils present DIRECT OPHTHALMOSCOPY: Yes normal light reflex Neck/C-Spine: COMMON NORMALS: full ROM, no lymphadenopathy and no meningeal signs Resp: COMMON NORMALS: normal respiratory effort and clear to auscultation bilaterally AUSCULTATION: clear to auscultation bilaterally Cardio: COMMON NORMALS: regular rate and regular rhythm RATE: regular rate RHYTHM: regular rhythm Neuro: QUINN COMA SCALE: document GCS findings Quinn coma scale eye opening: Spontaneous [place] coma scale verbal response: Orientated [place] coma scale motor response: Obey commands Quinn coma scale total score: 15 COMMON NORMALS: patient oriented x3, CN's II-XII intact bilaterally, moves all extremities, no focal motor deficits, no sensory deficits noted and gait normal SENSORIUM/ORIENTATION: Yes alert MENINGEAL SIGNS: Yes no meningeal signs SPEECH: speech normal GAIT: Yes Normal gait present Skin: COMMON NORMALS: no rashes or lesions noted GENERAL SKIN EXAM: no rashes or lesions noted Course Vital Signs: Vital signs: Vital Signs Temperature 97.8 F 12/25/22 13:48 Pulse Rate 70 12/25/22 13:48 Respiratory Rate 18 12/25/22 13:48 Blood Pressure 148/87 12/25/22 13:48 Pulse Oximetry 96 12/25/22 13:48 Oxygen Delivery Me thod Room Air 12/25/22 13:48 MDM - Headache Medical Decision Making CAMARA much improved after medications given here. She feels comfortable going home at this time. Recommend continuing to follow up with neurology. No radiology studies performed this visit Discharge Plan Discharge Patient Disposition: Home Clinical Impression: Migraine Qualifiers: Migraine type: unspecified Status migrainosus presence: without status migrainosus Intractability: not intractable Qualified Code(s): G43.909 - Migraine, unspecified, not intractable, without status migrainosus Condition: Stable Prescriptions: No Action Trintellix 10 mg tablet 10 mg PO DAILY prazosin 1 mg capsule 1 mg PO BID oxcarbazepine [Trileptal] 150 mg tablet 150 mg PO BID methocarbamol 750 mg tablet 750 mg PO Q8H Emgality Pen 120 mg/mL pen injector 240 mg SUBCUT ONCE Qty: 1 0RF Emgality Pen 120 mg/mL pen injector 120 mg SUBCUT .monthly Qty: 1 3RF cholecalciferol (vitamin D3) 1,250 mcg (50,000 unit) capsule 50,000 unit PO .weekly Qty: 12 2RF ondansetron 4 mg tablet,disintegrating 4 mg PO Q8H PRN (Reason: nausea and vomiting) Qty: 20 0RF Discharge Orders: Discharge ED (Routine); Ordered 12/25/22 Ordered By: Tracie Woods Referrals: Shilpa Ballesteros PA [Primary Care Provider] - Coding Level of Care Code ED Media Consultant Outside Sales for Jennyg Shanta
[2022-12-25] MEDS: sodium chloride 0.9% 1,000 ML 999 ML IV (15:48)
[2022-12-25] MEDS: ketorolac 60 mg/2 mL INJ 30 MG IVP (15:49)
[2022-12-25] MEDS: ondansetron 2 mg/ML SDV 2 mL 4 MG IVP (15:50)
[2022-12-25] MEDS: dexamethasone 10 mg/mL INJ 8 MG IV (15:51)
[2022-12-25] MEDS: diphenhydrAMINE 50 mg/mL SDV 1mL IVP (15:53)
[2022-12-25 16:31] VITALS: BP 148/87; PULSE 70; RESP 18; TEMP 36.6; O2SAT 96
== END 2022-12-25 16:32 | disposition home or self-care (01) ==
PROVIDERS: Emergency Provider Physician Assistant; PCP Physician Assistant
DX: G43.909 Migraine, unspecified, not intractable, without status migrainosus (principal)
CPT/HCPCS: 36415; 82306; 82607; 82746; 83735; 83921; 84439; 84443; 84481; 96374; 96375; 99284; J1100; J1200; J1885; J2405; J7030

== ENCOUNTER 2022-12-29 14:59 | Outpatient (CLI) | payer MEDICAID, SELFPAY ==
--- NOTE | 2022-12-29 15:15 | MR_ITS ---
WS: [id number] MRI HEAD WITH CONTRAST TECHNIQUE: Sagittal T1, T2 axial, T2 axial FLAIR, axial susceptibility weighted imaging, axial diffus ion weighted images, and coronal T2 images were obtained. Pre and post-T1 axial and post T1 coronal i mages. ADC and FSPGR images. CLINICAL INFORMATION: R51.9 - Headache, unspecified COMPARISON: 12/26/2021 FINDINGS: No evidence of restricted diffusion to suggest acute ischemia. Ventricular system and basilar cistern s are patent. No suspicious intracranial signal normalities. Normal pena-white differentiation. Gayle l posterior fossa. Normal vascular flow voids at the skull base. No extra-axial fluid collections. No evidence of mass or mass effect. Paranasal sinuses and mastoid air cells are well aerated. Normal po sterior nasopharynx and parapharyngeal fat. No hemosiderin on susceptibility-weighted images. Normal optic chiasm and pituitary infundibulum. Tem poral lobes and hippocampal formations are normal in appearance. No abnormal gadolinium enhancement. Normal visualized dural venous sinuses. IMPRESSION: 1. No evidence of restricted diffusion to suggest acute ischemia. 2. No suspicious intracranial signal normalities. 3. No hydrocephalus. 4. No hemosiderin on susceptibly weighted images. 5. No abnormal gadolinium enhancement. 6. No other suspicious findings.
== END 2022-12-29 15:00 | disposition home or self-care (01) ==
PROVIDERS: PCP Physician Assistant; Visit Provider Psychiatry & Neurology Neurology
DX: R51.9 Headache, unspecified (principal)
CPT/HCPCS: 70553; A9577

== ENCOUNTER 2023-01-13 09:14 | Emergency (ER) | payer MEDICAID, SELFPAY ==
[2023-01-13 09:25] VITALS: BP 116/85; PULSE 94; RESP 18; TEMP 36.7; O2SAT 94
[2023-01-13 09:38] VITALS: BP 116/85; PULSE 88; RESP 16; O2SAT 99
[2023-01-13] MEDS: ketorolac 60 mg/2 mL INJ IM (09:51)
[2023-01-13] MEDS: orphenadrine 30 mg/mL Inj 2 mL 60 MG IM (09:53)
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
[2023-01-13 12:14] VITALS: BP 116/85; PULSE 88; RESP 16; O2SAT 99
== END 2023-01-13 12:19 | disposition home or self-care (01) ==
PROVIDERS: Emergency Provider Emergency Medicine; PCP Physician Assistant
DX: G89.11 Acute pain due to trauma (principal); M25.512 Pain in left shoulder
CPT/HCPCS: 73030; 96372; 99284; J1885; J2360

== ENCOUNTER 2023-01-16 17:36 | Emergency (ER) | payer MEDICAID, SELFPAY ==
[2023-01-16 17:52] VITALS: BP 125/80; PULSE 85; RESP 18; TEMP 36.8; O2SAT 99; BMI 33.6
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
--- NOTE | 2023-01-17 09:20 | DCPLANNER ---
Message sent to Ortho for follow up on post dislocation of shoulder.
== END 2023-01-16 18:44 | disposition home or self-care (01) ==
PROVIDERS: Emergency Provider Nurse Practitioner Family; PCP Physician Assistant
DX: S43.005A Unspecified dislocation of left shoulder joint, initial encounter (principal); S06.0XAA Concussion with loss of consciousness status unknown, initial encounter; V89.2XXA Person injured in unspecified motor-vehicle accident, traffic, initial encounter
CPT/HCPCS: 99281

== ENCOUNTER → 2023-01-24 10:16 | Outpatient (BNVA) | payer MEDICAID, SELFPAY | PROVIDERS: PCP Physician Assistant; Referring Provider Nurse Practitioner Family; Visit Provider Nurse Practitioner | DX: S43.015A Anterior dislocation of left humerus, initial encounter; S49.92XA Unspecified injury of left shoulder and upper arm, initial encounter; V89.2XXA Person injured in unspecified motor-vehicle accident, traffic, initial encounter | CPT/HCPCS: 73030 ==

== ENCOUNTER 2023-02-06 00:42 | Emergency (ER) | payer MEDICAID, SELFPAY ==
[2023-02-06] VITALS (20 sets, daily range): BP systolic 114–187; BP diastolic 50–130; PULSE 77–106; RESP 14–30; TEMP 36.4; O2SAT 95–99; BMI 35.4
[2023-02-06 01:17] LABS: Basophils # 0.1 10^3/uL (0.0-0.1); Basophils % 0.6 %; Eosinophils # 0.3 10^3/uL (0.0-0.8); Eosinophils % 2.8 %; Hematocrit 35.4 % (36-47); Lymphocytes # 2.6 10^3/uL (0.8-4.8); Lymphocytes % 23.4 %; Mean Corpuscular HGB Conc 31.9 g/dL (30-55); Mean Corpuscular Hemoglobin 26.8 pg (27-33); Mean Corpuscular Volume 83.9 fl (85-98); Mean Platelet Volume 9.4 fL (7.4-10.4); Monocytes # 0.7 10^3/uL (0.2-0.9); Monocytes % 5.9 %; Neutrophils # 7.44 10^3/uL (1.8-7.7); Neutrophils % 66.9 %; Nucleated Red Blood Cells % 0 %; Platelet Count 377 10^3/cmm (157-399); Red Blood Count 4.22 10^6/uL (3.85-5.65); Red Cell Distribution Width 13.4 % (12.1-15.1); White Blood Count 11.12 10^3/uL (3.29-11.43)
[2023-02-06] MEDS: hyDRALAzine 20 mg/mL INJ 1 mL IVP (01:20)
[2023-02-06 01:30] LABS: INR 0.97 (0.8-1.2); Partial Thromboplastin Time 30.6 SECONDS (23.9-36.7)
[2023-02-06 01:53] LABS: Alanine Aminotransferase 15 U/L (0-33); Albumin Level 4.2 g/dL (3.5-5.2); Alkaline Phosphatase 89 U/L (35-105); Anion Gap 15.6 (5-19); Aspartate Amino Transferase 12 U/L (0-32); Blood Urea Nitrogen 9 mg/dL (6-20); Calcium 9.6 mg/dL (8.5-10.5); Carbon Dioxide 23 mmol/L (22-29); Chloride 101 mmol/L (98-107); Creatine Phosphokinase 64 U/L (26-192); Globulin 3.5 g/dL (1.3-4.6); Glomerular Filtration Rate 103.7 mL/min (90-130); Glucose 113 mg/dL (65-115); NT Pro B Type Natriuretic Pept < 36 pg/mL (0-125); Osmolality Calculated 281 mOsm/kg (285-295); Potassium 3.6 mmol/L (3.5-5.1); Sodium 136 mmol/L (136-145); Total Bilirubin 0.2 mg/dL (0.15-1.2); Total Protein 7.7 g/dL (6.6-8.7)
[2023-02-06 01:59] LABS: Alcohol Level < 10 mg/dL (0-10)
[2023-02-06 02:16] LABS: Add Urine Microscopic? YES; Amphetamines Screen Urine Negative (Negative); Barbiturates Screen Urine Negative (Negative); Benzodiazepines Screen Urine Negative (Negative); Bilirubin Urine Neg (Negative); Blood Urine Neg (Negative); Cocaine Screen Urine Negative (Negative); Glucose Urine UA Norm (Normal); Ketones Urine Negative (Negative); Leukocyte Esterase Urine 2+ (Negative); Nitrate Urine Negative (Negative); Opiate Screen Urine Negative (Negative); PCP Screen Urine Negative (Negative); Protein Urine Trace (Negative); Specific Gravity, Urine 1.025 (1.005-1.030); THC Screen Urine Positive (Negative); Urine Appearance Cloudy (CLEAR); Urine Color Yellow (Yellow); Urobilinogen Urine Neg (Negative); pH Urine 5 (5-7)
[2023-02-06 02:17] LABS: Add Urine Culture? No; Amorphous Sediment Urine 1+ /hpf; Bacteria Urine 2+ /hpf; Mucus Urine 2+ /hpf; Squamous Epithelial Cell Urine 25-40 /hpf (0-5); WBC Urine 15-25 /hpf (0-5)
[2023-02-06 02:18] LABS: HCG Qualitative Urine. Negative (Negative)
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
== END 2023-02-06 04:41 | disposition home or self-care (01) ==
PROVIDERS: Emergency Provider Internal Medicine; PCP Physician Assistant
DX: F43.0 Acute stress reaction (principal); T50.905A Adverse effect of unspecified drugs, medicaments and biological substances, initial encounter
CPT/HCPCS: 80053; 80306; 80307; 81001; 81025; 82550; 83880; 85025; 85610; 85730; 96374; 99284; J0360

== ENCOUNTER 2023-02-15 08:30 | Outpatient (CLI) | payer MEDICAID, SELFPAY ==
[2023-02-15 09:00] LABS: Basophils # 0.1 10^3/uL (0.0-0.1); Basophils % 0.7 %; Eosinophils # 0.4 10^3/uL (0.0-0.8); Eosinophils % 5.5 %; Hematocrit 35.8 % (36-47); Lymphocytes # 1.4 10^3/uL (0.8-4.8); Lymphocytes % 19.2 %; Mean Corpuscular HGB Conc 32.1 g/dL (30-55); Mean Corpuscular Hemoglobin 26.7 pg (27-33); Mean Corpuscular Volume 83.3 fl (85-98); Mean Platelet Volume 9.7 fL (7.4-10.4); Monocytes # 0.6 10^3/uL (0.2-0.9); Monocytes % 8.3 %; Neutrophils # 4.83 10^3/uL (1.8-7.7); Nucleated Red Blood Cells % 0 %; Platelet Count 361 10^3/cmm (157-399); Red Cell Distribution Width 13.3 % (12.1-15.1); White Blood Count 7.31 10^3/uL (3.29-11.43)
[2023-02-15 09:14] LABS: Amphetamines Screen Urine Negative (Negative); Barbiturates Screen Urine Negative (Negative); Benzodiazepines Screen Urine Negative (Negative); Cocaine Screen Urine Negative (Negative); Opiate Screen Urine Negative (Negative); PCP Screen Urine Negative (Negative); THC Screen Urine Negative (Negative)
[2023-02-15 09:30] LABS: Estmated Average Glucose 97; Lithium 0.2 mmol/L (0.6-1.2)
[2023-02-15 09:46] LABS: 25 Hydroxy Vitamin D 16 ng/mL (30-100); Alanine Aminotransferase 13 U/L (0-33); Albumin Level 4.2 g/dL (3.5-5.2); Alkaline Phosphatase 90 U/L (35-105); Anion Gap 17.2 (5-19); Aspartate Amino Transferase 13 U/L (0-32); Blood Urea Nitrogen 11 mg/dL (6-20); Calcium 9.2 mg/dL (8.5-10.5); Carbon Dioxide 22 mmol/L (22-29); Chloride 102 mmol/L (98-107); Chol HDL Ratio 4.27 mg/dL (0.0-4.40); Cholesterol 158 mg/dL (0-200); Globulin 3.4 g/dL (1.3-4.6); Glomerular Filtration Rate 103.7 mL/min (90-130); Glucose 100 mg/dL (65-115); HDL Cholesterol 37 mg/dL (60-100); LDL Cholesterol Calculated 88 mg/dL (50-129); LDL HDL Ratio 2.38 RATIO (0.00-3.22); Magnesium 1.9 mg/dL (1.7-2.3); Osmolality Calculated 283 mOsm/kg (285-295); Potassium 4.2 mmol/L (3.5-5.1); Sodium 137 mmol/L (136-145); Thyroid Stimulating Hormone 1.32 uIU/mL (0.27-4.20); Total Bilirubin 0.2 mg/dL (0.15-1.2); Total Protein 7.6 g/dL (6.6-8.7); Triglycerides 166 mg/dL (0-150); Vitamin B12 523 pg/mL (232-1245)
[2023-02-15 09:47] LABS: Folate Level 10.6 ng/mL (4.8-37.3)
[2023-02-15 10:12] LABS: Free T4 Free Thyroxine 1.03 ng/dL (0.82-1.77); T3 Free 2.8 PG/ML (2.0-4.4)
== END 2023-02-15 08:31 | disposition home or self-care (01) ==
LOC: LAB 08:34
PROVIDERS: PCP Physician Assistant; Visit Provider Psychiatry & Neurology Psychiatry
DX: Z01.89 Encounter for other specified special examinations (principal)
CPT/HCPCS: 36415; 80053; 80061; 80178; 80306; 82306; 82607; 82746; 83036; 83735; 84439; 84443; 84481; 85025

== ENCOUNTER 2023-02-21 08:13 | Emergency (ER) | payer MEDICAID, SELFPAY ==
[2023-02-21 08:25] VITALS: BP 153/82; PULSE 97; RESP 18; TEMP 36.9; O2SAT 98; BMI 42.5
[2023-02-21 08:42] LABS: Basophils % 0.1 %; Hematocrit 37.5 % (36-47); Lymphocytes % 6.1 %; Mean Corpuscular HGB Conc 32.3 g/dL (30-55); Mean Corpuscular Hemoglobin 26.7 pg (27-33); Mean Corpuscular Volume 82.8 fl (85-98); Mean Platelet Volume 9.3 fL (7.4-10.4); Monocytes # 0.5 10^3/uL (0.2-0.9); Monocytes % 2.9 %; Neutrophils # 14.38 10^3/uL (1.8-7.7); Neutrophils % 90.3 %; Nucleated Red Blood Cells % 0 %; Platelet Count 425 10^3/cmm (157-399); Red Blood Count 4.53 10^6/uL (3.85-5.65); Red Cell Distribution Width 13.4 % (12.1-15.1); White Blood Count 15.92 10^3/uL (3.29-11.43)
[2023-02-21 08:52] VITALS: BP 153/82; RESP 18; O2SAT 98
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
[2023-02-21 09:00] LABS: HCG, Serum Qual Negative (Negative)
[2023-02-21 09:01] LABS: Alanine Aminotransferase 15 U/L (0-33); Albumin Level 4.2 g/dL (3.5-5.2); Alkaline Phosphatase 90 U/L (35-105); Anion Gap 15.3 (5-19); Aspartate Amino Transferase 15 U/L (0-32); Blood Urea Nitrogen 13 mg/dL (6-20); Calcium 9.7 mg/dL (8.5-10.5); Carbon Dioxide 22 mmol/L (22-29); Chloride 104 mmol/L (98-107); Globulin 3.5 g/dL (1.3-4.6); Glomerular Filtration Rate 123.9 mL/min (90-130); Glucose 124 mg/dL (65-115); Lipase 20 U/L (13-60); Osmolality Calculated 286 mOsm/kg (285-295); Potassium 4.3 mmol/L (3.5-5.1); Sodium 137 mmol/L (136-145); Total Bilirubin 0.2 mg/dL (0.15-1.2); Total Protein 7.7 g/dL (6.6-8.7)
--- NOTE | 2023-02-21 09:01 | CTR_ITS ---
PROCEDURE INFORMATION: Exam: CT Abdomen And Pelvis Without Contrast Exam date and time: 02/21/2023 9:39 AM Age: 22 years old Clinical indication: Abdominal pain; Localized; Right; Prior surgery; Surgery date: 6+ months; Surgery type: Gb. Tubal; Patient HX: RT sided abd pain TECHNIQUE: Imaging protocol: Computed tomography of the abdomen and pelvis without contrast. Radiation optimization: All CT scans at this facility use at least one of these dose optimization techniques: automated exposure control; mA and/or kV adjustment per patient size (includes targeted exams where dose is matched to clinical indication); or iterative reconstruction. COMPARISON: CT abdomen pelvis con [id number] 12/11/2022 10:46 AM RADIATION DOSE METRICS: Total DLP (mGy-cm): 1025.33 FINDINGS: Liver: Normal without focal lesions. Gallbladder and bile ducts: Prior cholecystectomy without biliary ductal dilatation. Pancreas: Normal without ductal dilatation. Spleen: Normal. No splenomegaly. Adrenal glands: Normal. No mass. Kidneys and ureters: Normal. No hydronephrosis. Stomach and bowel: No bowel dilatation to suggest obstruction. Appendix: Normal. Intraperitoneal space: No free air, free fluid, or well-organized fluid collection. Vasculature: Unremarkable. No abdominal aortic aneurysm. Lymph nodes: No enlarged lymph nodes. Urinary bladder: Urinary bladder is unremarkable. Reproductive: Unremarkable as visualized. Bones/joints: Unremarkable. No acute fracture. Soft tissues: Mild bilateral posterolateral low back subcutaneous stranding and air lucencies likely on the basis of recent injections. CT/CT abdomen pelvis con [id number] IMPRESSION: No acute findings.
[2023-02-21 09:53] LABS: Add Urine Microscopic? YES; Bilirubin Urine Neg (Negative); Blood Urine Neg (Negative); Glucose Urine UA Norm (Normal); Ketones Urine Negative (Negative); Leukocyte Esterase Urine Negative (Negative); Nitrate Urine Negative (Negative); Protein Urine Neg (Negative); Specific Gravity, Urine 1.015 (1.005-1.030); Urine Appearance Cloudy (CLEAR); Urine Color Yellow (Yellow); Urobilinogen Urine Norm (Negative); pH Urine 7 (5-7)
[2023-02-21 10:07] LABS: Add Urine Culture? No; Amorphous Sediment Urine TRACE /hpf; Bacteria Urine TRACE /hpf; Mucus Urine 3+ /hpf; Transitional Epi Cells Urine 0-4 /hpf; WBC Urine 0-4 /hpf (0-5)
[2023-02-21 11:55] VITALS: BP 131/75; PULSE 89; RESP 15; O2SAT 97
== END 2023-02-21 12:00 | disposition home or self-care (01) ==
PROVIDERS: Emergency Provider Family Medicine; PCP Physician Assistant
DX: R10.11 Right upper quadrant pain (principal); R10.31 Right lower quadrant pain
CPT/HCPCS: 73030; 74176; 80053; 81001; 83690; 84703; 85025; 99284

== ENCOUNTER 2023-03-20 13:41 | Emergency (ER) | payer MEDICAID, SELFPAY ==
[2023-03-20 13:45] VITALS: BP 126/81; PULSE 74; RESP 16; TEMP 36.7; O2SAT 98; BMI 40.7
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
[2023-03-20] MEDS: sodium chloride 0.9% 1,000 ML 999 ML IV (15:44)
[2023-03-20] MEDS: ondansetron 2 mg/ML SDV 2 mL 4 MG IVP (15:45)
[2023-03-20] MEDS: diphenhydrAMINE 50 mg/mL SDV 1mL IVP (15:47)
[2023-03-20] MEDS: ketorolac 60 mg/2 mL INJ 30 MG IVP (15:48)
[2023-03-20] MEDS: dexamethasone 10 mg/mL INJ 8 MG IV (15:50)
== END 2023-03-20 17:42 | disposition home or self-care (01) ==
PROVIDERS: Emergency Provider Physician Assistant; PCP Physician Assistant
DX: G43.909 Migraine, unspecified, not intractable, without status migrainosus (principal)
CPT/HCPCS: 96361; 96374; 96375; 99284; J1100; J1200; J1885; J2405; J7030

== ENCOUNTER 2023-05-01 09:00 | Emergency (ER) | payer MEDICAID, SELFPAY ==
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
[2023-05-01 09:09] VITALS: BP 135/82; PULSE 87; RESP 15; TEMP 36.9; O2SAT 95; BMI 29.2
[2023-05-01 09:26] VITALS: BP 135/82; PULSE 77; O2SAT 98
[2023-05-01] MEDS: diphenhydrAMINE 50 mg/mL SDV 1mL IVP (09:32)
[2023-05-01] MEDS: sodium chloride 0.9% 1,000 ML 999 ML IV (09:32)
[2023-05-01] MEDS: dexamethasone 10 mg/mL INJ 8 MG IV (09:33)
[2023-05-01] MEDS: ketorolac 60 mg/2 mL INJ 30 MG IVP (09:33)
[2023-05-01] MEDS: ondansetron 2 mg/ML SDV 2 mL 4 MG IVP (09:34)
[2023-05-01 10:10] VITALS: BP 142/83; PULSE 77; O2SAT 100
== END 2023-05-01 10:20 | disposition home or self-care (01) ==
PROVIDERS: Emergency Provider Physician Assistant; PCP Physician Assistant
DX: G43.901 Migraine, unspecified, not intractable, with status migrainosus (principal)
CPT/HCPCS: 96361; 96374; 96375; 99284; J1100; J1200; J1885; J2405; J7030

== ENCOUNTER 2023-06-05 11:29 | Emergency (ER) | payer MEDICAID, SELFPAY ==
[2023-06-05 11:34] VITALS: BP 145/79; PULSE 96; RESP 16; TEMP 36.5; O2SAT 98
--- NOTE | 2023-06-05 11:35 | XR_ITS ---
WS: [id number] Exam: XR chest 1V portable [id number] Date/Time of Exam: 06/05/2023 11:58 AM Reason For Exam: cp Comparison 01/12/2022. Findings: The lungs are clear and fully expanded. Costophrenic angles are sharp. No infiltrates. Bronchovascula r relief appears normal. Cardiac silhouette is unremarkable. Bony elements are intact. IMPRESSION: Unremarkable chest radiograph.
--- NOTE | 2023-06-05 11:53 | ECG_ITS ---
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 Measurements Intervals [place] Rate: 105 P: 44 SD: 144 QRS: 67 QRSD: 89 T: 15 QT: 353 QTc: 468 Interpretive Statements SINUS TACHYCARDIA Compared to ECG 09/11/2020 09:06:16 Sinus rhythm no longer present Sinus arrhythmia no longer present Electronically Signed On 06-05-2023 12:27:32 CDT by Tony Montoya M.D. [email or web address] ([email or web address] medical [email or web address] [email or web address].[email or web address]/store/[email or web address]/[id number] f
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
[2023-06-05 12:19] VITALS: BP 145/99; PULSE 90; RESP 16
[2023-06-05 12:22] LABS: Basophils # 0.1 10^3/uL (0.0-0.1); Basophils % 0.7 %; Eosinophils # 0.4 10^3/uL (0.0-0.8); Eosinophils % 4.2 %; Hematocrit 35.9 % (36-47); Lymphocytes # 1.5 10^3/uL (0.8-4.8); Lymphocytes % 18.2 %; Mean Corpuscular Hemoglobin 26.5 pg (27-33); Mean Corpuscular Volume 82.7 fl (85-98); Mean Platelet Volume 9.6 fL (7.4-10.4); Monocytes # 0.6 10^3/uL (0.2-0.9); Monocytes % 6.9 %; Neutrophils # 5.85 10^3/uL (1.8-7.7); Neutrophils % 69.6 %; Nucleated Red Blood Cells % 0 %; Platelet Count 342 10^3/cmm (157-399); Red Blood Count 4.34 10^6/uL (3.85-5.65); Red Cell Distribution Width 15.3 % (12.1-15.1)
[2023-06-05 12:29] LABS: D Dimer 0.54 ug/mLFEU (0-0.59)
[2023-06-05 12:33] LABS: Troponin(5th) Baseline < 6 ng/L (0-10)
[2023-06-05] MEDS: LORazepam 2 mg/mL INJ 10 mL MDV 1 MG IVP (12:33)
[2023-06-05 12:34] LABS: Alanine Aminotransferase 22 U/L (0-33); Alkaline Phosphatase 95 U/L (35-105); Anion Gap 14.8 (5-19); Aspartate Amino Transferase 18 U/L (0-32); Blood Urea Nitrogen 10 mg/dL (6-20); Calcium 9.1 mg/dL (8.5-10.5); Carbon Dioxide 24 mmol/L (22-29); Chloride 103 mmol/L (98-107); Creatinine Clr Calc Pharmacy 149.7512; Globulin 3.3 g/dL (1.3-4.6); Glomerular Filtration Rate 103.7 mL/min (90-130); Glucose 134 mg/dL (65-115); Osmolality Calculated 287 mOsm/kg (285-295); Potassium 3.8 mmol/L (3.5-5.1); Sodium 138 mmol/L (136-145); Total Bilirubin 0.2 mg/dL (0.15-1.2); Total Protein 7.3 g/dL (6.6-8.7)
[2023-06-05 12:41] LABS: HCG, Serum Qual Negative (Negative)
== END 2023-06-05 13:06 | disposition home or self-care (01) ==
PROVIDERS: Emergency Provider Emergency Medicine; PCP Physician Assistant
DX: R07.9 Chest pain, unspecified (principal)
CPT/HCPCS: 36415; 71045; 80053; 84484; 84703; 85025; 85378; 93005; 96374; 99285; J2060

== ENCOUNTER 2023-06-15 07:09 | Outpatient (CLI) | payer MEDICAID, SELFPAY ==
[2023-06-15 07:46] LABS: Basophils # 0.1 10^3/uL (0.0-0.1); Basophils % 0.8 %; Eosinophils # 0.3 10^3/uL (0.0-0.8); Eosinophils % 4.1 %; Hematocrit 36.3 % (36-47); Lymphocytes # 1.6 10^3/uL (0.8-4.8); Lymphocytes % 20.5 %; Mean Corpuscular HGB Conc 32.2 g/dL (30-55); Mean Corpuscular Hemoglobin 26.5 pg (27-33); Mean Corpuscular Volume 82.3 fl (85-98); Mean Platelet Volume 9.8 fL (7.4-10.4); Monocytes # 0.7 10^3/uL (0.2-0.9); Monocytes % 8.3 %; Neutrophils # 5.26 10^3/uL (1.8-7.7); Nucleated Red Blood Cells % 0 %; Platelet Count 345 10^3/cmm (157-399); Red Blood Count 4.41 10^6/uL (3.85-5.65); Red Cell Distribution Width 15.1 % (12.1-15.1); White Blood Count 7.96 10^3/uL (3.29-11.43)
[2023-06-15 08:20] LABS: Estmated Average Glucose 97; Lithium 0.1 mmol/L (0.6-1.2)
[2023-06-15 08:27] LABS: Folate Level 14.7 ng/mL (4.8-37.3)
[2023-06-15 08:29] LABS: Alanine Aminotransferase 23 U/L (0-33); Albumin Level 3.9 g/dL (3.5-5.2); Alkaline Phosphatase 94 U/L (35-105); Anion Gap 14.3 (5-19); Aspartate Amino Transferase 16 U/L (0-32); Blood Urea Nitrogen 10 mg/dL (6-20); Calcium 9.2 mg/dL (8.5-10.5); Carbon Dioxide 23 mmol/L (22-29); Chloride 105 mmol/L (98-107); Chol HDL Ratio 5.11 mg/dL (0.0-4.40); Cholesterol 184 mg/dL (0-200); Free T4 Free Thyroxine 0.93 ng/dL (0.82-1.77); Globulin 3.6 g/dL (1.3-4.6); Glomerular Filtration Rate 122.8 mL/min (90-130); Glucose 103 mg/dL (65-115); HDL Cholesterol 36 mg/dL (60-100); LDL Cholesterol Calculated 111 mg/dL (50-129); LDL HDL Ratio 3.08 RATIO (0.00-3.22); Magnesium 1.7 mg/dL (1.7-2.3); Osmolality Calculated 285 mOsm/kg (285-295); Potassium 4.3 mmol/L (3.5-5.1); Sodium 138 mmol/L (136-145); T3 Free 3.1 PG/ML (2.0-4.4); Total Bilirubin 0.3 mg/dL (0.15-1.2); Total Protein 7.5 g/dL (6.6-8.7); Triglycerides 184 mg/dL (0-150)
[2023-06-15 09:01] LABS: 25 Hydroxy Vitamin D 20 ng/mL (30-100); Vitamin B12 475 pg/mL (232-1245)
== END 2023-06-15 07:10 | disposition home or self-care (01) ==
PROVIDERS: PCP Physician Assistant
DX: Z13.228 Encounter for screening for other metabolic disorders (principal)
CPT/HCPCS: 36415; 80053; 80061; 80178; 82306; 82607; 82746; 83036; 83735; 84439; 84443; 84481; 85025

== ENCOUNTER 2023-07-20 12:39 | Emergency (ER) | payer MEDICAID, SELFPAY ==
[2023-07-20 12:40] VITALS: BP 130/84; PULSE 76; RESP 15; TEMP 36.6; O2SAT 99
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
--- NOTE | 2023-07-20 13:01 | CT_ITS ---
WS: [id number] CT ABDOMEN PELVIS TECHNIQUE: Contrast-enhanced CT of the abdomen and pelvis with coronal and sagittal reformatted image s. CLINICAL INFORMATION: RLQ pain COMPARISON: CT 02/21/2023 DLP: 1175.[address] scans at [facility] use at least one of these dose optimization techniques: automated e xposure control; mA and/or kV adjustment per patient size (includes targeted exams where dose is matc hed to clinical indication); or iterative reconstruction. FINDINGS: Hepatomegaly. Diffuse fatty infiltration of the liver. Splenomegaly. Cholecystectomy clips. Patchy in filtrates in the RIGHT lower lobe. Recommend correlation for pneumonia. Calcified granulomas RIGHT lo wer lobe. Normal portal vein and splenic vein. Normal pancreatic parenchymal enhancement. Normal GE junction. C eliac and SMA are patent. Adrenal glands are normal. Normal renal parenchymal enhancement. No hydrone phrosis. Congenital malrotation RIGHT kidney. Normal caliber abdominal aorta. Anteverted uterus. No f ree fluid in the abdomen or pelvis. Multi follicular ovaries similar to the prior CT. Normal appendix. No evidence of acute appendicitis. CT/CT abdomen pelvis w con* [id number] IMPRESSION: 1. Normal appendix in the RIGHT lower quadrant. No evidence of acute appendici tis. 2. Multi follicular ovaries bilaterally similar to the prior studies. 3. No free fluid in the abdomen or pelvis. 4. Hepatomegaly and splenomegaly. 5. Prior cholecystectomy. 6. Small amount of patchy hazy infiltrate in the RIGHT lower lobe suspicious f or pneumonia. No consolidation. 7. No other acute findings. Notified VICTORIA Dubois at 07/20/2023 2:20 PM.
[2023-07-20 13:29] LABS: Basophils # 0.1 10^3/uL (0.0-0.1); Basophils % 0.6 %; Eosinophils # 0.5 10^3/uL (0.0-0.8); Hematocrit 37.9 % (36-47); Lymphocytes # 1.5 10^3/uL (0.8-4.8); Lymphocytes % 19.4 %; Mean Corpuscular HGB Conc 32.7 g/dL (30-55); Mean Corpuscular Hemoglobin 26.6 pg (27-33); Mean Corpuscular Volume 81.2 fl (85-98); Mean Platelet Volume 9.8 fL (7.4-10.4); Monocytes # 0.7 10^3/uL (0.2-0.9); Monocytes % 9.1 %; Neutrophils # 5.08 10^3/uL (1.8-7.7); Neutrophils % 64.6 %; Nucleated Red Blood Cells % 0 %; Platelet Count 355 10^3/cmm (157-399); Red Blood Count 4.67 10^6/uL (3.85-5.65); Red Cell Distribution Width 14.4 % (12.1-15.1); White Blood Count 7.87 10^3/uL (3.29-11.43)
[2023-07-20] MEDS: iohexol 350 mg/mL 500 mL Btl (per mL) IV (13:35)
[2023-07-20 13:43] LABS: HCG, Serum Qual Negative (Negative)
[2023-07-20 13:49] VITALS: BP 126/75; PULSE 77; O2SAT 98
[2023-07-20 13:50] LABS: Alanine Aminotransferase 14 U/L (0-33); Albumin Level 4.1 g/dL (3.5-5.2); Alkaline Phosphatase 113 U/L (35-105); Anion Gap 13.8 (5-19); Aspartate Amino Transferase 21 U/L (0-32); Blood Urea Nitrogen 9 mg/dL (6-20); Calcium 8.9 mg/dL (8.5-10.5); Carbon Dioxide 24 mmol/L (22-29); Chloride 100 mmol/L (98-107); Creatinine Clr Calc Pharmacy 179.4283; Globulin 3.9 g/dL (1.3-4.6); Glomerular Filtration Rate 122.8 mL/min (90-130); Glucose 102 mg/dL (65-115); Osmolality Calculated 277 mOsm/kg (285-295); Potassium 3.8 mmol/L (3.5-5.1); Sodium 134 mmol/L (136-145); Total Bilirubin 0.2 mg/dL (0.15-1.2)
[2023-07-20 13:58] LABS: Add Urine Microscopic? YES; Bacteria Urine 1+ /hpf; Bilirubin Urine Neg (Negative); Blood Urine 3+ (Negative); Glucose Urine UA Norm (Normal); Ketones Urine Negative (Negative); Leukocyte Esterase Urine Negative (Negative); Mucus Urine 1+ /hpf; Nitrate Urine Negative (Negative); Protein Urine Trace (Negative); RBC Urine 0-4 /hpf (0-2); Squamous Epithelial Cell Urine 0-4 /hpf (0-5); Urine Appearance Clear (CLEAR); Urine Color Yellow (Yellow); Urobilinogen Urine Norm (Negative); WBC Urine 0-4 /hpf (0-5); pH Urine 6.5 (5-7)
--- NOTE | 2023-07-20 14:26 | PC.PHAR ---
PT STATES ONLY TAKING THE FOLLOWING MEDICATIONS CURRENTLY: EMGALITY PEN 120 MG/ML MONTHLY, LITHIUM CARBONATE 300MG AT BEDTIME, OLANZAPINE 15 MG AT BEDTIME, PRAZOSIN 5MG TWICE DAILY AND, PROPRANOLOL 10 MG TWICE DAILY.
[2023-07-20 14:30] VITALS: BP 122/61; PULSE 69; RESP 16; O2SAT 99
[2023-07-20 14:54] VITALS: BP 144/71; PULSE 76; RESP 16; O2SAT 100
== END 2023-07-20 14:55 | disposition home or self-care (01) ==
PROVIDERS: Emergency Provider Physician Assistant; PCP Physician Assistant
DX: R10.31 Right lower quadrant pain (principal); J18.9 Pneumonia, unspecified organism
CPT/HCPCS: 74177; 80053; 81001; 84703; 85025; 99285; Q9967

== ENCOUNTER 2023-08-25 11:00 | Emergency (ER) | payer MEDICAID, SELFPAY ==
[2023-08-25 11:16] LABS: Basophils # 0.1 10^3/uL (0.0-0.1); Basophils % 0.7 %; Eosinophils # 0.3 10^3/uL (0.0-0.8); Eosinophils % 3.5 %; Lymphocytes # 1.6 10^3/uL (0.8-4.8); Lymphocytes % 20.7 %; Mean Corpuscular HGB Conc 32.6 g/dL (30-55); Mean Corpuscular Hemoglobin 26.7 pg (27-33); Mean Corpuscular Volume 82.1 fl (85-98); Mean Platelet Volume 9.5 fL (7.4-10.4); Monocytes # 0.6 10^3/uL (0.2-0.9); Monocytes % 7.6 %; Neutrophils # 5.07 10^3/uL (1.8-7.7); Neutrophils % 67.2 %; Nucleated Red Blood Cells % 0 %; Platelet Count 368 10^3/cmm (157-399); Red Blood Count 4.75 10^6/uL (3.85-5.65); Red Cell Distribution Width 14.3 % (12.1-15.1); White Blood Count 7.53 10^3/uL (3.29-11.43)
[2023-08-25 11:19] VITALS: BP 146/102; PULSE 70; RESP 18; TEMP 36.4; O2SAT 95; BMI 44.9
[2023-08-25 11:32] LABS: HCG, Serum Qual Negative (Negative)
[2023-08-25 11:36] LABS: Alanine Aminotransferase 31 U/L (0-33); Albumin Level 4.4 g/dL (3.5-5.2); Alkaline Phosphatase 103 U/L (35-105); Anion Gap 15.1 (5-19); Aspartate Amino Transferase 30 U/L (0-32); Blood Urea Nitrogen 8 mg/dL (6-20); Calcium 9.5 mg/dL (8.5-10.5); Carbon Dioxide 26 mmol/L (22-29); Chloride 101 mmol/L (98-107); Creatinine Clr Calc Pharmacy 151.6656; Globulin 3.7 g/dL (1.3-4.6); Glomerular Filtration Rate 102.8 mL/min (90-130); Glucose 102 mg/dL (65-115); Lipase 17 U/L (13-60); Osmolality Calculated 285 mOsm/kg (285-295); Potassium 4.1 mmol/L (3.5-5.1); Sodium 138 mmol/L (136-145); Total Bilirubin 0.3 mg/dL (0.15-1.2); Total Protein 8.1 g/dL (6.6-8.7)
[2023-08-25 11:51] VITALS: BP 124/84; PULSE 66; RESP 16; O2SAT 96
[2023-08-25 12:07] LABS: Add Urine Culture? No; Add Urine Microscopic? YES; Bacteria Urine 1+ /hpf; Bilirubin Urine 1+ (Negative); Blood Urine Neg (Negative); Glucose Urine UA Norm (Normal); Ketones Urine Negative (Negative); Leukocyte Esterase Urine 1+ (Negative); Mucus Urine 2+ /hpf; Nitrate Urine Negative (Negative); Protein Urine Neg (Negative); Specific Gravity, Urine 1.025 (1.005-1.030); Urine Appearance Slightly Cloudy (CLEAR); Urine Color Dark Yellow (Yellow); Urobilinogen Urine Norm (Negative); pH Urine 5 (5-7)
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
[2023-08-25] MEDS: ondansetron 2 mg/ML SDV 2 mL 4 MG IVP ×2 (12:36→14:41)
[2023-08-25] MEDS: sodium chloride 0.9% 1,000 ML 999 ML IV (12:36)
[2023-08-25 12:37] VITALS: BP 113/59; PULSE 75; RESP 14; O2SAT 96
[2023-08-25 13:11] LABS: C.Diff PCR (Lab) NEGATIVE (Negative)
[2023-08-25] MEDS: dicyclomine 20 mg Tablet PO (14:13)
[2023-08-25] MEDS: ketorolac 30 mg/mL INJ 15 MG IVP (14:13)
[2023-08-25 15:20] VITALS: BP 136/98; PULSE 73; RESP 16; O2SAT 98
[2023-08-25 15:21] VITALS: BP 136/98; PULSE 73; RESP 16; TEMP 36.4; O2SAT 98
== END 2023-08-25 15:12 | disposition home or self-care (01) ==
PROVIDERS: Emergency Medicine; Emergency Provider Emergency Medicine; PCP Physician Assistant
DX: R10.84 Generalized abdominal pain (principal); Z79.899 Other long term (current) drug therapy
CPT/HCPCS: 36415; 80053; 81001; 82274; 83630; 83690; 84703; 85025; 87045; 87177; 87209; 87427; 87449; 87493; 96361; 96374; 96375; 96376; 99284; J1885; J2405; J7030

== ENCOUNTER 2023-09-04 07:03 | Outpatient (CLI) | payer MEDICAID, SELFPAY ==
--- NOTE | 2023-09-04 07:15 | MR_ITS ---
WS: [id number] MRI LEFT SHOULDER HISTORY: shoulder pain COMPARISON: Radiograph 02/21/2023 TECHNIQUE: Multiplanar sequences of the shoulder joint are submitted. There is a small amount of fluid at the AC joint indicating there may be a partial tear of the capsul e. No significant arthropathy and no fracture. Small subchondral cyst distal end of the clavicle. No subacromial-subdeltoid bursal fluid. No os acromion. Biceps tendon in normal position. Normal glenohumeral joint. No rotator cuff muscle atrophy or edema. Minimal tendinopathy in the very distal supraspinatus tendon. There is increased T2 signal within a very small section of the anterior labrum suspicious for tear. MR/MR shoulder LT wo con* [id number] IMPRESSION: 1. No fracture. 2. No rotator cuff tear. 3. Small amount of fluid in the AC joint. 4. Focal anterior labral tear.
== END 2023-09-04 07:04 | disposition home or self-care (01) ==
PROVIDERS: PCP Physician Assistant; Visit Provider Nurse Practitioner
DX: S43.432A Superior glenoid labrum lesion of left shoulder, initial encounter (principal); M25.412 Effusion, left shoulder; M25.519 Pain in unspecified shoulder
CPT/HCPCS: 73221

== ENCOUNTER 2023-12-08 08:51 | Emergency (ER) | payer MEDICAID, SELFPAY ==
[2023-12-08 09:03] VITALS: BP 138/80; PULSE 63; RESP 16; TEMP 36.4; O2SAT 98; BMI 38.4
--- NOTE | 2023-12-08 09:07 | CTR_ITS ---
PROCEDURE INFORMATION: Exam: CT Abdomen And Pelvis With Contrast Exam date and time: 12/08/2023 9:33 AM Age: 23 years old Clinical indication: Abdominal pain; Localized; Right lower quadrant (rlq); Prior surgery; Surgery date: 6+ months; Surgery type: Cholecystectomy, tubal ligation, gastric sleeve (sep 2023); Additional info: Rlq pain TECHNIQUE: Imaging protocol: Computed tomography of the abdomen and pelvis with contrast. Radiation optimization: All CT scans at this facility use at least one of these dose optimization techniques: automated exposure control; mA and/or kV adjustment per patient size (includes targeted exams where dose is matched to clinical indication); or iterative reconstruction. Contrast material: OMNIPAQUE 350; Contrast volume: 100 ml; Contrast route: INTRAVENOUS (IV); COMPARISON: CT abdomen pelvis w con* [id number] 07/20/2023 1:34 PM RADIATION DOSE METRICS: Total DLP (mGy-cm): 944.9 FINDINGS: Liver: Normal. No mass. Gallbladder and biliary ducts: There has been a cholecystectomy. Pancreas: Normal. No ductal dilation. Spleen: Normal. No splenomegaly. Adrenal glands: Normal. No mass. Kidneys and ureters: Normal. No hydronephrosis. Stomach and bowel: No obstruction. No mucosal thickening. There has been a sleeve gastrectomy Appendix: No evidence of appendicitis. Intraperitoneal space: Unremarkable. No free air. No significant fluid collection. Vasculature: Unremarkable. No abdominal aortic aneurysm. Lymph nodes: Prominent mesenteric lymph nodes which can be seen with mesenteric adenitis. Urinary bladder: Unremarkable as visualized. Reproductive: Unremarkable as visualized. Bones/joints: Unremarkable. No acute fracture. Soft tissues: Unremarkable. CT/CT abdomen pelvis w con* [id number] IMPRESSION: No evidence of appendicitis, prominent right lower quadrant and mesenteric lymph nodes which can be seen with mesenteric adenitis/enteritis
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
[2023-12-08 09:21] VITALS: RESP 18; O2SAT 98
[2023-12-08] MEDS: ondansetron 2 mg/ML SDV 2 mL 4 MG IVP (09:21)
[2023-12-08] MEDS: morphine 4 mg/mL SDV 1 mL IVP (09:21)
[2023-12-08 09:26] LABS: Basophils # 0.1 10^3/uL (0.0-0.1); Basophils % 1.1 %; Eosinophils # 0.3 10^3/uL (0.0-0.8); Eosinophils % 4.6 %; Hematocrit 40.9 % (36-47); Lymphocytes # 1.4 10^3/uL (0.8-4.8); Lymphocytes % 22.7 %; Mean Corpuscular HGB Conc 31.8 g/dL (30-55); Mean Corpuscular Hemoglobin 27.9 pg (27-33); Mean Corpuscular Volume 87.8 fl (85-98); Mean Platelet Volume 10.9 fL (7.4-10.4); Monocytes # 0.5 10^3/uL (0.2-0.9); Monocytes % 8.5 %; Neutrophils # 3.86 10^3/uL (1.8-7.7); Neutrophils % 62.9 %; Nucleated Red Blood Cells % 0 %; Platelet Count 279 10^3/cmm (157-399); Red Blood Count 4.66 10^6/uL (3.85-5.65); Red Cell Distribution Width 14.9 % (12.1-15.1); White Blood Count 6.13 10^3/uL (3.29-11.43)
[2023-12-08 09:27] VITALS: BP 138/80; PULSE 76; RESP 18; O2SAT 99
[2023-12-08 09:36] LABS: HCG, Serum Qual Negative (Negative)
[2023-12-08] MEDS: iohexol 350 mg/mL 500 mL Btl (per mL) IV (09:40)
[2023-12-08 10:01] LABS: Alanine Aminotransferase 15 U/L (0-33); Albumin Level 4.3 g/dL (3.5-5.2); Alkaline Phosphatase 104 U/L (35-105); Anion Gap 13.8 (5-19); Aspartate Amino Transferase 17 U/L (0-32); Blood Urea Nitrogen 9 mg/dL (6-20); Calcium 9.1 mg/dL (8.5-10.5); Carbon Dioxide 25 mmol/L (22-29); Chloride 101 mmol/L (98-107); Creatinine Clr Calc Pharmacy 161.6218; Globulin 3.2 g/dL (1.3-4.6); Glomerular Filtration Rate 122.8 mL/min (90-130); Glucose 101 mg/dL (65-115); Lipase 34 U/L (13-60); Osmolality Calculated 281 mOsm/kg (285-295); Potassium 3.8 mmol/L (3.5-5.1); Sodium 136 mmol/L (136-145); Total Bilirubin 0.3 mg/dL (0.15-1.2); Total Protein 7.5 g/dL (6.6-8.7)
[2023-12-08 10:34] LABS: Urine Appearance Slightly Cloudy (CLEAR); Urine Color Red (Yellow)
[2023-12-08 10:35] LABS: Add Urine Culture? Yes; Add Urine Microscopic? YES; Bacteria Urine TRACE /hpf; RBC Urine TOO NUMEROUS TO CNT /hpf (0-2); UA Slide Review UA Slide Review Perf
[2023-12-08 10:45] VITALS: RESP 18; O2SAT 100
[2023-12-08] MEDS: HYDROmorphone 1 mg/mL INJ 1 mL IVP (10:45)
[2023-12-08 11:40] VITALS: BP 139/100; PULSE 71; O2SAT 98
== END 2023-12-08 11:42 | disposition home or self-care (01) ==
PROVIDERS: Emergency Provider Emergency Medicine; PCP Physician Assistant
DX: I88.0 Nonspecific mesenteric lymphadenitis (principal)
CPT/HCPCS: 36415; 74177; 80053; 81001; 83690; 84703; 85025; 87086; 96374; 96375; 99285; J1170; J2270; J2405

== ENCOUNTER → 2023-12-12 18:46 | Outpatient (BNVA) | payer MEDICAID, SELFPAY | PROVIDERS: PCP Physician Assistant; Visit Provider Registered Nurse Neonatal Intensive Care | DX: Z87.81 Personal history of (healed) traumatic fracture (principal); S60.221A Contusion of right hand, initial encounter; W22.8XXA Striking against or struck by other objects, initial encounter | CPT/HCPCS: 73130 ==

== ENCOUNTER → 2024-01-03 09:10 | Outpatient (BNVA) | payer MEDICAID, SELFPAY | PROVIDERS: PCP Physician Assistant; Visit Provider Nurse Practitioner Psychiatric/Mental Health | DX: Z79.899 Other long term (current) drug therapy (principal) | CPT/HCPCS: 80053; 80061; 83036 ==

== ENCOUNTER 2024-01-30 09:44 | Emergency (ER) | payer MEDICAID, SELFPAY ==
[2024-01-30 10:04] VITALS: BP 129/83; PULSE 75; RESP 16; TEMP 36.8; O2SAT 100; BMI 37.2
--- NOTE | 2024-01-30 10:05 | ECG_ITS ---
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 Measurements Intervals [place] Rate: 75 P: 40 [place]: 149 QRS: 101 QRSD: 92 T: 30 QT: 387 QTc: 432 Interpretive Statements SINUS RHYTHM RIGHT AXIS DEVIATION [QRS AXIS > 100] Compared to ECG 06/05/2023 11:31:45 Right-axis deviation now present Sinus tachycardia no longer present Electronically Signed On 02-01-2024 22:19:56 LANGUAGE TEACHER by Tony Montoya M.D. [email or web address]
[2024-01-30 10:12] LABS: Glucose Point of Care 96 mg/dL (70-110)
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
[2024-01-30] MEDS: ondansetron 2 mg/ML SDV 2 mL 4 MG IVP (11:44)
[2024-01-30] MEDS: famotidine 20 mg/2 mL INJ 40 MG IVP (11:46)
[2024-01-30 11:52] VITALS: BP 131/90; PULSE 68; RESP 16; O2SAT 96
[2024-01-30 11:55] LABS: Basophils # 0.1 10^3/uL (0.0-0.1); Basophils % 0.6 %; Eosinophils # 0.1 10^3/uL (0.0-0.8); Eosinophils % 1.2 %; Hematocrit 38.9 % (36-47); Lymphocytes # 1.8 10^3/uL (0.8-4.8); Lymphocytes % 17.4 %; Mean Corpuscular HGB Conc 32.6 g/dL (30-55); Mean Corpuscular Hemoglobin 27.9 pg (27-33); Mean Corpuscular Volume 85.3 fl (85-98); Mean Platelet Volume 10.1 fL (7.4-10.4); Monocytes # 0.7 10^3/uL (0.2-0.9); Monocytes % 6.8 %; Neutrophils # 7.48 10^3/uL (1.8-7.7); Neutrophils % 73.7 %; Nucleated Red Blood Cells % 0 %; Platelet Count 363 10^3/cmm (157-399); Red Blood Count 4.56 10^6/uL (3.85-5.65); Red Cell Distribution Width 14.6 % (12.1-15.1); White Blood Count 10.14 10^3/uL (3.29-11.43)
[2024-01-30 12:05] LABS: Bilirubin Urine Negative (Negative); Blood Urine 3+ (Negative); Glucose Urine UA Negative (Normal); Ketones Urine Trace (Negative); Leukocyte Esterase Urine 1+ (Negative); Nitrate Urine Negative (Negative); Protein Urine 1+ (Negative); Urine Appearance Clear (CLEAR); Urine Color Dark Yellow (Yellow); pH Urine 6.5 (5-7)
[2024-01-30 12:09] LABS: Bacteria Urine None Seen /hpf; RBC Urine >100 /hpf (0-2)
[2024-01-30 12:11] LABS: Alanine Aminotransferase 20 U/L (0-33); Albumin Level 4.4 g/dL (3.5-5.2); Alkaline Phosphatase 110 U/L (35-105); Aspartate Amino Transferase 18 U/L (0-32); Blood Urea Nitrogen 8 mg/dL (6-20); Calcium 9.6 mg/dL (8.5-10.5); Carbon Dioxide 26 mmol/L (22-29); Chloride 102 mmol/L (98-107); Creatinine Clr Calc Pharmacy 190.4667; Globulin 3.7 g/dL (1.3-4.6); Glomerular Filtration Rate 151.6 mL/min (90-130); Glucose 95 mg/dL (65-115); Lipase 24 U/L (13-60); Osmolality Calculated 288 mOsm/kg (285-295); Sodium 140 mmol/L (136-145); Total Bilirubin 0.2 mg/dL (0.15-1.2); Total Protein 8.1 g/dL (6.6-8.7)
[2024-01-30 12:17] LABS: Specific Gravity, Urine 1.036 (1.005-1.030)
[2024-01-30 12:18] LABS: Add Urine Culture? Yes
[2024-01-30 12:48] LABS: Covid PCR NEGATIVE (Negative); Influenza A NEGATIVE (Negative); Influenza B NEGATIVE (Negative); Respiratory Syncytial Virus Ce NEGATIVE (Negative)
[2024-01-30] MEDS: cefTRIAXone 1,000 mg SDV 1000 MG IVP (12:57)
[2024-01-30 13:03] VITALS: BP 128/86; PULSE 68; O2SAT 100
== END 2024-01-30 13:05 | disposition home or self-care (01) ==
PROVIDERS: Emergency Provider Emergency Medicine; PCP Physician Assistant
DX: R11.10 Vomiting, unspecified (principal); N39.0 Urinary tract infection, site not specified
CPT/HCPCS: 0241U; 36416; 80053; 81001; 82962; 83690; 85025; 87077; 87086; 87186; 93005; 96374; 96375; 99284; J0696; J2405; J3490

== ENCOUNTER 2024-03-08 09:23 | Emergency (ER) | payer SELFPAY ==
[2024-03-08 09:49] VITALS: BP 121/76; PULSE 74; RESP 17; TEMP 36.7; O2SAT 100; BMI 36.3
[2024-03-08] MEDS: diphenhydrAMINE 50 mg/mL SDV 1mL IVP (10:41)
[2024-03-08] MEDS: ketorolac 30 mg/mL INJ IVP (10:46)
[2024-03-08] MEDS: prochlorperazine 10 mg/2 mL Inj IVP (10:46)
[2024-03-08] MEDS: dihydroergotamine 1 mg/mL Inj IVP (10:46)
[2024-03-08 10:47] VITALS: BP 136/97; PULSE 74; O2SAT 99
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
[2024-03-08 11:47] VITALS: BP 127/87; PULSE 69; O2SAT 96
== END 2024-03-08 11:48 | disposition home or self-care (01) ==
PROVIDERS: Emergency Provider Family Medicine; PCP Physician Assistant
DX: G43.909 Migraine, unspecified, not intractable, without status migrainosus (principal)
CPT/HCPCS: 96374; 96375; 99284; J0780; J1110; J1200; J1885

== ENCOUNTER 2024-05-06 09:04 | Emergency (ER) | payer SELFPAY ==
[2024-05-06 09:08] VITALS: BP 116/79; PULSE 91; RESP 18; TEMP 36.7; O2SAT 98
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
--- NOTE | 2024-05-06 09:23 | XRR_ITS ---
PROCEDURE INFORMATION: Exam: XR Left Shoulder Exam date and time: 05/06/2024 9:35 AM Age: 23 years old Clinical indication: Injury or trauma; Fall; Blunt trauma (contusions or hematomas); Shoulder; Left; Additional info: Injury/pain TECHNIQUE: Imaging protocol: Radiologic exam of the left shoulder. Views: 2 or more views. COMPARISON: MR shoulder LT wo con* [id number] 09/04/2023 7:18 AM FINDINGS: Bones/joints: Normal. Soft tissues: Normal. XR/XR shoulder LT min 2V* [id number] IMPRESSION: No acute findings.
[2024-05-06 09:56] VITALS: BP 120/82; PULSE 81; O2SAT 100
== END 2024-05-06 09:57 | disposition home or self-care (01) ==
PROVIDERS: Emergency Provider Physician Assistant; PCP Physician Assistant
DX: S49.92XA Unspecified injury of left shoulder and upper arm, initial encounter (principal); W19.XXXA Unspecified fall, initial encounter
CPT/HCPCS: 73030; 99283

== ENCOUNTER 2024-05-12 08:25 | Emergency (ER) | payer MEDICAID, SELFPAY ==
--- NOTE | 2024-05-12 08:42 | XR_ITS ---
WS: [id number] Exam: XR chest 1V portable [id number] Date/Time of Exam: 05/12/2024 9:43 AM Reason For Exam: dyspnea/cough Comparison 06/05/2023. The lungs are clear and fully inflated. Normal cardiomediastinal silhouette and regional bony elements. No pleural effusion. Circular opacity superimposes the upper C-spine and is likely an artifact in the hair or clothing. XR/XR chest 1V portable [id number] IMPRESSION: 1. Negative chest.
[2024-05-12 09:25] LABS: Basophils # 0.1 10^3/uL (0.0-0.1); Basophils % 0.6 %; Eosinophils # 0.2 10^3/uL (0.0-0.8); Eosinophils % 2.4 %; Hematocrit 39.4 % (36-47); Lymphocytes # 1.5 10^3/uL (0.8-4.8); Lymphocytes % 15.3 %; Mean Corpuscular HGB Conc 31.7 g/dL (30-55); Mean Corpuscular Hemoglobin 27.6 pg (27-33); Mean Platelet Volume 9.9 fL (7.4-10.4); Monocytes # 0.7 10^3/uL (0.2-0.9); Monocytes % 7.3 %; Neutrophils # 7.37 10^3/uL (1.8-7.7); Neutrophils % 74.2 %; Nucleated Red Blood Cells % 0 %; Platelet Count 375 10^3/cmm (157-399); Red Blood Count 4.53 10^6/uL (3.85-5.65); Red Cell Distribution Width 13.9 % (12.1-15.1); White Blood Count 9.94 10^3/uL (3.29-11.43)
[2024-05-12 09:30] VITALS: BP 115/80; PULSE 73; TEMP 36.8; O2SAT 99; BMI 36.5
--- NOTE | 2024-05-12 09:35 | ECG_ITS ---
[facility] Date: 2024-[facility]12 Pat Name: Lolly Fallon Department: Room: Gender: Female Learning Support Teacher: : 2000 Requested By: Mariya Verduzco Order Number: [id number] Garth MD: Tahir Rojo M.D. Measurements Intervals [place] Rate: 70 P: 34 SC: 146 QRS: 56 QRSD: 84 T: 39 QT: 380 QTc: 410 Interpretive Statements SINUS RHYTHM INTERPRETATION BASED ON A DEFAULT AGE OF 40 YEARS Compared to ECG 01/30/2024 10:05:25 Right-axis deviation no longer present Electronically Signed On 05-12-2024 21:01:02 CDT by Tahir Rojo M.D. [email or web address]
[2024-05-12 09:42] LABS: Alanine Aminotransferase 16 U/L (0-33); Albumin Level 4.4 g/dL (3.5-5.2); Alkaline Phosphatase 108 U/L (35-105); Anion Gap 15.2 (5-19); Aspartate Amino Transferase 13 U/L (0-32); Blood Urea Nitrogen 11 mg/dL (6-20); Calcium 9.7 mg/dL (8.5-10.5); Carbon Dioxide 28 mmol/L (22-29); Chloride 101 mmol/L (98-107); Creatinine Clr Calc Pharmacy 157.0661; Globulin 3.4 g/dL (1.3-4.6); Glomerular Filtration Rate 122.8 mL/min (90-130); Glucose 95 mg/dL (65-115); Osmolality Calculated 289 mOsm/kg (285-295); Potassium 4.2 mmol/L (3.5-5.1); Sodium 140 mmol/L (136-145); Total Bilirubin 0.5 mg/dL (0.15-1.2); Total Protein 7.8 g/dL (6.6-8.7)
[2024-05-12 10:57] VITALS: BP 145/91; PULSE 78; O2SAT 98
[2024-05-12 11:00] VITALS: BP 119/70; PULSE 75; O2SAT 98
--- NOTE | 2024-05-12 11:00 | PC.NURSE ---
Dr. Verduzco cancelled the 4 plex nasal swab.
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
[2024-05-12] MEDS: methocarbamol 750 mg Tablet 1500 MG PO (11:05)
[2024-05-12] MEDS: ketorolac 30 mg/mL INJ IM (11:05)
[2024-05-12 11:39] VITALS: BP 131/80; PULSE 74; O2SAT 97
== END 2024-05-12 11:40 | disposition home or self-care (01) ==
PROVIDERS: Family Medicine; Emergency Provider Emergency Medicine; PCP Physician Assistant
DX: M25.512 Pain in left shoulder (principal)
CPT/HCPCS: 36415; 71045; 80053; 85025; 93005; 96372; 99285; J1885; J9999

== ENCOUNTER 2024-06-17 20:00 | Outpatient (CLI) | payer MEDICAID, SELFPAY | END 2024-06-17 20:01 | disposition home or self-care (01) | LOC: SLEEP 06-18 02:11 | PROVIDERS: PCP Physician Assistant; Visit Provider Physician Assistant | DX: G47.10 Hypersomnia, unspecified (principal) | CPT/HCPCS: 95810 ==

== ENCOUNTER → 2024-07-22 13:37 | Outpatient (BNVA) | payer MEDICAID, SELFPAY | PROVIDERS: PCP Physician Assistant; Visit Provider Nurse Practitioner Women's Health | DX: N85.8 Other specified noninflammatory disorders of uterus (principal); N92.6 Irregular menstruation, unspecified; N92.0 Excessive and frequent menstruation with regular cycle | CPT/HCPCS: 76830 ==

== ENCOUNTER → 2024-09-11 14:52 | Outpatient (BNVA) | payer MEDICAID, SELFPAY | PROVIDERS: PCP Physician Assistant; Visit Provider Nurse Practitioner | DX: J02.9 Acute pharyngitis, unspecified (principal) | CPT/HCPCS: 87070; 87071; 87880 ==

== ENCOUNTER 2024-10-07 09:25 | Day surgery (SDC) | payer MEDICAID, SELFPAY ==
[2024-10-07] VITALS (9 sets, daily range): BP systolic 98–130; BP diastolic 57–78; PULSE 53–96; RESP 13–25; TEMP 36.2–36.4; O2SAT 91–100; BMI 34.7
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
[2024-10-07 10:11] LABS: OR HCG Qualitative Urine Negative (Negative)
--- NOTE | 2024-10-07 10:13 | W.PM.OPSUD ---
Surgery/Procedure H&P Update DATE OF PROCEDURE: October 07, 2024 DATE H&P PERFORMED: 10/07/24 H&P UPDATE INFORMATION: I have reviewed H&P completed within last 30 days, I have examined patient prior to procedure and No changes to prior documentation PREOP DIAGNOSIS: abnormal uterine bleeding PLANNED PROCEDURE: Operation Date: 10/07/24 10:55 Proposed Procedures p Hysteroscopy w/ Endometrial Sampling [id number], N94.6(Not Applicable) - Conor Acosta MD s POSSIBLE Endometrial Poylpectomy(Not Applicable) - Conor Acosta MD s Endometrial Ablation(Not Applicable) - Conor Acosta MD
--- NOTE | 2024-10-07 12:05 | PM.OP ---
Operative Report Date of procedure: October 07, 2024 Pre-op diagnosis: abnormal uterine bleeding Post-op diagnosis: same Post-op findings: Normal endometrial cavity No endometrial polyps or fibroids Minimal endometrial tissue Global endometrial ablation following procedure Procedure done: Hysteroscopy Curettage of uterus Endometrial ablation with Novasure device Implants: none Specimens removed/disposition: endometrial curettings Surgeon: Conor Acosta MD Anesthesia: MAC Estimated blood loss (mL): 5 Complications: none Findings: see above Condition: stable Disposition: PACU Brief History: 35 y.o. with history heavy menstrual bleeding Procedure: The patient was taken to the OR and placed on the table. General endotracheal anesthesia was induced. The patient was then placed in dorsolithotomy position. The perineum were then prepped and draped in the usual fashion. A speculum was placed in the vagina. The anterior lip of the cervix was grasped with a sharp-toothed tenaculum. The uterus was sounded to 8 cm. The cervix was serially dilated with Hegar dilators. . A hysteroscope was placed into the endometrial cavity. The endometrial cavity was seen to be normal. There were no polyps or fibroids. There was minimal endometrial tissue. The hysteroscope was then removed. Endometrial curettage was done with a sharp curette. Endometrial tissue was sent to pathology. The Novasure device was then primed and inserted into the endometrial cavity. The cervical occlusion sleeve was advanced. Cavity integrity test was done. The device was activated for 60 seconds. The Novasure device was then removed. Repeat hysteroscopy showed an intact endometrial cavity with adequate global endometrial ablation. All instruments were then removed. The sharp-toothed tenaculum was removed. There was no bleeding from the endometrial cavity or cervix. The patient was then placed supine and awakened and taken to the PACU. Postop condition: stable EBL: 5 cc Sponge and instruments counts were normal x 2 Complications: none
--- NOTE | 2024-10-07 12:25 | ANE.PACU2 ---
Inpatient post-anesthesia follow up: Airway intact: Yes Vital signs: Temperature 97.5 F Pulse Rate 69 Respiratory Rate 18 Blood Pressure 112/66 Pulse Oximetry 96 Oxygen Delivery Me thod Room Air Oxygen Flow Rate Fraction of Inspir ed Oxygen Hydration adequate: Yes Nausea and vomiting: No Pain level: 1 Mental status: Baseline
== END 2024-10-07 12:24 | disposition home or self-care (01) ==
PROVIDERS: Anesthesiology; PCP Physician Assistant; Visit Provider Obstetrics & Gynecology
PROC: 0UJD8ZZ Inspection of Uterus and Cervix, Via Natural or Artificial Opening Endoscopic (ICD-10-PCS; CPT 58555; principal; 2024-10-07 10:45)
PROC: (CPT 58999; 2024-10-07 10:45)
DX: N93.9 Abnormal uterine and vaginal bleeding, unspecified (principal); F43.10 Post-traumatic stress disorder, unspecified; F41.8 Other specified anxiety disorders; F33.9 Major depressive disorder, recurrent, unspecified
CPT/HCPCS: 58558; 81025; 88305; J1100; J1200; J2250; J2405; J2704; J3010; J7030

== ENCOUNTER 2024-10-17 10:11 | Emergency (ER) | payer MEDICAID, SELFPAY ==
--- OUTSIDE RECORDS SUMMARY | 2024-10-11 13:32 | XMS_ITS | Continuity of Care Document ---
Author Name [facility] Address [address] [place] [address] Organization [facility] Care Team Providers Care Dish Washer Name Role Phone [facility] Unavailable Unavailable Problems Problem Status Onset Date Problem Type Date of Resolution Comments Source Morbid (severe) obesity due to excess calories 10/10/2024 Diagnosis Post-surgical malabsorption (disorder) 08/28/2024 Diagnosis Body mass index 40+ - severely obese (finding) Active Condition Added by Discern Rule PROB_ADD_BMI Severe obesity (disorder) Active Condition Added by Discern Rule PROB_ADD_BMI Gastro-esophageal reflux disease without esophagitis Active Diagnosis Chronic gastritis (disorder) Diagnosis Gastroesophageal reflux disease without esophagitis (disorder) Diagnosis Diaphragmatic hernia (disorder) Diagnosis Foreign body in stomach (disorder) Diagnosis Foreign body (FB) in orifice (disorder) Diagnosis Essential hypertension (disorder) Diagnosis Body mass index 40+ - severely obese (finding) Diagnosis Long-term current use of drug therapy (situation) Diagnosis Gastritis (disorder) Diagnosis Gastroparesis (disorder) Diagnosis Migraine (disorder) Diagnosis Obesity, class 1 Active Diagnosis Allergies, Adverse Reactions, Alerts Substance Category Reaction Severity Reaction type Status Date Reported Comments Source Depakote Assertion irritable Drug allergy Active [facility] Results Order Name Results Value Reference Range Date Interpretation Comments Source GENERAL CHEMISTRY CO2 23 mmol/L 20 - 31 10/11 14:40 :00 [facility] GENERAL CHEMISTRY Anion gap 14 mmol/L 0 - 20 10/11 14:40 :00 [facility] GENERAL CHEMISTRY BUN <5 mg/dL 6 - 20 10/11 14:40 :00 Result Comment: {<CC} [facility] GENERAL CHEMISTRY Creatinine, standardized 0.6 mg/dL 0.5 - 1.0 10/11 14:40 :00 Interpretive Data: Covwmd-cn-ood e transgender patients on testosterone therapy should have results assessed using the male reference range. Kugu-eu-gclvz e transgender patients on hormone-modul ating therapy clinical judgment is advisedfor assessment. [facility] GENERAL CHEMISTRY Calcium 9.1 mg/dL 8.3 - 10.6 10/11 14:40 :00 [facility] GENERAL CHEMISTRY Estimated GFR for Adults 129 mL/min/1.7 3m 10/11 14:40 :00 Interpretive Data: Changed to CKD-EPI 2020 on 2020. [facility] GENERAL CHEMISTRY Glucose Lvl 95 mg/dL 70 - 139 10/11 14:40 :00 [facility] GENERAL CHEMISTRY Estimated GFR for peds Not Calculated mL/min/1.7 3m 10/11 14:40 :00 Interpretive Data: The estimated GFR was calculated using the B arlet Lee equation (2009) . Reference: Pediatric GFR calculator at National Kid[employer] Website. [facility] GENERAL CHEMISTRY Potassium 4.1 mmol/L 3.5 - 5.1 10/11 14:40 :00 [facility] GENERAL CHEMISTRY Chloride 104 mmol/L 98 - 107 10/11 14:40 :00 [facility] GENERAL CHEMISTRY Sodium 137 mmol/L 136 - 145 10/11 14:40 :00 [facility] HEMATOLOGY PROFILES Absolute Neutrophils 10.39 x10(9)/L 1.70 - 7.00 10/11 14:40 :00 [facility] HEMATOLOGY PROFILES % Immature Granulocytes 0.40 % 0.02 - 0.42 10/11 14:40 :00 [facility] HEMATOLOGY PROFILES % Basophils 0.1 % 10/11 14:40 :00 [facility] HEMATOLOGY PROFILES % Eosinophils 0.0 % 10/11 14:40 :00 [facility] HEMATOLOGY PROFILES Abs Lymphocytes 1.35 x10(9)/L 0.90 - 2.90 10/11 14:40 :00 [facility] HEMATOLOGY PROFILES % Lymphocytes 10.4 % 10/11 14:40 :00 [facility] HEMATOLOGY PROFILES % Neutrophils 80.1 % 10/11 14:40 :00 [facility] HEMATOLOGY PROFILES Abs Immature Granulocytes 0.05 x10(9)/L 0.00 - 0.03 10/11 14:40 :00 [facility] HEMATOLOGY PROFILES Absolute Nucleated RBCs 0.0 x10(9)/L 0.0 - 0.0 10/11 14:40 :00 Interpretive Data: Normal values not established in patients less than 18 years old. [facility] HEMATOLOGY PROFILES Abs Basophils 0.01 x10(9)/L 0.00 - 0.30 10/11 14:40 :00 [facility] HEMATOLOGY PROFILES % Nucleated RBCs 0.0 % 10/11 14:40 :00 [facility] HEMATOLOGY PROFILES Abs Eosinophils 0.00 x10(9)/L 0.05 - 0.50 10/11 14:40 :00 [facility] HEMATOLOGY PROFILES % Monocytes 9.0 % 10/11 14:40 :00 [facility] HEMATOLOGY PROFILES Abs Monocytes 1.17 x10(9)/L 0.30 - 0.90 10/11 14:40 :00 [facility] HEMATOLOGY PROFILES PLT 271 x10(9)/L 150 - 450 10/11 14:40 :00 [facility] HEMATOLOGY PROFILES RDW SD 41.8 fL 36.4 - 46.3 10/11 14:40 :00 [facility] HEMATOLOGY PROFILES RDW CV 13.7 % 11.9 - 15.5 10/11 14:40 :00 [facility] HEMATOLOGY PROFILES RBC 3.99 x10(12)/L 3.90 - 5.03 10/11 14:40 :00 [facility] HEMATOLOGY PROFILES WBC 12.97 x10(9)/L 3.50 - 10.50 10/11 14:40 :00 [facility] HEMATOLOGY PROFILES MPV 10.3 8.0 - 12.0 10/11 14:40 :00 [facility] HEMATOLOGY PROFILES MCV 83.5 fL 81.6 - 98.3 10/11 14:40 :00 [facility] HEMATOLOGY PROFILES HCT 33.3 % 34.9 - 44.5 10/11 14:40 :00 Interpretive Data: Cslyqh-nl-nkw e transgender patients on testosterone therapy should have results assessed using the male reference range. Ndvy-fr-zextk e transgender patients on hormone-modul ating therapy clinical judgment is advisedfor assessment. [facility] HEMATOLOGY PROFILES HGB 11.3 g/dL 12.0 - 15.5 10/11 14:40 :00 Interpretive Data: Ygnqib-wj-lam e transgender patients on testosterone therapy should have results assessed using the male reference range. Zadc-xe-drscw e transgender patients on hormone-modul ating therapy clinical judgment is advisedfor assessment. [facility] HEMATOLOGY PROFILES MCHC 33.9 g/dL 32.0 - 36.0 10/11 14:40 :00 [facility] HEMATOLOGY PROFILES MCH 28.3 pg 26.0 - 33.0 10/11 14:40 :00 [facility] Surgical Report Surgical Report SURGICAL PATHOLOGY REPORT Patient Name: ROBERT FALLON Specimen Number: [id number] Patient Collection Date: 10/10/2024 Submitting Physician: Erna Londono M.D. Signout Date: 10/13/2024 Specimen(s ) Received PARTIAL GASTRECTOM Y ======== FINAL DIAGNOSIS: STOMACH, PARTIAL GASTRECTOM Y: BENIGN SEGMENT OF STOMACH NEGATIVE FOR INTESTINAL METAPLASIA , DYSPLASIA, OR MALIGNANCY By this signature, I attest that the above diagnosis is based upon my personal examinatio n of the tissue and slides (and/or other material indicated in the diagnosis) , per policy. Ish Floyd M.D. Electronic ally Signed Out ======== History GERD Gross Descriptio n In formalin labeled 'partial gastrectom y' is a 4.3 x 2.6 x 1.7 cm wedge of stomach. The stomach is closed with two undesignat ed staple lines. The outer surface is pink purple smooth with a minimal amount of attached soft tissue. The staple lines are removed to reveal conti-pink normal rugal folds. No areas of mucosal ulceration or mucosal lesions are identified . There are multiple pillo within the wall of the stomach suggestive of previous operations . The resection margin grossly appears viable. Sections are submitted in 1A-1C. (VICTORIA Shelley ([facility])) TSL The performanc e characteri stics of the immunohist ochemical stains cited in this report (if any) were determined by the [facility] Department of Pathology. They have not been cleared or approved by the U.S. Food and Drug Administra tion. The FDA has determined that such clearance or approval is not necessary. This test is for clinical purposes. It should not be regarded as investigat ional or for research. This laboratory is certified under the Clinical Laboratory Improvemen t Amendments of 1988 (CLIA) as qualified to perform high complexity clinical laboratory testing. Unless gross-only is specified in the diagnosis, the final diagnosis for each specimen is based on a microscopi c heather n of histologic sections of the tissue from each specimen. 10/10 13:26 :00 Missing Attachment [id number].PDF can be viewed in source system [facility] SITE LAB RESULTS POC U hCG (Rals) Negative *NA* (10/10/24 5:06 AM) 10/10 10:06 :00 [facility] GENERAL CHEMISTRY Iron 73 ug/dL 50 - 170 08/28 16:22 :00 [facility] GENERAL CHEMISTRY TIBC 363 ug/dL 250 - 425 08/28 16:22 :00 [facility] GENERAL CHEMISTRY Iron Saturation 20.0 % 20.0 - 55.0 08/28 16:22 :00 [facility] GENERAL CHEMISTRY Calcium 9.7 mg/dL 8.3 - 10.6 08/28 16:22 :00 [facility] GENERAL CHEMISTRY Glucose Lvl 106 mg/dL 70 - 139 08/28 16:22 :00 [facility] GENERAL CHEMISTRY Chloride 103 mmol/L 98 - 107 08/28 16:22 :00 [facility] GENERAL CHEMISTRY ALT-SGPT 14 U/L 10 - 40 08/28 16:22 :00 [facility] GENERAL CHEMISTRY BUN 7 mg/dL 6 - 20 08/28 16:22 :00 [facility] GENERAL CHEMISTRY Anion gap 14 mmol/L 0 - 20 08/28 16:22 :00 [facility] GENERAL CHEMISTRY T Bili 0.51 mg/dL 0.30 - 1.20 08/28 16:22 :00 [facility] GENERAL CHEMISTRY Sodium 141 mmol/L 136 - 145 08/28 16:22 :00 [facility] GENERAL CHEMISTRY Potassium 3.6 mmol/L 3.5 - 5.1 08/28 16:22 :00 [facility] GENERAL CHEMISTRY CO2 27 mmol/L 20 - 08/28 16:22 :00 [facility] GENERAL CHEMISTRY Estimated GFR for peds Not Calculated mL/min/1.7 3m 08/28 16:22 :00 Interpretive Data: The estimated GFR was calculated using the B arlet Lee equation (2009) . Reference: Pediatric GFR calculator at National [employer] Website. [facility] GENERAL CHEMISTRY Total Protein 7.4 g/dL 5.7 - 8.2 08/28 16:22 :00 [facility] GENERAL CHEMISTRY Creatinine, standardized 0.7 mg/dL 0.5 - 1.0 08/28 16:22 :00 Interpretive Data: Yjxrmo-rn-wsb e transgender patients on testosterone therapy should have results assessed using the male reference range. Rixz-nr-jmdww e transgender patients on hormone-modul ating therapy clinical judgment is advisedfor assessment. [facility] GENERAL CHEMISTRY Estimated GFR for Adults 124 mL/min/1.7 3m 08/28 16:22 :00 Interpretive Data: Changed to CKD-EPI 2020 on 2020. [facility] GENERAL CHEMISTRY AST-SGOT 18 U/L 08/28 16:22 :00 [facility] GENERAL CHEMISTRY Albumin 3.7 g/dL 3.4 - 5.0 08/28 16:22 :00 [facility] GENERAL CHEMISTRY Alkaline Phosphatase 85 U/L 35 - 104 08/28 16:22 :00 [facility] GENERAL CHEMISTRY Ferritin 5.4 ng/mL 7.3 - 270.7 08/28 16:22 :00 [facility] GENERAL CHEMISTRY HDL Cholesterol 40 mg/dL 08/28 16:22 :00 Interpretive Data: HDL Cholesterol Level mg/dL Category Less than 40(for Men) Low HDL cholesterol. A major risk factor for heart disease. Less than 50 (for Women) 60 and above High HDL cholesterol. An HDL of 60 mg/dL and above is considered protective against heart disease. National Cholesterol Education Program [facility] [address] [address] [facility] [address] http:[email or web address] i.nih.gov [facility] GENERAL CHEMISTRY Triglyceride s 156 mg/dL 08/28 16:22 :00 Interpretive Data: Less than 150 Normal 150 - 199 Borderline high 200 - 499 High 500 and above Very high National Cholesterol Education Program [facility] [address] [address] [place] [address] http://www.[email or web address] health[facility],nih.gov [facility] GENERAL CHEMISTRY LDL (Calculated) 58 mg/dL 0 - 129 08/28 16:22 :00 Interpretive Data: LDL cholesterol is calculated based on the NIH-Yu equation effective 09-27-2023. The NIH equation gives valid calculated LDL-C results with triglyceride concentration s up to 800 mg/dL. LDL Cholesterol Level mg/dL Category Less than 100 Optimal 100 to 129 Near or above optimal 130 to 159 Borderline high 160 to 189 High 190 and above Very High Note: Values < 80 mg/dL may indicate hypobetalipop roteinemia, if not on Statin therapy. Reference: Yu et al. DOROTHY Cardiol. 2020; 26: 1-9. [facility] GENERAL CHEMISTRY Cholesterol HDL Ratio 3.1 08/28 16:22 :00 [facility] GENERAL CHEMISTRY Cholesterol 125 mg/dL 08/28 16:22 :00 [facility] GENERAL CHEMISTRY Magnesium 1.92 mg/dL 1.60 - 2.60 08/28 16:22 :00 [facility] GENERAL CHEMISTRY Phosphorus 2.6 mg/dL 2.4 - 5.1 08/28 16:22 :00 [facility] GENERAL CHEMISTRY Vitamin B12 479 pg/mL 211 - 911 08/28 16:22 :00 [facility] GENERAL CHEMISTRY 25-OH Vitamin D Level 36.71 ng/mL 20.00 - 100.00 08/28 16:22 :00 [facility] GENERAL CHEMISTRY Folate 8.50 ng/mL 08/28 16:22 :00 [facility] HEMATOLOGY PROFILES % Lymphocytes 17.2 % 08/28 16:22 :00 [facility] HEMATOLOGY PROFILES % Eosinophils 1.9 % 08/28 16:22 :00 [facility] HEMATOLOGY PROFILES % Basophils 1.0 % 08/28 16:22 :00 [facility] HEMATOLOGY PROFILES % Monocytes 5.3 % 08/28 16:22 :00 [facility] HEMATOLOGY PROFILES Absolute Nucleated RBCs 0.0 x10(9)/L 0.0 - 0.0 08/28 16:22 :00 Interpretive Data: Normal values not established in patients less than 18 years old. [facility] HEMATOLOGY PROFILES % Neutrophils 74.4 % 08/28 16:22 :00 [facility] HEMATOLOGY PROFILES % Nucleated RBCs 0.0 % 08/28 16:22 :00 [facility] HEMATOLOGY PROFILES Abs Eosinophils 0.16 x10(9)/L 0.05 - 0.50 08/28 16:22 :00 [facility] HEMATOLOGY PROFILES Abs Basophils 0.08 x10(9)/L 0.00 - 0.30 08/28 16:22 :00 [facility] HEMATOLOGY PROFILES Abs Immature Granulocytes 0.02 x10(9)/L 0.00 - 0.03 08/28 16:22 :00 [facility] HEMATOLOGY PROFILES % Immature Granulocytes 0.20 % 0.02 - 0.42 08/28 16:22 :00 [facility] HEMATOLOGY PROFILES Abs Monocytes 0.44 x10(9)/L 0.30 - 0.90 08/28 16:22 :00 [facility] HEMATOLOGY PROFILES Absolute Neutrophils 6.21 x10(9)/L 1.70 - 7.00 08/28 16:22 :00 [facility] HEMATOLOGY PROFILES Abs Lymphocytes 1.44 x10(9)/L 0.90 - 2.90 08/28 16:22 :00 [facility] HEMATOLOGY PROFILES MCV 86.2 fL 81.6 - 98.3 08/28 16:22 :00 [facility] HEMATOLOGY PROFILES MCHC 32.2 g/dL 32.0 - 36.0 08/28 16:22 :00 [facility] HEMATOLOGY PROFILES RDW CV 14.2 % 11.9 - 15.5 08/28 16:22 :00 [facility] HEMATOLOGY PROFILES MCH 27.8 pg 26.0 - 33.0 08/28 16:22 :00 [facility] HEMATOLOGY PROFILES RBC 4.43 x10(12)/L 3.90 - 5.03 08/28 16:22 :00 [facility] HEMATOLOGY PROFILES HGB 12.3 g/dL 12.0 - 15.5 08/28 16:22 :00 Interpretive Data: Igrrhs-dw-wlz e transgender patients on testosterone therapy should have results assessed using the male reference range. Imyt-ef-egseu e transgender patients on hormone-modul ating therapy clinical judgment is advisedfor assessment. [facility] HEMATOLOGY PROFILES WBC 8.35 x10(9)/L 3.50 - 10.50 08/28 16:22 :00 [facility] HEMATOLOGY PROFILES HCT 38.2 % 34.9 - 44.5 08/28 16:22 :00 Interpretive Data: Cihibf-wg-nbu e transgender patients on testosterone therapy should have results assessed using the male reference range. Jfvl-ny-ygyun e transgender patients on hormone-modul ating therapy clinical judgment is advisedfor assessment. [facility] HEMATOLOGY PROFILES RDW SD 45.4 fL 36.4 - 46.3 08/28 16:22 :00 [facility] HEMATOLOGY PROFILES PLT 373 x10(9)/L 150 - 450 08/28 16:22 :00 [facility] HEMATOLOGY PROFILES MPV 10.8 8.0 - 12.0 08/28 16:22 :00 [facility] Int[facility]TH 82.6 pg/mL 18.4 - 80.1 08/28 16:22 :00 [facility] REFERENCE LABS Thiamin(Wh Bld)-[place] 94 nmol/L 70 - 180 08/28 16:22 :00 Result Comment: ------ADDITIO NAL INFORMATION-- ---- This test was developed and its performance characteristi cs determined by [facility] in a manner consistent with CLIA requirements. This test has not been cleared or approved by the U.S. Food and Drug Administratio n. Test Performed by: [address] [address] Keycase Assembler: Tal Perez Ph.D.; CLIA# [id number] [facility] RE[facility] Free Retinol(Vit A)-[place] 50.6 ug/dL 32.5 - 78.0 08/28 16:22 :00 Result Comment: ------ADDITIO NAL INFORMATION-- ---- This test was developed and its performance characteristi cs determined by [facility] in a manner consistent with CLIA requirements. This test has not been cleared or approved by the U.S. Food and Drug Administratio n. Test Performed by: [address], [place] [address] Keycase Assembler: Tal Perez Ph.D.; CLIA# [id number] [facility] REFERENCE LABS A-Tocopherol , Vit E-[place] 8.7 mg/L 5.5 - 17.0 08/28 16:22 :00 Result Comment: ------ADDITIO NAL INFORMATION-- ---- This test was developed and its performance characteristi cs determined by [facility] in a manner consistent with CLIA requirements. This test has not been cleared or approved by the U.S. Food and Drug Administratio n. Test Performed by: [facility] [place] [address] Keycase Assembler: Tal Perez Ph.D.; CLIA# [id number] [facility] REFERENCE LABS Vitamin K1-[place] 0.18 ng/mL 0.10 - 2.20 08/28 16:22 :00 Result Comment: ------ADDITIO NAL INFORMATION-- ---- This test was developed and its performance characteristi cs determined by [facility] in a manner consistent with CLIA requirements. This test has not been cleared or approved by the U.S. Food and Drug Administratio n. Test Performed by: [facility] [place] [address] Keycase Assembler: Tal Perez Ph.D.; CLIA# [id number] [facility] REFERENCE LABS Zinc, S-Jarvis 65 ug/dL 60 - 106 08/28 16:22 :00 Result Comment: ------ADDITIO NAL INFORMATION-- ---- This test was developed and its performance characteristi cs determined by [facility] in a manner consistent with CLIA requirements. This test has not been cleared or approved by the U.S. Food and Drug Administratio n. Test Performed by: [facility] - [address] [address] Keycase Assembler: Tal Perez Ph.D.; CLIA# [id number] [facility] REFERENCE LABS Copper, S-Jarvis 125 ug/dL 77 - 206 08/28 16:22 :00 Result Comment: ------ADDITIO NAL INFORMATION-- ---- This test was developed and its performance characteristi cs determined by [facility] in a manner consistent with CLIA requirements. This test has not been cleared or approved by the U.S. Food and Drug Administratio n. Test Performed by: [facility] - [address] [address] Keycase Assembler: Tal Perez Ph.D.; CLIA# [id number] [facility] CLINIC SITE LAB RESULTS POC U hCG (Rals) Negative *NA* (04/29/24 10:16 AM) 04/29 15:16 :00 [facility] Consultation Notes Results Value Date Source Op/Procedure Note Date of Procedure: 0 10/10/2024 Indication for Surgery The patient is a 24 y/o who presents for planned partial gastrectomy and hiatal hernia repair Preoperative Diagnosis Morbid Obesity, BMI 34, Class 1 Type 3 hiatal hernia hx of sleeve gastrectomy Severe GERD, refractory to medications Bile Reflux gastritis Gastroparesis Postoperative Diagnosis Morbid Obesity, BMI 34, Class 1 Type 3 hiatal hernia hx of sleeve gastrectomy Severe GERD, refractory to medications Bile Reflux gastritis Gastroparesis Operation 1.) Robot Assisted, Laparoscopic Partial Gastrectomy with a Alfreda-en-Y Reconstruction 2.) Upper Endoscopy (Esophagophagstrojejunoscopy) 3.) Hiatal Hernia Repair (type 3) Surgeon(s) Erna Londono MD Dimensional Integration Engineer Alfred Leonardo MD (No qualified resident was available to assist with the procedure. Assistance was needed with retraction, and dissection) Steve Ryan MD (assisted with besiding) Anesthesia General Endotracheal Estimated Blood Loss 10 cc Findings 1. Hiatal anatomy: Hiatal hernia present: type 3 2. Liver: normal Specimen(s) partial gastrectomy Complications None Technique Patient was seen in the pre-op holding unit and informed consent was confirmed. Risks, benefits, and alternatives of the surgery were reviewed with patient. All questions by the patient and family were answered. Patient was brought to the operating room and placed in the supine position. Pressure points were checked and appropriately padded. Bilateral sequential compression devices were applied. Bed restraints were placed to ensure the patient was adequately secured. Patient was then placed under general endotracheal anesthesia. Patient s abdomen was prepped and draped in the usual sterile fashion. A preoperative dose of antibiotics was then provided, followed by a preoperative timeout initiated by the attending. Surgery was began with a 8 mm transverse skin crease incision to the left of umbilicus, approximately 5cm from the umbilicus. The abdomen was insuflatted using a Veress needle through the incision. An 8 mm optical robotic trocar was inserted into the peritoneal cavity. Pneumoperitoneum was established with carbon dioxide gas to 15 mm Hg pressure. There was no blood, fluid, or evidence of intra-abdominal injury at the entry site. One of 8 mm port was inserted on the left side spaced ~ 5 cm from the initial trocar and one was placed at midline under direct vision . A 12mm port was inserted to the right of umbilicus through rectus muscle, approximately 5cm form the umbilicus. A stitch was used to elevate the left lobe of the liver. Patient was positioned in 12 degrees reverse Trendelenburg. Robot was docked, instruments inserted under direct vision safely. At this point the remainder of the procedure was performed from the robotic console. We then proceeded with repair of the patient hiatal hernia prior to proceeding with the partial gastrectomy. The vessel sealer was used to divide the phrenoesophageal membrane circumferentially beginning along the anterior esophagus, beginning at the gastrohepatic membrane. A hernia sac was identified. There was gastric fundus located above the diaphragmatic gilberto. This was a type 3 hiatal hernia. A combination of blunt dissection and vessel sealer were utilized. The endoabdominal fascia was from the esophagus circumferentially beginning at the right gilberto of the diaphragm. The right and left crura were dissected free from the esophagus. The esophagus was mobilized within the mediastinum, circumferentially the esophagus posteriorly from the vertebral column and aorta, laterally from both lung pleura and anteriorly from the pericardium. The dissection was extending proximally into the mediastinum until 4 cm of intraabdominal esophagus was present. The vagus nerves were identified and preserved. This extensive dissection resulted in reduction of all of stomach that was herniated through the esophageal hiatus into the abdomen as well as distal esophagus to prevent reherniation. 3 cm of intraabdominal esophagus was present. A cruraloplasty was performed with 2-0 V-Loc (permanent) suture, placing sutures inferior to the esophagus.The opening allowed passage of laparoscopic grasper to ensure it was not too tight. Hemostasis was meticulous. At this point the remainder of the procedure was performed from the robotic console. Lysis of adhesions was performed along the lateral aspect of the patient's prior sleeved stomach. We then proceeded with pouch creation. The Lesser sac was entered with a combination of blunt and sharp dissection approximately 5 cm's distal to GE junction adjacent to the lesser curve in perigastric fashion after taking down the mesentery using a vessel sealer. A 60 mm blue stapler load was fired across first using [employer]Form stapler. A second two staple load was then used to resect a portion of the proximal remnant stomach which appeared to be ischemic. This was removed and sent for pathology review. The greater omentum was retracted cranially, divided in the midline to reduce tensin on the alfreda limb. The Ligament of Treitz was identified and the small bowel was measured to to 75 cm in clockwise fashion, which will become the Biliary limb later. An enterotomy was then created at this level using cautery scissors. Using the scissors a gastrotomy was also created on the posterior aspect of the pouch. Using a white staple load, the [place]-loop of jejunum was anastomosed to the gastric pouch, measuring the anastomosis to be approximately 25 mm. The small bowel was transected with a white staple load creating the biliopancreatic limb, and the mesentery was not divided. Then the small bowel distal to GJ anastomosis was followed for 100cm in the anticlockwise direction, and a stay stitch using (2-0 Vicryl) was positioned in this area through the measured bowel and the previously created bilio-pancreatic limb. Small enterotomies were created with scissors on the inner aspect of both limbs. Then a side to side functional end to end jejunojejunostomy was created with 60 mm white load. Common enterotomy was suture closed with running Stratafix. Hemostasis verified. Then the mesenteric defects at the JJ anastomosis and Heaton`s space were closed with running 2-0 Vicryl suture, in running fashion. At this point an endoscopic exam was performed to investigate the integrity of GJ after clamping proximal part of alimentary limb. Gastroscope was advanced across the Gastrojejunostomy into proximal jejunum. No narrowing or kinking noted. No bleeding was noted form the staple line, Pouch was measured at 5 cm's size. The GE junction was noted to be below the hiatal opening. No air leak was noted from GJ area or the blind end of jejunum after submerging under saline. Gastroscope was carefully withdrawn after suction of air. Hemostasis was verified along the pouch, remnant and stapled ends of the small bowel, and 4cc of Vistaseal was applied along the staple line. Procedure was concluded, the liver retractor stitch was removed, abdomen was desufflated and all ports were carefully withdrawn under vision. No bleeding noted at port sites. All skin incisions were closed with 4-0 Monocryl subcuticular sutures followed by application of Dermabond. Sponges, needles, and instruments were counted x2 and were correct. There were no complications. Erna Albarado MD was scrubbed and present for entire procedure. Local anesthesia: Marcaine 0.25% 30 cc at port sites Location: [facility] Drains: None Condition: Good Transfer: PACU 10/10/2024 Op/Procedure Note [id number] Patie nt Out-Room Date/Time: 10-OCT-2024 09:34 Primary Procedure: ROBOT ASSISTED LAPAROSCOPIC PARTIAL GASTRECTOMY WITH ALFREDA-EN-Y RECONSTRUCTION WITH hiatal hernia repair Primary Surgeon: Erna Londono MD Fellow(s): Connor Leonardo MD Resident(s): Enoc Ryan MD Total estimated blood loss: 10 Pre Operative Diagnosis: GERD Post Operative Diagnosis: GERD Type of anesthesia: General Complications: see surgical note Specimen source: 1. PARTIAL GASTRECTOMY Test: Pathology-Gross Only Implants: N/A 10/10/2024 General Surgery Clinic Note Chief Complaint ROBERT History of Present Illness Patient has completed preop requirements and presents today to discuss scheduling weight loss surgery. Patient has now reached a BMI of 34. Associated comorbidities include: severe GERD obesity No family h/o DVT/PE No personal history of DVT/PE Dysphagia: no Reflux: yes, severe intractable GERD Smoking history: none NSAID use: none Surgical history: BTL, cholecystectomy, LSG Preop Endoscopy: yes, 04/29/24, The patient was found to have bile reflux gastritis, and a component of gastroparesis. There was a small hiatal hernia. Hill Grade: 2 Preop EKG: yes, 08/28/24, sinus bradycardia Preop Labs: yes, 08/28/24 Preop studies: noned Review of Systems Review of systems performed. Pertinent positives noted in HPI. Physical Exam Vitals and Measurements HR: 79 RR: 16 BP: 131/79 SpO2: 100% HT: 161.4 cm WT: 88.5 kg BMI: 34 Constitutional: Well nourished, NAD HENT: Head normocephalic, atraumatic, no evidence of abnormalities. No gross nasal drainage. Mouth: oral mucosa pink and moist Neck: Soft supple without masses. Trachea midline. No thyromegaly Eyes: PEERL, EOM-intact, sclera clear. Conjunctivae wnl. No lid abrasions/lacerations Respiratory: Clear to auscultation bilaterally w/o wheezes, rales or rhonchi. No use of accessory muscles. Good respiratory effort Cardiovascular: Regular rate and rhythm w/o murmurs, rubs or gallops. no significant lower extremity edema. Abdomen: Soft without distention, masses, organomegaly, tenderness, rebound, guarding, rigidity. No anterior abdominal wall hernias present Skin: warm and dry. No obvious exposed lesions. Skin turgor wnl Psychiatric: Mood and affect WNL. Judgement and insight intact Clinic Procedure Assessment/Plan Morbid obesity Patient's BMI is now 34. Patient is interested in partial gastrectomy with alfreda-en-y reconstruction due to comorbidities listed in the HPI above. After my review of patient's records and discussion with the patient I feel that patient is a good candidate for the procedure. Plan for ICU admission if intra-op oxygenation is insufficient. The risks of laparoscopic Alfreda-en-Y divided gastric bypass were discussed at length with the patient. These include but are not limited to the risk of bleeding, infection, injury to adjacent organs, staple line leak, excessive or inadequate weight loss, late weight regain, dysphagia, dumping syndrome, chronic hypoglycemia, internal hernia, intussusception, small bowel obstruction, development of gallstones and nutritional deficiencies. Alternative therapies to laparoscopic Alfreda-en-Y divided gastric bypass were also discussed and include medically supervised weight loss, laparoscopic vertical sleeve gastrectomy, laparoscopic duodenal switch and laparoscopic SIERRA-S. The benefits of laparoscopic Alfreda-en-Y divided gastric bypass include potential significant improvement in morbid obesity with improvements or resolution of comorbid conditions. Stop the following medications at the following times: take phentermine every other day 3 wks pre-op and stop completely 2 wks before Preop studies reviewed and listed above. The visit required complex medical management through an ongoing care relationship with the patient. I, Isabelle Amaya, am working as a scribe for and in the presence of Dr. Erna Londono at 09/16/24 14:41:57. Attestation by Erna Londono MD on September 17, 2024 21:48 I have reviewed the scribe's note documented above. This was scribed in my presence. I have reviewed for accuracy and it reflects my service for the date of service. Problem List/Past Medical History Ongoing BMI 40.0-44.9, adult Severe obesity Procedure/Surgical History Robotic Assisted Sleeve Gastrectomy Service Date: 10/05/2023 EGD Service Date: 07/03/2023 tubal ligation Service Date: 2020 christina Service Date: 2018 Medications galcanezumab(Emgality Prefilled Pen 120 mg/mL subcutaneous solution), [id number] pantoprazole(Protonix 40 mg oral delayed release tablet), 40 mg= 1 Tablet(s), Oral, bid, 1 refills phentermine(phentermine 37.5 mg oral tablet), 37.5 mg= 1 Tablet(s), Oral, Daily, 1 refills sertraline(sertraline 50 mg oral tablet), 100 mg= 2 Tablet(s), Daily sucralfate(sucralfate 1 g oral tablet), 1 g= 1 Tablet(s), Oral, AC and Bedtime, 1 refills traZODone(traZODone 100 mg oral tablet), 100 mg= 1 Tablet(s), At Bedtime Allergies Depakote irritable Social History Smoking Status Never smoker Alcohol - Denies Alcohol Use Substance Abuse - Denies Substance Abuse Tobacco - Denies Tobacco Use Family History Immunizations Health Maintenance Lab Results Diagnostic Results Visit Information Attending Physician: Erna Londono MD Primary Care Physician: Malik Crane DO Visit Date: 09/16/2024 09/16/2024 General Surgery Clinic Note Chief Complaint mswl History of Present Illness Medically Supervised Weight Loss follow-up Medication prescribed for weight loss: Phentermine 37.5 mg Symptoms: Denies Diet and Exercise History: Currently on a special diet: water, post op bariatric diet, 65g protein Medication use in past for weight loss: phentermine Exercise: Walks with family and trampoline - daily with kids Bariatric surgery in the past: LSG 10/05/[address] Londono Highest weight with MO Bariatric: 122 kg Current weight: 89 kg Pt is not currently , , or trying to conceive. Historic use of AOMs: Phentermine: Yes, reports no weight loss Topamax: Yes, for migraines - doesn't remember if she tolerated Weight history: Reports she lost a good amount of weight after LSG 09/2023. Reports she has hit a weight loss plateau. Reports decreased appetite/ can only eat a couple bites. 06/16/24: WT: 95 kg BMI: 36.5 - start Phentermine 37.5 mg - 1/2 tab daily 08/28/24: WT: 89 kg BMI: 34.2 - Continue phentermine 37.5 mg Patients personal goal: 160 lbs 08/28/24: Patient is seeing Dr. Londono and they are planning to proceed with partial gastrectomy with alfreda-en-y reconstruction for reflux control d/t reflux s/p LSG. EGD completed 04/2024. EKG completed today in clinic. LABS to be completed after visit today. Once completed, patient needs to be scheduled for pre-op education class. Review of Systems ROS: Denies cardiac history including: HTN, NE, cardiac stents, palpitations, chest pain. Denies: Glaucoma, kidney/liver disease, hyperthyroidism, DM, h/o kidney stones. Denies h/o drug/alcohol abuse. Psychiatric: Denies feelings of SI, HI, anxiety/depression +gastroparesis. Phentermine: Denies hx of cardiovascular disease, including CHF, CAD, NE, cardiac stents, uncontrolled hypertension, arrhythmias. Denies hx of CVA, kidney/liver disease DM, alcohol/drug abuse, uncontrolled anxiety, bipolar disorder, use of other stimulants. Physical Exam Vitals and Measurements HR: 63 RR: 18 BP: 119/82 SpO2: 100% HT: 161.4 cm WT: 89 kg BMI: 34.2 Constitutional: Well nourished Cardiovascular: Regular rate and rhythm Respiratory: No use of accessory muscles. Good respiratory effort. Lung sounds clear and equal bilaterally. Psychiatric: Mood and affect WNL. Judgment and insight intact. Clinic Procedure Assessment/Plan History of bariatric surgery Postoperative malabsorption Orders: phentermine(phentermine 37.5 mg oral tablet), 37.5 mg= 1 Tablet(s), Oral, Daily, 1 refills 1. class 1 obesity, BMI: 34.2 -- Follow up in 2 months -- Continue phentermine 37.5 mg (1/2 tab daily x 2 weeks) -- Encouraged increased protein and fluid intake, encouraged increased exercise with combination of cardio and resistance training. Avoid GLP-1 d/t gastroparesis Consider naltrexone, metformin, topiramate --> Pt denies chest pain, palpitations I instructed the patient to start taking the medication 1/2 tablet per day for the first 2 weeks and then increasing it to 1 full tab daily if tolerating the medication well. I discussed the adverse side effects that can occur with the medication such as increased heart rate, heart palpitations, insomnia, tremors, headache, and dry mouth, mood changes, constipation with instructions to call the clinic if they have any questions or concerns. 2. GERD s/p LSG -- Continue pantoprazole 40 mg BID -- Avoid foods that worsen symptoms -- Completed EGD 04/2024 -- Plan for partial gastrectomy with alfreda-en-y reconstruction with Dr. Londono --> EKG ordered and completed today - Sinus bradycardia --> pre-op LABS to be completed after visit CBC with Auto Differential Comprehensive Metabolic Panel Copper Ferritin Level Folate Level Intact PTH Iron Level and TIBC Lipid Profile Magnesium Level Phosphorus Level Vitamin A Vitamin B1 (Thiamin) Whole Blood-[place] Vitamin B12 Level Vitamin D Level Vitamin E level Vitamin K1 level Zinc Level-[place] 3. Dietary counseling and surveillance -Food journalling: Encouraged patient to track and monitor nutritional intake -encouraged measurement of portion sizes, focusing on protein intake 4. Exercise counseling -encouraged activity most days of the week, focusing on ability of what patient is capable of performing, working to increase, as able. -encouraged strength training activities to build and maintain lean body mass, as able I discussed with the patient the importance of dietary modifications and routine exercises in order to maximize results during medically supervised weight loss. Patient was provided a handout today that includes instructions on ways to safely begin routine exercise, adequate portion sizes, and meal planning options that are rich in nutrients, low in starch, high in healthy fats, and high-protein. Problem List/Past Medical History Ongoing BMI 40.0-44.9, adult Severe obesity Procedure/Surgical History Robotic Assisted Sleeve Gastrectomy Service Date: 10/05/2023 EGD Service Date: 07/03/2023 tubal ligation Service Date: 2020 christina Service Date: 2018 Medications galcanezumab(Emgality Prefilled Pen 120 mg/mL subcutaneous solution), [id number] pantoprazole(Protonix 40 mg oral delayed release tablet), 40 mg= 1 Tablet(s), Oral, bid, 1 refills phentermine(phentermine 37.5 mg oral tablet), 37.5 mg= 1 Tablet(s), Oral, Daily, 1 refills sertraline(sertraline 50 mg oral tablet), 100 mg= 2 Tablet(s), Daily sucralfate(sucralfate 1 g oral tablet), 1 g= 1 Tablet(s), Oral, AC and Bedtime, 1 refills traZODone(traZODone 100 mg oral tablet), 100 mg= 1 Tablet(s), At Bedtime Allergies Depakote irritable Social History Smoking Status Never smoker Alcohol - Denies Alcohol Use Substance Abuse - Denies Substance Abuse Tobacco - Denies Tobacco Use Family History Immunizations Health Maintenance Lab Results Diagnostic Results Visit Information Attending Physician: Luisa KESSLER Primary Care Physician: Malik Crane DO Visit Date: 08/28/2024 08/28/2024 General Surgery Clinic Note Chief Complaint EGD F/U History of Present Illness Patient is a 23-year-old female who underwent LSG in September 2023 and since has been having intermittent GERD symptoms. Her symptoms worsened over time and she also started to have nausea and vomiting following meals. She takes PPI twice daily as well as Carafate these have not improved her symptoms. Was also noted previously that she had a small hiatal hernia and gastroparesis in the past. She underwent EGD on 04/29 which was significant for bile reflux gastritis, gastroparesis, small hiatal hernia. Her symptoms have not improved over the past few months. Denies fevers and chills. She states that she has had decreased appetite and fear that the symptoms will worsen. Review of Systems Review of Systems negative unless mentioned in HPI. Physical Exam Vitals and Measurements HR: 71 RR: 16 BP: 125/82 SpO2: 100% HT: 161.4 cm WT: 91 kg BMI: 34.9 General: No acute distress; alert and cooperative Respiratory: Non-labored respirations, symmetric chest rise Abdomen: Soft, nondistended and nontender Extremities: Atraumatic, no edema Skin: Warm and dry, no jaundice Neuro: Alert and oriented Psych: Normal mood and affect Assessment/Plan Robert Fallon is a 24 year old female with severe GERD that has been progressively getting worse since her LSG in September of 2023. She has tried medication which has not improved her symptoms. Reviewed EGD report from April, which was consistent with bile reflux gastritis, small hiatal hernia and a component of gastroparesis. Plan Discussed surgical options, will proceed with partial gastrectomy with alfreda-en-y reconstruction for reflux control Consent will be obtained preoperatively We will see her back for preoperative visit Staff: Dr. Londono The visit required complex medical management through an ongoing care relationship with the patient. The following risks of partial gastrectomy w/ alfreda-en-y reconstruction were discussed with patient and patient's questions answered: , enteral leak, stricture or obstruction of stomach, DVT/PE, hemorrhage, damage to organs, infection, malnutrition, vitamin deficiency necessitating life long use of vitamin supplementation, need for reoperation, increased reflux symptoms with possible requirement for conversion to LRYGB, possibility for regaining weight or losing inadequate weight, etc. Problem List/Past Medical History Ongoing BMI 40.0-44.9, adult Severe obesity Procedure/Surgical History Robotic Assisted Sleeve Gastrectomy Service Date: 10/05/2023 EGD Service Date: 07/03/2023 tubal ligation Service Date: 2020 christina Service Date: 2018 Medications galcanezumab(Emgality Prefilled Pen 120 mg/mL subcutaneous solution), [id number] pantoprazole(Protonix 40 mg oral delayed release tablet), 40 mg= 1 Tablet(s), Oral, bid, 1 refills phentermine(phentermine 37.5 mg oral tablet), See Instructions sertraline(sertraline 50 mg oral tablet), 100 mg= 2 Tablet(s), Daily sucralfate(sucralfate 1 g oral tablet), 1 g= 1 Tablet(s), Oral, AC and Bedtime, 1 refills traZODone(traZODone 100 mg oral tablet), 100 mg= 1 Tablet(s), At Bedtime Allergies Depakote irritable Social History Smoking Status Never smoker Alcohol - Denies Alcohol Use Substance Abuse - Denies Substance Abuse Tobacco - Denies Tobacco Use Family History Immunizations Health Maintenance Lab Results Diagnostic Results Visit Information Attending Physician: Erna Londono MD Primary Care Physician: Malik Crane DO Visit Date: 07/08/2024 07/08/2024 General Surgery Clinic Note Chief Complaint new mswl History of Present Illness Visit type: Weight management Consultation - In person Provider Located: Bariatric clinic Patient has suffered from obesity for many years and has tried multiple diets without success. Because of lack of success with multiple diet and exercise plans, patient is now interested in discussing other options, including weight loss surgery or weight loss medications. Patient has now reached a BMI of 36.5 (BMI calculated based on patient weight at time of encounter). It is life limiting. Obesity associated comorbidities include: Hx of HTN risk for COOKIE - sleep study tomorrow Other past medical history: Reflux: Yes, BID pantoprazole, QID Carafate EGD completed 04/2024: Findings The patient was found to have bile reflux gastritis, and a component of gastroparesis. There was a small hiatal hernia. Hill Grade: 2 Plan: -Discuss options in clinic, linx vs rygb -- Schedule f/u visit with Dr. Londono today Pt is not currently , , or trying to conceive. Past medical history pertinent for WLS: Denies history of HTN, COOKIE, DM, CAD/NE, arrhythmias, CVA, CKD, chronic liver disease, chronic lung disease. Denies any hospitalizations within the past year. Smoking/Vaping history: No Alcohol use: 3-4x per month Substance use: No Historic use of AOMs: Phentermine: Yes, reports no weight loss Topamax: Yes, for migraines - doesn't remember if she tolerated Weight history: Reports she lost a good amount of weight after LSG 09/2023. Reports she has hit a weight loss plateau. Reports decreased appetite/ can only eat a couple bites. 06/16/24: WT: 95 kg BMI: 36.5 - start Phentermine 37.5 mg - 1/2 tab daily Patients personal goal: 160 lbs Diet and Exercise History: Currently on a special diet: water, post op bariatric diet, 65g protein Medication use in past for weight loss: phentermine Exercise: Walks with family - daily with kids Bariatric surgery in the past: LSG 10/05/[address] Londono Highest weight with MO Bariatric: 122 kg Current weight: 95 kg Pt reports lab in [facility] shut down (lab orders at 6 mo post op) so she was unable to get labs done. She got them done with PCP and reports they were sent to us, but don't see them in chart yet. Pt has [employer] [facility] Medicaid for insurance. Review of Systems ROS: Denies cardiac history including: HTN, NE, cardiac stents, palpitations, chest pain. Denies: Glaucoma, kidney/liver disease, hyperthyroidism, DM, h/o kidney stones. Denies h/o drug/alcohol abuse. Psychiatric: Denies feelings of SI, HI, anxiety/depression +gastroparesis. Phentermine: Denies hx of cardiovascular disease, including CHF, CAD, NE, cardiac stents, uncontrolled hypertension, arrhythmias. Denies hx of CVA, kidney/liver disease DM, alcohol/drug abuse, uncontrolled anxiety, bipolar disorder, use of other stimulants. Physical Exam Vitals and Measurements HR: 75 RR: 16 BP: 128/87 SpO2: 100% HT: 161.4 cm WT: 95 kg BMI: 36.5 Constitutional: Well nourished Cardiovascular: Regular rate and rhythm Respiratory: No use of accessory muscles. Good respiratory effort. Lung sounds clear and equal bilaterally. Psychiatric: Mood and affect WNL. Judgment and insight intact. Clinic Procedure Assessment/Plan Orders: phentermine(phentermine 37.5 mg oral tablet), See Instructions 1. class 2 moderate obesity, BMI: 36.5 -- Follow up in one month -- Start phentermine 37.5 mg (1/2 tab daily x 2 weeks) -- Encouraged increased protein and fluid intake, encouraged increased exercise with combination of cardio and resistance training. --> Pt denies chest pain, palpitations --> reviewed EKG 07/2023 Avoid GLP-1 d/t gastroparesis Consider naltrexone, metformin, topiramate I instructed the patient to start taking the medication 1/2 tablet per day for the first 2 weeks and then increasing it to 1 full tab daily if tolerating the medication well. I discussed the adverse side effects that can occur with the medication such as increased heart rate, heart palpitations, insomnia, tremors, headache, and dry mouth, mood changes, constipation with instructions to call the clinic if they have any questions or concerns. 2. GERD -- Continue pantoprazole BID -- Continue Carafate QID -- Avoid foods that worsen symptoms -- Completed EGD 04/2024 -- Schedule f/u with Dr. Londono 3. Dietary counseling and surveillance -Food journalling: Encouraged patient to track and monitor nutritional intake -encouraged measurement of portion sizes, focusing on protein intake 4. Exercise counseling -encouraged activity most days of the week, focusing on ability of what patient is capable of performing, working to increase, as able. -encouraged strength training activities to build and maintain lean body mass, as able -I discussed medications to assist with weight loss including: phentermine, qsymia, contrave, saxenda, orlistat, semaglutide and tirzepetide. I discussed with the patient the importance of dietary modifications and routine exercises in order to maximize results during medically supervised weight loss. Patient was provided a handout today that includes instructions on ways to safely begin routine exercise, adequate portion sizes, and meal planning options that are rich in nutrients, low in starch, high in healthy fats, and high-protein. Time Documentation I spent a total time of 30 min on this patient encounter which included but is not limited to personally reviewing history that was separately obtained from patient, reviewing records from the referring physician and previous encounters within our healthcare system, reviewing external records when appropriate, performing the glover aspects of the exam, providing education to the patient/caregiver, ordering diagnostic testing and prescriptions, and documentation in the medical record. All occurred on date of service. The natural history of the disease process, differential diagnoses, and approaches to medical and surgical care were reviewed with the patient/family. Problem List/Past Medical History Ongoing BMI 40.0-44.9, adult Severe obesity Procedure/Surgical History Robotic Assisted Sleeve Gastrectomy Service Date: 10/05/2023 EGD Service Date: 07/03/2023 tubal ligation Service Date: 2020 christina Service Date: 2018 Medications galcanezumab(Emgality Prefilled Pen 120 mg/mL subcutaneous solution), [id number] pantoprazole(Protonix 40 mg oral delayed release tablet), 40 mg= 1 Tablet(s), Oral, bid, 1 refills phentermine(phentermine 37.5 mg oral tablet), See Instructions sertraline(sertraline 50 mg oral tablet), 100 mg= 2 Tablet(s), Daily sucralfate(sucralfate 1 g oral tablet), 1 g= 1 Tablet(s), Oral, AC and Bedtime, 1 refills traZODone(traZODone 100 mg oral tablet), 100 mg= 1 Tablet(s), At Bedtime Allergies Depakote irritable Social History Smoking Status Never smoker Alcohol - Denies Alcohol Use Substance Abuse - Denies Substance Abuse Tobacco - Denies Tobacco Use Family History Immunizations Health Maintenance Lab Results Diagnostic Results Visit Information Attending Physician: Luisa KESSLER Primary Care Physician: Malik Crane DO Visit Date: 06/16/2024 06/16/2024 Op/Procedure Note Date of Service: 12/2024 Indication for Surgery The patient presents with GERD following sleeve gastrectomy Preoperative Diagnosis 1.) GERD Postoperative Diagnosis 1.) GERD 2.) Gastroparesis 3.) Bile Reflux gastritis Operation 1.) Esophagogastroduodenoscopy Surgeon(s) Erna Londono MD Dimensional Integration Engineer MD Bhavana Anesthesia Sedation Estimated Blood Loss 3cc Findings The patient was found to have bile reflux gastritis, and a component of gastroparesis. There was a small hiatal hernia. Hill Grade: 2 Specimen(s) None Complications None Technique The patient was brought to the procedure room and placed in standard position. sedation anesthesia was administered. The gastroscope was inserted into the oral pharynx and passed through the upper esophagus then advanced to the GE junction and into the stomach. The Z line was identified. There was small hiatal hernia present. The scope was further advanced through the pylorus into the second portion of the duodenum. The scope was then brought back into the stomach where it was retroflexed. All mucosal surfaces were inspected identifying mild evidence of gastritis was present. The scope was then brought back to the level of the GE junction.The GE junction also was examined. There was none evidence of inflammatory changes. The gastroscope was withdrawn examining the esophagus on removal of scope. No esophageal abnormalities were identified. The patient tolerated the procedure well and was taken to recovery room in stable condition. I was present and participated in the entire procedure Plan: -Discuss options in clinic, linx vs rygb 04/29/2024 General Surgery Clinic Note Chief Complaint 6 [place] SLEEVE AND PE[place] state lines History of Present Illness Visit Type: TELEHEALTH Consent: Verbal consent for this telehealth visit was obtained from patient or guardian prior to beginning this encounter. Risks (tech failure, privacy and security, incomplete examination) and benefits (reduced exposure to infectious disease, convenience) of using a virtual platform were reviewed and addressed prior to beginning this encounter. (includes audio and video equipment) Patient endorses that they are in the state [facility] during this telehealth visit. Patient location at time of service: Home/Other Provider location at time of service: Onsite (Hospital Clinic or Office)? Visit type: Zoom telehealth postoperative follow up 6 months s/p LSG and PEHR to treat preoperative obesity/morbid obesity and associated comorbidities. Date of Procedure: 10/05/23, Dr. Londono Last EGD/EGJ: 07/03/23 Highest weight with [place] Bariatric: BMI: 46.9, 122 kg Immediate Preop wt: BMI: 44, 114.5 kg Last visit wt: BMI: 36.1, 94.09 kg Current weight: BMI: 33.7, 87.72 kg Symptoms: Denies vomiting, diarrhea. Reports nausea is constant, this has worsened since she last spoke to us. Nothing makes it worse or better. Reports rare vomiting. Reports constipation, she isn't taking anything for this yet. GERD/Reflux: Yes, uncontrolled with pantoprazole BID, reports Carafate didn't help Dysphagia: No Taking vitamins: Yes Taking PPI: Yes, BID Exercise: Walking, but limited due to weather Adequate Protein: Yes Adequate Fluid: Yes Medications changes since operation: Yes, increased sertraline Readmission/reoperations since weight loss surgery: No Patient reports the following positive changes following WLS or improvement of the following obesity related comorbidities: 3x shirt down to L - XL shirts, smaller pant sizing Denies carbonation, NSAIDS, oral steroid use, and nicotine use. Patient reports improvement or resolution of the following comorbidities: Diabetes: NA GERD: No, reflux has worsened post-operatively Hyperlipidemia: NA Hypertension: Yes, discontinued propranolol. Sleep Apnea: No, about to get sleep study Review of Systems Denies + nausea, vomiting, bloating, + constipation, diarrhea, heart burn, dysphagia, regurgitation Denies chest pain, shortness of breath, leg swelling A 14 point ROS was otherwise normal except where stated above and in the HPI Physical Exam Vitals and Measurements HT: 161.4 cm WT: 87.72 kg BMI: 33.7 Clinic Procedure Assessment/Plan 1) Class 1 Obesity, BMI: 33.7 2) Status Post LSR Overall, patient is doing well postoperatively. -- Congratulated patient on weight loss success to date. -- Follow up in 6 months per protocol -- Obtain labs as below -- Modifications to standard protocol: No -- Patient to attend 6mo POP class with dietitian. Please refer to separate note for details. The following items were reviewed by myself and/or to be reviewed by traveling nurse; avoidance of grazing patterns, normal portion sizes for this stage, avoidance of high carbohydrate foods, necessity for bariatric vitamin supplementation, avoiding fluids with meals, the differences between satiety and full, mindfulness, importance of increased physical activity and the benefits of building of muscle mass. 3) Postoperative malabsorption Sent patient to the lab today. Patient will receive letter from dietitian with results and recommendations for additional supplementation if deficiencies noted. Instructions were given to continue taking daily multivitamin with additional recommended Vitamin D and Calcium. Labs ordered as below: -- [facility]: [address], [place], [place] CBC with Auto Differential Comprehensive Metabolic Panel Ferritin Level Folate Level Intact PTH Iron Level and TIBC Lipid Profile Magnesium Level Phosphorus Level Vitamin B1 (Thiamin) Whole Blood-[place] Vitamin B12 Level Vitamin D Level Zinc Level-[place] 3) Nausea 4) Reflux -- Reminded pt about dietary habits post op, eating food over 20-30 minutes, chewing food well, don't drink while eating... -- Continue pantoprazole BID -- Reports Carafate didn't help -- Can add OTC Pepcid for breakthrough reflux -- Avoid foods that make it worse -- Contact clinic if symptoms worsen -- Schedule EGD with Dr. Londono 5) Constipation -- discussed importance of controlling constipation. Encouraged patient to consume a minimum of 64oz water, add fiber supplement BID, and eat fibrous foods. Start daily probiotic. May use OTC stool softener, senekot, Miralax PRN as well. Advised patient to contact the clinic if no BM at least every 4-5 days. 6) Weight loss plateau -- Encouraged increased protein goal of 80g daily -- Encouraged tracking food using an jose l -- Schedule MSWL for 1 month 7) Dietary counseling and surveillance -Food journalling: Encouraged patient to track and monitor nutritional intake -encouraged measurement of portion sizes, focusing on protein intake 8) Exercise counseling -encouraged activity most days of the week, focusing on ability of what patient is capable of performing, working to increase, as able. -encouraged strength training activities to build and maintain lean body mass, as able Patient understood and agreed to above plan. Problem List/Past Medical History Ongoing BMI 40.0-44.9, adult Severe obesity Procedure/Surgical History EGD Service Date: 07/03/2023 tubal ligation Service Date: 2020 christina Service Date: 2018 Medications celecoxib(CeleBREX 200 mg oral capsule), 200 mg= 1 capsule(s), Oral, bid galcanezumab(Emgality Prefilled Pen 120 mg/mL subcutaneous solution), [id number] lithium(lithium 300 mg oral tablet), bid OLANZapine(OLANZapine 5 mg oral tablet), Daily pantoprazole(Protonix 40 mg oral delayed release tablet), 40 mg= 1 Tablet(s), Oral, bid, 1 refills prazosin(prazosin 5 mg oral capsule), At Bedtime propranolol, Daily rivaroxaban(rivaroxaban 10 mg oral tablet), 10 mg= 1 Tablet(s), Oral, Daily sertraline(sertraline 50 mg oral tablet), 50 mg= 1 Tablet(s), Daily sucralfate(sucralfate 1 g oral tablet), 1 g= 1 Tablet(s), Oral, AC and Bedtime, 1 refills traZODone(traZODone 100 mg oral tablet), 100 mg= 1 Tablet(s), At Bedtime Allergies Depakote irritable Social History Smoking Status Never smoker Alcohol - Denies Alcohol Use Substance Abuse - Denies Substance Abuse Tobacco - Denies Tobacco Use Family History Immunizations Health Maintenance Lab Results Diagnostic Results Visit Information Attending Physician: Luisa KESSLER Primary Care Physician: Malik Crane DO Visit Date: 04/10/2024 04/10/2024 General Surgery Clinic Note Chief Complaint 4mo f/u and PEHR History of Present Illness Visit Type: TELEHEALTH Consent: Verbal consent for this telehealth visit was obtained from patient or guardian prior to beginning this encounter. Risks (tech failure, privacy and security, incomplete examination) and benefits (reduced exposure to infectious disease, convenience) of using a virtual platform were reviewed and addressed prior to beginning this encounter. (includes audio and video equipment) Patient endorses that they are in the state [facility] during this telehealth visit. Patient location at time of service: Home/Other Provider location at time of service: ​Onsite (Hospital Clinic or Office)? Visit type: Zoom telehealth postoperative follow up Provider Located: Bariatric clinic Patient Located: Home or non-medical facility Consent: verbal consent for this telehealth visit was obtained from patient or guardian prior to beginning this encounter. Risks (tech failure, privacy and security, incomplete examination), and benefits (reduced exposure to infectious disease, convenience) of using a virtual platform were reviewed and addressed prior to beginning this encounter. Visit type: [place] telehealth postoperative follow-up 4 months s/p LSG and PEHR to treat preoperative obesity/morbid obesity and associated comorbidities. Date of Procedure: 10/05/23, Dr. Londono Last EGD/EGJ: No scopes obtained preoperatively or postoperatively to date. Highest weight with [place] Bariatric: BMI: 46.9, 122 kg Immediate Preop wt: BMI: 44, 114.5 kg Last visit wt: BMI: 42.2 , 110 kg Current weight: BMI: 36.1, 94.09 kg Symptoms: Denies vomiting and constipation. Reports nausea after eating. Reports reflux intermitently throughout the day. Pt also reports daily diarrhea/ loose stools. GERD/Reflux: Yes Dysphagia: No Taking vitamins: Yes Taking PPI: Yes, BID Exercise: Walks a lot Adequate Protein: No, 35g, drinks 1 protein shake Adequate Fluid: Yes Medications changes since operation: Switched Lexapro to Zoloft, added Trazadone Readmission/reoperations since weight loss surgery: No Patient reports the following positive changes following WLS or improvement of the following obesity related comorbidities: weight loss, down clothing sizes Patient reports improvement or resolution of the following comorbidities: Diabetes: NA GERD: No, reflux has worsened post-operatively Hyperlipidemia: NA Hypertension: Yes, discontinued propranolol. Sleep Apnea: No, about to get sleep study Review of Systems Denies nausea, vomiting, bloating, constipation, diarrhea, heart burn, dysphagia, regurgitation Denies chest pain, shortness of breath, leg swelling A 14 point ROS was otherwise normal except where stated above and in the HPI Physical Exam Vitals and Measurements HT: 161.4 cm WT: 94.09 kg BMI: 36.1 Constitutional: Well nourished Cardiovascular: Regular rate and rhythm Respiratory: No use of accessory muscles. Good respiratory effort. Lung sounds clear and equal bilaterally. GI: Soft, nondistended. Psychiatric: Mood and affect WNL. Judgment and insight intact. Clinic Procedure Assessment/Plan 1) Clas2 2 Obesity, BMI: 36.1 2) Status Post LSG with PEHR Overall, patient is doing well postoperatively. -- Congratulated patient on weight loss success to date. -- Follow up in 2 months per protocol. Will obtain full bariatric lab panel at next visit. -- Modifications to standard protocol: No -Discussed the importance of adequate protein intake (65-80g/day). Patient gradually increasing post-operatively. 3) Nausea 4) Reflux -- Reminded pt about dietary habits post op, eating food over 20-30 minutes, chewing food well, don't drink while eating... -- Continue pantoprazole BID -- Continue Carafate QID -- Can add OTC Pepcid for breakthrough reflux -- Avoid foods that make it worse -- Contact clinic if symptoms worsen 5) Diarrhea -- Encouraged pt to start fiber supplement BID -- Encouraged pt to start probiotic -- Pt can use Imodium as needed Dietary counseling and surveillance -Food journalling: Encouraged patient to track and monitor nutritional intake -encouraged measurement of portion sizes, focusing on protein intake Exercise counseling -encouraged activity most days of the week, focusing on ability of what patient is capable of performing, working to increase, as able. -encouraged strength training activities to build and maintain lean body mass, as able Patient understood and agreed to above plan. Problem List/Past Medical History Ongoing BMI 40.0-44.9, adult Severe obesity Procedure/Surgical History EGD Service Date: 07/03/2023 tubal ligation Service Date: 2020 christina Service Date: 2018 Medications celecoxib(CeleBREX 200 mg oral capsule), 200 mg= 1 capsule(s), Oral, bid galcanezumab(Emgality Prefilled Pen 120 mg/mL subcutaneous solution), [id number] lithium(lithium 300 mg oral tablet), bid OLANZapine(OLANZapine 5 mg oral tablet), Daily pantoprazole(Protonix 40 mg oral delayed release tablet), 40 mg= 1 Tablet(s), Oral, bid, 1 refills prazosin(prazosin 5 mg oral capsule), At Bedtime propranolol, Daily rivaroxaban(rivaroxaban 10 mg oral tablet), 10 mg= 1 Tablet(s), Oral, Daily sertraline(sertraline 50 mg oral tablet), 50 mg= 1 Tablet(s), Daily sucralfate(sucralfate 1 g oral tablet), 1 g= 1 Tablet(s), Oral, AC and Bedtime, 1 refills traZODone(traZODone 100 mg oral tablet), 100 mg= 1 Tablet(s), At Bedtime Allergies Depakote irritable Social History Smoking Status Never smoker Family History Immunizations Health Maintenance Lab Results Diagnostic Results Visit Information Attending Physician: Luisa KESSLER Primary Care Physician: Malik Crane DO Visit Date: 02/07/2024 02/07/2024 Discharge Summaries Results Value Date Source Discharge Summary Date of Admission Date of Discharge 10/11/2024 Reason for Hospitalization Robot-assisted alfreda-en-Y gastric bypass Hospital Course The patient was admitted the day of surgery for robot-assisted alfreda-en-Y gastric bypass. The surgery proceeded well without any complications. Postoperatively the patient was admitted to the general floor. Pain and nausea were controlled with multimodal therapy. The following day, the patient was able to ambulate the hallway, drink 4-6 oz of fluid per hour, void spontaneously, and have adequately controlled pain and nausea with oral medications. They were weaned down to their baseline oxygen requirement of room air. They were deemed stable for discharge with 1 week follow up in clinic. They will continue on a Stage I bariatric diet. Prescriptions were given for:Zofran 4 mg PO #16 q4h PRN for nausea, Miralax 17g packets daily #2, Celebrex 200 mg PO BID #28, Pantoprazole 40 mg PO daily #90, Xarelto 10 mg PO daily #30 to decrease risk of clots post-operatively. The patient was also instructed on fiber supplement until return of bowel function and counseled on bariatric multivitamin use. RAGHAV keene/ Dr. Londono on 10/16. Discharge Diagnoses Morbid obesity Orders: Basic Metabolic Panel(BMP), Routine collect, Blood, Nurse Collect, Start date 10/11/24 9:48:00 CDT, Stop date 10/11/24 10:00:00 CDT, Orig Ref Doc No ORP Reason: Self-referral CBC with Auto Differential, Routine collect, Blood, Nurse Collect, Start date 10/11/24 9:48:00 CDT, Stop date 10/11/24 10:00:00 CDT, Orig Ref Doc No ORP Reason: Self-referral Other Diagnoses Ongoing BMI 40.0-44.9, adult Severe obesity Operations and Procedures EGD (04/29/2024) Pending Labs None Discharge Disposition Home Medications New, Changed, or Refilled Medications None Medications to be Continued celecoxib (CeleBREX 200 mg) 200 mg, 1 capsule(s), Oral, bid, PRN: as needed for pain, 28 capsule(s), 0 Refill(s) galcanezumab (Emgality Prefilled Pen 120 mg/mL subcutaneous solution) [id number], 0 Refill(s) ondansetron (ondansetron 4 mg) 4 mg, 1 Tablet(s), Oral, q8h, 16 Tablet(s), 0 Refill(s) pantoprazole (Protonix 40 mg oral delayed release tablet) 40 mg, 1 Tablet(s), Oral, bid, for 30 day(s), 60 Tablet(s), 1 Refill(s) pantoprazole (Protonix 40 mg oral delayed release tablet) 40 mg, 1 Tablet(s), Oral, Daily, 90 Tablet(s), 0 Refill(s) phentermine (phentermine 37.5 mg) 37.5 mg, 1 Tablet(s), Oral, Daily, 30 Tablet(s), 1 Refill(s) polyethylene glycol 3350 (MiraLax oral powder for reconstitution) 17 g, Oral, Daily, 14 Each, 0 Refill(s) sertraline (sertraline 50 mg) 100 mg, 2 Tablet(s), Daily, 0 Refill(s) sucralfate (sucralfate 1 g) 1 g, 1 Tablet(s), Oral, AC and Bedtime, for 30 day(s), crush tablet and dissolve in 10ml water and drink, 120 Tablet(s), 1 Refill(s) Instructions:crush tablet and dissolve in 10ml water and drink traZODone (traZODone 100 mg) 100 mg, 1 Tablet(s), At Bedtime, 0 Refill(s) Discontinued Medications None Physical Exam at Discharge Vitals and Measurements T: 36.7 C TMIN: 36 C TMAX: 36.7 C HR: 56 RR: 15 BP: 107/62 SpO2: 98% WT: 86.1 kg General: Alert, NAD HEENT: oral mucosa moist Neck: supple CV: no cyanosis, no edema Pulm: normal respiratory effort, symmetrical chest expansion, no cough Abdomen: soft, non-tender, incisions c/d/i Skin: no pallor, no rash on exposed skin Neuro: gait normal Psych: calm, cooperative Time Spent 30 min Follow Up Appointments Appointment Type When With Where Contact Information Status POP 10/16/2024 11:45 AM CDT Erna Londono MD [facility] [address] [phone] Confirmed PS2 10/16/2024 12:[address] [facility] [address] [phone] Confirmed RT1 10/24/2024 01:45 PM CDT Charles Camacho [facility] [address] [phone] Confirmed Nursing/Other Orders Bariatric Diet Stage 1 PostOp Clear Liquids + Protein Beverage. 10/10/24 11:10:00 CDT Lunch 1115 to 1245 Dietary Daily, Instructions: Bariatric Diet Stage 1 PostOp Clear Liquid + Protein Beverage, Limit fluids to 4-6oz per hour, 10/10/24 11:10:00 CDT Intake and Output (I&O). 10/10/24 11:10:00 CDT, q8h Leg Exercises with Vital Signs. 10/10/24 11:10:00 CDT, Continuous Order, Dorsiflexion and plantar flex both feet x 10 Attestation by Erna Londono MD on October 11, 2024 16:01 I personally saw and evaluated the patient on the result date found in the header of this document. I independently performed the critical/glover portions of the Evaluation and Management service and discussed the management with the resident/Fellow team that is responsible for the document above. I agree with everything documented above. 10/11/2024 History and Physicals Results Value Date Source History and Physical I have examined the patient. A full history and physical has been documented on 09/16/[address] Londono. There is no change in the patient's condition and we will proceed with the plan of care as previously documented. Risks/benefits/alternatives discussed with patient regarding the surgery; patient expressed understanding and agrees to the procedure. A consent was signed and placed in the chart. Plan: Proceed to OR for robot assisted RYGB. 10/10/2024 History and Physical Chief Complaint GERD, nausea History of Present Illness Patient is a 23 year old female presenting today for EGD. She underwent a LSG in September,. Since surgery she has been having intermittent GERD symptoms. Now reporting constant nausea as well. She continues to take a PPI BID. Tried carafate without any relief in symptoms. Her last EGD was pre operatively, at which time she was noted to have a small hiatal hernia and gastropareisis with retained food in the stomach. Review of Systems 14 point ROS negative, except as above per HPI Physical Exam Vitals and Measurements T: 35.7 C HR: 87 RR: 16 BP: 147/85 SpO2: 99% WT: 95.3 kg General: No acute distress; alert and cooperative Respiratory: Non-labored respirations, symmetric chest rise Abdomen: Soft, nondistended and nontender Extremities: Atraumatic, no edema Skin: Warm and dry, no jaundice Neuro: Alert and oriented Psych: Normal mood and affect Assessment/Plan Patient is a 23 year old female presenting for EGD due to nausea and reflux since undergoing LSG in Sep, 2023. Plan: -Proceed to OR -Dc home post op Attestation by Erna Londono MD on May 02, 2024 11:40 I personally saw and evaluated the patient on the result date found in the header of this document. I independently performed the critical/glover portions of the Evaluation and Management service and discussed the management with the resident/Fellow team that is responsible for the document above. I agree with everything documented above. Problem List/Past Medical History Ongoing BMI 40.0-44.9, adult Severe obesity Procedure/Surgical History Robotic Assisted Sleeve Gastrectomy Service Date: 10/05/2023 EGD Service Date: 07/03/2023 tubal ligation Service Date: 2020 christina Service Date: 2018 Medications Inpatient lidocaine(Lidocaine 1% inj solution (PF)), 10 mg= 1 mL, IntraDermal, As Directed, PRN metoprolol(metoprolol tartrate 1 mg/mL injectable solution), 5 mg= 5 mL, IV Push, PreOp, PRN Home galcanezumab(Emgality Prefilled Pen 120 mg/mL subcutaneous solution), [id number] pantoprazole(Protonix 40 mg oral delayed release tablet), 40 mg= 1 Tablet(s), Oral, bid, 1 refills sertraline(sertraline 50 mg oral tablet), 100 mg= 2 Tablet(s), Daily sucralfate(sucralfate 1 g oral tablet), 1 g= 1 Tablet(s), Oral, AC and Bedtime, 1 refills traZODone(traZODone 100 mg oral tablet), 100 mg= 1 Tablet(s), At Bedtime Allergies Depakote irritable Social History Smoking Status Never smoker Alcohol - Denies Alcohol Use Substance Abuse - Denies Substance Abuse Tobacco - Denies Tobacco Use Family History Immunizations Lab Results Diagnostic Results 04/29/2024 Vital Signs Vital Sign Value Date Comments Source Heart Rate 75 bpm 06/16/2024 15:35:00 [facility] BSA Margarita 1.98 06/16/2024 15:35:00 [facility] SBP NIBP 128 mm[Hg] 06/16/2024 15:35:00 [facility] DBP NIBP 87 mm[Hg] 06/16/2024 15:35:00 [facility] BMI 36.5 kg/m2 06/16/2024 15:35:00 [facility] SpO2 100 % 06/16/2024 15:35:00 [facility] Weight (kg) 95 kg 06/16/2024 15:35:00 [facility] Height (cm) 161.4 cm 06/16/2024 15:35:00 [facility] Respiratory Rate 16 breaths/min 06/16/2024 15:35:00 [facility] SpO2 98 % 04/29/2024 18:11:29 [facility] Heart Rate 67 bpm 04/29/2024 18:11:27 [facility] SBP NIBP 134 mm[Hg] 04/29/2024 18:10:00 [facility] DBP NIBP 78 mm[Hg] 04/29/2024 18:10:00 [facility] Respiratory Rate 18 breaths/min 04/29/2024 18:10:00 [facility] Mean NIBP 96 mm[Hg] 04/29/2024 18:10:00 [facility] SpO2 96 % 04/29/2024 18:05:25 [facility] Heart Rate 73 bpm 04/29/2024 18:05:25 [facility] Respiratory Rate 18 breaths/min 04/29/2024 18:00:00 [facility] Mean NIBP 77 mm[Hg] 04/29/2024 18:00:00 [facility] [facility] SBP NIBP 98 mm[Hg] 04/29/2024 18:00:00 [facility] DBP NIBP 63 mm[Hg] 04/29/2024 18:00:00 [facility] SpO2 96 % 04/29/2024 17:55:54 [facility] Heart Rate 83 bpm 04/29/2024 17:55:49 [facility] Mean NIBP 90 mm[Hg] 04/29/2024 17:55:11 [facility] SBP NIBP 104 mm[Hg] 04/29/2024 17:55:11 [facility] DBP NIBP 75 mm[Hg] 04/29/2024 17:55:11 [facility] Respiratory Rate 18 breaths/min 04/29/2024 17:55:00 [facility] Temperature (Celsius) 36.0 Faviola 04/29/2024 17:55:00 [facility] Temperature (Celsius) 35.7 Faviola 04/29/2024 15:25:00 [facility] SpO2 99 % 04/29/2024 15:25:00 [facility] Weight (kg) 95.3 kg 04/29/2024 15:25:00 [facility] SBP NIBP 147 mm[Hg] 04/29/2024 15:25:00 [facility] DBP NIBP 85 mm[Hg] 04/29/2024 15:25:00 [facility] Respiratory Rate 16 breaths/min 04/29/2024 15:25:00 [facility] Heart Rate 87 bpm 04/29/2024 15:25:00 [facility] Height (cm) 161.4 cm 04/10/2024 14:32:00 [facility] Weight (kg) 87.72 kg 04/10/2024 14:32:00 [facility] BMI 33.7 kg/m2 04/10/2024 14:32:00 [facility] BSA Margarita 1.92 04/10/2024 14:32:00 [facility] Weight (kg) 94.09 kg 02/07/2024 14:57:00 [facility] Height (cm) 161.4 cm 02/07/2024 14:57:00 [facility] BSA Margarita 1.98 02/07/2024 14:57:00 [facility] BMI 36.1 kg/m2 02/07/2024 14:57:00 [facility] Heart Rate 87 bpm 10/18/2023 16:33:00 [facility] SBP NIBP 128 mm[Hg] 10/18/2023 16:33:00 [facility] DBP NIBP 81 mm[Hg] 10/18/2023 16:33:00 [facility] Respiratory Rate 12 breaths/min 10/18/2023 16:33:00 [facility] Height (cm) 161.4 cm 10/18/2023 16:33:00 [facility] Weight (kg) 110 kg 10/18/2023 16:33:00 [facility] BMI 42.2 kg/m2 10/18/2023 16:33:00 [facility] BSA Margarita 2.11 10/18/2023 16:33:00 [facility] SpO2 99 % 10/18/2023 16:33:00 [facility] Encounters Location Location Details Encounter Type Encounter Number Reason For Visit Attending Provider ADM Date DC Date Status Source [facility] [id number] Erna Londono 10/17 16:28 :25 10/18 04:59 :59 [facility] [id number] Eusebio Leonardo 10/17 17:21 :42 10/18 04:59 :59 [facility] Non-Admit [id number] Eusebio Leonardo 11/12 12:51 :03 11/13 04:59 :59 [facility] Virtual Care [id number] Eusebio Leonardo 11/19 12:53 :47 11/20 04:59 :59 [facility] Care [id number] Luisa Mendez 02/06 13:40 :23 02/07 05:59 :59 [facility] Virtual Care [id number] [place] [facility] [id number] CARLOS Leonardo 04/10 07:39 :17 04/10 23:59 :59 Active [facility] Virtual Care [id number] [place] [facility] [id number] CARLOS Emery 04/10 07:44 :13 04/10 23:59 :59 Active [facility] Nurse Phone Call Clinic [id number] Torey Christian 04/29 11:39 :02 04/30 04:59 :59 [facility] [id number] [facility] 04/29 14:54 :53 04/30 04:59 :59 [facility] [id number] Luisaisaac Emery 06/16 15:29 :36 06/17 04:59 :59 [facility] [id number] [facility] 07/08 15:50 :05 07/09 04:59 :59 [facility] [id number] Luisa Emery 08/28 15:10 :29 08/29 04:59 :59 [facility] [id number] [facility] 09/16 16:28 :52 09/17 04:59 :59 [facility] [id number] [facility] 09/16 16:30 :47 09/17 04:59 :59 [facility] Inpatient [id number] GER[facility] 10/10 04:50 :29 10/11 13:32 :00 Active [facility] Care [facility] Nurse Phone Call Clinic [id number] Torey Christian 10/10 12:46 :26 10/11 04:59 :59 [facility] Procedures Procedure Code Date Perfomer Comments Source EGD 04/29/2024 05:00:00 [facility] Plan of Care Plan of Care Date Source No data available for this section 10/11/2024 [facility] No data available for this section 10/11/2024 [id number] No data available for this section 09/17/2024 [facility] Social History Social History Date Source No data available for this section 10/11/2024 [facility] No data available for this section 10/11/2024 [id number] No data available for this section 09/17/2024 [facility] No data available for this section 08/29/2024 [facility] No data available for this section 07/09/2024 [facility] No data available for this section 06/17/2024 [facility] No data available for this section 04/30/2024 [facility] No data available for this section 04/11/2024 [facility] No data available for this section 02/08/2024 [facility] No data available for this section 11/21/2023 [facility] No data available for this section 11/14/2023 [facility] No data available for this section 10/19/2023 [facility]
[2024-10-17 10:13] VITALS: BP 122/77; PULSE 82; TEMP 36.6; O2SAT 100
--- OUTSIDE RECORDS SUMMARY | 2024-10-17 10:16 | XMS_ITS | Clinical Summary ---
Author Organization [facility] Address [address] Attn: [place] [address] Care Team Providers Care Industrial Engineering Technician Name Role Phone Unavailable Primary Care Provider Unavailabl e Encounters Date Type Department Care Team Description 09/03/2024 External Device Data [facility] Provider, Abstract 09/03/2024 External Device Data [facility] Provider, Abstract 08/05/2024 External Device Data [facility] Provider, Abstract from Last 3 Months Immunizations Immunization Administration Dates Next Due (M-M-R II/PRIORIX)(12 MO UP) MEASLES, MUMPS AND RUBELLA VIRUS VACCINE, 0.5 ML IM/SUBCUT 07/04/2000 Dt Dtp Dtap Vaccine 08/07/2001, 1,05/30/2000,2000 HIB, Unspecified Formulation 08/07/2001, 07/04/2000,05/30/2000,2000 Hepatitis B Vaccine 08/07/2001,05/30/2000,2000 IPV/OPV 08/07/2001,05/30/2000,04/04/2000 Social History Tobacco Use Types Packs/Day Years Used Date Smoking Tobacco: Never Assessed Comments Unknown Sex and Gender Information Value Date Recorded Sex Assigned at Not on file Legal Sex 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
--- OUTSIDE RECORDS SUMMARY | 2024-10-17 10:16 | XMS_ITS | Patient Health Record ---
Author Organization [facility] Address [address] [place], [place] [id number] Care Team Providers Care Fuel Buyer Name Role Phone Eusebio Hamilton Primary Care Provider Eusebio Hamilton Unavailable Unavailable Allergies No Known Allergies Reason For Referral No Information Social History Social History Additional Details Category Social Info Options Details Migrated Social History Migrated Social History Substance Use :: None :: note : - [employer] 12/30/2019 , Occupation :: Employed :: note : [employer] - [employer] 12/30/2019 , Substance Use :: Tobacco :: Never smoker :: note : - [employer] 12/30/2019 , Substance Use :: Alcohol :: Never smoker :: note : - [employer] 12/30/2019Use status used: Never , Marital Status :: Single :: note : - [employer] 12/30/2019 Plan Of Treatment No Information Insurance Providers Payer Name Payer Address Payer Phone Subscriber Number Group Number Insured Name Patient Relationship to Insured Coverage Start Date Coverage End Date Medicaid [address] [place], [place] [id number] [phone] [id number] Lolly Fallon Self - patient is the insured Medical (General) History Surgical History Surgery Date(Month/Year) Gallbladder Surgery: - [employer] 12/30/19 20; 12/30/2019
--- OUTSIDE RECORDS SUMMARY | 2024-10-17 10:16 | XMS_ITS | Patient Health Record ---
Author Organization [facility] Address [address] [place] [address] Care Team Providers Care Information Analyst Name Role Phone [facility] Primary Care Provider [facility] Unavailable [phone] Allergies No Known Allergies Reason For Referral No Information Medications Medication SIG (Take, Route, Frequency, Duration) Notes Start Date End Date Status Phentermine HCl 37.5 MG Tablet 1 tablet Orally Once a day; Duration: 30 days 09/26/2021 Active Venlafaxine HCl ER N ot-Taking tiZANidine HCl Not-T aking Amitriptyline HCl 25 MG Tablet 1 tablet at bedtime Orally Once a day Active Meloxicam Not-Taking Divalproex Sodium 500 MG Tablet Delayed Release 1 tablet Orally twice a day Active SUMAtriptan Succinate 25 MG Tablet 1 dose at onset of headache in each nostril may repeat dose one time after 2 hours as needed Orally prn Active Celecoxib 100 MG Capsule 1 capsule with food Orally Once a day Active Cyclobenzaprine HCl 10 MG Tablet as directed Orally Once a day Active Social History Tobacco Use: Social History Observation Description Date Details (start date - stop date) Never Smoker NA - NA Social History Depression Screening Social Info Question Answer Notes PHQ-9 Little interest or p samaria in doing things Nearly every day Feeling down, depressed, or hopeless Nearly ever y day Trouble falling or staying a sleep, or sleeping too much Nearly every day Feeling tired or having little energy More than half the days Poor appetite or overeating Nearly every day Feeling bad about yourself, or that you are a failure, or have let yourself or your family down Several days Trouble concentrating on thi ngs, such as reading the newspaper or watching television More than half the days Moving or speaking so slowly that other people could have noticed. Or the opposite ? being so fidgety or restless that you have been moving around a lot more than usual Several days Thoughts that you would be b randy off , or of hurting yourself in some way Not at all Total Score 18 Interpretation Moderately severe depression Drugs/Alcohol: Social Info Question Answer Notes Alcohol Screen (Audit-C) Did you have a drink containing alcohol in the past year? No Points 0 Interpretation Negative Drugs Have you used drugs other than those for medical reasons in the past 12 months? No Tobacco Use: Social Info Question Answer Notes xTobacco Use/Smoking Are you a nonsmoker Additional Details Category Social Info Options Details Drugs/Alcohol: Do you smoke marijuana? De nies Do you drink alcohol? No Section Notes: 09/26/2021 Problems Problem Type SNOMED Code ICD Code Onset Dates Problem Status W/U Status Risk Notes Problem Primary insomnia (7006566) Primary insomnia (F51.01) Active confirmed Problem Anxiety (85129720) Anxiety (F41.9) Active confirmed Problem Depression (830968612) Other depression (F32.89) Active confirmed Problem Morbid obesity (100125320) Morbid obesity (E66.01) Active confirmed Problem Body mass index 40+ - severely obese (418178654) Body mass index [BMI] 40.0-44.9, adult (Z68.41) Active confirmed Plan Of Treatment No Information Insurance Providers Payer Name Payer Address Payer Phone Subscriber Number Group Number Insured Name Patient Relationship to Insured Coverage Start Date Coverage End Date [facility] [employer] [address] [place] [address] [id number] Lolly Fallon Self - patient is the insured [place] Medicaid [address] [place] [address] [id number] Lolly Fallon Self - patient is the insured Medical (General) History Medical History History ICD Code anxiety depression bipolar disorder, manic migraine headaches Surgical History Surgery Date(Month/Year) tubal ligation 2020 cholecystectomy 2018 Hospitalization History Reason Date(Month/Year) childbirth
[2024-10-17 11:22] VITALS: BP 121/74; PULSE 72; O2SAT 98
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
[2024-10-17 11:27] LABS: Hematocrit 41.2 % (36-47); Hemoglobin 13.30 g/dL (11.27-16.99); Mean Corpuscular HGB Conc 32.3 g/dL (30-55); Mean Corpuscular Hemoglobin 28.3 pg (27-33); Mean Corpuscular Volume 87.7 fl (85-98); Nucleated Red Blood Cells % 0 %; Platelet Count 291 10^3/cmm (157-399); Red Blood Count 4.70 10^6/uL (3.85-5.65); White Blood Count 8.60 10^3/uL (3.29-11.43)
--- NOTE | 2024-10-17 11:35 | CT_ITS ---
WS: [id number] CT ABDOMEN PELVIS TECHNIQUE: Contrast-enhanced CT of the abdomen and pelvis with coronal and sagittal reformatted images. CLINICAL INFORMATION: left upper abdominal pain COMPARISON: 2023 DLP: 744.[address] scans at [facility] use at least one of these dose optimization techniques: automated exposure control; mA and/or kV adjustment per patient size (includes targeted exams where dose is matched to clinical indication); or iterative reconstruction. FINDINGS: Fatty liver. Mild hepatomegaly. Recent postoperative changes gastric bypass with Aroldo-en-Y configuration. Expected postoperative changes in the LEFT upper quadrant. No free fluid or obstruction. No free air. Prior cholecystectomy. Lung bases are well aerated. Normal pancreatic parenchymal enhancement. Normal portal vein and splenic vein. RIGHT renal parenchymal scarring. No hydronephrosis. Normal caliber abdominal aorta. Endometrial thickening presumed physiologic in a patient of this age. Free fluid in the RIGHT adnexa and cul-de-sac. Peripheral enhancing RIGHT corpus luteum cyst measuring 1.6 cm. A few sigmoid diverticuli. A few slightly distended loops of small bowel in the midabdomen with air-fluid levels may be due to postoperative ileus. MPRESSION: 1. Reported recent postoperative changes gastric bypass with postoperative changes in the LEFT upper quadrant. No evidence of high-grade obstruction. No fluid collections or abscess. No free air. 2. No evidence of high-grade obstruction. 3. Prior cholecystectomy. 4. A few slightly distended loops of small bowel in the mid abdomen and pelvis with air-fluid levels may be due to postoperative ileus. 5. Peripheral enhancing RIGHT corpus luteum cyst with a small amount of free fluid along the RIGHT adnexa and cul-de-sac. 6. No other acute findings. Notified VICTORIA Dubois at 10/17/2024 12:46 PM.
[2024-10-17 11:39] LABS: HCG, Serum Qual Negative (Negative)
[2024-10-17 11:48] LABS: Alanine Aminotransferase 13 U/L (0-33); Albumin Level 4.5 g/dL (3.5-5.2); Alkaline Phosphatase 76 U/L (35-105); Anion Gap 15.2 (5-19); Aspartate Amino Transferase 13 U/L (0-32); Blood Urea Nitrogen 9 mg/dL (6-20); Calcium 9.6 mg/dL (8.5-10.5); Carbon Dioxide 22 mmol/L (22-29); Chloride 102 mmol/L (98-107); Creatinine Clr Calc Pharmacy 148.3220; Globulin 3.7 g/dL (1.3-4.6); Glucose 92 mg/dL (65-115); Lipase 42 U/L (13-60); Osmolality Calculated 278 mOsm/kg (285-295); Potassium 4.2 mmol/L (3.5-5.1); Sodium 135 mmol/L (136-145); Total Protein 8.2 g/dL (6.6-8.7)
[2024-10-17 11:50] LABS: Glucose Urine UA Negative (Normal); Nitrate Urine Positive (Negative); Specific Gravity, Urine 1.026 (1.005-1.030)
[2024-10-17 11:54] VITALS: RESP 18; O2SAT 100
[2024-10-17] MEDS: ondansetron 2 mg/ML SDV 2 mL 4 MG IVP (11:54)
[2024-10-17] MEDS: morphine 4 mg/mL SDV 1 mL IVP (11:54)
[2024-10-17 11:55] LABS: Add Urine Microscopic? YES
[2024-10-17 11:56] VITALS: PULSE 73; O2SAT 100
[2024-10-17] MEDS: iohexol 350 mg/mL 500 mL Btl (per mL) IV (12:35)
[2024-10-17 13:05] VITALS: BP 155/98; PULSE 81; O2SAT 100
== END 2024-10-17 13:07 | disposition home or self-care (01) ==
PROVIDERS: Emergency Provider Physician Assistant; PCP Physician Assistant
DX: G89.18 Other acute postprocedural pain (principal); N30.00 Acute cystitis without hematuria; Z98.890 Other specified postprocedural states
CPT/HCPCS: 36415; 74177; 80053; 81001; 83690; 84703; 85025; 87077; 87086; 87186; 96374; 96375; 99285; J2270; J2405

== ENCOUNTER 2024-10-29 18:50 | Emergency (ER) | payer MEDICAID, SELFPAY ==
--- OUTSIDE RECORDS SUMMARY | 2024-10-24 23:59 | XMS_ITS | Continuity of Care Document ---
Author Name [facility] Address [address] [place] [address] Organization [facility] Care Team Providers Care Riprap Worker Name Role Phone [facility] Unavailable Unavailable Problems Problem Status Onset Date Problem Type Date of Resolution Comments Source Morbid (severe) obesity due to excess calories 10/10/2024 Diagnosis Post-surgical malabsorption (disorder) 08/28/2024 Diagnosis Body mass index 40+ - severely obese (finding) Active Condition Added by Discern Rule PROB_ADD_BMI Severe obesity (disorder) Active Condition Added by Discern Rule PROB_ADD_BMI Gastro-esophageal reflux disease without esophagitis Diagnosis Chronic gastritis (disorder) Diagnosis Gastroesophageal reflux disease without esophagitis (disorder) Diagnosis Diaphragmatic hernia (disorder) Diagnosis Foreign body in stomach (disorder) Diagnosis Foreign body (FB) in orifice (disorder) Diagnosis Essential hypertension (disorder) Diagnosis Body mass index 40+ - severely obese (finding) Diagnosis Long-term current use of drug therapy (situation) Diagnosis Gastritis (disorder) Diagnosis Gastroparesis (disorder) Diagnosis Migraine (disorder) Diagnosis Obesity, class 1 Diagnosis Diaphragmatic hernia without obstruction or gangrene Diagnosis Body mass index (BMI) 33.0-33.9, adult Diagnosis Allergies, Adverse Reactions, Alerts Substance Category Reaction Severity Reaction type Status Date Reported Comments Source Depakote Assertion irritable Drug allergy Active [facility] Results Order Name Results Value Reference Range Date Interpretation Comments Source GENERAL CHEMISTRY CO2 23 mmol/L 20 - 31 10/11 14:40 :00 [facility] GENERAL CHEMISTRY Anion gap 14 mmol/L 0 - 20 10/11 14:40 :00 [facility] GENERAL CHEMISTRY BUN <5 mg/dL 6 - 20 10/11 14:40 :00 Result Comment: {<CC} [facility] GENERAL CHEMISTRY Creatinine, standardized 0.6 mg/dL 0.5 - 1.0 10/11 14:40 :00 Interpretive Data: Qvmdxi-iy-ohs e transgender patients on testosterone therapy should have results assessed using the male reference range. Krim-yg-uvwnh e transgender patients on hormone-modul ating therapy clinical judgment is advisedfor assessment. [facility] GENERAL CHEMISTRY Calcium 9.1 mg/dL 8.3 - 10.6 10/11 14:40 :00 [facility] GENERAL CHEMISTRY Estimated GFR for Adults 129 mL/min/1.7 3m 10/11 14:40 :00 Interpretive Data: Changed to CKD-EPI 2020 on 2020. [facility] GENERAL CHEMISTRY Glucose Lvl 95 mg/dL 70 - 139 10/11 14:40 :00 [facility] GENERAL CHEMISTRY Estimated GFR for peds Not Calculated mL/min/1.7 3m 10/11 14:40 :00 Interpretive Data: The estimated GFR was calculated using the Regis nice Lee equation (2009) . Reference: Pediatric GFR calculator at National Kidney Foundation Website. [facility] GENERAL CHEMISTRY Potassium 4.1 mmol/L 3.5 - 5.1 10/11 14:40 :00 [facility] GENERAL CHEMISTRY Chloride 104 mmol/L 98 - 107 10/11 14:40 :00 [facility] GENERAL CHEMISTRY Sodium 137 mmol/L 136 - 145 10/11 14:40 :00 [facility] HEMATOLOGY PROFILES Absolute Neutrophils 10.39 x10(9)/L 1.70 - 7.00 10/11 14:40 :00 [facility] HEMATOLOGY PROFILES % Immature Granulocytes 0.40 % 0.02 - 0.42 10/11 14:40 :00 [facility] HEMATOLOGY PROFILES % Basophils 0.1 % 10/11 14:40 :00 [facility] HEMATOLOGY PROFILES % Eosinophils 0.0 % 10/11 14:40 :00 [facility] HEMATOLOGY PROFILES Abs Lymphocytes 1.35 x10(9)/L 0.90 - 2.90 10/11 14:40 :00 [facility] HEMATOLOGY PROFILES % Lymphocytes 10.4 % 10/11 14:40 :00 [facility] HEMATOLOGY PROFILES % Neutrophils 80.1 % 10/11 14:40 :00 [facility] HEMATOLOGY PROFILES Abs Immature Granulocytes 0.05 x10(9)/L 0.00 - 0.03 10/11 14:40 :00 [facility] HEMATOLOGY PROFILES Absolute Nucleated RBCs 0.0 x10(9)/L 0.0 - 0.0 10/11 14:40 :00 Interpretive Data: Normal values not established in patients less than 18 years old. [facility] HEMATOLOGY PROFILES Abs Basophils 0.01 x10(9)/L 0.00 - 0.30 10/11 14:40 :00 [facility] HEMATOLOGY PROFILES % Nucleated RBCs 0.0 % 10/11 14:40 :00 [facility] HEMATOLOGY PROFILES Abs Eosinophils 0.00 x10(9)/L 0.05 - 0.50 10/11 14:40 :00 [facility] HEMATOLOGY PROFILES % Monocytes 9.0 % 10/11 14:40 :00 [facility] HEMATOLOGY PROFILES Abs Monocytes 1.17 x10(9)/L 0.30 - 0.90 10/11 14:40 :00 [facility] HEMATOLOGY PROFILES PLT 271 x10(9)/L 150 - 450 10/11 14:40 :00 [facility] HEMATOLOGY PROFILES RDW SD 41.8 fL 36.4 - 46.3 10/11 14:40 :00 [facility] HEMATOLOGY PROFILES RDW CV 13.7 % 11.9 - 15.5 10/11 14:40 :00 [facility] HEMATOLOGY PROFILES RBC 3.99 x10(12)/L 3.90 - 5.03 10/11 14:40 :00 [facility] HEMATOLOGY PROFILES WBC 12.97 x10(9)/L 3.50 - 10.50 10/11 14:40 :00 [facility] HEMATOLOGY PROFILES MPV 10.3 8.0 - 12.0 10/11 14:40 :00 [facility] HEMATOLOGY PROFILES MCV 83.5 fL 81.6 - 98.3 10/11 14:40 :00 [facility] HEMATOLOGY PROFILES HCT 33.3 % 34.9 - 44.5 10/11 14:40 :00 Interpretive Data: Lrfpio-hc-aqi e transgender patients on testosterone therapy should have results assessed using the male reference range. Eylf-dv-izpqm e transgender patients on hormone-modul ating therapy clinical judgment is advisedfor assessment. [facility] HEMATOLOGY PROFILES HGB 11.3 g/dL 12.0 - 15.5 10/11 14:40 :00 Interpretive Data: Aajnpc-iq-zib e transgender patients on testosterone therapy should have results assessed using the male reference range. Ffld-tg-fbsjt e transgender patients on hormone-modul ating therapy clinical judgment is advisedfor assessment. [facility] HEMATOLOGY PROFILES MCHC 33.9 g/dL 32.0 - 36.0 10/11 14:40 :00 [facility] HEMATOLOGY PROFILES MCH 28.3 pg 26.0 - 33.0 10/11 14:40 :00 [facility] Surgical Report Surgical Report SURGICAL PATHOLOGY REPORT Patient Name: ROBERT FALLON Specimen Number: [id number] Patient Collection Date: 10/10/2024 Submitting Physician: Erna [...] Sections are submitted in 1A-1C. (VICTORIA Shelley ([facility])) TSL The performanc e characteri stics of the immunohist ochemical stains cited in this report (if any) were determined by the [facility] Department of Pathology. They have not been [...] specimen is based on a microscopi c examinatio n of histologic sections of the tissue from each specimen. 10/10 13:26 :00 Missing Attachment [id number].PDF can be viewed in source system [facility] SITE LAB RESULTS POC U hCG (Rals) Negative *NA* (10/10/24 5:06 AM) 10/10 10:06 :00 [facility] GENERAL CHEMISTRY Iron 73 ug/dL 50 - 170 08/28 16:22 :00 [facility] GENERAL CHEMISTRY TIBC 363 ug/dL 250 - 425 08/28 16:22 :00 [facility] GENER[facility] CHEMI[facility]Y Iron Saturation 20.0 % 20.0 - 55.0 08/28 16:22 :00 [facility] GENERAL CHEMISTRY Calcium 9.7 mg/dL 8.3 - 10.6 08/28 16:22 :00 [facility] GENERAL CHEMISTRY Glucose Lvl 106 mg/dL 70 - 139 08/28 16:22 :00 [facility] GENERAL CHEMISTRY Chloride 103 mmol/L 98 - 107 08/28 16:22 :00 [facility] GENERAL CHEMISTRY ALT-SGPT 14 [...] 3.5 - 5.1 08/28 16:22 :00 [facility] GENERAL CHEMISTRY CO2 27 mmol/L 20 - 08/28 16:22 :00 [facility] GENERAL CHEMISTRY Estimated GFR for peds Not Calculated mL/min/1.7 3m 08/28 16:22 :00 Interpretive Data: The estimated GFR was calculated using the B arlet Lee equation (2009) . Reference: Pediatric GFR calculator at National Kidney Foundation Website. [facility] GENERAL CHEMISTRY Total Protein 7.4 g/dL 5.7 - 8.2 08/28 16:22 :00 [facility] GENERAL CHEMISTRY Creatinine, standardized 0.7 mg/dL 0.5 - 1.0 08/28 16:22 :00 Interpretive Data: Luvvez-ls-qcu e transgender patients on testosterone therapy should have results assessed using the male reference range. Yrbk-du-uljpq e transgender patients on hormone-modul ating therapy clinical judgment is advisedfor assessment. [facility] GENERAL CHEMISTRY Estimated GFR for Adults 124 mL/min/1.7 3m 08/28 16:22 :00 Interpretive Data: Changed to CKD-EPI 2020 on 2020. [facility] GENERAL CHEMISTRY AST-SGOT 18 U/L 08/28 16:22 :00 [facility] GENERAL CHEMISTRY Albumin 3.7 g/dL 3.4 - 5.0 08/28 16:22 :00 [facility] GENERAL CHEMISTRY Alkaline Phosphatase [...] against heart disease. National Cholesterol Education Program [employer] [facility] [address] [address] [place] [phone] http:www.nhlb i.nih.gov [facility] GENERAL CHEMISTRY Triglyceride s 156 mg/dL 08/28 16:22 :00 Interpretive Data: Less than 150 Normal 150 - 199 Borderline high 200 - 499 High 500 and above Very high National Cholesterol Education Program [employer] [facility] [address] [address] [place] [phone] http://www.[facility],nih.gov [facility] GENERAL CHEMISTRY LDL (Calculated) [...] roteinemia, if not on Statin therapy. Reference: Gigi et al. DOROTHY Cardiol. 2020; 26: 1-9. [facility] GENERAL CHEMISTRY Cholesterol HDL Ratio 3.1 08/28 16:22 :00 [facility] GENERAL CHEMISTRY Cholesterol 125 mg/dL 08/28 16:22 :00 [facility] GENERAL CHEMISTRY Magnesium 1.92 [...] - 15.5 08/28 16:22 :00 Interpretive Data: Lstyli-lt-mfh e transgender patients on testosterone therapy should have results assessed using the male reference range. Irfj-ji-vycyd e transgender patients on hormone-modul ating therapy clinical judgment is advisedfor assessment. [facility] HEMATOLOGY PROFILES WBC 8.35 x10(9)/L 3.50 - 10.50 08/28 16:22 :00 [facility] HEMATOLOGY PROFILES HCT 38.2 % 34.9 - 44.5 08/28 16:22 :00 Interpretive Data: Lomcsa-yj-noj e transgender patients on testosterone therapy should have results assessed using the male reference range. Gcho-hx-ysoan e transgender patients on hormone-modul ating therapy [...] 16:22 :00 [facility] CHEMISTRY Intact PTH 82.6 pg/mL 18.4 - 80.1 08/28 16:22 :00 [facility] REFERENCE LABS Thiamin(Wh Bld)-Scott 94 nmol/L 70 - 180 08/28 16:22 :00 Result Comment: ------ADDITIO NAL INFORMATION-- ---- This test was developed and its performance characteristi cs determined by [facility] in a manner consistent with CLIA requirements. This test has not been cleared or approved by the U.S. Food and Drug Administratio n. Test Performed by: [facility] [place] [address] Plastic Surgery Specialist: Tal Perez Ph.D.; CLIA# [id number] [facility] REFERENCE LABS Free Retinol(Vit A)-Scott 50.6 ug/dL 32.5 - 78.0 08/28 16:22 :00 Result Comment: ------ADDITIO NAL INFORMATION-- ---- This test was developed and its performance characteristi cs determined by [facility] in a manner consistent with CLIA requirements. This test has not been cleared or approved by the U.S. Food and Drug Administratio n. Test Performed by: [facility] [place] [address] Plastic Surgery Specialist: Tal Perez Ph.D.; CLIA# [id number] [facility] REFERENCE LABS A-Tocopherol , Vit E-Scott 8.7 mg/L 5.5 - 17.0 08/28 16:22 :00 Result Comment: ------ADDITIO NAL INFORMATION-- ---- This test was developed and its performance characteristi cs determined by [facility] in a manner consistent with CLIA requirements. This test has not been cleared or approved by the U.S. Food and Drug Administratio n. Test Performed by: [facility] [place] [address] Plastic Surgery Specialist: Tal Perez Ph.D.; CLIA# [id number] [facility] REFERENCE LABS Vitamin K1-Scott 0.18 ng/mL 0.10 - 2.20 08/28 16:22 :00 Result Comment: ------ADDITIO NAL INFORMATION-- ---- This test was developed and its performance characteristi cs determined by [facility] in a manner consistent with CLIA requirements. This test has not been cleared or approved by the U.S. Food and Drug Administratio n. Test Performed by: [facility] [place] [address] Plastic Surgery Specialist: Tal Perez Ph.D.; CLIA# [id number] [facility] REFERENCE LABS Zinc, S-Jarvis 65 ug/dL 60 - 106 08/28 16:22 :00 Result Comment: ------ADDITIO NAL INFORMATION-- ---- This test was developed and its performance characteristi cs determined by [facility] in a manner consistent with CLIA requirements. This test has not been cleared or approved by the U.S. Food and Drug Administratio n. Test Performed by: [facility] - [address] [address] Plastic Surgery Specialist: Tal Perez Ph.D.; CLIA# [id number] [facility] REFERENCE LABS Copper, S-Jarvis 125 ug/dL 77 - 206 08/28 16:22 :00 Result Comment: ------ADDITIO NAL INFORMATION-- ---- This test was developed and its performance characteristi cs determined by [facility] in a manner consistent with CLIA requirements. This test has not been cleared or approved by the U.S. Food and Drug Administratio n. Test Performed by: [facility] - [address] [address] Plastic Surgery Specialist: Tal Perez Ph.D.; CLIA# [id number] [facility] CLINIC SITE LAB RESULTS POC U hCG (Rals) Negative *NA* (04/29/24 10:16 AM) 04/29 15:16 :00 [facility] Consultation Notes Results Value Date Source Op/Procedure [...] Repair (type 3) Surgeon(s) Erna Londono MD Electrical Troubleshooter Alfred Leonardo MD (No qualified resident was [...] stapler load was fired across first using in[employer] stapler. A second two staple load was [...] pouch. Using a white staple load, the [place]-loop of jejunum was anastomosed to the gastric [...] 0.25% 30 cc at port sites Location: [facility] Drains: None Condition: Good Transfer: PACU 10/10/2024 Op/Procedure Note [id number] Patie nt Out-Room Date/Time: 10-OCT-2024 09:34 Primary [...] galcanezumab(Emgality Prefilled Pen 120 mg/mL subcutaneous solution), [id number] pantoprazole(Protonix 40 mg oral delayed release tablet), [...] Systems ROS: Denies cardiac history including: HTN, HI, cardiac stents, palpitations, chest pain. Denies: Glaucoma, kidney/liver disease, hyperthyroidism, DM, h/o kidney stones. Denies h/o drug/alcohol abuse. Psychiatric: Denies feelings of SI, HI, anxiety/depression +gastroparesis. Phentermine: Denies hx of cardiovascular disease, including CHF, CAD, HI, cardiac stents, uncontrolled hypertension, arrhythmias. Denies hx [...] Level Vitamin A Vitamin B1 (Thiamin) Whole Blood-Scott Vitamin B12 Level Vitamin D Level Vitamin E level Vitamin K1 level Zinc Level-Scott 3. Dietary counseling and surveillance -Food journalling: [...] galcanezumab(Emgality Prefilled Pen 120 mg/mL subcutaneous solution), [id number] pantoprazole(Protonix 40 mg oral delayed release tablet), [...] galcanezumab(Emgality Prefilled Pen 120 mg/mL subcutaneous solution), [id number] pantoprazole(Protonix 40 mg oral delayed release tablet), [...] WLS: Denies history of HTN, COOKIE, DM, CAD/HI, arrhythmias, CVA, CKD, chronic liver disease, chronic [...] weight: 95 kg Pt reports lab in [facility]'s shut down (lab orders at 6 mo post op) so she was unable to get labs done. She got them done with PCP and reports they were sent to us, but don't see them in chart yet. Pt has [facility] Medicaid for insurance. Review of Systems ROS: Denies cardiac history including: HTN, HI, cardiac stents, palpitations, chest pain. Denies: Glaucoma, kidney/liver disease, hyperthyroidism, DM, h/o kidney stones. Denies h/o drug/alcohol abuse. Psychiatric: Denies feelings of SI, HI, anxiety/depression +gastroparesis. Phentermine: Denies hx of cardiovascular disease, including CHF, CAD, HI, cardiac stents, uncontrolled hypertension, arrhythmias. Denies hx [...] galcanezumab(Emgality Prefilled Pen 120 mg/mL subcutaneous solution), [id number] pantoprazole(Protonix 40 mg oral delayed release tablet), [...] Operation 1.) Esophagogastroduodenoscopy Surgeon(s) Erna Londono MD Electrical Troubleshooter MD Bhavana Anesthesia Sedation Estimated Blood Loss [...] endorses that they are in the state [facility] during this telehealth visit. Patient location at [...] by myself and/or to be reviewed by highway technician; avoidance of grazing patterns, normal portion sizes [...] ordered as below: -- [facility]: [address], [place], [place] CBC with Auto Differential Comprehensive Metabolic Panel Ferritin Level Folate Level Intact PTH Iron Level and TIBC Lipid Profile Magnesium Level Phosphorus Level Vitamin B1 (Thiamin) Whole Blood-Scott Vitamin B12 Level Vitamin D Level Zinc Level-Scott 3) Nausea 4) Reflux -- Reminded pt [...] galcanezumab(Emgality Prefilled Pen 120 mg/mL subcutaneous solution), [id number] lithium(lithium 300 mg oral tablet), bid OLANZapine(OLANZapine [...] Diagnostic Results Visit Information Attending Physician: Luisa KESSLRE Primary Care Physician: Malik Crane DO Visit [...] endorses that they are in the state of [place] during this telehealth visit. Patient location at [...] galcanezumab(Emgality Prefilled Pen 120 mg/mL subcutaneous solution), [id number] lithium(lithium 300 mg oral tablet), bid OLANZapine(OLANZapine [...] (Emgality Prefilled Pen 120 mg/mL subcutaneous solution) [id number], 0 Refill(s) ondansetron (ondansetron 4 mg) 4 [...] Londono MD [facility] [address] [phone] Confirmed PS2 10/16/2024 12:[address] [facility] [address] [phone] Confirmed RT1 10/24/2024 01:45 PM CDT Charles Camacho [facility] [address] [phone] Confirmed Nursing/Other Orders Bariatric Diet [...] galcanezumab(Emgality Prefilled Pen 120 mg/mL subcutaneous solution), [id number] pantoprazole(Protonix 40 mg oral delayed release tablet), [...] Metabolic Center SpO2 98 % 04/29/2024 18:11:29 [facility] Heart Rate 67 bpm 04/29/2024 18:11:27 [facility] SBP NIBP 134 mm[Hg] 04/29/2024 18:10:00 [facility] DBP NIBP 78 mm[Hg] 04/29/2024 18:10:00 [facility] Respiratory Rate 18 breaths/min 04/29/2024 18:10:00 [facility] Mean NIBP 96 mm[Hg] 04/29/2024 18:10:00 [facility] SpO2 96 % 04/29/2024 18:05:25 [facility] Heart Rate 73 bpm 04/29/2024 18:05:25 [facility] Respiratory Rate 18 breaths/min 04/29/2024 18:00:00 [facility] Mean NIBP 77 mm[Hg] 04/29/2024 18:00:00 [facility] SBP NIBP 98 mm[Hg] 04/29/2024 18:00:00 [facility] DBP NIBP 63 mm[Hg] 04/29/2024 18:00:00 [facility] SpO2 96 % 04/29/2024 17:55:54 [facility] Heart Rate 83 bpm 04/29/2024 17:55:49 [facility] Mean NIBP 90 mm[Hg] 04/29/2024 17:55:11 [facility] SBP NIBP 104 mm[Hg] 04/29/2024 17:55:11 [facility] DBP NIBP 75 mm[Hg] 04/29/2024 17:55:[address] [facility] Respiratory Rate 18 breaths/min 04/29/2024 17:55:00 [facility] Temperature (Celsius) 36.0 Faviola 04/29/2024 17:55:00 [facility] Temperature (Celsius) 35.7 Faviola 04/29/2024 15:25:00 [facility] SpO2 99 % 04/29/2024 15:25:00 [facility] Weight (kg) 95.3 kg 04/29/2024 15:25:00 [facility] SBP NIBP 147 mm[Hg] 04/29/2024 15:25:00 [facility] DBP NIBP 85 mm[Hg] 04/29/2024 15:25:00 [facility] Respiratory Rate 16 breaths/min 04/29/2024 15:25:00 [facility] Heart Rate 87 bpm 04/29/2024 15:25:00 [facility] Height (cm) 161.4 cm 04/10/2024 14:32:00 [facility] 02/07/2024 14:57:00 [facility] Encounters Location Location Details Encounter Type Encounter Number Reason For Visit Attending Provider ADM Date DC Date Status Source [facility] Non-Admit [id number] Eusebio Leonardo 11/12 12:51 :03 11/13 04:59 :59 [facility] [id number] Eusebio Elliser 11/19 12:53 :47 11/20 04:59 :59 [facility] Virtual Care [id number] Luisa Andrea 02/06 13:40 :23 02/07 05:59 :59 [facility] Virtual Care [id number] [place] [address] [facility] Eusebio Leonardo 04/10 07:39 :17 04/10 23:59 :59 Active [facility] Virtual Care [id number] [place] [address] [facility] Luisa Emery 04/10 07:44 :13 04/10 23:59 :59 Active [facility] Nurse Phone Call Clinic [id number] Torey Christian 04/29 11:39 :02 04/30 04:59 :59 [facility] Outpatient Day Surgery [id number] [facility] 04/29 14:54 :53 04/30 04:59 :59 [facility] [id number] [facility] 06/16 15:29 :36 06/17 04:59 :59 [facility] [id number] [facility] 07/08 15:50 :05 07/09 04:59 :59 [facility] [id number] Luisa Emery 08/28 15:10 :29 08/29 04:59 :59 [facility] [id number] [facility] 09/16 16:28 :52 09/17 04:59 :59 [facility] Clinic [id number] [facility] 09/16 16:30 :47 09/17 04:59 :59 [facility] Inpatient [id number] Enoc Ryan 10/10 09:50 :29 10/11 18:32 :00 [facility] Nurse Phone Call Clinic [id number] Torey Christian 10/10 12:46 :26 10/11 04:59 :59 [facility] Non-Admit [id number] Erna Londono 10/24 13:08 :48 10/25 04:59 :59 [facility] Procedures Procedure Code Date Perfomer Comments Source EGD 04/29/2024 05:00:00 [facility] Plan of Care Plan of Care Date Source No data available for this section 10/25/2024 [facility] No data available for this section 10/11/2024 [facility] No data available for this section 10/11/2024 [facility] No data available for this section 09/17/2024 [facility] Social History Social History Date Source No data available for this section 10/25/2024 [facility] No data available for this section 10/11/2024 [facility] No data available for this section 10/11/2024 [id number] No data available for this section [...]
--- OUTSIDE RECORDS SUMMARY | 2024-10-29 18:55 | XMS_ITS | Clinical Summary ---
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
[2024-10-29 18:59] VITALS: BP 152/109; PULSE 90; RESP 18; TEMP 36.6; O2SAT 100
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
--- NOTE | 2024-10-29 19:59 | CTR_ITS ---
PROCEDURE INFORMATION: Exam: CT Abdomen And Pelvis With Contrast Exam date and time: 10/29/2024 9:04 PM Age: 24 years old Clinical indication: Abdominal pain; Generalized; Prior surgery; Surgery date: 6+ months; Surgery type: Tubal, gb, gastric sleeve, hernia repair; Additional info: Abd pain TECHNIQUE: Imaging protocol: Computed tomography of the abdomen and pelvis with contrast. Radiation optimization: All CT scans at this facility use at least one of these dose optimization techniques: automated exposure control; mA and/or kV adjustment per patient size (includes targeted exams where dose is matched to clinical indication); or iterative reconstruction. Contrast material: OMNIPAQUE 350; Contrast volume: 100 ml; Contrast route: INTRAVENOUS (IV); COMPARISON: CT abdomen pelvis w con* [id number] 10/17/2024 12:06 PM RADIATION DOSE METRICS: Total DLP (mGy-cm): 731.38 FINDINGS: Liver: Fatty infiltration versus 3rd inflow artifact is noted at the anterior falciform ligament. Gallbladder and biliary ducts: The gallbladder is surgically absent. Pancreas: Normal. No ductal dilation. Spleen: Normal. No splenomegaly. Adrenal glands: Normal. No mass. Kidneys and ureters: Normal. No hydronephrosis. Stomach and bowel: Postoperative changes from gastric bypass are noted. No acute complication is seen. Anastomoses are intact. Suggested prior changes from gastric sleeve. The large and small bowel are unremarkable. Bowel is normal in course and caliber without evidence of wall thickening or obstruction. Appendix: No evidence of appendicitis. Intraperitoneal space: Unremarkable. No free air. No significant fluid collection. Vasculature: Unremarkable. No abdominal aortic aneurysm. Lymph nodes: Unremarkable. No enlarged lymph nodes. Urinary bladder: Unremarkable as visualized. Reproductive: Fluid-filled endometrial canal. Bones/joints: Unremarkable. No acute fracture. Soft tissues: Unremarkable. CT/CT abdomen pelvis w con* [id number] IMPRESSION: 1. No acute intra-abdominal process to explain the patient's symptoms. 2. Fluid-filled endometrial canal. Findings may be physiologic. Correlate with menstrual status. 3. Postoperative changes of the above.
[2024-10-29 20:26] LABS: Hematocrit 38.4 % (36-47); Hemoglobin 12.50 g/dL (11.27-16.99); Mean Corpuscular HGB Conc 32.6 g/dL (30-55); Mean Corpuscular Hemoglobin 27.9 pg (27-33); Mean Corpuscular Volume 85.7 fl (85-98); Nucleated Red Blood Cells % 0 %; Platelet Count 337 10^3/cmm (157-399); Red Blood Count 4.48 10^6/uL (3.85-5.65); White Blood Count 7.20 10^3/uL (3.29-11.43)
[2024-10-29] MEDS: ondansetron 2 mg/ML SDV 2 mL 4 MG IVP (20:31)
[2024-10-29 20:32] VITALS: RESP 18; O2SAT 98
[2024-10-29 20:32] LABS: Glucose Urine UA Negative (Normal); HCG Qualitative Urine. Negative (Negative); Nitrate Urine Negative (Negative)
[2024-10-29] MEDS: morphine 4 mg/mL SDV 1 mL IVP (20:32)
[2024-10-29 20:35] VITALS: BP 123/84; PULSE 70; RESP 16; O2SAT 98
[2024-10-29 20:44] LABS: Alanine Aminotransferase 14 U/L (0-33); Albumin Level 4.5 g/dL (3.5-5.2); Alkaline Phosphatase 85 U/L (35-105); Anion Gap 14.2 (5-19); Aspartate Amino Transferase 15 U/L (0-32); Blood Urea Nitrogen 11 mg/dL (6-20); Calcium 9.6 mg/dL (8.5-10.5); Carbon Dioxide 27 mmol/L (22-29); Chloride 104 mmol/L (98-107); Creatinine Clr Calc Pharmacy 148.7330; Globulin 3.4 g/dL (1.3-4.6); Glucose 94 mg/dL (65-115); Lipase 38 U/L (13-60); Osmolality Calculated 291 mOsm/kg (285-295); Potassium 4.2 mmol/L (3.5-5.1); Sodium 141 mmol/L (136-145); Total Protein 7.9 g/dL (6.6-8.7)
[2024-10-29 20:46] LABS: Specific Gravity, Urine 1.034 (1.005-1.030)
[2024-10-29 22:06] VITALS: BP 139/76; PULSE 79; O2SAT 100
== END 2024-10-29 22:12 | disposition home or self-care (01) ==
PROVIDERS: Emergency Medicine; Emergency Provider Emergency Medicine; PCP Physician Assistant
DX: R10.30 Lower abdominal pain, unspecified (principal)
CPT/HCPCS: 36415; 74177; 80053; 81001; 81025; 83690; 85025; 96361; 96374; 96375; 99285; J2270; J2405; J7030

== ENCOUNTER 2025-01-01 07:27 | Emergency (ER) | payer MEDICAID, SELFPAY ==
--- OUTSIDE RECORDS SUMMARY | 2024-12-30 09:00 | XMS_ITS | Encounter Summary ---
Author Organization [facility] Address [address] [place] [address] Care Team Providers Care Mental Health Assistant Name Role Phone Unavailable Primary Care Provider Unavailabl e Reason for Referral * CT Scan (Routine) - Authorized Specialty Diagnoses / Procedures Referred By Hermelinda t Referred To Contact Radiology Diagnoses Right flank pain Procedures CT URINARY CALCULI WO CONTRAST Afshan Castro FNP [address] [place] [phone] Phone: tel: fax: [facility] CT Scan [place] [address] [place] [address] Phone: tel: fax: Referral ID Status Reason Start Date Expiration Date Visits Requested Visits Authorized [id number] Authorized [facility] View CTS to Schedule 02/14/2025 1 1 CAL REFERRAL COORDINATOR Reason for Visit * Reason Comments UTI * Eval and Treat (Routine) - Closed Specialty Diagnoses / Procedures Referred By Contac t Referred To Contact Urology Diagnoses Urinary tract infection, site not specified Shilpa Ballesteros, VICTORIA [address] [facility] [address] [place] [address] Phone: tel: fax: [facility] Urology [address] [address] Phone: tel: fax: Referral ID Status Reason Start Date Expiration Date Visits Re quested Visits Authorized [id number] Closed 11/05/2024 12/06/2025 1 1 Encounter Details Date Type Department Care Team (Late st Contact Info) Description 12/30/2024 9:00 AM MEDICAL REFERRAL COORDINATOR Office Visit [facility] [place] [address] [place] [address] Afshan Castro FNP [address] [place] [address] History of recurrent UTIs (Primary Dx); Abnormal finding on urinalysis; Right flank pain; Encounter to establish care Social History Tobacco Use Types Packs/Day Years Used Date Smoking Tobacco: Never Assessed Comments Unknown Sex and Gender Information Value Date Recorded Sex Assigned at Not on file Legal Sex Female 4:17 PM MEDICAL REFERRAL COORDINATOR Gender Identity Not on file Sexual Orientation Not on file documented as of this encounter Progress Notes * Afshan Castro FNP - 12/30/2024 9:00 AM CST HISTORY & PHYSICAL EXAM Patient: Lolly Fallon / 24 y.o. / female : 2000 Chief Complaint: Chief Complaint Patient presents with UTI History of Present Illness: Lolly Fallon is a 24 y.o. year-old female presents today to establish care and further evaluation of UTI. Lolly was referred from [facility] out of [facility]. PCP completed a renal ultrasound in July of this year which was negative for stones and hydronephrosis. Aubrey had 4 urine cultures positive for E. coli since May with the most recent one being in October. Reports UTI started in 2020. Has been on and off antibiotics regularly since. Does/has not had normal UTI symptoms. No known history of kidney stones. Denies hematuria. Does have urgency at times. Denies frequency Does not get adequate water intake. Drinks more juice and powerade. Does not drink much caffeine. Reports she has had previous history of right sided abdominal and flank pain over the past few years. She had a uterine ablation completed in hopes to alleviate abdominal pain. This has not resolved the problem. No past medical history on file. No past surgical history on file. No current outpatient medications on file prior to visit. No current facility-administered medications on file prior to visit. No Known Allergies No family history on file. Social History Socioeconomic History Marital status: Single Spouse name: Not on file Number of children: Not on file Years of education: Not on file Highest education level: Not on file Occupational History Not on file Tobacco Use Smoking status: Not on file Smokeless tobacco: Not on file Substance and Sexual Activity Alcohol use: Not on file Drug use: Not on file Sexual activity: Not on file Other Topics Concern Not on file Social History Narrative Not on file Health-Related Social Needs Food Insecurity: Not on file Transportation Needs: Not on file Domestic Concerns: Not on file Housing Stability: Not on file Review of Systems: 12 point ROS otherwise negative. Physical Examination: Constitutional: Nontoxic appearing. No acute distress. Head: Normocephalic, atraumatic. Eyes: Extraocular movements intact, no scleral icterus. Neck: Normal range of motion. Pulmonary: Respirations unlabored on room air. No audible wheezes. Abdomen: non-distended Musculoskeletal: Normal range of motion and strength of bilateral upper and lower extremities. Neurological: Alert and awake. Gait normal. Skin: Skin is warm and dry. No petechiae or rashes. Psychiatric: Appropriate mood and affect. Normal behavior. Labs: Chemistry No results found for: NA , K , CL , CO2 , CA , BUN , CREAT , GLUCOSE , ANIONGAP , BCRATIO Hematology No results found for: WBC , MANUALWBC , HGB , HGBPOC , HCT , HCTPOC , PLT , MCV Urinalysis Lab Results Component Value Date/Time PHUA 8.5 (A) 12/30/2024 09:03 AM URINELEUKOC Trace (A) 12/30/2024 09:03 AM NITRITEUA Positive (A) 12/30/2024 09:03 AM KETONEURINE Negative 12/30/2024 09:03 AM PROTEINUA Trace (A) 12/30/2024 09:03 AM GLUUA Negative 12/30/2024 09:03 AM BLOODUA Negative 12/30/2024 09:03 AM Coagulation No results for input(s): PT , INR , APTT in the last 72 hours. Imaging: I reviewed renal us report in the referral. No stones or nephrohydrosis at that time. Assessment/Plan: ICD-10-CM ICD-9-CM 1. History of recurrent UTIs Z87.440 V13.02 POC URINALYSIS DIPSTICK AUTOMATED MISCELLANEOUS LAB TEST MISCELLANEOUS LAB TEST MISCELLANEOUS LAB TEST MISCELLANEOUS LAB TEST methenamine hippurate (HIPREX) 1 gram Tablet 2. Abnormal finding on urinalysis R82.90 791.9 URINALYSIS MICROSCOPY ONLY URINALYSIS MICROSCOPY ONLY 3. Right flank pain R10.A1 789.09 CT URINARY CALCULI WO CONTRAST 4. Encounter to establish care Z76.89 V65.8 Lolly Fallon is a pleasant 24 y.o. female that presented to establish care and further evaluation of recurrent UTI. We discussed etiologies and management options for recurrent UTI. These included behavioral changes(timed voids q 2-3 hours, increased hydration to at least 1.5 L water per day), over the counter medications (cranberry tablets, d-mannose 1 g daily), methenamine, self-start therapy, post-intercourse prophylaxis, and daily antibiotic prophylaxis. I have sent in methenamine 1 g twice a day for 6 months. Encouraged her to start vitamin C 600 mg daily along with a cranberry supplement. UA positive for Leukocytes, Nitrite, and Protein. Urine pH was also 8.5. Will send urine off for molecular testing and treat as indicated. As she is not having any UTI symptoms, fever, or chills, I suspect that she is most likely colonized at this point. Discussed with her not starting antibiotics on any future urine cultures until she speaks with me. Will get a CT urinary calc to rule out any stones or abnormalities of the urinary tract system. RTC 7-month follow-up after completing methenamine or sooner as needed. Lolly verbalized understanding and agreed with above plan of care. Signed: NESTOR Islas [facility] 12/30/2024, 9:27 AM On the day of this visit I spent 45 minutes providing care to this patient including Preparing to see the patient, Obtaining and/or reviewing separately obtained history, Coordinating with bedside members of the care team, Counseling and educating the patient/family/caregiver, Ordering medications,tests or procedures, Documenting clinical information in the medical record, Independently interpreting results and communicating results to the patient/family/caregiver (not separately reported), and Care coordination (not separately reported) CAL REFERRAL COORDINATOR * Barbara Vizcaino - 12/30/2024 8:59 AM CST TOBACCO COUNSELING She is not a tobacco/nicotine user. CAL REFERRAL COORDINATOR documented in this encounter Miscellaneous Notes * Patient Instructions - Afshan Castro FNP - 12/30/2024 9:06 AM MEDICAL REFERRAL COORDINATOR Thank you for trusting us to care for you at [facility]. Your Care Team at [facility] seeks to provide Excellent, Safe and Quality care. We hope we met your expectations today and that you were satisfied with your visit. You may receive a survey by email regarding your visit. Your feedback is very important to us. This is how we are graded/evaluated. Only thetop/best (excellent) score is a passing grade, everything else is considered a failure or non passing grade. Please consider us for the top score. We discussed etiologies and management options for recurrent UTI. These included behavioral changes(timed voids q 2-3 hours, increased hydration to at least 64 ounces of water per day), Start taking Vitamin C 500mg and Cranberry daily. Start Methenamine twice a day for 6 months. If you start antibiotics, stop Methenamine until 24 hours after last dose of antibiotics. CAL REFERRAL COORDINATOR CAL REFERRAL COORDINATOR documented in this encounter Plan of Treatment Upcoming Encounters Date Type Department Care Team (Late st Contact Info) Description 01/06/2025 9:45 AM MEDICAL REFERRAL COORDINATOR Appointment [facility] Scan [place] [address] [place] [phone] Afshan Castro FNP [address] [place] [address] 07/30/2025 11:30 AM CDT Office Visit [facility] Urology [place] [address] [place] [address] Afshan Castro FNP [address] [facility] [address] [place] [address] Scheduled Orders Name Type Priority Associated Diagnoses Orde r Schedule MISCELLANEOUS LAB TEST Lab Routine History of recurrent UTIs Expected: 12/30/2024, Expires: 12/30/2025 MISCELLANEOUS LAB TEST Lab Routine History of recurrent UTIs Expected: 12/30/2024, Expires: 12/30/2025 CT URINARY CALCULI WO CONTRAST Imaging Routine Right flank pain 1 Occurrences starting 12/30/2024 until 12/30/2025 documented as of this encounter Procedures Procedure Name Priority Date/Time Associated Diagnosis Comments URINALYSIS MICROSCOPY ONLY Routine 12/30/2024 9:07 AM MEDICAL REFERRAL COORDINATOR Abnormal finding on urinalysis POC URINALYSIS DIPSTICK AUTOMATED Routine 12/30/2024 9:03 AM MEDICAL REFERRAL COORDINATOR History of recurrent UTIs documented in this encounter Results * (ABNORMAL) URINALYSIS MICROSCOPY ONLY (12/30/2024 9:07 AM MEDICAL REFERRAL COORDINATOR) WBC UA 20-40(A) < OR = 5 /HPF [facility] RBC UA NONE SEEN < OR = 2 /HPF [facility] EPITHELIAL CELLS, URINE 6-10(A) < OR = 5 /HPF [facility] BACTERIA UA MANY(A) NONE SEEN /HPF [facility] AMORPHOUS CRYSTAL MODERATE(A ) NONE OR FEW /HPF [facility] HYALINE CAST 6-10(A) NONE SEEN /LPF [facility] Comment: FASTING: UNKNOWN Test Performed at: [facility] [address] [place] [address] Fran Polanco Urine URINE SPECIMEN OBTAINED BY CLEAN CATCH PROCEDURE / Unknown 12/30/2024 9:07 AM MEDICAL REFERRAL COORDINATOR 12/30/2024 11:05 AM MEDICAL REFERRAL COORDINATOR us Afshan Castro [employer] TECH[employer] URINE ORDERABLES Final Res ult [facility] [phone] [facility] [address] [place] [address] * (ABNORMAL) POC URINALYSIS DIPSTICK AUTOMATED (12/30/2024 9:03 AM MEDICAL REFERRAL COORDINATOR) COLOR UA Yellow Pale to Dark Yellow 12/30/2024 9:03 AM MEDICAL REFERRAL COORDINATOR [facility] CLARITY UA Cloudy(A) Clear 12/30/2024 9:03 AM MEDICAL REFERRAL COORDINATOR [facility] GLUCOSE UA Negative Negative 12/30/2024 9:03 AM MEDICAL REFERRAL COORDINATOR [facility] BILIRUBIN UA Negative Negative 12/30/2024 9:03 AM MEDICAL REFERRAL COORDINATOR [facility] KETONES UA Negative Negative 12/30/2024 9:03 AM MEDICAL REFERRAL COORDINATOR [facility] BLOOD UA Negative Negative 12/30/2024 9:03 AM MEDICAL REFERRAL COORDINATOR [facility] PH UA 8.5(A) 5.0 - 8.0 12/30/2024 9:03 AM MEDICAL REFERRAL COORDINATOR [facility] PROTEIN UA Trace(A) Negative 12/30/2024 9:03 AM MEDICAL REFERRAL COORDINATOR [facility] UROBILINOGEN UA 1.0 <2.0 mg/dL 9:03 AM MEDICAL REFERRAL COORDINATOR [facility] NITRITE UA Positive(A) Negative 12/30/2024 9:03 AM MEDICAL REFERRAL COORDINATOR [facility] LEUKOCYTE ESTERASE UA Trace(A) Negative 12/30/2024 9:03 AM MEDICAL REFERRAL COORDINATOR [facility] SPECIFIC GRAVITY UA POC 1.020 1.000 - 1.030 12/30/2024 9:03 AM MEDICAL REFERRAL COORDINATOR [facility] Urine 12/30/2024 9:03 AM MEDICAL REFERRAL COORDINATOR 12/30/2024 9:05 AM MEDICAL REFERRAL COORDINATOR [facility]arrative [facility] 12/30/2024 9:03 AM MEDICAL REFERRAL COORDINATOR Recommend Urine Microcopic ([id number])and Urine Culture ([id number]) if indicated. us Afshan Castro [employer] TECHNICIANS POINT OF CARE TESTING Isha rivers Result [facility] CLIA# [id number] [address] [place] [address], documented in this encounter Visit Diagnoses Diagnosis History of recurrent UTIs- Primary Personal history of urinary (tract) infection Abnormal finding on urinalysis Other nonspecific finding on examination of urine Right flank pain Abdominal pain, unspecified site Encounter to establish care Reserved for inherently not codable concepts WITHOUT codable children documented in this encounter
--- OUTSIDE RECORDS SUMMARY | 2025-01-01 07:32 | XMS_ITS | Clinical Summary ---
Author Organization [facility] Address [address] [place] [address] Phone Care Team Providers Care Continuity Director Name Role Phone Unavailable Primary Care Provider Unavailabl e Allergies No known active allergies Medications methenamine hippurate (HIPREX) 1 gram TabletIndication s:History of recurrent UTIs Take 1 Tablet (1,000 mg) by mouth 2 times daily. 180 Tablet 1 12/30/2024 Active Active Problems No known active problems Encounters Date Type Department Care Team Description 12/30/2024 9:00 AM BANK EXAMINER Office Visit [address] [place] [phone] Afshan Castro FNP History of recurrent UTIs (Primary Dx); Abnormal finding on urinalysis; Right flank pain; Encounter to establish care 11/05/[address] [place] [phone] Provider, Abstract from Last 3 Months Immunizations [...] on file Legal Sex Female 4:17 PM BANK EXAMINER Gender Identity Not on file Sexual Orientation Not on file Plan of Treatment Upcoming Encounters Date Type Department Care Team (Late st Contact Info) Description 01/06/2025 9:45 AM BANK EXAMINER Appointment [facility] CT Scan [place] [address] [place] [address] [facility] [address] [facility] [address] [place] [address] 07/30/2025 11:30 AM CDT Office Visit [facility] Urology [place] [address] [facility] [address] [place] [address] Afshan Castro FNP [address] [facility] [address] [place] [address] Health Maintenance Due Date Last Done Comments HPV VACCINES (1 - 3-dose series) 06/07/2014 CERVICAL CANCER SCREENING 06/07/2020 HPV/Cotest (21-29) 06/07/2020 PAP SMEAR 06/07/2020 Preventative Visit-Managed Medicaid 10/08/2023 10/06/2022 INFLUENZA VACCINE (#1) 2024 DTAP/TDAP/TD VACCINES (6 - T d or Tdap) 06/01/2030 06/01/2020, 08/07/2001, 08/07/2001, Additional history exists HEPATITIS B VACCINES Completed 08/07/2001, 08/07/2001, 05/30/2000, Additional history exists Procedures Procedure Name Priority Date/Time Associated Diagnosis Comments URINALYSIS MICROSCOPY ONLY Routine 12/30/2024 9:07 AM BANK EXAMINER Abnormal finding on urinalysis POC URINALYSIS DIPSTICK AUTOMATED Routine 12/30/2024 9:03 AM BANK EXAMINER History of recurrent UTIs from Last 3 Months Results * (ABNORMAL) URINALYSIS MICROSCOPY ONLY (12/30/2024 9:07 AM BANK EXAMINER) WBC UA 20-40(A) < OR = 5 /HPF [facility] RBC UA NONE SEEN < OR = 2 /HPF [facility] EPITHELIAL CELLS, URINE 6-10(A) < OR = 5 /HPF [facility] BACTERIA UA MANY(A) NONE SEEN /HPF [facility] AMORPHOUS CRYSTAL MODERATE(A ) NONE OR FEW /HPF [facility] HYALINE CAST 6-10(A) NONE SEEN /LPF [facility] Comment: FASTING: UNKNOWN Test Performed at: [facility] [address] [place] [address] Fran Polanco Urine URINE SPECIMEN OBTAINED BY CLEAN CATCH PROCEDURE / Unknown 12/30/2024 9:07 AM BANK EXAMINER 12/30/2024 11:05 AM BANK EXAMINER us Afshan Castro TRIMMER CLIMBER URINE ORDERABLES Final Res ult [facility] [phone] [facility] [address] [place] [address] * (ABNORMAL) POC URINALYSIS DIPSTICK AUTOMATED (12/30/2024 9:03 AM BANK EXAMINER) COLOR UA Yellow Pale to Dark Yellow 12/30/2024 9:03 AM BANK EXAMINER [facility] CLARITY UA Cloudy(A) Clear 12/30/2024 9:03 AM BANK EXAMINER [facility] GLUCOSE UA Negative Negative 12/30/2024 9:03 AM BANK EXAMINER [facility] BILIRUBIN UA Negative Negative 12/30/2024 9:03 AM BANK EXAMINER [facility] KETONES UA Negative Negative 12/30/2024 9:03 AM BANK EXAMINER [facility] BLOOD UA Negative Negative 12/30/2024 9:03 AM BANK EXAMINER [facility] PH UA 8.5(A) 5.0 - 8.0 12/30/2024 9:03 AM BANK EXAMINER [facility] PROTEIN UA Trace(A) Negative 12/30/2024 9:03 AM BANK EXAMINER [facility] UROBILINOGEN UA 1.0 <2.0 mg/dL 9:03 AM BANK EXAMINER [facility] NITRITE UA Positive(A) Negative 12/30/2024 9:03 AM BANK EXAMINER [facility] LEUKOCYTE ESTERASE UA Trace(A) Negative 12/30/2024 9:03 AM BANK EXAMINER [facility] SPECIFIC GRAVITY UA POC 1.020 1.000 - 1.030 12/30/2024 9:03 AM BANK EXAMINER [facility] Urine 12/30/2024 9:03 AM BANK EXAMINER 12/30/2024 9:05 AM BANK EXAMINER Narrative [facility] 12/30/2024 9:03 AM BANK EXAMINER Recommend Urine Microcopic ([id number])and Urine Culture ([id number]) if indicated. us Afshan Castro TRIMMER CLIMBER POINT OF CARE TESTING Isha rivers Result [facility] CLIA# [id number] [address] [place] [address], from Last 3 Months Insurance [employer] [facility] [id number]
--- OUTSIDE RECORDS SUMMARY | 2025-01-01 07:32 | XMS_ITS | Patient Health Record ---
Author Organization [facility] Address [address] [facility] [address] [place], [place] [id number] Care Team Providers Care Pre School Manager Name Role Phone Eusebio Hamilton Primary Care Provider [phone] Eusebio Hamilton Unavailable Unavailable Allergies No Known Allergies Reason For Referral No Information Social History Social History Additional Details Category Social Info Options Details Migrated Social History Migrated Social History Substance Use :: None :: note : - [employer] 12/30/2019 , Occupation :: Employed :: note : [employer] - [employer] 12/30/2019 , Substance Use :: Tobacco :: Never smoker :: note : - [employer] 12/30/2019 , Substance Use :: Alcohol :: Never smoker :: note : - [employer] 12/30/2019Use status used: Never , Marital Status :: Single :: note : - ia 12/30/2019 Plan Of Treatment No Information Insurance Providers Payer Name Payer Address Payer Phone Subscriber Number Group Number Insured Name Patient Relationship to Insured Coverage Start Date Coverage End Date Medicaid [address] [place], [place] [id number] Lolly Fallon Self - patient is the insured Medical (General) History Surgical History Surgery Date(Month/Year) Gallbladder Surgery: - [employer] 12/30/19 20; 12/30/2019
--- OUTSIDE RECORDS SUMMARY | 2025-01-01 07:32 | XMS_ITS | Patient Health Record ---
Author Organization [facility] Address [address] [place] [address] Care Team Providers Care Administrative Asst Name Role Phone [facility] Primary Care Provider [facility] Unavailable [phone] Allergies No Known Allergies Reason For Referral [...] W/U Status Risk Notes Problem Primary insomnia (0404124) Primary insomnia (F51.01) Active confirmed Problem Anxiety (95126612) Anxiety (F41.9) Active confirmed Problem Depression (692197396) Other depression (F32.89) Active confirmed Problem Morbid obesity (261170736) Morbid obesity (E66.01) Active confirmed Problem Body mass index 40+ - severely obese (691601323) Body mass index [BMI] 40.0-44.9, adult (Z68.41) Active confirmed Plan Of Treatment No Information Insurance Providers Payer Name Payer Address Payer Phone Subscriber Number Group Number Insured Name Patient Relationship to Insured Coverage Start Date Coverage End Date [facility] [employer] [address] [place] [address] [id number] Lolly Fallon Self - patient is the insured [place] Medicaid [address] [place] [address] [id number] Lolly Fallon Self - patient is the insured Medical (General) History Medical History History ICD Code anxiety depression bipolar disorder, manic migraine headaches Surgical History Surgery Date(Month/Year) cholecystectomy 2018 tubal ligation 2020 Hospitalization History Reason Date(Month/Year) childbirth
[2025-01-01 07:33] VITALS: PULSE 89; RESP 16; TEMP 36.4; O2SAT 99; BMI 32.9
[2025-01-01 07:35] VITALS: BP 135/79
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
[2025-01-01] MEDS: diphenhydrAMINE 50 mg/mL SDV 1mL IVP (07:43)
[2025-01-01] MEDS: metoclopramide 5 mg/mL SDV 2 mL 10 MG IVP (07:43)
[2025-01-01 08:09] VITALS: BP 112/67; PULSE 73; O2SAT 100
[2025-01-01 08:25] VITALS: BP 109/58; PULSE 76; O2SAT 100
== END 2025-01-01 08:27 | disposition home or self-care (01) ==
PROVIDERS: Emergency Provider Emergency Medicine; PCP Physician Assistant
DX: G43.909 Migraine, unspecified, not intractable, without status migrainosus (principal)
CPT/HCPCS: 96361; 96374; 96375; 99284; J1200; J1885; J2765; J7030

== ENCOUNTER → 2025-01-20 11:01 | Outpatient (BNVA) | payer MEDICAID, SELFPAY | PROVIDERS: PCP Physician Assistant; Visit Provider Emergency Medicine | DX: J02.9 Acute pharyngitis, unspecified (principal) | CPT/HCPCS: 87071; 87880 ==

== ENCOUNTER 2025-02-04 10:22 | Emergency (ER) | payer MEDICAID, SELFPAY ==
[2025-02-04 10:47] VITALS: BP 114/74; PULSE 80; RESP 14; TEMP 36.8; O2SAT 100
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
[2025-02-04] MEDS: promethazine 25 mg/mL SDV 1 mL IM (10:57)
[2025-02-04 11:38] VITALS: BP 112/76; PULSE 73; O2SAT 99
--- OUTSIDE RECORDS SUMMARY | 2025-02-04 11:44 | XMS_ITS | Patient Health Record ---
Author Organization [facility] Address [address] [place], [place] [address] Care Team Providers Care Mammography Technician Name Role Phone Eusebio Hamilton Primary Care Provider [phone] Eusebio Hamilton Unavailable Unavailable Allergies No Known Allergies Reason For Referral No Information Social History Social History Additional Details Category Social Info Options Details Migrated Social History Migrated Social History Substance Use :: None :: note : - [employer] 12/30/2019 , Occupation :: Employed :: note : [employer] - [employer] 12/30/2019 , Substance Use :: [...] Coverage End Date Medicaid [address] [place], [place] [id number] Lolly Fallon Self - patient is the insured Medical (General) History Surgical History Surgery Date(Month/Year) Gallbladder Surgery: - [employer] 12/30/19 20; 12/30/2019
--- OUTSIDE RECORDS SUMMARY | 2025-02-04 11:44 | XMS_ITS | Encounter Summary ---
Author Organization [facility] Address [address] [place] [address] Care Team Providers Care Dishwasher Busser Name Role Phone Unavailable Primary Care Provider Unavailabl e Encounter Details Date Type Department Care Team (Late Contact Info) Description 01/07/2025 Results Follow-Up [facility] [place] [address] [address] Afshan Castro FNP [facility] [address] [address] [address] URINARY [facility] WO CONTRAST Social History Tobacco Use Types Packs/Day Years Used Date Smoking Tobacco: Never Assessed Comments Unknown Sex and Gender Information Value Date Recorded Sex Assigned at Not on file Legal Sex Female 4:17 PM STAPLE CUTTER Gender Identity Not on file Sexual Orientation Not on file documented as of this encounter Plan of Treatment Upcoming Encounters Date Type Department Care Team (Late Contact Info) Description 07/30/2025 11:30 AM CDT [facility] [place] [address] [address] Afshan Castro FNP [facility] [address] [place] [address] [address] documented as of this encounter Visit Diagnoses Not on filedocumented in this encounter
--- OUTSIDE RECORDS SUMMARY | 2025-02-04 11:44 | XMS_ITS | Patient Health Record ---
Author Organization [facility] Address [address] [place] [address] Care Team Providers Care Seat Installer Name Role Phone [facility] Primary Care Provider [facility] Unavailable [phone] Allergies No Known Allergies Reason For Referral [...] W/U Status Risk Notes Problem Primary insomnia (9494992) Primary insomnia (F51.01) Active confirmed Problem Anxiety (88167172) Anxiety (F41.9) Active confirmed Problem Depression (125068192) Other depression (F32.89) Active confirmed Problem Morbid obesity (333612040) Morbid obesity (E66.01) Active confirmed Problem Body mass index 40+ - severely obese (353153478) Body mass index [BMI] 40.0-44.9, adult (Z68.41) Active confirmed Plan Of Treatment No Information Insurance Providers Payer Name Payer Address Payer Phone Subscriber Number Group Number Insured Name Patient Relationship to Insured Coverage Start Date Coverage End Date [facility] [employer] [address] [place] [address] [phone] [id number] Lolly Fallon Self - patient is the insured [place] Medicaid [address] [place] [address] [id number] Lolly Fallon Self - patient is the insured Medical (General) History Medical History History ICD Code anxiety depression bipolar disorder, manic migraine headaches Surgical History Surgery Date(Month/Year) tubal ligation 2020 cholecystectomy 2018 Hospitalization History Reason Date(Month/Year) childbirth
--- OUTSIDE RECORDS SUMMARY | 2025-02-04 11:45 | XMS_ITS | Clinical Summary ---
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 180 Tablet 1 12/30/2024 Active fluconazole (DIFLUCAN) 150 mg tablet Take 1 Tablet (150 mg) by mouth daily. 1 Tablet 01/07/2025 Active doxycycline hyclate (VIBRAMYCIN) 100 mg capsule Take 1 Capsule (100 mg) by mouth 2 times daily for 7 days. 14 Capsule 01/07/2025 01/15/20 25 Active Problems No known active problems Encounters Date Type Department Care Team Description 01/27/2025 External Device Data ST[facility] ABSTRACTION Provider, Abstract 01/07/2025 Orders Only [address] [place] [phone] Neha Garcia RN 01/07/2025 Results Follow-Up [address] [place] [address] [address]sh[address] Castro FNP [address] URINARY CALCULI WO CONTRAST 01/02/2025 8:08 AM UNDERCOVER AGENT - 01/02/2025 11:59 PM UNDERCOVER AGENT Hospital Encounter [facility] CT Scan [place] [address] [place] [phone] Afshan Castro FNP Discharge Disposition: Home or Self Care 12/30/2024 9:00 AM UNDERCOVER AGENT Office Visit [address] [place] [phone] Afshan Castro FNP History of recurrent UTIs (Primary Dx); Abnormal finding on urinalysis; Right flank pain; Encounter to establish care 11/05/[address] [place] [phone] Provider, Abstract from Last 3 Months Immunizations [...] on file Legal Sex Female 4:17 PM UNDERCOVER AGENT Gender Identity Not on file Sexual Orientation Not on file Plan of Treatment Upcoming Encounters Date Type Department Care Team (Late st Contact Info) Description 07/30/2025 11:30 AM CDT Office Visit [address] [place] [phone] Afshan Castro FNP [address] [place] [phone] Health Maintenance Due Date Last Done Comments HPV VACCINES (1 - 3-dose series) 06/07/2014 CERVICAL CANCER SCREENING 06/07/2020 HPV/Cotest (21-29) 06/07/2020 PAP SMEAR 06/07/2020 INFLUENZA VACCINE (#1) 2024 DTAP/TDAP/TD VACCINES (6 - T d or Tdap) 06/01/2030 06/01/2020, 08/07/2001, 08/07/2001, Additional history exists HEPATITIS B VACCINES Completed 08/07/2001, 08/07/2001, 05/30/2000, Additional history exists Procedures Procedure Name Priority Date/Time Associated Diagnosis Comments CT URINARY CALCULI WO CONTRAST Routine 01/02/2025 8:38 AM UNDERCOVER AGENT Right flank pain MISCELLANEOUS LAB TEST Routine 9:07 AM UNDERCOVER AGENT History of recurrent UTIs MISCELLANEOUS LAB TEST Routine 9:07 AM UNDERCOVER AGENT History of recurrent UTIs URINALYSIS MICROSCOPY ONLY Routine 12/30/2024 9:07 AM UNDERCOVER AGENT Abnormal finding on urinalysis POC URINALYSIS DIPSTICK AUTOMATED Routine 12/30/2024 9:03 AM UNDERCOVER AGENT History of recurrent UTIs from Last 3 Months Results * CT URINARY CALCULI WO CONTRAST (01/02/2025 8:38 AM UNDERCOVER AGENT) Anatomical Region Laterality Modality Abdomen Computed Tomogra phy 01/02/2025 8:18 AM UNDERCOVER AGENT Impressions 01/02/2025 9:17 AM UNDERCOVER AGENT IMPRESSION: Please see below. Exam: CT URINARY CALCULI WO CONTRAST Date/Time of Exam: 01/02/2025 8:38 AM Reason For Exam: Flank pain, stone disease suspected, recurrent UTI. Diagnosis: Right flank pain. Technique: CT imaging was performed of the abdomen and pelvis for urinary calculi without the administration of intravenous contrast. Comparison: None. FINDINGS: Evaluation of the vasculature and solid organs are limited without the use of contrast. Lower Chest: There is no significant basilar pulmonary pathology. Aorta/Vasculature: The aorta is nonaneurysmal. Lymph Nodes: There is no retroperitoneal, abdominal or pelvic lymphadenopathy. Liver: The liver is within normal limits. Gallbladder and Biliary: The gallbladder is surgically absent. There is no biliary ductal dilatation. Spleen: The spleen is within normal limits. Pancreas: The pancreas is within normal limits. Adrenal Glands: The adrenal glands are within normal limits. Kidneys: The renal parenchyma is within normal limits. No radiopaque urinary tract calculi or obstructive uropathy is identified. 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 Bowel: There is no evidence of bowel obstruction. There are no focal inflammatory changes. Appendix: The appendix is within normal limits. Peritoneum: There is a small amount of free pelvic fluid. There is no evidence of a drainable fluid collection or free air. Urinary Bladder: The urinary bladder is within normal limits. Pelvic Reproductive Structures: There is no significant pelvic reproductive structure pathology. Subcutaneous Soft Tissues: There is no significant subcutaneous soft tissue pathology. Bones: The osseous structures appear grossly intact. No suspicious osseous lesions are identified. IMPRESSION: Small volume free pelvic fluid without evidence of a localizing inflammatory process. Additional incidental findings as above. Narrative Procedure Note Alberto Michel, DO - 01/02/2025 IMPRESSION: Please see below. Exam: CT URINARY CALCULI WO CONTRAST Date/Time of Exam: 01/02/2025 8:38 AM Reason For Exam: Flank pain, stone disease suspected, recurrent UTI. Diagnosis: Right flank pain. Technique: CT imaging was performed of the abdomen and pelvis for urinary calculi without the administration of intravenous contrast. Comparison: None. FINDINGS: Evaluation of the vasculature and solid organs are limited without the use of contrast. Lower Chest: There is no significant basilar pulmonary pathology. Aorta/Vasculature: The aorta is nonaneurysmal. Lymph Nodes: There is no retroperitoneal, abdominal or pelvic lymphadenopathy. Liver: The liver is within normal limits. Gallbladder and Biliary: The gallbladder is surgically absent. There is no biliary ductal dilatation. Spleen: The spleen is within normal limits. Pancreas: The pancreas is within normal limits. Adrenal Glands: The adrenal glands are within normal limits. Kidneys: The renal parenchyma is within normal limits. No radiopaque urinary tract calculi or obstructive uropathy is identified. 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 Bowel: There is no evidence of bowel obstruction. There are no focal inflammatory changes. Appendix: The appendix is within normal limits. Peritoneum: There is a small amount of free pelvic fluid. There is no evidence of a drainable fluid collection or free air. Urinary Bladder: The urinary bladder is within normal limits. Pelvic Reproductive Structures: There is no significant pelvic reproductive structure pathology. Subcutaneous Soft Tissues: There is no significant subcutaneous soft tissue pathology. Bones: The osseous structures appear grossly intact. No suspicious osseous lesions are identified. IMPRESSION: Small volume free pelvic fluid without evidence of a localizing inflammatory process. Additional incidental findings as above. Afshan Castro [facility] CT ORDERABLES Final Resu lt * MISCELLANEOUS LAB TEST (12/30/2024 9:07 AM UNDERCOVER AGENT) Only the most recent of2 resultswithin the time period is included. Other, specify 12/30/2024 9 :07 AM UNDERCOVER AGENT Afshan Castro [facility] CHEMISTRY ORDERABLES Final Result Performing Organization Address [facility] Co de Phone Number [facility] [phone] * (ABNORMAL) URINALYSIS MICROSCOPY ONLY (12/30/2024 9:07 AM UNDERCOVER AGENT) WBC UA 20-40(A) < OR = 5 [...] CAST 6-10(A) NONE SEEN /LPF [facility] Comment: FASTING: UNKNOWN Test Performed at: [facility] [address] [place] [address] Fran Polanco Urine URINE SPECIMEN OBTAINED BY CLEAN CATCH PROCEDURE / Unknown 12/30/2024 9:07 AM UNDERCOVER AGENT 12/30/2024 11:05 AM UNDERCOVER AGENT Afshan Castro [facility] URINE ORDERABLES Final Res ult Performing Organization Address City/[facility]/ZIP Co de Phone Number [facility] [phone] [facility] [address] [facility], [place] [address] * (ABNORMAL) POC URINALYSIS DIPSTICK AUTOMATED (12/30/2024 9:03 AM UNDERCOVER AGENT) COLOR UA Yellow Pale to Dark Yellow 12/30/2024 9:03 AM [facility] CLARITY UA Cloudy(A) Clear 12/30/2024 9:03 AM [facility] GLU[facility]SE [facility]A Negative Negative 12/30/2024 9:03 AM [facility] BILIRUBIN UA Negative Negative 12/30/2024 9:03 AM [facility] KETONES UA Negative Negative 12/30/2024 9:03 AM [facility] BLOOD UA Negative Negative 12/30/2024 9:03 AM [facility] PH UA 8.5(A) 5.0 - 8.0 12/30/2024 9:03 AM [facility] PROTEIN UA Trace(A) Negative 12/30/2024 9:03 AM [facility] UROBILINOGEN UA 1.0 <2.0 mg/dL 9:03 AM [facility] NITRITE UA Positive(A) Negative 12/30/2024 9:03 AM [facility] LEUKOCYTE ESTERASE UA Trace(A) Negative 12/30/2024 9:03 AM [facility] SPECIFIC GRAVITY UA POC 1.020 1.000 - 1.030 12/30/2024 9:03 AM [facility] Urine 12/30/2024 9:03 AM UNDERCOVER AGENT 12/30/2024 9:05 AM UNDERCOVER AGENT Narrative [facility]3] UROLOGY [place] - 12/30/2024 9:03 AM UNDERCOVER AGENT Recommend Urine Microcopic ([id number])and Urine Culture ([id number]) if indicated. Afshan Castro HEEL SANDER RUBBER POINT OF CARE TESTING Isha rivers Result [facility]3] [facility] [id number] [address] [place] [address], from Last [address] [place] [address] PLAN [facility] [id number]
[2025-02-04 11:54] VITALS: BP 115/77; PULSE 79; O2SAT 99
== END 2025-02-04 11:58 | disposition home or self-care (01) ==
PROVIDERS: Emergency Provider Family Medicine; PCP Physician Assistant
DX: G43.909 Migraine, unspecified, not intractable, without status migrainosus (principal)
CPT/HCPCS: 96372; 96374; 96375; 99284; J1100; J1110; J1885; J2550; J7030

== ENCOUNTER 2025-02-15 09:43 | Emergency (ER) | payer MEDICAID, SELFPAY ==
--- OUTSIDE RECORDS SUMMARY | 2025-02-15 09:49 | XMS_ITS | Clinical Summary ---
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 180 Tablet 1 12/30/2024 Active fluconazole (DIFLUCAN) 150 mg tablet Take 1 Tablet (150 mg) by mouth daily. 1 Tablet 01/07/2025 Active Active Problems No known active problems Encounters Date Type Department Care Team Description 01/27/2025 External Device Data STL ABSTRACTION Provider, Abstract 01/07/2025 Orders Only [address] [place] [address] Neha Garcia RN 01/07/2025 Results Follow-Up [address] [place] [phone] URINARY CALCULI WO CONTRAST 01/02/2025 8:08 AM RESIDENTIAL SPECIALIST - 01/02/2025 11:59 PM RESIDENTIAL SPECIALIST Hospital Encounter [facility] CT Scan [place] [address] [place] [address] Afshan Castro FNP Discharge Disposition: Home or Self Care 12/30/2024 9:00 AM RESIDENTIAL SPECIALIST Office Visit [address] [place] [phone] Afshan Castro FNP History of recurrent UTIs (Primary Dx); Abnormal finding on urinalysis; Right flank pain; Encounter to establish care from Last 3 Months Immunizations Immunization Administration [...] on file Legal Sex Female 4:17 PM RESIDENTIAL SPECIALIST Gender Identity Not on file Sexual Orientation Not on file Plan of Treatment Upcoming Encounters Date Type Department Care Team (Late st Contact Info) Description 07/30/2025 11:30 AM CDT Office Visit [facility] Urology [address] [place] [address] Afshan Castro FNP [facility] [address] [place] [phone] Health Maintenance Due Date Last Done Comments [...] CALCULI WO CONTRAST Routine 01/02/2025 8:38 AM RESIDENTIAL SPECIALIST Right flank pain MISCELLANEOUS LAB TEST Routine 9:07 AM RESIDENTIAL SPECIALIST History of recurrent UTIs MISCELLANEOUS LAB TEST Routine 9:07 AM RESIDENTIAL SPECIALIST History of recurrent UTIs URINALYSIS MICROSCOPY ONLY Routine 12/30/2024 9:07 AM RESIDENTIAL SPECIALIST Abnormal finding on urinalysis POC URINALYSIS DIPSTICK AUTOMATED Routine 12/30/2024 9:03 AM RESIDENTIAL SPECIALIST History of recurrent UTIs from Last 3 Months Results * CT URINARY CALCULI WO CONTRAST (01/02/2025 8:38 AM RESIDENTIAL SPECIALIST) Anatomical Region Laterality Modality Abdomen Computed Tomogra phy 01/02/2025 8:18 AM RESIDENTIAL SPECIALIST Impressions 01/02/2025 9:17 AM RESIDENTIAL SPECIALIST IMPRESSION: Please see below. Exam: CT URINARY [...] Additional incidental findings as above. Afshan Castro [facility] CT ORDERABLES Final Resu lt * MISCELLANEOUS LAB TEST (12/30/2024 9:07 AM RESIDENTIAL SPECIALIST) Only the most recent of2 resultswithin the time period is included. Other, specify 12/30/2024 9: 07 AM RESIDENTIAL SPECIALIST Afshan Castro [facility] CHEMISTRY ORDERABLES Final Result Performing Organization Address City/[facility]/ZIP Co de Phone Number [facility] [phone] * (ABNORMAL) URINALYSIS MICROSCOPY ONLY (12/30/2024 9:07 AM RESIDENTIAL SPECIALIST) WBC UA 20-40(A) < OR = 5 [...] RRL Comment: FASTING: UNKNOWN Test Performed at: [facility] [address] [place] [address] Fran Polanco Urine URINE SPECIMEN OBTAINED BY CLEAN CATCH PROCEDURE / Unknown 12/30/2024 9:07 AM RESIDENTIAL SPECIALIST 12/30/2024 11:05 AM RESIDENTIAL SPECIALIST Afshan Castro [facility] URINE ORDERABLES Final Res ult Performing Organization Address City/[facility]/ZIP Co de Phone Number [facility] [phone] [facility] [address] [place] [address] * (ABNORMAL) POC URINALYSIS DIPSTICK AUTOMATED (12/30/2024 9:03 AM RESIDENTIAL SPECIALIST) COLOR UA Yellow Pale to Dark Yellow 12/30/2024 9:03 AM [facility] CLARITY UA Cloudy(A) Clear 12/30/2024 9:03 AM [facility] GLUCOSE UA Negative Negative 12/30/2024 9:03 AM [facility] BILIRUBIN UA Negative Negative 12/30/2024 9:03 AM [facility] KETONES UA Negative Negative 12/30/2024 9:03 AM [facility] BLOOD UA Negative Negative 12/30/2024 9:03 AM [facility] PH UA 8.5(A) 5.0 - 8.0 12/30/2024 9:03 AM [facility] PROTEIN UA Trace(A) Negative 12/30/2024 9:03 AM [facility] UROBILINOGEN UA 1.0 <2.0 mg/dL 9:03 AM [facility] NITRITE UA Positive(A) Negative 12/30/2024 9:03 AM [facility] LEUKOCYTE ESTERASE UA Trace(A) Negative 12/30/2024 9:03 AM [facility] SPECIFIC GRAVITY UA POC 1.020 1.000 - 1.030 12/30/2024 9:03 AM [facility] Urine 12/30/2024 9:03 AM RESIDENTIAL SPECIALIST 12/30/2024 9:05 AM RESIDENTIAL SPECIALIST [facility]ative [facility] - 12/30/2024 9:03 AM RESIDENTIAL SPECIALIST Recommend Urine Microcopic ([id number])and Urine Culture ([id number]) if indicated. us Afshan Castro TOXICOLOGIST POINT OF CARE TESTING Isha rivers Result [facility] CLIA# [id number] [address] [place] [address], [place] from Last 3 Months Insurance [facility] PLAN [facility] [id number]
--- OUTSIDE RECORDS SUMMARY | 2025-02-15 09:49 | XMS_ITS | Continuity of Care Document ---
Author Organization SURINDER Sanchez [facility] Imelda, Douglas, [facility] ([facility]) Address [address] [place] [address] Care Team Providers Care Senior Controller Name Role Phone WALT GAONA Primary Care Provider Unavailabl e Assessment No assessment recorded. Plan of Treatment Reminders Order Date Submit Date Provider Last Modified By Organization Details Last Modified Time Details Appointments OFFICE VISIT 2024 03:00P Doug GAONA PA-C Not available Not available Not available Lab None recorded. Referral None recorded. Procedures None recorded. Surgeries None recorded. Imaging None recorded. Medication Orders Symbicort 160 mcg-4.5 mcg/actua tion HFA aerosol inhaler 2024 025 [facility], [address], [place], [address], 02/13/2025 10:06:13 Patient TargetsNo targets recorded. Patient InstructionsNo instructions recorded. Reason for Referral None Reported. Results Created Date Observation Date Name Description Value Unit Range Abnormal Flag Note LastModifiedBy Organization Detail LastModifiedTime 10/29/1910/28/2024 URINA LYSIS WITH MICRO color YELLOW Not Available [facility] [address] [facility], [place], [address], 10/28/2024 13:58:41 10/29/19 25 10/28/2024 URINA LYSIS WITH MICRO clarity CLEAR Not Available [facility] [address] [facility], [place], [address], 10/28/2024 13:58:41 10/29/19 25 10/28/2024 URINA LYSIS WITH MICRO glu NEGATI VE Not Available [facility] [address] [facility] [address], [place], [address], 10/28/2024 13:58:41 10/29/19 25 10/28/2024 URINA LYSIS WITH MICRO bili NEGATI VE Not Available [facility] [address] [place] [address], [place], [address], 10/28/2024 13:58:41 10/29/19 25 10/28/2024 URINA LYSIS WITH MICRO ket TRACE Not Available [facility] [address] [place] Giulia [facility] 1, [place], [address], 10/28/2024 13:58:41 10/29/19 25 10/28/2024 URINA LYSIS WITH MICRO S.g >1.030 1.005- 1.025 high > Not Available [facility] [address], [place], [address], 10/28/2024 13:58:41 10/29/19 25 10/28/2024 URINA LYSIS WITH MICRO pH 6.0 5.0-7. 0 Not Available [facility] [address], [place], [address], 10/28/2024 13:58:41 10/29/19 25 10/28/2024 URINA LYSIS WITH MICRO pro TRACE Not Available [facility] [address], [place], [address], 10/28/2024 13:58:41 10/29/19 25 10/28/2024 URINA LYSIS WITH MICRO uro 1.0 E.U./D L Not Available [facility] [address] [place] [address] [facility] 1, [place], [address], 10/28/2024 13:58:41 10/29/19 25 10/28/2024 URINA LYSIS WITH MICRO nit POSITI VE Not Available [facility] [address] [facility] [address], [place], [address], 10/28/2024 13:58:41 10/29/19 25 10/28/2024 URINA LYSIS WITH MICRO blo TRACE- LYSED Not Available [facility] [address], [place], [address], 10/28/2024 13:58:41 10/29/1910/28/2024 URINA LYSIS WITH MICRO tammy NEGATI VE Not Available [facility] [address], [place], [address], 10/28/2024 13:58:41 10/29/19 25 10/28/2024 URINA LYSIS WITH MICRO WBC 1-3 abnormal Not Available [facility] [address], [place], [address], 10/28/2024 13:58:41 10/29/19 25 10/28/2024 URINA LYSIS WITH MICRO RBC 2-4 abnormal Not Available [facility] [address] [place] [address], [place], [address], 10/28/2024 13:58:41 10/29/19 25 10/28/2024 URINA LYSIS WITH MICRO epi cells 2-4 abnormal Not Available [facility] [address] [place] [address], [place], [address], 10/28/2024 13:58:41 10/29/19 25 10/28/2024 URINA LYSIS WITH MICRO bacteria 2+ MIXED JEWEL abnormal Not Available [facility] [address] [place] [address], [place], [address], 10/28/2024 13:58:41 10/29/19 25 10/28/2024 URINA LYSIS WITH MICRO other NEG Not Available [facility] [address], [place], [address], 10/28/2024 13:58:41 10/29/19 25 10/30/2024 CULTU RE, URINE , ROUTI NE culture, urine, routine SEE NOTE abnormal CULTU RE, URINE , ROUTI NE Micro Numbe r: [id number] Test Statu s: Final Speci men Sourc e: Urine , clean catch Speci men Quali ty: Adequ ate Resul t: Great er than 100,0 00 CFU/m L of Esche hi a coli E.col i ----- ----- ----- - INT EARLENE AMOX/ CLAVU LANAT E I 16 AMP/S ULBAC HART R >=32 CEFAZ ROGELIO R 8 1 CEFEP MIR S <=0.1 2 CEFTA ZIDIM E S <=0.5 CEFTR IAXON E S <=0.2 5 CIPRO FLOXA YECENIA R >=4 GENTA MICIN S <=1 IMIPE NEM S <=0.2 5 LEVOF LOXAC IN R >=8 MEROP ENEM S <=0.2 5 NITRO FURAN TOIN S <=16 PIP/T AZOBA CTAM S <=4 TRIME THOPR IM/ONEIL LFA R >=320 S = Susce ptibl e I = Inter media te R = Resis tant NS = Not susce ptibl e SDD = Susce ptibl e Dose Depen dent * = Not Teste d NR = Not Repor oriana NN = See Thera py Comme nts THERA PY COMME NTS Note 1: For uncom plica oriana UTI cause d by E. coli, K. pneum oniae or P. mirab ilis: Cefaz rogelio is susce ptibl e if EARLENE <32 mcg/m L and predi cts susce ptibl e to the oral agent s cefac rodger, cefdi jose, cefpo doxim e, cefpr ozil, cefur oxime , cepha lexin and lorac arbef . Not Available [employer] [facility] [address] [place], [address], 10/30/2024 14:19:37 11/05/1911/04/2024 phary ngeal patho gens DNA and RNA panel , ARIES+n on-pr obe, throa t Strep A negati ve Not Available [facility] ([facility]) [address] [place] [address], [phone], 11/04/2024 11:21:26 11/05/19 25 11/04/2024 phary ngeal patho gens DNA and RNA panel , ARIES+n on-pr obe, throa t Rhinovirus negati ve Not Available [facility] ([facility]) [address] [place] [address], [phone], 11/04/2024 11:21:26 11/05/19 25 11/04/2024 phary ngeal patho gens DNA and RNA panel , ARIES+n on-pr obe, throa t RSV negati ve Not Available [facility] ([facility]) [address] [place] [address], [phone], 11/04/2024 11:21:26 11/05/19 25 11/04/2024 phary ngeal patho gens DNA and RNA panel , ARIES+n on-pr obe, throa t Influenza A negati ve Not Available [facility] ([facility]) [address] [place] [address], [phone], 11/04/2024 11:21:26 11/05/19 25 11/04/2024 phary ngeal patho gens DNA and RNA panel , ARIES+n on-pr obe, throa t Influenza B negati ve Not Available [facility] ([facility]) [address] [place] [address], [phone], 11/04/2024 11:21:26 Result Notes None recorded. Problems Name Problem SNOMED Code Status Onset Date Resolution Date Notes Provider Name and Address Organization Details Recorded Time Severe obesity 32738369218 104 Active 2022 OBESITY, MORBID, BMI 40.0-49. 9; Recorded 05/02/19 9:08AM by Harsh Phelps, Office Visit; Promoted ; acuity set as *; SERA cabral [facility] 11:43:22 Neck pain 05318587 Completed 202204/22/2024 NECK PAIN, ACUTE; Recorded 05/02/19 9:08AM by Harsh Phelps, Office Visit; Promoted ; acuity set as *; Removal Reason: resolved SERA cabral [facility] 11:43:19 Gallblad muriel pain 214128049 Completed 202204/22/2024 Gallblad muriel Problems ; removal in 2019; 05/02/19 9:08AM by Harsh Phelps, Office Visit; Promoted ; acuity set as *; Removal Reason: cholestc ystectom y 2019 SERA cabral [facility] 11:42:55 Diarrhea 19123516 Completed 202204/22/2024 Removal Reason: resolved SERA cabral [facility] 11:42:22 Anxiety 99912425 Active 2022 SERA cabral [facility] 11:42:14 Toothach e 91214564 Completed 202204/22/2024 Removal Reason: resolved SERA cabral [facility] 11:43:41 Menorrha kaden 014848604 Active 2022 SERA SNEEDLOBITO cabral [facility] 11:43:05 Migraine 62701920 Active 2023 SERA cabral [facility], LMildredLMildredCMildred 5 11:43:08 Streptoc occal sore throat 06156120 Completed 202304/22/2024 Removal Reason: resolved SERA cabral [facility], Omega[facility]red 5 11:43:30 Viral upper respirat ory tract infectio n 990597208 Completed 202404/22/2024 Removal Reason: resolved SERA cabral [facility], Omega[facility]red 11:43:52 Gastroes ophageal reflux disease 909564184 Active 2024 SERA cabral [facility], FedeLMildredCMildred 5 12:38:51 Insomnia 529690465 Active 2024 SERA DE LEON [facility] 5 12:39:25 Dysuria 01020960 [facility] 09:12:36 Acute urinary tract infectio n 206157697 Active 2024 SERA cabral [facility], LMildredLMildredCMildred 5 09:52:30 Recurren t herpes simplex 82123714 Active 2024 SERA cabral [facility], LMildredLMildredCMildred 22:18:49 Problem Notes None recorded. Procedures Surgical History Date Name Laterality Status Provider Name and Address Organization Details Recorded Time 09/27/19 24 Gastric Bypass completed SERA DE LEON [facility], [facility] 05/14/2024 15:21:17 07/22/20 21 Tubal Ligation completed SERA DE LEON [facility] 10/06/2022 12:53:58 Cholecystectomy completed Ashanti Camacho [facility] 12/20/2023 14:02:13 Imaging Results None recorded. Procedure Notes None recorded. Medical Equipment None Reported. Allergies Allergen ID Allergen Name Allergen Category Reaction Reaction Severity Criticality Documentation Date Start Date Code Code System Note Provider Name and Address Organization Details Recorded Time 18235 divalproe x sodium medicatio n other Not available [facility] 01/10/2023 99250 6 RxNorm Saray Neff marianna [facility] 3 09:09:20 90781 valproic acid medicatio n Not available Not available Not available 02/03/2025 16454 RxNorm Not Available adan - External Data Service - prod 5 15:00:04 Medications Name Sig Start Date Stop Date Status Note LastModified by Organization Details LastModified Time celecoxib 200 mg capsule TAKE 1 CAPSULE BY MOUTH TWICE DAILY 02/10 completed Not Available Not Available Not Available cyclobenz aprine 10 mg tablet TAKE 1/2 TO 1 (ONE-VIJAYA F TO ONE) TABLET BY MOUTH THREE TIMES DAILY NEEDED FOR MUSCLE SPASM 08/23 completed Not Available Not Available Not Available amoxicill in 500 mg capsule TAKE 1 CAPSULE BY MOUTH THREE TIMES DAILY UNTIL GONE 07/21 completed Not Available Not Available Not Available promethaz ine-DM 6.25 mg-15 mg/5 mL oral syrup TAKE 10 ML BY MOUTH EVERY 6 HOURS NEEDED FOR COUGH 02/03 completed Not Available Not Available Not Available Tylenol 500 mg capsule every 3 hours for back pain 09/27 completed 0; Recorded 05/02/19 23 9:09AM by Harsh Phelps, Office Visit; Not Available Not Available Not Available doxycycli ne hyclate 100 mg capsule TAKE 1 CAPSULE BY MOUTH TWICE DAILY FOR 7 DAYS 02/15 completed Not Available Not Available Not Available lamotrigi ne 200 mg tablet TAKE 1 TABLET BY MOUTH ONCE DAILY FOR 14 DAYS 08/23 completed Not Available Not Available Not Available trazodone 50 mg tablet TAKE 1 TABLET BY MOUTH AT BEDTIME 01/26 completed Not Available Not Available Not Available azithromy yecenia 250 mg tablet TAKE 2 TABLETS BY MOUTH ON DAY 1, AND THEN TAKE 1 TABLET BY MOUTH ONCE A DAY ON DAY 2 THROUGH DAY 5 08/23 completed Not Available Not Available Not Available ibuprofen 800 mg tablet TAKE 1 TABLET BY MOUTH EVERY 8 HOURS NEEDED FOR PAIN 08/23 completed Not Available Not Available Not Available tizanidin e 4 mg tablet Take 1 tablet every 8 hours by oral route as needed for 4 days. 06/03 completed Not Available Not Available Not Available fluconazo le 150 mg tablet TAKE 1 TABLET BY MOUTH ONCE DAILY active Not Available Not Available No t Available valacyclo vir 1 gram tablet TAKE 1 TABLET BY MOUTH EVERY 12 HOURS active Not Available Not Available No t Available hydrocodo ne 5 mg-acetam inophen 325 mg tablet TAKE 1 TABLET BY MOUTH EVERY 6 HOURS NEEDED FOR PAIN 11/04 completed Not Available Not Available Not Available prazosin 1 mg capsule Take 3 capsules every day by oral route. completed Not Available Not Available Not Available sucralfat e 1 gram tablet TAKE 1 TABLET BY MOUTH BEFORE MEAL(S) AND AT BEDTIME (CRUSH TABLET AND DISSOLVE IN 10 ML OF WATER AND DRINK) 02/10 completed Not Available Not Available Not Available sumatript an 25 mg tablet TAKE 1 TABLET BY MOUTH NEEDED AT THE ONSET OF MIGRAINE . MAY REPEAT IN 1 HOUR IF NO RELIEF. NO MORE THAN 2 TABS IN 24 HOURS 02/21 completed Not Available Not Available Not Available famotidin e 40 mg tablet Take 1 tablet every day by oral route. 10/06 completed Not Available Not Available Not Available prednison e 20 mg tablet TAKE 2 TABLETS BY MOUTH ONCE DAILY FOR 5 DAYS 02/03 completed Not Available Not Available Not Available sertralin e 100 mg tablet TAKE 1 TABLET BY MOUTH DAILY IN THE MORNING. STOP 50 MG DOSE. 05/14 completed Not Available Not Available Not Available olanzapin e 5 mg tablet TAKE 1 TABLET BY MOUTH TWICE DAILY 08/23 completed Not Available Not Available Not Available clonazepa m 1 mg tablet Take 1 tablet twice a day by oral route as needed. 04/02 completed Not Available Not Available Not Available sumatript an 5 mg/actuat ion nasal spray 1 spray in each nostril for severe headache , may repeat in 2h 02/10 completed Not Available Not Available Not Available Pyridium 200 mg tablet Take 1 tablet 3 times a day by oral route as needed. 01/10 completed Not Available Not Available Not Available metronida zole 500 mg tablet Take 1 tablet every 12 hours by oral route for 7 days. 05/09 completed Not Available Not Available Not Available phentermi ne 37.5 mg tablet TAKE 1/2 (ONE-VIJAYA F) TABLET BY MOUTH ONCE DAILY FOR 14 DAYS THEN 1 ONCE DAILY IF TOLERATI NG THEREAFT ER 11/18 completed Not Available Not Available Not Available sulfameth oxazole 800 mg-trimet hoprim 160 mg tablet TAKE 1 TABLET BY MOUTH TWICE DAILY FOR 7 DAYS 10/28 completed Not Available Not Available Not Available triamcino lone acetonide 0.1 % topical cream APPLY A THIN LAYER TO THE AFFECTED AREA TOPICALL Y TWICE DAILY 08/23 completed Not Available Not Available Not Available ketorolac 30 mg/mL (1 mL) injection solution Inject 1 mL every day by intramus cular route. 11/18 completed Not Available Not Available Not Available amoxicill in 500 mg tablet TAKE 1 TABLET BY MOUTH TWICE DAILY FOR 10 DAYS active Not Available Not Available No t Available ondansetr on 8 mg disintegr ating tablet DISSOLVE 1/2 TO 1 (ONE-VIJAYA F TO ONE) TABLET IN MOUTH EVERY 6 HOURS NEEDED FOR NAUSEA AND VOMITING 04/22 completed Not Available Not Available Not Available ketorolac 10 mg tablet TAKE 1 TABLET BY MOUTH THREE TIMES DAILY NEEDED FOR PAIN 07/04 completed Not Available Not Available Not Available Macrobid 100 mg capsule Take 1 capsule every 12 hours by oral route for 5 days. 11/04 completed Not Available Not Available Not Available prazosin 5 mg capsule TAKE 1 CAPSULE BY MOUTH TWICE DAILY 08/23 completed Not Available Not Available Not Available Tessalon Perles 100 mg capsule Take 1 capsule 3 times a day by oral route as needed. 2023 completed Not Available Not Available Not Available propranol ol 10 mg tablet Take 1 tablet as needed by oral route. 02/10 completed Not Available Not Available Not Available methenami ne hippurate 1 gram tablet TAKE 1 TABLET BY MOUTH TWICE DAILY active Not Available Not Available No t Available Celebrex 100 mg capsule Take 1 capsule every day by oral route. 02/13 completed Not Available Not Available Not Available methocarb sandra 750 mg tablet TAKE 1 TABLET BY MOUTH EVERY 6 HOURS NEEDED FOR SPASMS 06/03 completed Not Available Not Available Not Available trazodone 100 mg tablet TAKE 2 TABLETS BY MOUTH AT BEDTIME NEEDED FOR INSOMNIA 05/14 completed Not Available Not Available Not Available dexametha sone 2 mg tablet TAKE 5 TABLETS BY MOUTH ONCE DAILY FOR ONE DAY. TAKE ALL AT THE SAME TIME TODAY active Not Available Not Available No t Available cephalexi n 500 mg capsule TAKE 1 CAPSULE BY MOUTH THREE TIMES DAILY FOR 7 DAYS 11/04 completed Not Available Not Available Not Available pantopraz ole 40 mg tablet,de layed release TAKE 1 TABLET BY MOUTH TWICE DAILY 02/13 completed Not Available Not Available Not Available buspirone 10 mg tablet TAKE 1 TABLET BY MOUTH TWICE DAILY 09/27 completed Not Available Not Available Not Available bupropion HCl 75 mg tablet TAKE 1 TABLET BY MOUTH ONCE DAILY IN THE MORNING FOR 30 DAYS 07/04 completed Not Available Not Available Not Available mometason e 50 mcg/actua tion nasal spray Farrar 2 sprays every day by intranas al route for 30 days. 08/23 completed Not Available Not Available Not Available folic acid 1 mg tablet TAKE 2 TABLETS BY MOUTH ONCE DAILY FOR 14 DAYS 08/23 completed Not Available Not Available Not Available hydroxyzi ne HCl 25 mg tablet TAKE 1 TABLET BY MOUTH TWICE DAILY NEEDED FOR ANXIETY active Not Available Not Available No t Available olanzapin e 15 mg tablet TAKE 1 TABLET BY MOUTH ONCE DAILY AT BEDTIME 08/23 completed Not Available Not Available Not Available mupirocin 2 % topical ointment APPLY A SMALL AMOUNT TO THE AFFECTED AREA THREE TIMES DAILY 08/23 completed Not Available Not Available Not Available ergocalci ferol (vitamin D2) 1,250 mcg (50,000 unit) capsule Take 1 capsule every week by oral route for 60 days. 08/23 completed Not Available Not Available Not Available polyethyl mattie glycol 3350 17 gram/dose oral powder MIX 1 CAPFUL IN FLUID AND DRINK ONCE DAILY 02/10 completed Not Available Not Available Not Available propranol ol 20 mg tablet two times daily 02/21 completed Recorded 03/23/19 8:20AM by Sera De Leon LPN, Office Visit; Refill Quantity : 0; Not Available Not Available Not Available ondansetr on 4 mg disintegr ating tablet DISSOLVE 1 TABLET IN MOUTH EVERY 6 HOURS NEEDED FOR NAUSEA AND VOMITING 02/10 completed Not Available Not Available Not Available cefdinir 300 mg capsule TAKE 1 CAPSULE BY MOUTH TWICE DAILY FOR 7 DAYS 02/25 completed Not Available Not Available Not Available dexametha sone sodium phosphate 10 mg/mL injection solution Take 1 mL by injectio n route. 11/18 completed Not Available Not Available Not Available lithium carbonate 300 mg tablet TAKE 2 TABLETS BY MOUTH ONCE DAILY AT BEDTIME 08/23 completed Not Available Not Available Not Available fluticaso ne propionat e 50 mcg/actua tion nasal spray,anai pension USE 1 SPRAY(S) IN EACH NOSTRIL TWICE DAILY 02/13 completed Not Available Not Available Not Available sertralin e 50 mg tablet TAKE 1 TABLET BY MOUTH ONCE DAILY active Not Available Not Available No t Available loratadin e 10 mg tablet TAKE 1 TABLET BY MOUTH ONCE DAILY NEEDED FOR ALLERGY SYMPTOMS 02/13 completed Not Available Not Available Not Available Phenergan 25 mg/mL injection solution Take 25 mg by injectio n route. 02/10 completed Not Available Not Available Not Available amoxicill in 875 mg-potass ium clavulana te 125 mg tablet Take 1 tablet twice a day by oral route for 10 days. 06/03 completed Not Available Not Available Not Available Ventolin HFA 90 mcg/actua tion aerosol inhaler INHALE 2 PUFFS BY MOUTH EVERY 4 HOURS NEEDED 08/23 completed Not Available Not Available Not Available Valtrex 1,000 mg tablet two times daily 10/28 completed Recorded 01/28/20 22 9:49AM by Rosa Valdez, Office Visit; Refill Quantity : 14; Tablet; Not Available Not Available Not Available azithromy yecenia 500 mg tablet TAKE 1 TABLET BY MOUTH ONCE DAILY FOR 5 DAYS 02/15 completed Not Available Not Available Not Available escitalop francisco javier 10 mg tablet TAKE 1/2 (ONE-VIJAYA F) TABLET BY MOUTH ONCE DAILY FOR 4 DAYS THEN 1 ONCE DAILY 02/10 completed Not Available Not Available Not Available escitalop francisco javier 20 mg tablet TAKE 1 TABLET BY MOUTH ONCE DAILY 02/10 completed Not Available Not Available Not Available aripipraz ole 10 mg tablet Take 1 tablet every day by oral route. 06/[address] TORRE Not Available Not Available Not Available Abilify 15 mg tablet Take 1 tablet every day by oral route. 02/21 completed Not Available Not Available Not Available aripipraz ole 5 mg tablet TAKE 1 TABLET BY MOUTH ONCE DAILY 04/22 completed Not Available Not Available Not Available bupropion HCl XL 150 mg 24 hr tablet, extended release TAKE 1 TABLET BY MOUTH ONCE DAILY 07/04 completed Not Available Not Available Not Available duloxetin e 30 mg capsule,d elayed release TAKE 1 CAPSULE bid 10/28 completed Not Available Not Available Not Available Cymbalta 60 mg capsule,d elayed release Take 1 capsule every day by oral route. 01/26 completed Not Available Not Available Not Available sumatript an succinate as needed 10/06 completed vo KM/; Recorded 08/26/19 22 7:29AM by Sera De Leon LPN, Office Visit; Refill Quantity : 10; Tablet; Not Available Not Available Not Available cyclobenz aprine (bulk) 5mg tid prn 04/02 completed Not Available Not Available Not Available quetiapin e 50 mg tablet TAKE 1 TABLET DAILY AT BEDTIME 10/28 completed Not Available Not Available Not Available Symbicort 160 mcg-4.5 mcg/actua tion HFA aerosol inhaler INHALE 2 PUFFS BY MOUTH TWICE DAILY FOR 30 DAYS 02/13 completed Not Available Not Available Not Available lithium aspartate 5 mg capsule Take 1 capsule every day by oral route. 08/23 completed Not Available Not Available Not Available lamotrigi ne 100 mg disintegr ating tablet Place 1 tablet twice a day by translin gual route. completed Not Available Not Available Not Available Xarelto 10 mg tablet TAKE 1 TABLET BY MOUTH ONCE DAILY 02/10 completed Not Available Not Available Not Available Emgality Pen 120 mg/mL subcutane ous pen injector Inject 120mg subcutan eously monthly 2024 active Not Available Not Available Not Avai lable Vitals Date Recorded Body height Body mass index (BMI) Body weight Oxygen saturation Heart rate Respiratory rate Body temperature Systolic And Diastolic Provider Name and Address Organization Details Last Updated DateTime 160.02 cm 33.2 kg/m2 70923.1 7 g 98 % 78 /min 18 /min 98 [degF] 118/70 mm[Hg] SERA DE LEON [facility] 10:01:13 Social History Question Answer Notes LastModified by [employer] Details LastModified Time Tobacco Smoking Status Former Smoker Edu cabral [facility] 07/23/2023 09:43:13 What Was The Date Of Your Most Recent Tobacco Screening? 02/13/2025 [email or web address] Information not available 02/13/2025 Sex: Unknown Functional Status Question Answer Note LastModified by [employer] Details LastModified Time Do you use any illicit or recreational drugs? Yes gummies occasionally [email or web address] Information not available 12/20/2023 What is your level of alcohol consumption? None [email or web address] Information not available 12/20/2023 Mental Status None recorded. Family History Nothing Reported Notes:Breast Cancer In stabl e health: Father; htn, Mother; heart, htn Medical History No medical history recorded. Gynecological HistoryNo gynecological history recorded. Obstetrics History GPAL:G 0 P 0 0 0 0 Immunizations Vaccine Type Date Status Note Provider Nam e and Address Organization Details Recorded Time Hib-Hep B 08/07/2001 completed Chantal cabral [facility] 09/01/2022 14:08:20 IPV 08/07/2001 [facility] 14:08:20 Hib-Hep B 05/30/2000 completed WALT GAONA PA-C [address] [place], [address], [facility] 08/01/2022 15:29:02 Hib-Hep B 08/07/2001 completed WALT GAONA PA-C [address] [place], [address], [facility], Omega[facility]. 08/01/2022 15:29:02 IPV 04/04/2000 completed WALT GAONA PA-C [address] [place], [address], [facility], LMildredLMildredC. 08/01/2022 15:29:02 IPV 05/30/2000 completed WALT GAONA PA-C [address] [place], [address], [facility] L[facility]LM[facility]red[facility]. 08/01/2022 15:29:02 IPV 08/07/2001 completed WALT GAONA PA-C [address] [place], [address], [facility], L.LMildredC. 08/01/2022 15:29:02 MMR 07/04/2000 completed WALT GAONA PA-C [address] [place], [address], [facility], L.LMildredC. 08/01/2022 15:29:02 MMR 08/03/2020 completed WALT GAONA PA-C [address] [place], [address], [facility], L.LMildredC. 08/01/2022 15:29:02 Tdap 06/01/2020 completed WALT GAONA PA-C [address] [place], [address], [facility], LMildredLMildredCMildred 08/01/2022 15:29:02 Hep B, unspecified formulation 04/04/2000 completed WALT GAONA PA-C [address] [place], [address], [facility], [place] 08/01/2022 15:29:02 Hib (PRP-T) 04/04/2000 completed WALT GAONA PA-C [address] [place], [address], [facility], [place] 08/01/2022 15:29:02 Hib (PRP-T) 07/04/2000 completed WALT GAONA PA-C [address] [place], [address], [facility], [place] 08/01/2022 15:29:02 DTaP 04/04/2000 completed WALT GAONA PA-C [address] [place], [address], [facility], OmegaCMildred 08/01/2022 15:29:02 DTaP 05/30/2000 jose GAONA PA-C [address] [place], [address], [facility], [place] 08/01/2022 15:29:02 DTaP 07/04/2000 jose GAONA PA-C [address] [place], [address], [facility], FedeLNemesio 08/01/2022 15:29:02 DTaP 08/07/2001 jose GAONA PA-C [address] [place], [address], [facility], [place] 08/01/2022 15:29:02 Past Encounters Encounter ID Performer Location Encounter Start Date Encounter Closed Date Diagnosis/Indication Diagnosis SNOMED-CT Code Diagnosis ICD10 Code Diagnosis IMO Codes Diagnosis Note [id number] WALT GAONA PA-C [facility] ([facility]) [address] [place] [address] 10/28/2024 11:39:45 11/03/2024 13:33:32 Recurrent urinary tract infection 267863814 N39.0 [id number] NESTOR ARGUETA [facility] ([facility]) [address] [place] [address] 11/04/2024 11:02:33 11/10/2024 14:31:11 Congestion of nasal sinus 34589122 R09.81 767932 Strep panel negative. Push cold oral fluids including Popsicles. Alternate tylenol/mo dinora for fever or discomfort .May use throat lozenges, chlorasept ic spray, or saltwater gargles.If you develop worsening symptoms such as unable to swallow, persistant fever, or concerns arise then return for re-eval. Acute headache 308879863 R51.9 [id number] Injections administer ed in clinic today. Discussed to taken 25mg Benadryl when at home today. Push oral fluids including some caffeine. Rest in a cool dark room.If you develop fever, neck, or worsening s/s then f/u in ER [id number] WALT GAONA PA-C [facility] ([facility]) [address] [place] [address] 11/18/2024 09:42:44 11/18/2024 10:28:25 Acute bacterial bronchitis 393581044 J20.8 B96.89 [id number] Health Concerns Section Related Observation LastModified by Organization Detai ls LastModified Time None Recorded Concern Status LastModified by Organization Details LastModified Time None Recorded Payers Encounter Date Sequence Insurance Name Policy Number Policy Perez Covered Member ID Perez Member ID Guarantor Name 11/18/2024 1 [facility] (MEDICAID REPLACEMENT - HMO) COREY Fallon [id number] Lolly Fallon Notes Date Note Type Note Provider Name and Address Organization Details Recorded Time 11/18/2024 text/html Upper Respirator y SymptomsReported by PatientUpper Respiratory SymptomsFor quality, patient reportscongested,hacki ng cough, andwheezy cough. For associated symptoms, patient reportschest pain,wheezing,difficul ty breathing at night, andfatigue. For location, patient reportschest. For severity, patient reportsmoderate. For duration, patient reportssymptoms lasting over 2 weeks. For onset/timing, patient reportssudden. For context, patient reportsno sick contacts,no foreign travel, andnon-smoker. For alleviating factors, patient reportsanalgesics. [facility] was put on zpak 500mg x 5, prednisone and cough syrup. days sat, I can't get anything up but its loose2 weeks of symptoms. cough and tightness in chest is the worst. WALT GAONA PA-C [address] [place], [address], [facility] - [facility], [place] 11/18/2024 10:27:06 OBGyn Episode No OBEpisode recorded.
--- OUTSIDE RECORDS SUMMARY | 2025-02-15 09:49 | XMS_ITS | Patient Health Record ---
Author Organization [facility] Address [address] [place] [address] Care Team Providers Care Conditioning Coach Name Role Phone [place], [facility] Primary Care Provider [facility], [facility] Unavailable [phone] Allergies No Known Allergies Reason For Referral [...] W/U Status Risk Notes Problem Primary insomnia (1750236) Primary insomnia (F51.01) Active confirmed Problem Anxiety (15765358) Anxiety (F41.9) Active confirmed Problem Depression (020016185) Other depression (F32.89) Active confirmed Problem Morbid obesity (733224335) Morbid obesity (E66.01) Active confirmed Problem Body mass index 40+ - severely obese (636384588) Body mass index [BMI] 40.0-44.9, adult (Z68.41) Active confirmed Plan Of Treatment No Information Insurance Providers Payer Name Payer Address Payer Phone Subscriber Number Group Number Insured Name Patient Relationship to Insured Coverage Start Date Coverage End Date [facility] [employer] [address] [place] [address] [id number] Lolly Fallon Self - patient is the insured [place] Medicaid [address] [place] [address] [id number] Lolly Fallon Self - patient is the insured Medical (General) History Medical History History ICD Code anxiety depression bipolar disorder, manic migraine headaches Surgical History Surgery Date(Month/Year) tubal ligation 2020 cholecystectomy 2018 Hospitalization History Reason Date(Month/Year) childbirth
--- OUTSIDE RECORDS SUMMARY | 2025-02-15 09:49 | XMS_ITS | Data Portability ---
Author Organization [facility] Jorge Sanchez [facility], [place], [facility] Address [address] [address] Care Team Providers Care Orchid Hand Name Role Phone WALT BALLESTEROS Primary Care Provider Unavailabl e Assessment No assessment recorded. Plan of Treatment Reminders Order Date Submit Date Provider Last Modified By Organization Details Last Modified Time Details Appointments OFFICE VISIT 20 2024 03:00P Doug BALLESTEROS PA-C Not available Not available Not available Lab pharyngea l pathogens DNA and RNA panel, ARIES+non-p robe, throat 2024 025 [facility] ([facility]), [address] [place] [address], [address], 11/04/2024 11:44:48 urinalysi s, complete 2024 025 [facility], [address] [place] [address], [address], [address], 10/28/2024 13:58:42 culture, urine 2024 025 [facility], [address] [place] [address], [address] [place], [address], 10/30/2024 14:19:37 culture, urine 2024 025 [facility], [address] [place] [address], [address] C, [place], [address], 09/11/2024 04:13:13 urinalysi s, dipstick 2024 025 [facility] ([facility]), [address] [place], [address], 09/08/2024 13:04:02 Referral urologist referral [address] [facility], [address] [place], [address], 11/13/2024 16:58:30 Procedures None recorded. Surgeries None recorded. Imaging None recorded. Medication Orders Symbicort 160 mcg-4.5 mcg/actua tion HFA aerosol inhaler 2024 025 [facility], [address], [place], [address], 02/13/2025 10:06:13 dexametha sone sodium phosphate 10 mg/mL injection solution 2024 025 Not available 11/18/2024 10:03:42 ketorolac 30 mg/mL (1 mL) injection solution 2024 025 Not available 11/18/2024 10:05:05 ketorolac 30 mg/mL (1 mL) injection solution 2024 025 Not available 11/18/2024 10:05:05 Patient TargetsNo targets recorded. Patient InstructionsNo instructions recorded. Reason for Referral Urologist Referral for Recur rent urinary tract infection Referring Physician: Walt Ballesteros, Family Medicine, Encounter Date: 10/28/2024 Results Created Date Observation Date Name Description Value Unit Range Abnormal Flag Note LastModifiedBy Organization Detail LastModifiedTime 09/09/1909/11/2024 CULTU RE, URINE , ROUTI NE culture, urine, routine SEE NOTE abnormal CULTU RE, URINE , ROUTI NE Micro Numbe r: [id number] Test Statu s: Final Speci men Sourc e: Urine Speci men Quali ty: Adequ ate Resul t: Great er than 100,0 00 CFU/m L of Esche hi a coli COMME NT: Addit ional non-p redom inati ng organ ism(s ) isola oriana. These organ isms, commo nly found on exter nal and inter nal genit natasha, are consi dered colon izers . No furth er testi ng perfo rmed. E.col i ----- ----- ----- - INT [...] Cefaz rogelio is susce ptibl e if EARLEEN <3 2 mcg/m L and predi cts susce ptibl e to the oral agent s cefac rodger, cefdi jose, cefpo doxim e, cefpr ozil, cefur oxime , cepha lexin and lorac arbef . Not Available [facility] [address] [place], [address], 09/11/2024 04:13:12 09/09/19 25 09/08/2024 urina lysis , dipst ick Leukocytes Negati ve Not Available [facility] ([facility]) [address] [place], [address], 09/08/2024 12:54:43 09/09/19 25 09/08/2024 urina lysis , dipst ick Nitrite negati ve Not Available [facility] ([facility]) [address] [place], [address], 09/08/2024 12:54:43 09/09/19 25 09/08/2024 urina lysis , dipst ick Urobilinogen .2 Not Available [facility] ([facility]) [address] [place], [address], 09/08/2024 12:54:43 09/09/19 25 09/08/2024 urina lysis , dipst ick Protein Negati ve Not Available [facility] ([facility]) [address] [place], [address], 09/08/2024 12:54:43 09/09/19 25 09/08/2024 urina lysis , dipst ick pH 8.0 Not Available [facility] ([facility]) [address] [place], [address], 09/08/2024 12:54:43 09/09/19 25 09/08/2024 urina lysis , dipst ick Blood Negati ve Not Available [facility] ([facility]) [address] [place], [address], 09/08/2024 12:54:43 09/09/19 25 09/08/2024 urina lysis , dipst ick Specific [place] 1.025 Not Available [facility] ( [facility]) [address] [place], [address], 09/08/2024 12:54:43 09/09/19 09/08/2024 urina lysis , dipst ick Ketone Negati ve Not Available [facility] ([facility]) [address] [place], [address], 09/08/2024 12:54:43 09/09/19 25 09/08/2024 urina lysis , dipst ick Bilirubin Negati ve Not Available [facility] ([facility]) [address] [place], [address], 09/08/2024 12:54:43 09/09/19 25 09/08/2024 urina lysis , dipst ick Glucose Negati ve Not Available [facility] ([facility]) [address] [place], [address], 09/08/2024 12:54:43 09/09/19 25 09/08/2024 urina lysis , dipst ick Appearance Clear Not Available [facility] ([facility]) [address] [place], [address], 09/08/2024 12:54:43 09/09/19 25 09/08/2024 urina lysis , dipst ick Color Pale Yellow Not Available [facility] ([facility]) [address] [place], [address], 09/08/2024 12:54:43 10/29/19 25 10/28/2024 URINA LYSIS WITH MICRO color YELLOW Not Available [facility] [address] [facility], [place], [address], 10/28/2024 13:58:41 10/29/19 25 10/28/2024 URINA LYSIS WITH MICRO clarity CLEAR Not Available [facility] [address] [facility] [place], [address], 10/28/2024 13:58:41 10/29/19 25 10/28/2024 URINA LYSIS WITH MICRO glu NEGATI VE Not Available [facility] [address], [place], [address], 10/28/2024 13:58:41 10/29/19 25 10/28/2024 URINA LYSIS WITH MICRO bili NEGATI VE Not Available [facility] [address], [place], [address], 10/28/2024 13:58:41 10/29/19 25 10/28/2024 URINA LYSIS WITH MICRO ket TRACE Not Available [facility] [address], [place], [address], 10/28/2024 13:58:41 10/29/19 25 10/28/2024 URINA LYSIS WITH MICRO S.g >1.030 1.005- 1.025 high > Not Available [facility] [address], [place], [address], 10/28/2024 13:58:41 10/29/19 25 10/28/2024 URINA LYSIS WITH MICRO pH 6.0 5.0-7. 0 Not Available [facility] [address], [place], [address], 10/28/2024 13:58:41 10/29/19 25 10/28/2024 URINA LYSIS WITH MICRO pro TRACE Not Available [facility] [address], [place], [address], 10/28/2024 13:58:41 10/29/19 25 10/28/2024 URINA LYSIS WITH MICRO uro 1.0 E.U./D L Not Available [facility] [address], [place], [address], 10/28/2024 13:58:41 10/29/19 25 10/28/2024 URINA LYSIS WITH MICRO nit POSITI VE Not Available [facility] [address] [facility] [address], [place], [address], 10/28/2024 13:58:41 10/29/19 25 10/28/2024 URINA LYSIS WITH MICRO blo TRACE- LYSED Not Available [facility] [address], [place], [address], 10/28/2024 13:58:41 10/29/19 25 10/28/2024 URINA LYSIS WITH MICRO tammy NEGATI VE Not Available [facility] [address], [place], [address], 10/28/2024 13:58:41 10/29/19 25 10/28/2024 URINA LYSIS WITH MICRO WBC 1-3 abnormal Not Available [facility] [address], [place], [address], 10/28/2024 13:58:41 10/29/19 25 10/28/2024 URINA LYSIS WITH MICRO RBC 2-4 abnormal Not Available [facility] [address] [facility] 1, [place], [address], 10/28/2024 13:58:41 10/29/19 25 10/28/2024 URINA LYSIS WITH MICRO epi cells 2-4 abnormal Not Available [facility] [address], [place], [address], 10/28/2024 13:58:41 10/29/19 25 10/28/2024 URINA LYSIS WITH MICRO bacteria 2+ MIXED JEWEL abnormal Not Available [facility] [address] [facility] [address] [address], [place], [address], 10/28/2024 13:58:41 10/29/19 25 10/28/2024 URINA LYSIS WITH MICRO other NEG Not Available [facility] [address] [facility] 1, [place], [address], 10/28/2024 13:58:41 10/29/19 25 10/30/2024 CULTU RE, URINE , ROUTI NE culture, urine, routine SEE NOTE abnormal CULTU RE, URINE , ROUTI NE Micro Numbe r: [id number] Test Statu s: Final Speci men [...] lexin and lorac arbef . Not Available [facility] [address] [address], [place], [address], 10/30/2024 14:19:37 11/05/19 25 11/04/2024 phary ngeal patho gens DNA and RNA panel , ARIES+n on-pr obe, throa t Strep A negati ve Not Available [facility] ([facility]) [address] [place] [address], [address], 11/04/2024 11:21:26 11/05/19 25 11/04/2024 phary ngeal patho gens DNA and RNA panel , ARIES+n on-pr obe, throa t Rhinovirus negati ve Not Available [facility] ([facility]) [address] [place] [address], [address], 11/04/2024 11:21:26 11/05/19 25 11/04/2024 phary ngeal patho gens DNA and RNA panel , ARIES+n on-pr obe, throa t RSV negati ve Not Available [facility] ([facility]) [address] [place] [address], [address], 11/04/2024 11:21:26 11/05/19 25 11/04/2024 phary ngeal patho gens DNA and RNA panel , ARIES+n on-pr obe, throa t Influenza A negati ve Not Available [facility] ([facility]) [address] [place] [address], [address], 11/04/2024 11:21:26 11/05/19 25 11/04/2024 phary ngeal patho gens DNA and RNA panel , ARIES+n on-pr obe, throa t Influenza B negati ve Not Available [facility] ([facility]) [address] [place] [address], [address], 11/04/2024 11:21:26 Result Notes None recorded. Problems Name Problem SNOMED Code Status Onset Date Resolution Date Notes Provider Name and Address Organization Details Recorded Time Severe obesity 23370663308 104 Active 2022 OBESITY, MORBID, BMI 40.0-49. 9; Recorded 05/02/19 9:08AM by Harsh Phelps, Office Visit; Promoted ; acuity set as *; SERA cabral [facility] L[facility]LM[facility]redCMildred 11:43:22 Neck pain 05879633 Completed 202204/22/2024 NECK PAIN, ACUTE; Recorded 05/02/19 9:08AM by Harsh Phelps, Office Visit; Promoted ; acuity set as *; Removal Reason: resolved SERA cabral, [facility], L.L.CMildrde 11:43:19 Gallblad muriel pain 782548482 Completed 202204/22/2024 Gallblad muriel Problems ; removal in 2019; 05/02/19 9:08AM by Harsh Phelps, Office Visit; Promoted ; acuity set as *; Removal Reason: cholestc ystectom y [address] [facility], L.L.CMildred 11:42:55 Diarrhea 66386837 Completed 202204/22/2024 Removal Reason: resolved SERA NARENLOBITO marianna [facility], LMildredL.CMildred 11:42:22 Anxiety 17222027 Active [address] [facility] L.L.CMildred 11:42:14 Toothach e 49261539 Completed 202204/22/2024 Removal Reason: resolved SERA NARENLOBITO cabral [facility] 11:43:41 Menorrha kaden 496720645 Active [address] [facility] L.L.CMildred 11:43:05 Migraine 49480459 Active [address] [facility] L.L.CMildred 11:43:08 Streptoc occal sore throat 75163400 Completed 202304/22/2024 Removal Reason: resolved [facility] 11:43:30 Viral upper respirat ory tract infectio n 143516505 Completed 202404/22/2024 Removal Reason: resolved SERAMAYRA SNEEDLOBITO cabral [facility], L.L.CMildred 11:43:52 Gastroes ophageal reflux disease 828890745 Active 2024 SERA DE LEON [facility], LMildredL.CMildred 12:38:51 Insomnia 440736657 Active 2024 SERA DE LEON [facility], LMildredL.CMildred 12:39:25 Dysuria 40296294 Active 2024 SERA CAMARASHASHANKRODOLFO [facility], L.L.CMildred 09:12:36 Acute urinary tract infectio n 087831537 Active 2024 SERA DE LEON [facility], L[facility] 09:52:30 Recurren t herpes simplex 64036593 Active 2024 SERA DE LEON [facility] 22:18:49 Problem Notes None recorded. Procedures Surgical History Date Name Laterality Status Provider Name and Address Organization Details Recorded Time 09/27/19 24 Gastric Bypass completed SERA DE LEON [facility] L.L.CMildred 05/14/2024 15:21:17 09/10/19 21 Tubal Ligation completed SERA DE LEON [facility], LMildredL.CMildred 10/06/2022 12:53:58 Cholecystectomy completed Ashanti [facility] 12/20/2023 14:02:13 Imaging Results None recorded. Procedure Notes None recorded. Medical Equipment None Reported. Allergies Allergen ID Allergen Name Allergen Category Reaction Reaction Severity Criticality Documentation Date Start Date Code Code System Note Provider Name and Address Organization Details Recorded Time 28656 divalproe x sodium medicatio n other Not available high 01/10/2023 23643 6 RxNorm [facility] 3 09:09:20 12395 valproic acid medicatio n Not available Not available Not available 02/03/2025 05703 RxNorm Not Available adan - External Data [...] mometason e 50 mcg/actua tion nasal spray Taylor 2 sprays every day by intranas al [...] two times daily 02/21 completed Recorded 03/23/19 23 8:20AM by Sera De Leon LPN, Office [...] two times daily 10/28 completed Recorded 01/28/20 9:49AM by Rosa Valdez, Office Visit; Refill [...] an succinate as needed 10/06 completed vo /; Recorded 08/26/19 22 7:29AM by Sera De [...] and Address Organization Details Last Updated DateTime 5 160.02 cm 34.7 kg/m2 07825.1 g 97 % 86 /min 16 /min 98.5 [degF] 122/80 mm[Hg] Coby [place] [facility], L.LMildredCMildred 5 12:56:22 Date Recorded Body height Body mass index (BMI) Body weight Oxygen saturation Heart rate Respiratory rate Body temperature Systolic And Diastolic Provider Name and Address Organization Details Last Updated DateTime 5 160.02 cm 33.5 kg/m2 44482.9 6 g 98 % 82 /min 18 /min 98 [degF] 126/70 mm[Hg] SERA DE LEON [facility], L.LNemesio 5 11:46:11 Date Recorded Body height Body mass index (BMI) Body weight Oxygen saturation Heart rate Body temperature Systolic And Diastolic Provider Name and Address Organization Details Last Updated DateTime 5 160.02 cm 33.7 kg/m2 09305.9 5 g 99 % 74 /min 98.3 [degF] 128/84 mm[Hg] Khadijah Barbourkasey [facility] L.L.CMildred 5 11:17:30 Date Recorded Body height Body mass index (BMI) Body weight Oxygen saturation Heart rate Respiratory rate Body temperature Systolic And Diastolic Provider Name and Address Organization Details Last Updated DateTime 5 160.02 cm 33.2 kg/m2 95165.1 7 g 98 % 78 /min 18 /min 98 [degF] 118/70 mm[Hg] [facility] 10:01:13 Date Recorded Body height Body mass index (BMI) Body weight Oxygen saturation Heart rate Body temperature Systolic And Diastolic Provider Name and Address Organization Details Last Updated DateTime 5 160.02 cm 34.2 kg/m2 70954.3 3 g 99 % 73 /min 98.2 [degF] 116/72 mm[Hg] Courtney Terry [facility] 5 09:14:49 Social History Question Answer Notes LastModified by [employer] Details LastModified Time Tobacco Smoking Status Former Smoker Edu Proctor [facility]ianna [facility] 07/23/2023 09:43:13 What Was The Date Of Your Most Recent Tobacco Screening? 02/13/2025 [email or web address] Information not available 02/13/2025 Sex: Unknown Functional Status Question Answer Note LastModified by [employer] Details LastModified Time Do you use any illicit or recreational drugs? Yes gummies occasionally [email or web address] Information not available 12/20/2023 What is your level of alcohol consumption? None [email or web address] Information not available 12/20/2023 Mental Status None recorded. Family History Nothing Reported Notes:Breast Cancer In [facility]: Father; htn, Mother; heart, htn Medical History No medical history recorded. Gynecological HistoryNo gynecological history recorded. Obstetrics History GPAL:G 0 P 0 0 0 0 Immunizations Vaccine Type Date Status Note Provider Nam e and Address Organization Details Recorded Time Hib-Hep B 08/07/[address] [facility] 09/01/2022 14:08:20 IPV 08/07/[address] [facility] 09/01/2022 14:08:20 Hib-Hep B 05/30/2000 completed WALT BALLESTEROS PA-C [address] [place] [address], [address], [facility] 08/01/2022 15:29:02 Hib-Hep B 08/07/2001 jose BALLESTEROS PA-C [address] [place], [address], [facility], [place] 08/01/2022 15:29:02 IPV 04/04/2000 jose BALLESTEROS PA-C [address] [place], [address], [facility], [place] 08/01/2022 15:29:02 IPV 05/30/2000 jose BALLESTEROS PA-C [address] [place], [address], [facility], [place] 08/01/2022 15:29:02 IPV 08/07/2001 completed WALT BALLESTEROS PA-C [address] [place], [address], [facility], [place] 08/01/2022 15:29:02 MMR 07/04/2000 jose BALLESTEROS PA-C [address] [place], [address], [facility], [place] 08/01/2022 15:29:02 MMR 08/03/2020 jose BALLESTEROS PA-C [address] [place], [address], [facility], [place] 08/01/2022 15:29:02 Tdap 06/01/2020 jose BALLESTEROS PA-C [address] [place], [address], [facility], [place] 08/01/2022 15:29:02 Hep B, unspecified formulation 04/04/2000 jose BALLESTEROS PA-C [address] [place], [address], [facility], [place] 08/01/2022 15:29:02 Hib (PRP-T) 04/04/2000 jose HORNS, PA-C [address] [place], [address], [facility], [facility] 08/01/2022 15:29:02 Hib (PRP-T) 07/04/2000 completed WALT BALLESTEROS PA-C [address] [place], [address], [facility], [facility] 08/01/2022 15:29:02 DTaP 04/04/2000 completed WALT BALLESTEROS PA-C [address] [place], [address], [facility], [facility] 08/01/2022 15:29:02 DTaP 05/30/2000 completed WALT BALLESTEROS PA-C [address] [place], [address], [facility], [facility] 08/01/2022 15:29:02 DTaP 07/04/2000 completed WALT BALLESTEROS PA-C [address] [place], [address], [facility], [facility] 08/01/2022 15:29:02 DTaP 08/07/2001 completed WALT BALLESTEROS PA-C [address] [place], [address], [facility], [facility] 08/01/2022 15:29:02 Past Encounters Encounter ID Performer Location Encounter Start Date Encounter Closed Date Diagnosis/Indication Diagnosis SNOMED-CT Code Diagnosis ICD10 Code Diagnosis IMO Codes Diagnosis Note [id number] Bunny [address] [facility] ([facility]) [address] [place] [address] 07/04/2022 10:33:06 07/04/2022 19:58:31 Diarrhea 93703637 R19.7 continue to push fluids. we will treat any underlying issue that arises from testing. Anxiety 37811727 F41.9 start buspirone. She sees [facility] [place]. discussed calling them or utilizing their walk in. [id number] WALT BALLESTEROS PA-C [facility] ([facility]) [address] [place] [address] 08/01/2022 15:08:04 08/06/2022 16:55:52 Gastroesophageal reflux disease 264451913 K21.9 Right lowe r quadrant pain 626096525 R10.31 [id number] WALT BALLESTEROS PA-C [facility] ([facility]) [address] [place] [address] 08/14/2022 14:00:38 08/14/2022 19:05:41 [id number] CAROLIN SANTIZO NP [facility] ([facility]) [address] [place] [address] 09/01/2022 13:52:31 09/01/2022 16:43:38 COVID-19 781933368 U07.1 Postive COVID test in clinic todayPhysi jennifer print out copy of COVID result and work note with quarantine guidelines given to patient for work Increase PO fluidsPati ent requested refill on 800mg Ibuprofen for headache symptomOTC Tylenol as neededOTC cough medicine or honey as neededOTC Flonase and allergy medication for post nasal drainage/d rainage. Patient received instructio ns on self-quara ntine for symptoms of COVID 19 as appropriat e, in addition to basic reinforcem ent of social distancing , mask use, hand washing and other preventati ve measures. patient is to continue to manage symptoms as needed with OTC medication s Concerning symptoms such as worsening difficulty breathing, persistent pain/press ure in chest, new confusion, decreased urine output, inability to stay awake, bluish colored lips or face, or any other concerning symptoms were reviewed with the patient. Return to clinic if any changes, any worsening, any concernsPa tient verbalized understand ing of plan. Toothache 27660058 K08.8 [id number] [facility] ([facility]) [address] [place] [address] 09/27/2022 16:49:13 09/27/2022 18:34:24 Acute bronchitis with bronchospasm 88693466 J20.9 Expiratory wheezing 9763 007 R06.2 Headache 96146918 R51.9 [id number] WALT BALLESTEROS PA-C [facility] ([facility]) [address] [place] [id number] 10/06/2022 12:17:25 10/16/2022 12:57:49 Venereal disease screening 878413925 Z11.3 Generalize d anxiety disorder 72634908 F41.1 spent 20 min with pt [id number] TRENTON MCCABE [facility] ([facility]) [address] [place] [address] 10/27/2022 08:50:19 10/27/2022 18:09:39 Acute pharyngitis 562312211 J02.9 Reassured with negative strep test today. Discussed with patient that this is likely viral and will have to run its course. Can give tylenol/ib uprofen as needed for pain and fevers. If worsening condition or no improvemen t in 7-10 days, return for further evaluation . [id number] WALT BALLESTEROS PA-C [facility] ([facility]) [address] [place] [id number] 11/08/2022 13:51:35 11/08/2022 17:07:35 Chronic neck pain for greater than 3 months 8127038889 70073 M54.2 failed PT Cervical radiculitis 110 43893 M54.12 Menorrhagia 617222310 N9 2.0 [id number] WALT BALLESTEROS PA-C [facility] ([facility]) [address] [place] [address] 12/04/2022 11:24:18 12/04/2022 12:28:33 Dysuria 23050194 R30.0 Acute urin haresh tract infection 515197008 N39.0 urine better here than in ER. sadero helping in that way but she still his having back pain and pressure. Will change antiobitic . I dont see a culture done over there. I did review a CT from July and pelvic u/s from August that were both normal [id number] NESTOR GUARDADO [facility] ([facility]) [address] [place] [id number] 01/10/2023 08:59:11 01/10/2023 10:55:48 Acute pharyngitis 348375709 J02.9 Upper resp iratory infection 48918212 J06.9 [id number] WALT BALLESTEROS PA-C [facility] ([facility]) [address] [place] [address] 01/26/2023 13:13:44 01/26/2023 16:18:47 Migraine 40619179 G43.731 [id number] ALIYAH LORENZ [facility] ([facility]) [address] [place], [place] [address] 5 02/13/2023 17:57:54 02/13/2023 18:58:58 Acute pharyngitis 916096868 J02.9 [id number] WALT BALLESTEROS PA-C 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 she does not have a job decription but does not thing she will be lifting any residents. 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 Discussed to push oral fluids and continue otc meds. If you develop fever or worsening s/s then return for re-eval [id number] Malik Crane DO [facility] ([facility]) [address] [place] [address] [id number] 5 04/04/2023 15:29:27 04/04/2023 16:33:23 Respiratory tract congestion and cough [id number] R05.9 Acute bronchitis 0617497 2 J20.9 Covid/ Flu negative today. s/s mod/severe and worsening. Counseled abx, steroid, Albuterol inhaler, Tessalon Pearls. [id number] WALT BALLESTEROS PA-C [facility] ([facility]) [address] [place] [address] [phone] 5 04/19/2023 10:30:35 04/19/2023 11:51:05 Contact dermatitis 48413292 L25.9 Impetigo 44917399 L01.00 [id number] [address] [facility] ([facility]) [address] [place] [address] [phone] 5 07/23/2023 09:37:19 07/23/2023 10:19:45 Community acquired pneumonia [id number] J18.9 Continue the amox and z-dominique as prescribed .Will start the nasal spray to help with sinus congestion .Inhaler to help with tightness to breathing and wheezingRe turn if you develop worsening s/s [id number] WALT BALLESTEROS PA-C [facility] ([facility]) [address] [place] [address] [phone] 5 08/24/2023 10:51:57 08/24/2023 11:35:50 Diarrhea 59386304 R19.7 [id number] Bunny Colbert MD [facility] ([facility]) [address] [place] [address] 72581-409 5 12/20/2023 13:51:37 12/24/2023 06:07:32 Migraine 98770258 G43.909 Will provide a prescripti on for Phenergan today. Unable to do Toradol due to recent bariatric surgery. There was concerns about providing oral Imitrex so we will transition to nasal Imitrex to help abort her migraine. Patient was agreeable to this plan [id number] Bunny Colbert MD [facility] ([facility]) [address] [place] [address] [id number] 5 02/11/2024 10:37:22 02/11/2024 12:02:45 Sore throat 219028657 J02.9 Streptococ jennifer sore throat 65341601 J02.0 Postive strep test. start abx. discussed symptom management and recommende d precaution s. f/u if sx do not improve [id number] NESTOR ARGUETA [facility] ([facility]) [address] [place] [address] [id number] 5 02/26/2024 10:38:14 03/04/2024 09:07:33 Acute gastroenteritis 72220296 K52.9 Discussed BRATS diet, small frequent sips of fluid. Rest.VSS. No signs of acute abd on exam today.If you develop fever, no urine output over 24 hours, bloody stools/chon sis, abd pain, or concerns arise return for re-eval. [id number] Bunny Colbert MD [facility] ([facility]) [address] [place] [address] [phone] 5 03/20/2024 09:24:56 03/24/2024 09:20:29 Viral upper respiratory tract infection 549475395 J06.9 Patient presented with symptoms of viral upper respirator y infection. Advised to drink plenty of fluids, run a cool-mist humidifier in room at night, gargle salt water for sore throat, and get plenty of rest. Patient should avoid over-exert ion and reduce exposure to irritants such as smoke, cold, dry air, and dust. Treatment currently involves symptomati c relief. Patient may take acetaminop hen or ibuprofen as directed to reduce fever and body aches. Antihistam ine and decongesta nt usage was discussed and recommenda tions made. Patient understood these instructio ns and will follow up in the office in 7-10 days if symptoms not improving. [id number] WALT BALLESTEROS PA-C [facility] ([facility]) [address] [place] [address] [id number] 5 04/22/2024 11:16:22 04/22/2024 12:22:54 Gynecologic examination 56639347 Z01.419 Vaginal discharge 500728 006 N89.8 Bacterial vaginosis 4197 73563 N76.0 [id number] WALT BALLESTEROS PA-C [facility] ([facility]) [address] [place] [address] [phone] 5 05/14/2024 14:51:23 05/14/2024 16:14:14 Strain of neck muscle 619022169 S16.1XXD Daytime somnolence 76513 23236 00 R40.0 sleep lab Snoring 98030362 R06.83 [id number] Malik Crane DO [facility] ([facility]) [address] [place] [address] 5 05/26/2024 11:35:16 05/26/2024 12:12:25 Acute maxillary sinusitis 21294918 J01.00 I counseled pt on diagnosis and treatment. we will start abx, pt to take OTC antihistam ine. return if not improving in 1-2 wks. [id number] NESTOR GUARDADO [facility] ([facility]) [address] [place] [address] 5 05/28/2024 11:33:37 05/28/2024 13:17:10 Right lower quadrant pain 968733731 R10.31 Pain in pelvis 74788636 R10.2 [id number] WALT BALLESTEROS PA-C [facility] ([facility]) [address] [place] [address] 5 06/03/2024 09:51:23 06/03/2024 11:40:32 Menorrhagia 438039601 N92.0 4 out of 7 days heavy. clots. changed overnight pad q 2-3 hrs.has appt with Lidia Bee NP in June History of bariatric surgical procedure 217249173 Z98.84 Gastroesop hageal reflux disease 616098984 K21.9 take PPI daily on empty stomach. use famotidine prn for breakthrou gh pain. [id number] NESTOR GUARDADO [facility] ([facility]) [address] [place], [place] [address] 5 06/10/2024 11:41:30 06/11/2024 12:39:59 [id number] WALT BALLESTEROS PA-C [facility] ([facility]) [address] [place], [place] [address] 5 07/22/2024 09:11:40 07/22/2024 18:01:48 Dysuria 84036489 R30.0 73734 Recurrent urinary tract infection 713723456 N39.0 [id number] [id number] WALT BALLESTEROS PA-C [facility] ([facility]) [address] [place] [address] [phone] 5 08/06/2024 13:31:26 08/07/2024 11:46:[id number] [facility] ([facility]) [address] [place] [address] [phone] 5 09/08/2024 12:50:04 09/08/2024 13:46:35 Dysuria 06326707 R30.0 91139 Normal UA. WIll send for culture. Low back pain 696189148 M54.59 [id number] May use tylenol for back pain. Increase po fluids. Monitor symptoms. Patient advised to rest initially and then slowly increase activity level. RTC with any new or worsening symptoms. [id number] WALT BALLESTEROS PA-C [facility] ([facility]) [address] [place] [address] [phone] 5 10/28/2024 11:39:45 11/03/2024 13:33:32 Recurrent urinary tract infection 601303872 N39.0 350768 [id number] MERY LEES FIRMWARE DEVEL[employer] [facility] ([facility]) [address] [place] [address] 79713-792 5 11/04/2024 11:02:33 11/10/2024 14:31:11 Congestion of nasal sinus 02014437 R09.81 952496 Strep panel negative. Push cold oral fluids including Popsicles. Alternate tylenol/mo dinora for fever or discomfort .May use throat lozenges, chlorasept ic spray, or saltwater gargles.If you develop worsening symptoms such as unable to swallow, persistant fever, or concerns arise then return for re-eval. Acute headache 257705370 R51.9 990105448 Injections administer ed in clinic today. Discussed to taken 25mg Benadryl when at home today. Push oral fluids including some caffeine. Rest in a cool dark room.If you develop fever, neck, or worsening s/s then f/u in ER [id number] WALT BALLESTEROS PA-C [facility] ([facility]) [address] [place] [address] [phone] 5 11/18/2024 09:42:44 11/18/2024 10:28:25 Acute bacterial bronchitis 487876642 J20.8 B96.89 [id number] [id number] Malik Crane DO [facility] ([facility]) [address] [place] [address] 02/13/2025 09:05:04 02/13/2025 10:59:38 Anxiety 20504306 F41.9 02/13/25: deteriorat ed, couneled restart Sertraline at 50mg, Hydroxyzin e 25mg BID PRN, ok to start with 1/2 tablet if 1 full tablet makes her sleepy. Counseled on diagnosis, treatment options including medication s and possible side effects. Keep scheduled appt with Walt Ballesteros on 02/18/25. Health Concerns Section Related Observation LastModified by Organization Detai ls LastModified Time None Recorded Concern Status LastModified by Organization Details LastModified Time None Recorded Advance Directives Directive None Recorded Payers Insurance Date Sequence Insurance Name Policy Number Policy Perez Covered Member ID Perez Member ID Guarantor Name 02/13/2025 1 [facility] [place] [facility] Lolly Bela Fallon [id number] Lolly S Vasyl 04/24/2024 1 *SELF PAY* Jenny Fallon 02/13/2025 [place] [id number] ) Lolly S Vasyl [id number] Lolly S Vasyl 02/13/2025 1 [place] Lolly S Vasyl [id number] Lolly S Vasyl 02/13/2025 1 [facility] [place] [place] [facility] Lolly S Vasyl [id number] Lolly S Vasyl 02/13/2025 1 [facility] Lolly S Vasyl [id number] Lolly S Vasyl 07/04/2022 1 *SELF PAY* Jenny Fallon Notes Date Note Type Note Provider Name and Address Organization Details Recorded Time 09/08/2024 text/html Lower Urinary Tr act Symptoms (LUTS)Reported by PatientROS as noted in the HPI walk in patientpatient is here today for lower back pain and nausea that started 5 days ago. States that the last time this happened she had a UTI. No dysuria. DARIAN MICHAEL, FIRMWARE DEVELOPER [address] [place], [address], [facility], LMildredLMildredC. 09/08/2024 19:05:55 10/28/2024 text/html Lower Urinary Tr act Symptoms (LUTS)Reported by PatientHPIFor location, patient reportsbladder. For quality, patient reportspainless. For severity, patient reportsimproving. For duration, patient reportschronic. For context, patient reportsdenies excessive fluid intake,denies excessive caffeine intake,no dyspareunia, anddenies new medication treatment. walkin follow up uti culture showed growth antibiotic changed from bactrim to cephalexin they recommend she see a urologist , I never have symptoms so I cannot tell if its better or not WALT BALLESTEROS PA-C [address] [place], [address], [facility], LMildredLMildredC. 10/31/2024 15:56:21 11/04/2024 text/html ROS as noted in the HPI walk inx3 days c/o migraine-similar to other migraines. This morning developed a sore throat and congestion. Hx of migraines and states these are typical symptoms for her. MERY NABEEL, [facility] [address] [place], [address], [facility], LMildredLMildredC. 11/05/2024 09:47:31 11/18/2024 text/html Upper Respirator y SymptomsReported by PatientUpper Respiratory SymptomsFor quality, patient reportscongested,hack ing cough, andwheezy cough. For associated symptoms, patient reportschest pain,wheezing,difficu lty breathing at night, andfatigue. For location, patient reportschest. For severity, patient reportsmoderate. For duration, patient reportssymptoms lasting over 2 weeks. For onset/timing, patient reportssudden. For context, patient reportsno sick contacts,no foreign travel, andnon-smoker. For alleviating factors, patient reportsanalgesics. [facility] was put on zpak 500mg x 5, prednisone and cough syrup. days sat, I can't get anything up but its loose2 weeks of symptoms. cough and tightness in chest is the worst. WALT BALLESTEROS PA-C [address] [place], [address], [facility] [place] 11/18/2024 10:27:06 02/13/2025 text/html Walk in Pt presents c/o panic attacks. Described as feeling like her chest gets super tight, HR increases to 140-150's, she starts sweating, lose my vision , and starts crying.Onset 3 days ago.She admits h/o Anxiety, hasn't had attacks to this severity previously. She doesn't recall anything that may have triggered this at home or work. She feels her work has been going fine. She feels everything has gone fine with the holidays.No new relationships. Previously on Abilify, Bupropion, Buspirone, Clonazepam, Cymbalta, Escitalopram, Hydroxyzine, Olanzapine, Quetiapine, Sertraline. Most recently she stopped Sertraline 100mg and Trazodone.She admit she stopped Hydroxyzine previously because it made her sleepy and she is a single mom or 3 kids, felt she couldn't take it and get sleepy. She is taking Valacyclovir for recurrent Herpes Simplex. Appt scheduled with PCP, Walt Ballesteros, on 02/18/25, in 5 days. She works weekend double shifts and is concerned she shouldn't wait to be seen until 02/18/25. Not Available Not Available Not Available OBGyn Episode No OBEpisode recorded.
--- OUTSIDE RECORDS SUMMARY | 2025-02-15 09:49 | XMS_ITS | Patient Health Record ---
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 Name Role Phone Eusebio Hamilton Primary Care Provider Eusebio Hamilton Unavailable Unavailable Allergies No Known Allergies Reason For Referral No Information Social History Social History Additional Details Category Social Info Options Details Migrated Social History Migrated Social History Substance Use :: None :: note : - [employer] 12/30/2019 , Occupation :: Employed :: note : [employer] - [employer] 12/30/2019 , Substance Use [...] Coverage End Date Medicaid [address] [place], [place] [id number] Lolly Fallon Self - patient is the insured Medical (General) History Surgical History Surgery Date(Month/Year) Gallbladder Surgery: - [employer] 12/30/19 20; 12/30/2019
--- OUTSIDE RECORDS SUMMARY | 2025-02-15 09:49 | XMS_ITS | Encounter Summary ---
Author Organization [facility] Address [address] [place] [address] Care Team Providers Care Lathe Set Up Operator Name Role Phone Unavailable Primary Care Provider Unavailabl e Encounter Details Date Type Department Care Team (Late Contact Info) Description 01/07/2025 Results Follow-Up [facility] [place] [address] [address] Afshan Castro FNP [facility] [address] [address] [address] URINARY [facility]I WO CONTRAST Social History Tobacco Use Types Packs/Day Years Used Date Smoking Tobacco: Never Assessed Comments Unknown Sex and Gender Information Value Date Recorded Sex Assigned at Not on file 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
[2025-02-15 09:59] VITALS: BP 116/75; PULSE 89; RESP 17; TEMP 36.7; O2SAT 97; BMI 31.8
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
[2025-02-15] MEDS: metoclopramide 5 mg/mL SDV 2 mL 10 MG IVP (10:47)
[2025-02-15] MEDS: diphenhydrAMINE 50 mg/mL SDV 1mL IVP (10:49)
[2025-02-15 11:22] VITALS: BP 120/82; PULSE 82; O2SAT 97
== END 2025-02-15 11:23 | disposition home or self-care (01) ==
PROVIDERS: Emergency Provider Emergency Medicine; PCP Physician Assistant
DX: R51.9 Headache, unspecified (principal)
CPT/HCPCS: 96374; 96375; 99284; J1200; J1885; J2765